=== PATIENT | male | born 1970 | race Caucasian/White ===

== ENCOUNTER → 2018-10-06 09:35 | Outpatient (CLI) | payer OTHER, SELFPAY ==
--- NOTE | 2018-10-06 09:42 | RAD_ITS ---
STUDY: X-RAY CHEST REASON FOR EXAM: Male, 48 years old. Chest pain TECHNIQUE: Frontal and lateral views of the chest COMPARISON: None. FINDINGS: The lungs are clear. There are no pleural effusions. There is no pneumothorax. The heart is normal in size. The visualized osseous structures are within normal limits. RAD/Chest PA and Lateral IMPRESSION: No acute thoracic pathology. Electronically Signed: Rui Brunson, at 19:40 EST Tel , Service support ,
== END ==
PROVIDERS: Family Provider Internal Medicine; PCP Internal Medicine; Referring Provider Nurse Practitioner Gerontology; Visit Provider Nurse Practitioner Gerontology
DX: R05 Cough (principal)
CPT/HCPCS: 71046

== ENCOUNTER 2019-03-09 20:17 | Emergency (ER) | payer OTHER, SELFPAY ==
[2019-03-09 20:18] VITALS: BP 134/82; PULSE 85; RESP 16; TEMP 36.6; O2SAT 96; BMI 27.0
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
--- NOTE | 2019-03-09 20:35 | RAD_ITS ---
STUDY: X-RAY - BILATERAL RIBS WITH CHEST REASON FOR EXAM: Male, 48 years old. Fall TECHNIQUE - RIBS: 6 view(s) of the ribs. TECHNIQUE - CHEST: Frontal view of the chest COMPARISON: None. FINDINGS - RIBS : There are no displaced rib fractures identified. FINDINGS - CHEST: The lungs are clear. There are no pleural effusions. There is no pneumothorax. The heart is normal in size. RAD/Ribs Silver Min 4V w/PA Chest IMPRESSION: RIBS: No displaced rib fracture identified. CHEST: Clear lungs. Electronically Signed: Kale Dupree, at 21:21 EDT Tel , Service support ,
[2019-03-09] MEDS: HYDROcodone Bitartrate/Apap 5/325 Tablet PO (21:16)
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
--- NOTE | 2019-03-09 21:43 | ED.DEP ---
ED Disposition - Plan for ED Patient: Disposition: Home or Assisted Living Instructions: ED Mechanical Fall Referrals: Anastasiia Velasco DO [Primary Care Provider] -
[2019-03-09 22:13] VITALS: BP 128/60; PULSE 78; RESP 18; O2SAT 96
== END 2019-03-09 22:15 | disposition home or self-care (01) ==
LOC: ED 21:56
PROVIDERS: Emergency Provider Emergency Medicine; Family Provider Nurse Practitioner; PCP Nurse Practitioner
DX: S20.212A Contusion of left front wall of thorax, initial encounter (principal); S90.32XA Contusion of left foot, initial encounter; W11.XXXA Fall on and from ladder, initial encounter; Y93.9 Activity, unspecified; Y92.9 Unspecified place or not applicable; Y99.9 Unspecified external cause status; E11.9 Type 2 diabetes mellitus without complications; Z72.0 Tobacco use; Z79.84 Long term (current) use of oral hypoglycemic drugs
CPT/HCPCS: 71111; 73630; 99283

== ENCOUNTER → 2019-05-05 07:04 | Outpatient (CLI) | payer OTHER, SELFPAY ==
--- NOTE | 2019-05-05 07:07 | CT_ITS ---
STUDY: LOW DOSE CT LUNG CANCER SCREENING REASON FOR EXAM: Male, 48 years old. The patient has a 50 pack-year history of smoking. RADIATION DOSAGE (If Supplied By Facility): CTDIvol = ( 3.02 ) mGy, DLP = ( 99.68 ) mGycm TECHNIQUE: No contrast was administered. Low dose technique was utilized (average mAS-38 and kVp 120). 1.25 mm axial source images with a slice interval of 1.25-mm were reconstructed in lung windows. 2.5 mm axial source images with a slice interval of 2.5-mm were reconstructed in lung windows. 5.0 mm axial source images with a slice interval of 5.0-mm were reconstructed in soft tissue windows. Nodule measured using lung windows on PACS and/or independent workstation with automated measurement of minimum and maximum diameter. Nodule measurement reported as average diameter rounded to the nearest whole number. Growth is defined as an increase ins size of greater than 1.5 mm. COMPARISON: None. NODULES: No suspicious nodules are seen. Mild increased markings in the posterior aspect of the lingular segment of the left upper lobe abutting the left major fissure suggestive of scarring. Endobronchial lesion: None. Aorta: Unremarkable. Coronary arteries: Coronary artery calcification. Pulmonary artery: Not enlarged. Mediastinal nodes: Multiple small benign-appearing mediastinal lymph nodes. Other chest and abdominal findings: CT/Low Dose CT Lung Screening IMPRESSION: Lung-RADS category 2 - Continue annual screening with LDCT in 12 months. IMPORTANT NOTES FOR USE: ACR Lung-RADS Version 1.0 Assessment Categories Release Date: January 18, 2014 Category: Coded 0-4 bases on nodule(s) with highest degree of suspicion. Negative screen is defined as categories 1 and 2; a positive screen is defined as categories 3 and 4. Category 3 and 4A nodules that are unchanged on interval CT should be coded as category 2, and individuals returned to screening in 12 months. Category 4X: Category 3 or 4 nodules with additional imaging findings that increase the suspicion of lung cancer, such as spiculation, GGN that doubles in size in 1 year, enlarged lymph notes, etc. Category Modifiers: S (significant finding unrelated to lung cancer) and C (prior history of treated lung cancer) may be added to the 0-4 Lung-RADS Electronically Signed: Mor Morales, at 9:42 EDT , Service support ,
== END ==
PROVIDERS: Family Provider Nurse Practitioner; PCP Nurse Practitioner; Referring Provider Nurse Practitioner; Visit Provider Nurse Practitioner
DX: F17.200 Nicotine dependence, unspecified, uncomplicated (principal)
CPT/HCPCS: G0297

== ENCOUNTER 2019-08-11 17:10 | Emergency (ER) | payer OTHER, SELFPAY ==
[2019-08-11 17:11] VITALS: BP 129/83; PULSE 79; RESP 14; TEMP 36.7; O2SAT 98; BMI 28.8
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
[2019-08-11] MEDS: 0.9% Normal Saline 1,000 ML 1000 ML IV (17:48)
[2019-08-11] MEDS: Morphine 4 MG/ML Syringe IV (17:48)
[2019-08-11] MEDS: BACITRACIN 15 GM Tube 1 APPLIC TOPICAL (17:49)
[2019-08-11 17:56] LABS: Absolute Lymphocyte Count 2.82 X10^3/uL (0.83-4.51); Absolute Neutrophil Count 3.8 X10^3/uL (2.0-7.7); Basophil# 0.04 X10^3/uL; Basophil% 0.5 % (0-1); Eosinophil# 0.42 X10^3/uL; Eosinophils% 5.5 % (0-5); Hematocrit 46.6 % (40-54); Hemoglobin 15.3 g/dL (13.0-16.5); Lymphocyte # 2.82 X10^3/ul (4.0); Lymphocyte % 36.7 % (19-41); Mean Corp Hgb Conc 32.8 g/dL (32-36); Mean Corpuscular Hgb 30.7 pg (27.0-32.0); Mean Corpuscular Volume 93.6 fL (80-94); Mean Platelet Vol. 9.6 fl (6.2-12.0); Monocyte# 0.58 X10^3/uL; Monocyte% 7.6 % (0-10); NRBC Flagged by Analyzer 0 % (0-5); Neutrophil # 3.81 X10^3/uL (2.7-7.7); Neutrophil % 49.6 % (47-70); Platelet Count 237 K/mm3 (150-450); RBC Distribution Width CV 13.1 % (11.6-14.6); RBC Distribution Width SD 44.5 fl (35.1-43.9); Red Blood Count 4.98 M/mm3 (4.6-6.2); White Blood Count 7.7 K/mm3 (4.4-11.0)
[2019-08-11 18:11] LABS: Anion Gap 6 (5-15); BUN 12 mg/dL (7-18); BUN/Creat Ratio 9.7 RATIO (10-20); Calcium,Total 9.1 mg/dL (8.5-10.1); Chloride 106 mmol/L (98-107); Creatinine, Serum 1.24 mg/dL (0.70-1.30); EST Glomerular Filtration Rate 65 mL/min (>60); Est Glom Filt Rate - Afr Amer 79 mL/min (>60); Estimated Creatinine Clearance 77.36 ml/min; Glucose 114 mg/dL (74-106); Potassium 3.9 mmol/L (3.5-5.1); Sodium Level 142 mmol/L (136-145)
--- NOTE | 2019-08-11 18:12 | ED.RN ---
declined chest xray
[2019-08-11] MEDS: Lidocaine 2% Jelly 1 APPLIC Tube TOPICAL (18:46)
[2019-08-11 19:11] VITALS: RESP 16
[2019-08-11] MEDS: Tetracaine 0.5% Ophthalmic Bottle OPHTHALMIC (19:25)
[2019-08-11] MEDS: Fluorescein 1 MG STRIP 1 STRIP OPHTHALMIC (19:25)
[2019-08-11 19:52] VITALS: BP 136/87; PULSE 63; RESP 16; O2SAT 96
--- NOTE | 2019-08-11 19:56 | ED.RN ---
REVIEWED D/C INSTRUCTIONS, FOLLOW UP CARE, PRESCRIPTIONS, AND S/S THAT WOULD WARRANT A RETURN TO THE ED WITH PT. PT VERBALIZED AN UNDERSTANDING AND DENIES FURTHER QUESTIONS FOR THIS RN. PT SKIN P/W/D, RESP EVEN AND UNLABORED, PT A&O X 3, NO DISTRESS NOTED. PT AMBULATED OUT OF ED, GAIT STEADY.
== END 2019-08-11 19:57 | disposition home or self-care (01) ==
PROVIDERS: Emergency Provider Emergency Medicine; Family Provider Nurse Practitioner; PCP Nurse Practitioner
DX: T20.14XA Burn of first degree of nose (septum), initial encounter (principal); T28.0XXA Burn of mouth and pharynx, initial encounter; S05.02XA Injury of conjunctiva and corneal abrasion without foreign body, left eye, initial encounter; X12.XXXA Contact with other hot fluids, initial encounter; Y93.89 Activity, other specified; Y92.9 Unspecified place or not applicable; Y99.9 Unspecified external cause status; Z23 Encounter for immunization; E11.9 Type 2 diabetes mellitus without complications; R05 Cough; Z72.0 Tobacco use; Z79.84 Long term (current) use of oral hypoglycemic drugs; Z79.899 Other long term (current) drug therapy
CPT/HCPCS: 80048; 85025; 90715; 99284; A4216

== ENCOUNTER → 2019-11-11 11:20 | Outpatient (CLI) | payer SELFPAY ==
--- NOTE | 2019-11-11 11:27 | CT_ITS ---
HISTORY: CALCIUM SCORING EXAMINATION: CT Heart Quantitative Coronary Calcium Scoring W/O Contrast Injection TECHNIQUE: Noncontrast CT images of the heart were obtained with calculation of coronary calcium score. A radiation dose optimization technique was utilized for this scan. CTDIvol 12.19 DLP 219.42 COMPARISON: None FINDINGS: LM 79.8 LAD 145 LCX 0 RCA 8.21 Total 233 Minimal atelectasis is noted. Heart size appears normal. There is less portions of the upper abdomen are unremarkable. Thoracic osteophytes. CT/Limited Chest CT w/CCTA IMPRESSION: Moderate calcified plaque burden. Cardiovascular disease risk is high. Between 75 and 90% of people with same gender and similar age have a lower calcium score. NOTE: The predictive value of CT coronary calcium scoring has been studied in populations of ASYMPTOMATIC individuals only. Any patient who is experiencing symptoms which could be attributable to coronary artery disease should be promptly evaluated regardless of their calcium score. Individualized dose optimization techniques were used for this CT. at 2335 Reported and signed by: Priscilla Funk MD Electronically Signed: Priscilla Funk MD at 23:35 EST Tel , Service support ,
[2019-11-11 12:06] VITALS: BP 134/67; PULSE 59; RESP 16; O2SAT 96; BMI 29.1
--- NOTE | 2019-11-11 18:00 | CA.SCORE ---
Calcium Scoring Date of Study:: 11/11/19 Coronary Calcium Scoring: High-resolution Computed Tomographic imaging of the chest was performed on 11/11/2019 with particular attention paid to the coronary arteries. Images from the examination were analyzed for the presence and extent of coronary artery calcification , using coronary calcium quantification software. The patient tolerated the procedure well and there were no complications. The results of the coronary calcification analysis are provided below. - Findings Left Main (LM): 79.8 Left Anterior Descending (LAD): 145 Left Circumflex (LCX): 0 Right Coronary Artery (RCA): 8.21 Total Agatston Score: 233.01 Percentile Ranking: According to pre-published reference tables between 75% and 90% of patients of the same gender/similar age had the same/lower scores. Calcium Scoring Interpretation: 0 No identifiable atherosclerotic plaque. Very low cardiovascular disease risk. <5% chance of presence coronary artery disease A Negative Examination 1-10 Minimal Plaque burden. Significant coronary artery disease very unlikely. 11-100 Mild plaque burden. Likely mild or minimal coronary atherosclerosis. 101-400 Moderate plaque burden Moderate non-obstructive coronary artery disease highly likely. Over 400 Extensive plaque burden. High likelihood of at least one significant coronary stenosis (>50% diameter) Calcium Score: 101 - 400 Moderate non-obstructive coronary artery disease highly like - Continue cardiovascular risk factor evaluation and care as deemed appropriate.
== END ==
PROVIDERS: PCP Nurse Practitioner; Referring Provider Nurse Practitioner; Visit Provider Nurse Practitioner
DX: I25.10 Atherosclerotic heart disease of native coronary artery without angina pectoris (principal)
CPT/HCPCS: 75571; 76380

== ENCOUNTER 2020-03-08 19:41 | Emergency (ER) | payer OTHER, SELFPAY ==
[2019-11-11 12:06] VITALS: BMI 29.1
[2020-03-08 19:42] VITALS: BP 150/80; PULSE 74; RESP 16; TEMP 36.6; O2SAT 97; BMI 30.5
--- NOTE | 2020-03-08 20:06 | RAD_ITS ---
STUDY: X-RAY - LEFT KNEE REASON FOR EXAM: Male, 49 years old. Fall today. Generalized left knee pain. Pain with flexion. TECHNIQUE: 4 view(s) of the knee. COMPARISON: None. FINDINGS: Normal visualized distal femur. Normal visualized proximal tibia and fibula. Normal proximal tibiofibular articulation. Mildly narrowed medial femorotibial compartment. Normal lateral femorotibial compartment. Normal patellofemoral articulation. Small patella spur. The soft tissue structures are unremarkable. RAD/Knee 4 or More Views IMPRESSION: Mild degenerative changes. Electronically Signed: Kale Hood MD at 20:24 EDT , Service support ,
[2020-03-08] MEDS: Acetaminophen 500 MG Tablet 1000 MG PO (20:23)
--- NOTE | 2020-03-08 20:42 | ED.DCSUM_ITS ---
- ER Visit Summary Date of Service: 03/08/20 Chief Complaint: Left knee pain History of Present Illness: The patient is a 49 M who sees Bela addison. He reports that approximately 2 hours ago he stepped down a stair and had the abrupt onset of severe left knee pain. He describes a sharp, aching pain that is 10 of 10 at worst and a 10 currently. Is worsened by bearing weight and relieved by rest. He reports the pain is so severe that he did fall to the ground. He denies any other injuries or complaints. No blow to the head or loss of consciousness. He is not on anticoagulants. Physical Examination: Vitals: Stable. Afebrile. Neck: No vertebral tenderness. Full ROM without difficulty. Cleared by NEXUS criteria. Back: No vertebral tenderness. General: A&O x 3. NAD. Cardiovascular exam: Regular rate and rhythm, no murmur, rub or gallop. Respiratory exam: Chest nontender. No crepitus. Clear to auscultation bilaterally. No wheezes or stridor. Abdominal exam: Soft, nontender, nondistended, normal bowel sounds. No pain in RUQ or LUQ specifically. No peritoneal signs. Extremity: Left knee: Moderate joint effusion. No overlying erythema or warmth to suggest a septic joint. He has no pain or ligamentous instability with anterior/posterior drawer or medial/lateral stress. He does have a positive Esteban with his foot deviated medially. He is neurovascular intact distal to this. Test Results: Clinical Impression(s) from Imaging Studies Knee X-Ray 03/08/20 20:06 IMPRESSION: Mild degenerative changes. Electronically Signed: Kale Hood MD at 20:24 EDT , Service support , Emergency Department Course and Treatment: Patient was treated with Tylenol. I had a prolonged discussion with him that I suspect that he may have damaged his meniscus. Treatment Plan: Patient will be discharged with crutches. Is given a prescription for [place]. Instructed to follow-up with Dr. Rangel in 1 week if not improving. Return to the emergency department for any worsening symptoms. Disposition: To home in improved and stable condition. Impression: 1. Left knee pain, acute. This note was generated with [employer] software. It may contain incorrect words, spelling, and punctuation that were not noted in review of the chart prior to signing ED Disposition - Plan for ED Patient: Disposition: Home or Assisted Living Instructions: ED Meniscal Injury Knee Poss Prescriptions: Hydrocodone Bitart/Apap 5-325 [[place] 5MG-325MG] 1 tab PO Q6H PRN PRN 3 Days #14 tab PRN Reason: Pain Prescription Printed Referrals: Doc Marley DO [STAFF PHYSICIAN] - 1 Week if not improving
[2020-03-08 20:52] VITALS: RESP 16
--- NOTE | 2020-03-08 20:53 | ED.RN ---
REVIEWED D/C INSTRUCTIONS, FOLLOW UP CARE, PRESCRIPTION, AND S/S THAT WOULD WARRANT A RETURN TO THE ED WITH PT. PT VERBALIZED AN UNDERSTANDING AND DENIES FURTHER QUESTIONS FOR THIS RN. PT SKIN P/W/D, RESP EVEN AND UNLABORED, NO DISTRESS NOTED. PT ASSISTED OUT OF ED IN WHEELCHAIR.
== END 2020-03-08 20:56 | disposition home or self-care (01) ==
LOC: ED 20:38
PROVIDERS: Emergency Provider Emergency Medicine; PCP Nurse Practitioner
DX: M25.562 Pain in left knee (principal); M25.462 Effusion, left knee; E11.9 Type 2 diabetes mellitus without complications; Z72.0 Tobacco use; Z79.84 Long term (current) use of oral hypoglycemic drugs
CPT/HCPCS: 73564; 99283

== ENCOUNTER → 2020-12-02 13:01 | Outpatient (CLI) | payer OTHER, SELFPAY ==
--- NOTE | 2020-12-02 13:06 | CT_ITS ---
STUDY: LOW DOSE CT LUNG CANCER SCREENING REASON FOR EXAM: Male, 50 years old. Current smoker RADIATION DOSAGE (If Supplied By Facility): CTDIvol = ( 4.02 ) mGy, DLP = ( 155.02 ) mGycm TECHNIQUE: No contrast was administered. Low dose technique was utilized (average mAS-38 and kVp 120). 1.25 mm axial source images with a slice interval of 1.25-mm were reconstructed in lung windows. 2.5 mm axial source images with a slice interval of 2.5-mm were reconstructed in lung windows. 5.0 mm axial source images with a slice interval of 5.0-mm were reconstructed in soft tissue windows. Nodule measured using lung windows on PACS and/or independent workstation with automated measurement of minimum and maximum diameter. Nodule measurement reported as average diameter rounded to the nearest whole number. Growth is defined as an increase ins size of greater than 1.5 mm. COMPARISON: CT chest 11/11/2019 and 05/05/2019. FINDINGS: Lung nodules None. Lungs COPD: None. Fibrosis: None. Lymph nodes: None. Other findings: None. Pleural space Effusion: None. Calcification: None. Thickening: None. Heart Heart size: Normal. Coronary calcification: Moderate. Pericardial effusion: None. Other findings: None. Upper abdomen: None. Thorax: There is mild right shoulder arthrosis. There are mild degenerative changes of the spine. Base of neck: None. CT/Low Dose CT Lung Screening IMPRESSION: Lung-RADS category 1 - Continue annual screening with LDCT in 12 months. IMPORTANT NOTES FOR USE: ACR Lung-RADS Version 1.0 Assessment Categories Release Date: January 18, 2014 Category: Coded 0-4 bases on nodule(s) with highest degree of suspicion. Negative screen is defined as categories 1 and 2; a positive screen is defined as categories 3 and 4. Category 3 and 4A nodules that are unchanged on interval CT should be coded as category 2, and individuals returned to screening in 12 months. Category 4X: Category 3 or 4 nodules with additional imaging findings that increase the suspicion of lung cancer, such as spiculation, GGN that doubles in size in 1 year, enlarged lymph notes, etc. Category Modifiers: S (significant finding unrelated to lung cancer) and C (prior history of treated lung cancer) may be added to the 0-4 Lung-RADS Electronically Signed: Swati Jones MD at 15:14 EST Tel , Service support ,
== END ==
PROVIDERS: PCP Nurse Practitioner; Referring Provider Nurse Practitioner; Visit Provider Nurse Practitioner
DX: F17.200 Nicotine dependence, unspecified, uncomplicated (principal)
CPT/HCPCS: 71271

== ENCOUNTER 2023-04-12 18:18 | Emergency (ER) | payer SELFPAY ==
[2023-04-12 18:18] VITALS: BP 132/73; PULSE 79; RESP 14; TEMP 27.2; O2SAT 95; BMI 28.1
[2023-04-12 20:04] VITALS: BP 124/80; PULSE 72; RESP 14; TEMP 36.9; O2SAT 96
--- NOTE | 2023-04-12 20:16 | EX.ED.DYSGE1 ---
HPI <IDRIS Bowling - Last Filed: 04/12/23 21:20> History of Present Illness Chief Complaint: Shortness of Breath Narrative Narrative: Patient is a 52-year-old male with history of prediabetes presents the emergency department for shortness of breath after a coughing/vomiting attack which occurred yesterday. Patient states that last evening, he was eating potato chips and was drinking water when he felt like the food went down the wrong tube. The patient had a significant coughing fit, and per the was violently vomiting for 2 hours. Patient today has more shortness of breath, he is feeling chest pressure, he is concerned he might have aspiration pneumonia. He also states he feels generally fatigued. PFSH <IDRIS Bowling - Last Filed: 04/12/23 21:20> [facility] Home Medications metformin 500 mg tablet 500 mg PO BIDCM #60 tabs 12/04/14 [Rx Last Taken Unknown] dulaglutide 1.5 mg/0.5 mL subcutaneous pen injector (Trulicity) 1.5 mg SQ QWEEK 03/09/19 [History Last Taken Unknown] rosuvastatin 10 mg tablet 10 mg PO DAILY 03/08/20 [History Last Taken Unknown] azithromycin 250 mg tablet (Zithromax) 250 mg PO DAILY 4 days #4 tabs 04/12/23 [Rx Last Taken Unknown] Allergy/AdvReac Type Severity Reaction Status Date / Time amoxicillin Allergy Swelling Verified 04/12/23 18:18 Social History Smoking Status: Current every day smoker tobacco type: cigarettes ROS <IDRIS Bowling - Last Filed: 04/12/23 21:20> ROS ED ROS Narrative Constitutional: Negative for fever, chills, weight loss, weakness Eyes: Negative for vision loss, vision change, double vision ENT: Negative for any sore throat, ear pain, congestion Cardiovascular: Negative for any tightness, palpitations. Positive for chest pain Respiratory: Negative for any sputum production, hemoptysis, dyspnea on exertion, orthopnea. Positive for cough, dyspnea Gastrointestinal: Negative for any abdominal pain, nausea, vomiting, diarrhea, constipation, blood in stool, blood in vomit : Negative for any urinary frequency, dysuria, retention, blood in urine Muscle skeletal: Negative for any muscle joint pain, stiffness, myalgias, arthralgias, neck pain, back pain Neurological: Negative for any headache, syncope, numbness or tingling, dizziness Skin: Negative for any rashes, lumps, itching, abrasions, lacerations Psychiatric: Negative for any depression, anxiety, stress, suicidal ideation, homicidal ideation Hematologic: Negative for any easy bruising, excessive bruising, easy bleeding Allergies: Negative for any eczema, hives, rash EXAM <IDRIS Bowling - Last Filed: 04/12/23 21:20> Physical Exam Narrative Exam Narrative: Vital signs reviewed. HEET: Head normocephalic atraumatic, TMs clear bilaterally. Posterior pharynx is clear, moist mucous membranes. Nares clear bilaterally. Neck: Supple with no lymphadenopathy or tenderness. No signs of meningismus, negative jolt sign. Cardiac: Regular rate and rhythm no murmurs gallops or rubs, equal peripheral pulses bilaterally. Respiratory: Patient does have rales throughout pulmonary exam. No chest tenderness. Negative for any crepitus. Abdomen: Soft, nontender, nondistended. No abdominal bruit or pulsatile masses. No hepatosplenomegaly Extremities: No peripheral edema, no signs of gross trauma or deformity. Active full range of motion of all extremities. Neuro: Cranial nerves II through XII intact, no focal neurological deficits. Skin: Clean dry and intact with no rash, purpura, petechiae, vesicles or pustules. Backs/flank: No CVA tenderness, no midline spinal tenderness, no deformity. Psych: Normal mood and affect. No SI, HI or acute psychosis. Const Vital Signs: 04/12/23 18:18 04/12/23 20:04 04/12/23 20:05 Temperature 81 F L 98.5 F Temperature Source Temporal Oral Pulse Rate 79 72 Respiratory Rate 14 14 Respiratory Effort Short of Breath Respiratory Depth Normal Respiratory Pattern Normal Blood Pressure 132/73 H 124/80 H Blood Pressure Mean 92 94 Pulse Ox 95 96 Oxygen Delivery Method Room Air Room Air Room Air <Dr. Aditya Sams MD - Last Filed: 04/12/23 21:20> Physical Exam Const Vital Signs: 04/12/23 18:18 04/12/23 20:04 04/12/23 20:05 Temperature 81 F L 98.5 F Temperature Source Temporal Oral Pulse Rate 79 72 Respiratory Rate 14 14 Respiratory Effort Short of Breath Respiratory Depth Normal Respiratory Pattern Normal Blood Pressure 132/73 H 124/80 H Blood Pressure Mean 92 94 Pulse Ox 95 96 Oxygen Delivery Method Room Air Room Air Room Air [facility] <Stew LernerIDRIS resendiz - Last Filed: 04/12/23 21:20> [facility] Lab Data Labs: Laboratory Results - last 24 hr 04/12/23 20:20 WBC 11.8 H RBC 4.91 Hgb 15.1 Hct 45.6 MCV 92.9 MCH 30.8 MCHC 33.1 RDW Std Deviation 45.3 H RDW Coeff of Yvonne 13.2 Plt Count 216 MPV 9.7 Immature Gran % (Auto) 0.300 Neut % (Auto) 71.6 H Lymph % (Auto) 17.4 L [place] % (Auto) 8.7 Eos % (Auto) 1.6 Baso % (Auto) 0.4 Absolute Neuts (auto) 8.5 H Absolute Lymphs (auto) 2.06 Nucleated RBC % 0 Sodium 137 Potassium 4.3 Chloride 102 Carbon Dioxide 28.0 Anion Gap 7 BUN 13 Creatinine 1.37 H Estim Creat Clear Calc 69.66 Est GFR (MDRD) Af Amer 70 Est GFR (MDRD) Non-Af 57 L BUN/Creatinine Ratio 9.5 L Glucose 169 H Calcium 9.0 Treatment and Re-Evaluation :: Patient appears to be in no respiratory distress, patient's vital signs are stable. All radiologic examinations were read, reviewed by the emergency department attending. From these reads, a plan of care will be put in place. Patient presents to the emergency department after a significant aspiration event coughing. Patient is here for evaluation. Patient will have a two-view chest x-ray, basic laboratory values. There is no crepitus palpated on examination however patient will receive chest x-ray concerning for any pneumomediastinum, aspiration pneumonia. Patient's laboratory values are slight leukocytosis with a white blood count 11.8, patient's creatinine was slightly elevated 1.37 however this is improvement from 1.4 multiple years ago. Patient's blood glucose is 169, patient does have diabetes. The patient's chest x-ray was concerning for aspiration pneumonia. Patient is not hypoxic. There is no crepitus. Patient was placed on Zithromax, given 500 mg here, 250 mg for 4 days. He instructed return here for any worsening chest pain, shortness of breath fever chills nausea or vomiting. All questions answered, patient stable for discharge <Dr. Aditya Sams MD - Last Filed: 04/12/23 21:20> [facility] Narrative Medical decision making narrative: I have personally performed a face to face assessment of the patient and have reviewed the STARR Note. I performed a substantive portion of the visit including all aspects of the following. My das findings include: History is 52-year-old male was eating last night get some caught in his throat start coughing and thinks he may have aspirated. Exam is [1-year-old male vital signs stable afebrile. Pulse ox 96% room air no hypoxia. No distress. H EENT exam unremarkable. Neck nontender. Lungs few scattered wheezes. He is a smoker. No rales or rhonchi. Equal symmetrical. Heart regular rhythm rate about 70 no murmur. Chest wall nontender. Abdomen soft nontender. Moving all 4 extremities. Calves are nontender without edema or cords. He is awake and alert.] Medical Decision Making [chest x-ray is either chronic changes from smoking or early aspiration pneumonia in the right lower lobe. He will be treated as such with Zithromax. First dose given in the ER.] Other additions or changes: [None] Lab Data Attestation: I reviewed the patient's lab results. Lab results narrative: CBC shows white count 9.8. H&H 15 and 45. Platelets 216. Electrolytes unremarkable gap of 7. BUN of 13 creatinine 1.37. Glucose 169. Labs: Laboratory Results - last 24 hr 04/12/23 20:20 WBC 11.8 H RBC 4.91 Hgb 15.1 Hct 45.6 MCV 92.9 MCH 30.8 MCHC 33.1 RDW Std Deviation 45.3 H RDW Coeff of Yvonne 13.2 Plt Count 216 MPV 9.7 Immature Gran % (Auto) 0.300 Neut % (Auto) 71.6 H Lymph % (Auto) 17.4 L [place] % (Auto) 8.7 Eos % (Auto) 1.6 Baso % (Auto) 0.4 Absolute Neuts (auto) 8.5 H Absolute Lymphs (auto) 2.06 Nucleated RBC % 0 Sodium 137 Potassium 4.3 Chloride 102 Carbon Dioxide 28.0 Anion Gap 7 BUN 13 Creatinine 1.37 H Estim Creat Clear Calc 69.66 Est GFR (MDRD) Af Amer 70 Est GFR (MDRD) Non-Af 57 L BUN/Creatinine Ratio 9.5 L Glucose 169 H Calcium 9.0 Radiography Chest X-Ray - ED: 2 View, Read by ED Physician, Bony Structures and Right Infiltrate Diagnostic Testing: Chest x-ray, 2 views, AP and lateral, interpreted by myself shows an infiltrate in the right lower lobe consistent with aspiration pneumonia. There is also be chronic scarring from his smoking. Normal cardiac silhouette. Discharge Plan Triage Chief Complaint: Shortness of Breath ED Midlevel Provider: Stew Sosa ED Provider: Aditya Sams Dx/Rx/DC Orders Clinical Impression: Aspiration pneumonia Instructions: ED Pneumonia (Adult) Prescriptions: No Action metformin 500 MG tablet 500 mg PO BIDCM Qty: 60 0RF dulaglutide [Trulicity] 1.5 MG/0.5 ML pen injector 1.5 mg SQ QWEEK rosuvastatin 10 MG tablet 10 mg PO DAILY Primary Care Provider: Care Physician,No Primary Referrals: Bela Bee RADIAL DRILL PRESS SET UP OPERATOR, RADIAL DRILL PRESS SET UP OPERATOR-C [Non-Staff] -
[2023-04-12] MEDS: Ketorolac 15 MG/ML Vial IV (20:22)
[2023-04-12 20:29] LABS: Absolute Lymphocyte Count 2.06 X10^3/uL (0.83-4.51); Absolute Neutrophil Count 8.5 X10^3/uL (2.0-7.7); Basophil# 0.05 X10^3/uL; Basophil% 0.4 % (0-1); Eosinophil# 0.19 X10^3/uL; Eosinophils% 1.6 % (0-5); Hematocrit 45.6 % (40-54); Hemoglobin 15.1 g/dL (13.0-16.5); Lymphocyte # 2.06 X10^3/ul (0.83-4.51); Lymphocyte % 17.4 % (19-41); Mean Corp Hgb Conc 33.1 g/dL (32-36); Mean Corpuscular Hgb 30.8 pg (27.0-32.0); Mean Corpuscular Volume 92.9 fL (80-94); Mean Platelet Vol. 9.7 fl (6.2-12.0); Monocyte# 1.03 X10^3/uL; Monocyte% 8.7 % (0-10); NRBC Flagged by Analyzer 0 % (0-5); Neutrophil # 8.46 X10^3/uL (2.7-7.7); Neutrophil % 71.6 % (47-70); Platelet Count 216 K/mm3 (150-450); RBC Distribution Width CV 13.2 % (11.6-14.6); RBC Distribution Width SD 45.3 fl (35.1-43.9); Red Blood Count 4.91 M/mm3 (4.6-6.2); White Blood Count 11.8 K/mm3 (4.4-11.0)
--- NOTE | 2023-04-12 20:30 | RAD_ITS ---
INDICATION: cough EXAMINATION/TECHNIQUE: X-RAY - XR Chest 2 Views COMPARISON: Prior comparison exam dated March 09, 2018. FINDINGS: LINES/DEVICES: None. LUNGS: Right lower lobe opacity concerning for pneumonia. No associated pleural effusion. Bilateral, mid lung and reticular opacities may represent atelectasis. Atypical appearance for interstitial lung disease. No nodule. Central airways are within normal limits. No pneumothorax. MEDIASTINUM AND CARDIOVASCULAR STRUCTURES: Normal size and contour of the cardiomediastinal silhouette. No evidence of pulmonary vascular congestion. BONES AND SOFT TISSUES: No fracture or focal osseous lesion. RAD/Chest PA and Lateral IMPRESSION: 1. Right lower lobe pneumonia. Follow-up chest x-ray 6 weeks following completion of treatment to ensure resolution is recommended. Electronically Signed: Celestino Nobles DO at 21:23 EDT ,
[2023-04-12 20:44] LABS: Anion Gap 7 (5-15); BUN 13 mg/dL (7-18); BUN/Creat Ratio 9.5 RATIO (10-20); Chloride 102 mmol/L (98-107); Creatinine, Serum 1.37 mg/dL (0.70-1.30); EST Glomerular Filtration Rate 57 mL/min (>60); Est Glom Filt Rate - Afr Amer 70 mL/min (>60); Estimated Creatinine Clearance 69.66 ml/min; Glucose 169 mg/dL (74-106); Potassium 4.3 mmol/L (3.5-5.1); Sodium Level 137 mmol/L (136-145)
[2023-04-12] MEDS: Azithromycin 250 MG Tablet 500 MG PO (21:25)
== END 2023-04-12 21:31 | disposition home or self-care (01) ==
PROVIDERS: Nurse Practitioner; Emergency Provider Emergency Medicine; Visit Provider Emergency Medicine
DX: J69.0 Pneumonitis due to inhalation of food and vomit (principal); E11.9 Type 2 diabetes mellitus without complications; F17.210 Nicotine dependence, cigarettes, uncomplicated; Z79.84 Long term (current) use of oral hypoglycemic drugs; Z79.899 Other long term (current) drug therapy
CPT/HCPCS: 71046; 80048; 85025; 96374; 99284

== ENCOUNTER 2023-06-09 11:33 | Emergency (ER) | payer SELFPAY ==
[2023-06-09 11:34] VITALS: BP 124/83; PULSE 74; RESP 14; TEMP 36.6; O2SAT 98; BMI 29.4
[2023-06-09 11:42] VITALS: BP 124/73; PULSE 74; RESP 14; TEMP 36.6; O2SAT 98
--- NOTE | 2023-06-09 12:12 | ED.VIS.LOWEX ---
HPI History of Present Illness Chief Complaint: Wound Narrative Narrative: 52-year-old male past medical history of diabetes presents with wound on his right lower extremity that seems to be worsening. He complains of ankle swelling now. States 4 days ago he thought he had a mosquito bite on the area. He had an online evaluation and received doxycycline and Bactroban to apply to the area. States yesterday had a fever and perhaps the day before, but none today. He is not taking Tylenol or ibuprofen. He is states that he is unsure if he had scratched the area, but the reddened area has been stable, but he was concerned because his ankle started swelling, and he has a burning sensation in his right posterior calf. He denies any chest pain or shortness of breath or other symptoms. PFSH PFSH Medical History no medical history Home Medications metformin 500 mg tablet 500 mg PO BIDCM #60 tabs 12/04/14 [Rx Last Taken Unknown] dulaglutide 1.5 mg/0.5 mL subcutaneous pen injector (Trulicity) 1.5 mg SQ QWEEK 03/09/19 [History Last Taken Unknown] rosuvastatin 10 mg tablet 10 mg PO DAILY 03/08/20 [History Last Taken Unknown] azithromycin 250 mg tablet (Zithromax) 250 mg PO DAILY 4 days #4 tabs 04/12/23 [Rx Last Taken Unknown] sulfamethoxazole 800 mg-trimethoprim 160 mg tablet (Bactrim DS) 1 tab PO BID #20 tabs 06/09/23 [Rx Last Taken Unknown] Allergy/AdvReac Type Severity Reaction Status Date / Time amoxicillin Allergy Swelling Verified 06/09/23 11:34 Family History no significant family his Surgical History no surgical history Social History Smoking Status: Current every day smoker tobacco type: cigarettes ROS ROS ED ROS Narrative Constitutional: Ported fever, no chills. HEENT: No sore throat. No neck pain. No loss of vision. No rhinorrhea. Cardiovascular: No chest pain. No palpitations. No pedal edema. Respiratory: No cough, no shortness of breath. Abdominal: No abdominal pain. No nausea. No vomiting. Genitourinary: No dysuria. No hematuria. Musculoskeletal: No myalgias. No arthralgias. Neurologic: No headaches. No dizziness. No lightheadedness. Skin: No rash. There is redness and duration to his right posterior calf, no fluctuance. Full range of motion of ankle and knee. Psychiatric: No depression. No anxiety. EXAM Physical Exam Const Vital Signs: 06/09/23 11:34 06/09/23 11:42 Temperature 98 F 98 F Temperature Source Temporal Temporal Pulse Rate 74 74 Respiratory Rate 14 14 Blood Pressure 124/83 H 124/73 H Blood Pressure Mean 96 90 Pulse Ox 98 98 Oxygen Delivery Method Room Air Room Air MDM MDM MDM Narrative Medical decision making narrative: Concern would be for cellulitis versus cellulitis and abscess of right lower extremity. I have low concern for DVT based on the patient's clinical examination and history and physical is not suggestive of that. I discussed with him needle aspiration and stab wound incision, but he declined. I do not feel it is amenable to full incision and drainage. I do not feel he needs laboratory work or imaging as well. Based on insurance reasons, patient states that he does not have a primary care physician with whom he can follow-up. Shared decision making, as he is already on doxycycline and is using Bactroban topically, I do feel that the addition of Bactrim would be beneficial to the patient as double coverage for methicillin-resistant Staphylococcus aureus. He will continue elevation of his right lower extremity and take [id number] analgesics as needed. I have low concern for sepsis as well as he is currently not meeting any sirs criteria. I feel he can continue his outpatient treatment of his cellulitis. Do not feel that he requires observation or admission at this time. Return instructions to the emergency department were reviewed. Disposition is discharged home in stable condition. Patient is agreeable to the plan. History & Record Review Discussion w/independent historian: Patient Additional record(s) reviewed:: Prior ED visit Discharge Plan Triage Chief Complaint: Wound ED Provider: Gary Butcher Dx/Rx/DC Orders Clinical Impression: Cellulitis of right lower extremity, Cellulitis of right lower leg, Leg pain Instructions: ED Cellulitis Prescriptions: New sulfamethoxazole-trimethoprim [Bactrim DS] 800-160 mg tablet 1 tab PO BID Qty: 20 0RF No Action metformin 500 MG tablet 500 mg PO BIDCM Qty: 60 0RF dulaglutide [Trulicity] 1.5 MG/0.5 ML pen injector 1.5 mg SQ QWEEK rosuvastatin 10 MG tablet 10 mg PO DAILY azithromycin [Zithromax] 250 mg tablet 250 mg PO DAILY 4 Days Qty: 4 0RF Primary Care Provider: Care Physician,No Primary Referrals: Miracle Pandey [Non-Staff] - 3-5 Days if not improving Care Physician,No Primary [Primary Care Provider] - Activity Restrictions/Additional Instructions: Take both doxycycline and Bactrim as directed. Follow-up with primary care physician in 3 to 5 days for wound check. Return with sustained high fever, increased redness, new or worsening symptoms. Disposition Disposition: Home, Self Care
== END 2023-06-09 12:31 | disposition home or self-care (01) ==
LOC: ED 12:13
PROVIDERS: Emergency Provider Emergency Medicine; Visit Provider Emergency Medicine
DX: L03.115 Cellulitis of right lower limb (principal); E11.9 Type 2 diabetes mellitus without complications; M79.604 Pain in right leg; F17.210 Nicotine dependence, cigarettes, uncomplicated; Z79.84 Long term (current) use of oral hypoglycemic drugs; Z79.899 Other long term (current) drug therapy
CPT/HCPCS: 99282

== ENCOUNTER 2025-06-24 16:35 | Inpatient (IN) | payer OTHER, SELFPAY ==
[2025-06-24] VITALS (9 sets, daily range): BP systolic 116–137; BP diastolic 10–90; PULSE 66–75; RESP 12–18; TEMP 36.1–37.1; O2SAT 97–100; BMI 25.9; BMI 26.2; BMI 25.2
--- NOTE | 2025-06-24 09:15 | MRI_ITS ---
PROCEDURE: BRAIN WITHOUT CONTRAST 06/25/2025 REASON FOR EXAM: CVA TECHNIQUE: Procedure Code: MRIBR Modality: MR Procedure: BRAIN WITHOUT CONTRAST Multiplanar and multisequence images were obtained. COMPARISON: CT head June 24, 2025. FINDINGS: Brain: Multiple watershed infarctions in the right cerebral hemisphere involving the frontal and parietal lobes. No hemorrhage. No mass-effect. No midline shift. The orbits are unremarkable. The craniocervical junction and midline structures are within normal limits. Ventricles: No ventriculomegaly. Major Intracranial Vessels: Patent. Sinuses: Clear. Mastoids: Clear. 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 No hemorrh age. Reading Location: [id number]
--- NOTE | 2025-06-24 16:59 | CT_ITS ---
PROCEDURE: STROKE BRAIN/HEAD WITHOUT CONT 06/24/2025 REASON FOR EXAM: NEURO DEFICIT, ACUTE, STROKE SUSPECTED TECHNIQUE: Procedure Code: CTBR.ST Modality: CT Procedure: STROKE BRAIN/HEAD WITHOUT CONT Coronal and Sagittal reconstruction series were provided. One or more dose reduction techniques were used (e.g., Automated exposure control, adjustment of the mA and/or kV according to patient size, use of iterative reconstruction technique. FINDINGS: Ventricles are normal in size and midline in position. No evidence of acute hemorrhage or infarction. No extra-axial blood or fluid collections. The paranasal sinuses and mastoid air cells are clear. The calvarial vault and skull base are intact. CT/STROKE Brain/Head without Cont IMPRESSION: No acute intracranial abnormality. Critical results were communicated to Altagracia Mayer at 6:28 p.m.. Reading Location: [id number]
--- NOTE | 2025-06-24 16:59 | EKG12_ITS ---
Test Reason : NEURO S/SX Blood Pressure : */* mmHG Vent. Rate : 70 BPM Atrial Rate : 70 BPM P-R Int : 178 ms QRS Dur : 90 ms QT Int : 392 ms P-R-T Axes : -29 17 28 degrees QTcB Int : 423 ms Normal sinus rhythm Nonspecific T wave abnormality Abnormal ECG Confirmed by CHAR UMANZOR, DAVID ([id number]), news assignment editor XAVIER NAVA ([id number]) on 06/28/2025 6:17:47 AM Referred By: Confirmed By: DAVID PARDO MD
--- NOTE | 2025-06-24 17:05 | ED.VIS.STROK ---
HPI History of Present Illness Chief Complaint: Neuro S/Sx Detail of Chief Complaint: Problems with balance and running into things on his left side Informant: patient and spouse/S.O. Onset/Context/Timing Onset: Days (2 to 3 days ago) Context: Sudden Onset Timing: Continuous Quality and Location: Negative for Right Facial Droop, Left Facial Droop, Right Face Paresthesia, Left Face Parasthesia or Right Arm Parasthesia Onset: 2 to 3 days ago. Current Severity: Moderate Worsened by: Presumed stroke posterior circulation Relieved by: Nothing Associated Symptoms Associated Symptoms: Positive for - (Problems with coordination left side); Negative for Headache, Nausea, Vomiting or Chest Pain Narrative Narrative: Patient is a 54-year-old type II diabetic, hypercholesterolemia and 2 pack/day smoker who presents with problems with coordination left side and running into things. This started approximately 2 to 3 days ago. He denies headache. He denies double vision, blurred vision loss of vision. Patient states he has problems with coordination of the right arm and he demonstrated what he meant. He denied trouble with speech or swallowing. He denied cardiac or respiratory symptoms. He denied GI symptoms and specifically no nausea or vomiting. He denies paresthesia, anesthesia or motor weakness upper or lower extremity. Patient was concerned this may have to do with his diabetes because he had significant retinal swelling when he was first diagnosed. Prior similar symptoms: No Recent Illness/Hospitalization: No [facility] Medical History (Updated 06/24/25 @ 20:[address] Ingrid Wu MD) HLD (hyperlipidemia) CKD (chronic kidney disease), stage II Tobacco use History of renal hypertension Type 2 diabetes mellitus Home Medications ?Medication ?Instructions ?Recorded ?Last Taken ?Type metformin 500 mg tablet 500 mg PO BIDCM #60 tabs 12/04/14 Unknown Rx dulaglutide 1.5 mg/0.5 mL 1.5 mg SQ QWEEK 03/09/19 Unknown History subcutaneous pen injector (Trulicity) rosuvastatin 10 mg tablet 10 mg PO DAILY 03/08/20 Unknown History azithromycin 250 mg tablet 250 mg PO DAILY 4 days #4 tabs 04/12/23 Unknown Rx (Zithromax) sulfamethoxazole 800 1 tab PO BID #20 tabs 06/09/23 Unknown Rx mg-trimethoprim 160 mg tablet (Bactrim DS) Allergy/AdvReac Type Severity Reaction Status Date / Time amoxicillin Allergy Swelling Verified 06/24/25 16:36 Social History (Updated 06/24/25 @ 17:[address] Fahad Mtz MD) household members: spouse Smoking Status: Current every day smoker tobacco type: cigarettes ROS ROS ED Constitutional Constitutional ED: Denies chills, fever(s) or subjective Eyes Eyes: Denies blurry vision, change in vision or diplopia ENT ENT ED: Denies ear pain, rhinorrhea or sore throat Cardiovascular Cardiovascular: Denies chest pain or palpitations Respiratory/Chest Respiratory/Chest: Denies cough, dyspnea or dyspnea on exertion Gastrointestinal Gastrointestinal: Denies abdominal pain, nausea or vomiting Genitourinary Genitourinary ED: Denies dysuria, hematuria or urinary frequency Musculoskeletal Musculoskeletal: Denies arthralgias, back pain, myalgias or neck pain Integumentary Reports rash and other Details: Patient states the rash on his arms due to his poorly controlled diabetes. Neurologic Neurologic: Denies headache(s) or paresthesias Psychiatric Psychiatric: Denies anxiety or depression Endocrine Endocrinology: Denies polydipsia, polyphagia or polyuria Hematologic/Lymphatic Hematologic/Lymphatic: Denies easy bleeding or easy bruising EXAM Physical Exam Const Vital Signs: 06/24/25 16:36 06/24/25 17:20 06/24/25 17:25 Temperature 97 F L Temperature Source Temporal Pulse Rate 75 73 Respiratory Rate 16 15 Blood Pressure 137/84 H 137/90 H Blood Pressure Mean 101 105 Pulse Ox 100 98 98 Oxygen Delivery Method Room Air Room Air Room Air 06/24/25 17:38 06/24/25 18:00 06/24/25 18:30 Temperature Temperature Source Pulse Rate 73 74 71 Respiratory Rate 12 18 18 Blood Pressure 127/10 H 129/80 H 131/88 H Blood Pressure Mean 49 96 102 Pulse Ox 98 97 98 Oxygen Delivery Method Room Air Room Air Room Air 06/24/25 19:58 Temperature Temperature Source Pulse Rate 69 Respiratory Rate 18 Blood Pressure 116/79 Blood Pressure Mean 91 Pulse Ox 99 Oxygen Delivery Method Room Air Positive well nourished and well developed General Appearance ED: well developed and NAD HEENT Reports moist mucous membranes atraumatic Eyes PERRL and EOMs intact bilaterally Eyes Narrative: Question of nystagmus with movement to the right and left. General Eye ED: Negative for pale conjunctiva or scleral icterus Neck no lymphadenopathy, supple and no JVD Chest Wall inspection of chest normal and palpation of chest normal Resp normal respiratory effort and clear to auscultation bilaterally Cardio no murmurs Rate: regular rate Rhythm: regular rhythm Heart Sounds: S1 normal and S2 normal GI normal to inspection, nondistended, normoactive bowel sounds, soft to palpation, non-tender and no masses Back/Spine no CVA tenderness Extremity Negative for normal to inspection General Extremety ED: Negative for deformity or edema General Extremity: Negative for deformity or edema Neuro No oriented x3, CN's II-XII intact bilaterally and no sensory deficits noted Neuro Narrative: Patient has dysmetria on the left. Patient also has a left homonymous hemianopsia. [place] Coma Scale: document GCS findings Spontaneous Obeys Commands Oriented 15 Sensorium / Orientation: alert Speech: speech normal Gait (Neuro): Negative for normal gait Motor Exam: strength 5/5 throughout Psych mental status grossly normal Skin no wounds MDM MDM MDM Narrative Medical decision making narrative: Patient presents with symptoms consistent with stroke involving the posterior circulation. Suspect lesion is involving the left vertebral artery distribution. Stroke order set was initiated. Patient and were informed that he would require admission to the hospital. Lab Data Labs: Laboratory Results - last 24 hr 06/24/25 06/24/25 06/24/25 17:36 17:46 19:05 WBC 9.3 RBC 5.02 Hgb 14.6 Hct 43.0 MCV 85.7 MCH 29.1 MCHC 34.0 RDW Std Deviation 37.7 RDW Coeff of Yvonne 12.1 Plt Count 396 MPV 9.4 Immature Gran % (Auto) 0.200 Neut % (Auto) 65.0 Lymph % (Auto) 26.7 [place] % (Auto) 5.3 Eos % (Auto) 2.4 Baso % (Auto) 0.4 Absolute Neuts (auto) 6.0 Absolute Lymphs (auto) 2.48 Nucleated RBC % 0 PT 13.1 INR 1.0 APTT 27.2 Sodium 134 Potassium 4.4 Chloride 98 Carbon Dioxide 22.9 Anion Gap 13 BUN 17 Creatinine 1.29 H Estim Creat Clear Calc 70.18 Est GFR (MDRD) Non-Af 65 BUN/Creatinine Ratio 12.8 Glucose 228 H Calcium 9.6 Troponin T High Sens 9 Troponin T Hi Sens 2 Hr 10 POC Glucose 245 H Radiography Diagnostic Testing: Clinical Impression(s) from Imaging Studies Brain CT 06/24/25 16:59 IMPRESSION: No acute intracranial abnormality. Critical results were communicated to Altagracia Mayer at 6:28 p.m.. Reading Location: [id number] Head/Neck CTA 06/24/25 19:20 IMPRESSION: No hemodynamically significant stenosis. No aneurysm. Reading Location: [facility] EKG Initial EKG: Attestation: I personally reviewed and interpreted this EKG as follows: Interpretation: Sinus Rhythm (Rate is 70. Parables under 78 ms. Cures duration 90 ms. QT duration 3 to 92 ms. Neon is normal. In my opinion this is a normal EKG. There is some mild artifact.) Management Discussion w/another healthcare provider: Hospitalist (Dr. Wu was paged at 1950 for admission for problems with balance.) Discharge Plan Dx/Rx/DC Orders Clinical Impression: Cerebellar dysmetria, Balance problem, Type 2 diabetes mellitus, Tobacco use, Hypercholesterolemia Disposition Disposition: Acute Care Hospital [facility] NIHSS NIHSS 1a. Level of Consciousness: 0 - Alert; keenly responsive 1b. LOC Questions: 0 - Answers BOTH questions correctly 1c. LOC Commands: 0 - Performs BOTH tasks correctly 2. Best Gaze: 0 - Normal 3. Visual: 1 - Partial hemianopia 4. Facial Palsy: 0 - Normal symmetrical movements 5a. Left Arm: 0 - No drift; arm holds 90 (or 45) degrees for full 10 seconds 5b. Right Arm: 0 - No drift; arm holds 90 (or 45) degrees for full 10 seconds 6a. Left Le - No drift; leg holds 30-degree position for full 5 seconds 6b. Right Le - No drift; leg holds 30-degree position for full 5 seconds 7. Limb Ataxia: 1 - Present in 1 limb 8. Sensory: 0 - Normal; no sensory loss 9. Best Language: 0 - No aphasia; normal (When patient was reading the words and looking at the picture he only saw words there were right of center. He did not see words left of center and he did not see the left part of the card that had activity where he was post to describe. He was unaware that there was a window or a spider or table ) 10. Dysarthria: 0 - Normal Total: 2 Stroke Questions Stroke Team Activated: No Reviewed Inclusion/Exclusion criteria: No IV Thrombolytic Administered: No (Patient outside of the window.)
[2025-06-24 18:03] LABS: Hematocrit 43.0 % (40-54); Hemoglobin 14.6 g/dL (13.0-16.5); Immature Granulocytes Count 0.020 X10^3/uL (0.0-0.0); Mean Corp Hgb Conc 34.0 g/dL (32-36); Mean Corpuscular Volume 85.7 fL (80-94); Mean Platelet Vol. 9.4 fl (6.2-12.0); NRBC Flagged by Analyzer 0 % (0-5); Platelet Count 396 K/mm3 (150-450); RBC Distribution Width CV 12.1 % (11.6-14.6); RBC Distribution Width SD 37.7 fl (35.1-43.9); Red Blood Count 5.02 M/mm3 (4.6-6.2); White Blood Count 9.3 K/mm3 (4.4-11.0)
[2025-06-24 18:07] LABS: Prothrombin Time (Protime)PT. 13.1 SECONDS (11.7-14.9)
[2025-06-24 18:08] LABS: Partial Thromboplast Time 27.2 Seconds (24.1-36.2)
[2025-06-24 19:11] LABS: Anion Gap 13 (5-15); BUN 17 mg/dL (4-19); BUN/Creat Ratio 12.8 RATIO (10-20); Calcium,Total 9.6 mg/dL (7.6-11.0); Carbon Dioxide 22.9 mmol/L (21.0-32.0); Chloride 98 mmol/L (98-108); Estimated Creatinine Clearance 70.18 ml/min (50-250); Glucose 228 mg/dL (70-99); Potassium 4.4 mmol/L (3.3-5.1); Troponin T High Sensitivity 9 ng/L (<=22)
--- NOTE | 2025-06-24 19:20 | CT_ITS ---
PROCEDURE: STROKE CTA HEAD AND NECK W/CON 06/24/2025 REASON FOR EXAM: NEURO DEFICIT, ACUTE, STROKE SUSPECTED TECHNIQUE: Procedure Code: CTCTA.ST.HN Modality: CT Procedure: STROKE CTA HEAD AND NECK W/CON Multiplanar Sagittal and Coronal images were obtained. CONTRAST: Isovue 370 VOLUME: 104 mL One or more dose reduction techniques were used (e.g., Automated exposure control, adjustment of the mA and/or kV according to patient size, use of iterative reconstruction technique). RADIATION DOSE SUMMARY: CTDlvol: 17.26 mGy DLP: 672.69 mGycm COMPARISON: None. FINDINGS: Aortic Arch: Normal size and branching pattern. No significant atherosclerotic plaque. Brachiocephalic and Subclavians: Unremarkable RIGHT Carotid: Right CCA: Unremarkable. Right ICA: Unremarkable. Right ECA: Unremarkable. LEFT Carotid: Left CCA: Unremarkable. Left ICA: Unremarkable. Left ECA: Unremarkable. Vertebrals: Codominant. Arise from the subclavians. Both vertebrals form the basilar. RIGHT Vertebral: Unremarkable. LEFT Vertebral: Unremarkable. Anatomy: [place] anatomy is normal. Aneurysm or avm: No intracranial aneurysms or large vascular malformations are identified. Anterior cerebral arteries: Unremarkable: Middle cerebral arteries: Unremarkable. Basilar artery: Unremarkable. Posterior cerebral arteries: Unremarkable. Other major branches of the posterior circulation: Unremarkable. Major venous structures: Unremarkable. Other findings: Neck: No lymphadenopathy. Lungs: Lung apices are clear. Bones: Bones are unremarkable. CT/STROKE CTA Head AND Neck W/Con IMPRESSION: No hemodynamically significant stenosis. No aneurysm. Reading Location: [facility]
[2025-06-24 19:43] LABS: Troponin T High Sens 2 HR 10 ng/L (<=22)
--- NOTE | 2025-06-24 19:54 | PCM.HP.STD ---
HPI - General General Date of Admission: 06/24/25 Date of Service: 06/24/25 Chief Complaint: Imbalance, running into items on his left side. HPI Narrative The patient is a 54 y/o M w/ PMHx: CKD stage II per prior GFR trending, Diabetes mellitus type II, Hx renal HTN, HLD, Tobacco use who presents to [facility] ED on 06/24/2025 with history of difficulty with balance noted to be running into things specifically on his left side per spouse report coming on suddenly approximately 2 to 3 days prior to presentation noted to be continuous with difficulty with coordination specifically on the left side unable to even dress himself also reporting he does have some difficulty with coordination of the right upper extremity as well with no paresthesias or other focal weakness prompting eventual ED evaluation be cautious. NIH stroke assessment per ED physician with 2 for visual 1 with partial hemianopia and limb ataxia 1 present in 1 limb workup in the ED included T97, heart 75, BP 137/84, respiratory rate 16, 100% room air with most recent repeat vitals heart rate 71, BP 131/88, respiratory routine, 98% room air, CBC with WC 9.3, Hgb 14.6, MCV 85.7, platelets 396 without marked shift, unremarkable coags, BMP with BUN/creatinine 17/1.29, GFR 65, glucose 228, troponin initial 9 with repeat delta 10, POC glucose 245, CT brain with no acute intracranial findings, CTA head and neck with no hemodynamically significant stenosis or aneurysm, EKG with sinus rhythm with no acute evidence of ischemia. In the ED upon evaluation by hospitalist service prior to admission patient fortunately had significant improvement of his vision but does still have some dysmetria on exam. He does report feeling as though his vision has returned to normal and he can see in all quadrants of each eye and does not have any nystagmus. 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 [facility] Medical History (Updated 06/24/25 @ 21:[address] Ingrid Wu MD) HLD (hyperlipidemia) CKD (chronic kidney disease), stage II Tobacco use History of renal hypertension Type 2 diabetes mellitus Home Medications ?Medication ?Instructions ?Recorded ?Last Taken ?Type insulin NPH-regular 70-30 U-100 10 unit subcut BID diabetes 06/24/25 Unknown History insulin 100 unit/mL subcutaneous pen (Humulin 70/30 U-100 KwikPen) Allergy/AdvReac Type Severity Reaction Status Date / Time amoxicillin Allergy Swelling Verified 06/24/25 16:36 Family History (Updated 06/24/25 @ 21:[address] Ingrid Wu MD) Mother Diabetes Father Alcohol abuse Surgical History (Updated 06/24/25 @ 21:[address] Ingrid Wu MD) S/P vasectomy Social History (Updated 06/24/25 @ 21:[address] Ingrid Wu MD) household members: spouse Smoking Status: Current every day smoker tobacco type: cigarettes Smoking packs per day: 2 Smoking cigarettes per day: 40.0 alcohol intake: never substance use type: does not use ROS ROS Narrative Admission Review of Systems: CONSTITUTIONAL: No weight loss, fever, chills, + weakness or fatigue. HEENT: Eyes: No visual loss, blurred vision, double vision or yellow sclerae. Ears, Nose, Throat: No hearing loss, sneezing, congestion, runny nose or sore throat. SKIN: No lesions, wounds, + bilateral extremity mild rash to the arms, occasional stage ecchymoses, abrasion. CARDIOVASCULAR: No chest pain, chest pressure or chest discomfort, palpitations, edema, orthopnea, syncopal events. RESPIRATORY: No shortness of breath, cough or sputum, wheezing, hemoptysis. GASTROINTESTINAL: No anorexia, nausea, vomiting or diarrhea, abdominal pain, melena, BRBPR. GENITOURINARY: No dysuria, frequency, urgency or retention. NEUROLOGICAL: + Issues with poor coordination, specifically left-sided with no specific other focal deficits. No headache, dizziness, syncope, paralysis, ataxia, numbness or tingling in the extremities, focal weakness, change in bowel or bladder control, seizure. MUSCULOSKELETAL: + muscle, back pain, joint pain or stiffness. HEMATOLOGIC: No anemia, bleeding or bruising. LYMPHATICS: No enlarged nodes. No history of splenectomy. PSYCHIATRIC: No history of depression or anxiety. ENDOCRINOLOGIC: No reports of sweating, cold or heat intolerance. No polyuria or polydipsia. ALLERGIES: + History of swelling reportedly with amoxicillin. Vital Signs Vital Signs Vital Signs: 06/24/25 16:36 06/24/25 17:20 06/24/25 17:25 Temperature 97 F L Temperature Source Temporal Pulse Rate 75 73 Respiratory Rate 16 15 Blood Pressure 137/84 H 137/90 H Blood Pressure Mean 101 105 Pulse Ox 100 98 98 Oxygen Delivery Method Room Air Room Air Room Air 06/24/25 17:38 06/24/25 18:00 06/24/25 18:30 Temperature Temperature Source Pulse Rate 73 74 71 Respiratory Rate 12 18 18 Blood Pressure 127/10 H 129/80 H 131/88 H Blood Pressure Mean 49 96 102 Pulse Ox 98 97 98 Oxygen Delivery Method Room Air Room Air Room Air Weight Weight: 193 lb 1.999 oz Body Mass Index (BMI) 26.2 Physical Exam Narrative Physical Examination: General: Awake, alert, oriented x 3 and cooperative, seated upright in the ED bed, fatigued but no acute distress, notes he is hungry. Skin: Normal color, normal turgor, no icterus, no cyanosis except occasional stage ecchymoses, abrasions, several scars to his upper extremities and nodules. HEENT: AT/NC, EOMI, PERRLA, mildly dry MM, no carotid bruits or JVD noted, all vazquez of vision appear intact with no nystagmus noted on evaluation. Lungs: CTA bilaterally, moderate effort, mild decrease BL bases, no rales, ronchi or wheezing. Heart: Regular rate and rhythm; no gallop, rub audible. Abdomen: Soft, NTTP, ND, normal BS, no appreciated HSM. Extremities: No cyanosis, clubbing, or edema, see skin. Neurological: Patient awake, alert, oriented as noted, cognitive function intact; pupils equally reactive to light and accommodation, cranial nerves grossly normal, moving all 4 extremities, no focal deficits, strength preserved, still residual [id number] difficulties with the left upper extremity, normal to the right upper extremity, [id number] bilaterally appropriate, equivocal Babinski , sensation intact. Psychiatric: Affect appears fatigued otherwise normal, no acute evidence of depressive or anxiety feelings. Results Lab / Micro Data 06/24/25 17:46 06/24/25 17:46 Labs: Laboratory Results - last 24 hr 06/24/25 17:36: POC Glucose 245 H 06/24/25 17:46: WBC 9.3, RBC 5.02, Hgb 14.6, Hct 43.0, MCV 85.7, MCH 29.1, MCHC 34.0, RDW Std Deviation 37.7, RDW Coeff of Yvonne 12.1, Plt Count 396, MPV 9.4, Immature Gran % (Auto) 0.200, Neut % (Auto) 65.0, Lymph % (Auto) 26.7, [place] % (Auto) 5.3, Eos % (Auto) 2.4, Baso % (Auto) 0.4, Absolute Neuts (auto) 6.0, Absolute Lymphs (auto) 2.48, Nucleated RBC % 0, PT 13.1, INR 1.0, APTT 27.2, Sodium 134, Potassium 4.4, Chloride 98, Carbon Dioxide 22.9, Anion Gap 13, BUN 17, Creatinine 1.29 H, Estim Creat Clear Calc 70.18, Est GFR (MDRD) Non-Af 65, BUN/Creatinine Ratio 12.8, Glucose 228 H, Calcium 9.6, Troponin T High Sens 9 06/24/25 19:05: Troponin T Hi Sens 2 Hr 10 Imaging Radiology Impression Brain CT 06/24/25 16:59 IMPRESSION: No acute intracranial abnormality. Critical results were communicated to Altagracia Mayer at 6:28 p.m.. Reading Location: [facility] Head/Neck CTA 06/24/25 19:20 IMPRESSION: No hemodynamically significant stenosis. No aneurysm. Reading Location: [facility] Assessment & Plan Assessment/Plan (1) CVA (cerebral vascular accident): PLAN: Plan The patient is a 54 y/o M w/ PMHx: CKD stage II per prior GFR trending, Diabetes mellitus type II, Hx renal HTN, HLD, Tobacco use who presents to [facility] ED on 06/24/2025 with history of difficulty with balance noted to be running into things specifically on his left side per spouse report coming on suddenly approximately 2 to 3 days prior to presentation noted to be continuous with difficulty with coordination specifically on the left side unable to even dress himself also reporting he does have some difficulty with coordination of the right upper extremity as well with no paresthesias or other focal weakness prompting eventual ED evaluation be cautious. #1. Acute Cerebellar dysmetria, imbalance, left homonymous hemianopsia (improved) secondary to Acute Suspected CVA: Will admit to PCU, given high suspicion and likely rehab needs will admit as full admission status with idea that patient will likely require 48 hours admission, will obtain MRI Brain, ECHO, PT/OT/Speech/Nutrition evaluation per protocol. Will allow permissive HTN, maintain on asa, continue home statin w/ AM FLP, fall precautions. Mag, TSH, FLP, HgbA1c requested. Maintain on fall and aspiration precautions. Neurology consultation requested. #2. Chart reported history of renal hypertension: Will maintain permissive hypertension, per current list on a regimen, clarifying to be certain as noted history of renal hypertension, as needed agents per stroke protocol. #3. Chronic Kidney Disease Stage II per GFR trending: Admission BUN/Cr 17/1.29, GFR 65, baseline renal function appears primarily 1.2-1.4, repeat BMP in AM. #4. Hyperlipidemia: Continue home statin regimen. AM FLP. #5. Tobacco Abuse: Significant heavy 2 pack/day cigarette tobacco usage, encouraged cessation, inpatient consultation per RT, NR if desired. #6. Diabetes mellitus type II: Hold oral home regimen, ADA diet, accu checks w/ ISS, nutrition consulted per protocol, hemoglobin A1c requested as noted. #7. DVT prophylaxis: Lovenox. #8. CODE status: Patient HCPOA and living will not in place however he notes his was present would be his medical decision-maker if needed. Discussed CODE status at length including difference between FULL code, DNR-CCA and DNR-CC status. Following discussions about the differences in these status, requested Full Code status. Charges/Coding Visit Charges Inpatient E&M: 56472 Init Hosp L3
--- NOTE | 2025-06-24 20:06 | ED.RN ---
when discussing NIH score with provider it came to this RNs attention that the patient has partial vision loss since , which is his baseline
[2025-06-24 20:57] LABS: Magnesium 2.2 mg/dL (1.5-2.2)
--- NOTE | 2025-06-24 21:03 | ECHOD_ITS ---
Reason For Study Reason For Study: TIA/CVA Procedure This was a 2D Doppler, Color Flow transthoracic echocardiogram. Exam performed portable in patient room. Left Ventricle Normal LV size. The estimated ejection fraction is 55 %. No evidence for diastolic dysfunction. No regional wall motion abnormalities noted. Right Ventricle Normal RV size. Normal systolic function. Atria The left and right atria are normal. No doppler evidence for ASD. Bubble contrast study negative for right to left interatrial shunt. Mitral Valve There is no mitral valve stenosis. No mitral valve insufficiency. Tricuspid Valve There is no tricuspid stenosis. Unable to estimate RV systolic pressure due to inadequate jet, pulmonary artery pressure probably normal. Aortic Valve Trisinus/trileaflet aortic valve. There is no aortic stenosis. No aortic valve insufficiency. Pulmonic Valve There is no pulmonic valvular stenosis. Trivial pulmonic valve insufficiency. Great Vessels Normal sized aortic root. Pericardium/Pleural No pericardial effusion. Medication Performed a rapid injection of agitated mix of 9 cc saline and 1cc air to assess for atrial septal defect. MMode/2D Measurements & Calculations LVIDd: 5.0 cm IVSd: 0.96 cm Ao root diam: 3.2 cm LVIDs: 3.5 cm LVPWd: 0.97 cm RVDd: 4.0 cm FS: 29.8 % LAV(MOD-bp): 56.3 ml LVAd ap4: 35.6 cm2 LVAd ap2: 29.5 cm2 LAV(MOD-bp) Indexed: 27.3 ml/m2 LVLd ap4: 8.6 cm LVLd ap2: 8.6 cm LAV(MOD-sp2): 54.5 ml EDV(MOD-sp4): 124.4 ml EDV(MOD-sp2): 88.1 ml LAV(MOD-sp4): 54.5 ml EDV(sp4-el): 124.7 ml EDV(sp2-el): 85.9 ml LVAs ap4: 23.0 cm2 LVAs ap2: 18.6 cm2 LVLs ap4: 7.7 cm LVLs ap2: 7.4 cm ESV(MOD-sp4): 57.9 ml ESV(MOD-sp2): 41.1 ml ESV(sp4-el): 58.2 ml ESV(sp2-el): 39.6 ml EF(MOD-sp4): 53.4 % EF(MOD-sp2): 53.3 % EF(sp4-el): 53.3 % SV(MOD-sp4): 66.5 ml SV(MOD-sp2): 47.0 ml SV(sp4-el): 66.5 ml SI(MOD-sp4): 32.2 ml/m2 SI(MOD-sp2): 22.8 ml/m2 LA A4 area: 18.7 cm2 LA dimension(2D): 3.6 cm RA A4 area: 20.2 cm2 TAPSE: 1.8 cm Time Measurements MV dec time: 0.25 sec Doppler Measurements & Calculations MV E max juan miguel: 55.5 cm/sec Lat Peak E' Juan Miguel: 11.6 cm/sec Med Peak E' Juan Miguel: 6.8 cm/sec MV A max juan miguel: 43.9 cm/sec E/E' lat: 4.8 E/E' med: 8.1 MV E/A: 1.3 MV V2 max: 57.6 cm/sec MV P1/2t max juan miguel: 58.6 cm/sec Ao V2 max: 124.2 cm/sec MV max P.3 mmHg MV P1/2t: 69.9 msec Ao max P.2 mmHg MV V2 mean: 36.5 cm/sec MV dec slope: 245.3 cm/sec2 Ao V2 mean: 85.9 cm/sec MV mean P.60 mmHg MVA(P1/2t): 3.1 cm2 Ao mean P.2 mmHg MV V2 VTI: 22.6 cm Ao V2 VTI: 24.1 cm AV (velocity ratio): 0.77 LV V1 max: 97.6 cm/sec PA V2 max: 77.7 cm/sec PI end-d juan miguel: 107.7 cm/sec LV V1 max P.8 mmHg LV V1 mean P.8 mmHg PI dec slope: 121.1 cm/sec2 LV V1 mean: 63.8 cm/sec LV V1 VTI: 18.5 cm ECHO/Echo Complete Interpretation Summary The estimated ejection fraction is 55 %. No evidence for diastolic dysfunction. Ordering Physician: Ingrid Wu Referring Physician: Harshil Giordano Performed By: Mary Jacobson, LACHO, RVT
[2025-06-24] MEDS: 0.9% Normal Saline (1000mL) 1,000 ML 100 ML IV (21:20)
[2025-06-24 23:07] LABS: Troponin T High Sens 4 HR 10 ng/L (<=22)
[2025-06-25] VITALS (9 sets, daily range): BP systolic 102–133; BP diastolic 58–80; PULSE 57–99; RESP 14–18; TEMP 36.2–36.7; O2SAT 94–99; BMI 25.6
--- OUTSIDE RECORDS SUMMARY | 2025-06-25 00:55 | XMS RPT_ITS | CCD ---
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 sources) Abnormal levels of other serum enzymes; Translations: [Elevated liver enzymes level] 08-19-2018 Episodic Comment on above: repeat good Other lower respiratory disease (20 sources) Dyspnea; Translations: [SOB (shortness of breath)] Resolved: 04-29-2019 10-06-2018 Episodic Other lower respiratory disease (20 sources) Cough; Translations: [Cough] 10-06-2018 Episodic Other male genital disorders (20 sources) Impotence; Translations: [Erectile dysfunction] 08-10-2020 Chronic Other male genital disorders (14 sources) Male erectile dysfunction, unspecified; Translations: [Erectile dysfunction] 08-17-2020 Chronic Other nutritional; endocrine; and metabolic disorders (20 sources) Body mass index 25-29 - overweight; Translations: [BMI 28.0-28.9,adult] Resolved: 04-29-2019 08-19-2018 Chronic Other nutritional; endocrine; and metabolic disorders (20 sources) Body mass index 30+ - obesity; Translations: [BMI 30.0-30.9,adult] 01-29-2020 Chronic Other nutritional; endocrine; and metabolic disorders (20 sources) Weight loss; Translations: [Weight loss] Resolved: 07-13-2015 07-13-2015 Episodic Other nutritional; endocrine; and metabolic disorders (20 sources) Polydipsia; Translations: [Excessive thirst] Resolved: 07-13-2015 07-13-2015 Episodic Other nutritional; endocrine; and metabolic disorders (20 sources) Body mass index 25-29 - overweight; Translations: [BMI 27.0-27.9,adult] Resolved: 04-29-2019 11-25-2020 Episodic Other screening for suspected conditions (not mental disorders or infectious disease) (20 sources) Serum creatinine raised; Translations: [Screening status] Resolved: 04-29-2019 08-19-2018 Episodic Comment on above: not elevated in past to drink more water, and repeat in Apr Other upper respiratory infections (20 sources) Upper respiratory infection; Translations: [Upper respiratory infection] 10-06-2018 Episodic Poisoning by nonmedicinal substances (20 sources) Tick bite; Translations: [Tick bite] 11-25-2020 Episodic Residual codes; unclassified (20 sources) Past history of procedure; Translations: [History of being tatooed] 01-29-2020 Episodic Comment on above: January 10, 2020 tatoo ed , infection January 12, 4 days later Residual codes; unclassified (20 sources) Reduced libido; Translations: [Low libido] 05-13-2020 Episodic Residual codes; unclassified (6 sources) Influenza vaccination declined; Translations: [Influenza vaccination declined (Renamed from Refused influenza vaccine)] 11-25-2020 Episodic Skin and subcutaneous tissue infections (20 sources) Cellulitis; Translations: [Cellulitis of finger] Resolved: 07-13-2015 07-13-2015 Episodic Comment on above: improving on cefidin ir Left ring finger Substance-related disorders (20 sources) Smoker; Translations: [Nicotine dependence] 08-19-2018 Chronic Comment on above: 35 years smoking his tory, 35 years smoking his tory,LCT repeat in 12 months 35 years smoking his tory,LCT repeat in 12 months May 05 2020 Superficial injury; contusion (1 source) Abrasion of left cornea; Translations: [Injury of conjunctiva and corneal abrasion without foreign body, left eye, initial encounter] 08-12-2019 Episodic Unclassified (20 sources) BMI 29.0-29.9,adult Unclassified (20 sources) Unclassified (20 sources) Screening status; Translations: [Encounter for screening for malignant neoplasm of colon (Renamed from Special screening for malignant neoplasms, colon)] 08-19-2018 Unclassified (20 sources) Stress reaction Unclassified (20 sources) Influenza vaccination declined; Translations: [Influenza vaccination declined (Renamed from Refused influenza vaccine)] 08-19-2018 Unclassified (20 sources) Dependence on nicotine from cigarettes Unclassified (20 sources) Impaired glucose metabolism Unclassified (20 sources) Screening for prostate cancer Unclassified (20 sources) HTN (hypertension), benign Unclassified (20 sources) Hemorrhoid Unclassified (20 sources) Current smoker Unclassified (20 sources) BMI 28.0-28.9,adult Unclassified (20 sources) Elevated liver enzymes Unclassified (20 sources) BMI 30.0-30.9,adult Unclassified (20 sources) History of being tatooed Unclassified (20 sources) Cellulitis, finger Unclassified (20 sources) Coronary artery calcification Unclassified (20 sources) BMI 27.0-27.9,adult Unclassified (20 sources) Diabetes mellitus type II, controlled, with no complications Unclassified (6 sources) Finger devascularization, subsequent encounter Past or Other Problems Problem Classification Problem Date Documented Da te Episodic/Chronic Anxiety disorders (20 sources) Acute stress disorder; Translations: [Stress reaction] Resolved: 04-29-2019 08-19-2018 Chronic Blindness and vision defects (20 sources) Blurring of visual image; Translations: [Blurred vision] Resolved: 07-13-2015 07-13-2015 Episodic Diseases of mouth; excluding dental (20 sources) Furred tongue; Translations: [Tongue coating] Resolved: 07-13-2015 07-13-2015 Episodic Comment on above: recommend probiotic for now Diseases of white blood cells (20 sources) Leukocytosis; Translations: [Elevated WBC count] Resolved: 04-29-2019 08-19-2018 Chronic Hemorrhoids (20 sources) Hemorrhoids; Translations: [Hemorrhoid] Resolved: 04-29-2019 08-19-2018 Episodic Other circulatory disease (20 sources) Other specified symptoms and signs involving the circulatory and respiratory systems; Translations: [Abnormal chest sounds] Resolved: 04-29-2019 10-06-2018 Episodic Other non-traumatic joint disorders (11 sources) Pain in left knee; Translations: [Pain in left knee] Resolved: 07-13-2015 07-13-2015 Episodic Comment on above: improving to see ort ho and getting MRI Other non-traumatic joint disorders (20 sources) Pain in left knee; Translations: [Knee pain, left] Resolved: 07-13-2015 07-13-2015 Comment on above: improving to see ort ho and getting MRI Other skin disorders (20 sources) Eruption; Translations: [Rash] Resolved: 04-29-2019 09-29-2018 Episodic Residual codes; unclassified (20 sources) Needs influenza immunization; Translations: [Need for prophylactic vaccination and inoculation against influenza (Renamed from Need for immunization against influenza)] Resolved: 07-13-2015 07-13-2015 Episodic Residual codes; unclassified (20 sources) Increased body mass index; Translations: [BMI 29.0-29.9,adult] Resolved: 04-29-2019 04-18-2018 Episodic Residual codes; unclassified (20 sources) Influenza-like symptoms; Translations: [Flu-like symptoms] Resolved: 04-29-2019 10-06-2018 Episodic Unclassified (20 sources) SCREENING FOR CANCER OF THE PROSTATE (V76.44) Unclassified (20 sources) Blurred vision Unclassified (20 sources) Tongue coating Unclassified (20 sources) Knee pain, left Unclassified (20 sources) Elevated serum creatinine Unclassified (20 sources) Elevated WBC count Unclassified (20 sources) Rash Unclassified (20 sources) Dermatitis due to plants, including poison heather, sumac, and oak Unclassified (20 sources) Flu-like symptoms Unclassified (20 sources) Abnormal lung sounds Unclassified (20 sources) Unspecified Diagnosis 01-29-2020 Unclassified (20 sources) Poison heather Unclassified (20 sources) Low libido Unclassified (12 sources) Finger devascularization, initial encounter Results Test Name Value Interpretation Reference Range Facility Absolute lymphocyte countOrd ered By: Stew Sosa on 04-12-2023 Lymphocytes Auto (Unsp spec) [#/Vol] 2.06 10*3/uL 0.83-4.51 [facility] Basophil percentageOrdered B y: Stew Sosa on 04-12-2023 Basophils/100 WBC (Bld) 0.4 % 0-1 [facility] Chloride [Moles/Vol] 102 mmol/L 98-107 [facility] Eosinophils/100 WBC (Bld) 1.6 % 0-5 [facility] Glucose [Mass/Vol] 169 mg/dL 74-106 [facility] Comment on above: Fasting Glucose resu lt greater than or equal to 126 mg/dL suggests DIABETES MELLITUS per A.D.A. criteria. Neutrophils (Bld) [#/Vol] 8.5 10*3/uL 2.0-7.7 [facility] Neutrophils/100 WBC (Bld) 71.6 % 47-70 [facility] Potassium [Moles/Vol] 4.3 mmol/L 3.5-5.1 [facility] Sodium [Moles/Vol] 137 mmol/L 136-145 [facility] WBC (Bld) [#/Vol] 11.8 10*3/uL 4.4-11.0 [facility] Blood erythrocytes count (nu mber/volume)Ordered By: Stew Sosa on 04-12-2023 RBC (Bld) [#/Vol] 4.91 10*6/uL 4.6-6.2 [facility] Blood hemoglobin measurement (mass/volume)Ordered By: Stew Sosa on 04-12-2023 Hemoglobin (Bld) [Mass/Vol] 15.1 g/dL 13.0-16.5 [facility] Blood lymphocytes/100 leukoc ytesOrdered By: Stew Sosa on 04-12-2023 Lymphocytes/100 WBC (Bld) 17.4 % 19-41 [facility] Blood monocytes/100 leukocyt esOrdered By: Stew Sosa on 04-12-2023 Monocytes/100 WBC (Bld) 8.7 % 0-10 [facility] Blood platelet mean volumeOr dered By: Stew Sosa on 04-12-2023 Platelet mean volume (Bld) [Entitic vol] 9.7 fL 6.2-12.0 [facility] Determination of erythrocyte mean corpuscular volume (MCV)Ordered By: Stew Sosa on 04-12-2023 MCV (RBC) [Entitic vol] 92.9 fL 80-94 [facility] Hematocrit Auto (Bld) [Volum e fraction]Ordered By: Stew Sosa on 04-12-2023 Hematocrit (Bld) [Volume fraction] 45.6 % 40-54 [facility] Laboratory - Chemistry and C hemistry - challengeOrdered By: Stew Sosa on 04-12-2023 CO2 [Moles/Vol] 28.0 mmol/L 21.0-32.0 [facility] Urea nitrogen/Creatinine [Mass ratio] 9.5 mg/mg 10-20 [facility] Laboratory - Hematology and Cell countsOrdered By: Stew Sosa on 04-12-2023 Erythrocyte distribution width (RBC) [Entitic vol] 45.3 fL 35.1-43.9 [facility] Erythrocyte distribution width (RBC) [Ratio] 13.2 % 11.6-14.6 [facility] Immature granulocytes/100 WBC (Bld) 0.300 % 0.0-0.9 [facility] Comment on above: IG% - Immature Granu locytes (promyelocytes, myelocytes and metamyelocytes) > 1% indicates that a LEFT SHIFT is Present. MCH (RBC) [Entitic mass] 30.8 pg 27.0-32.0 [facility] Nucleated RBC/100 WBC (Bld) [Ratio] 0 % 0-5 [facility] MCHC Auto (RBC) [Mass/Vol]Or dered By: Stew Sosa on 04-12-2023 MCHC (RBC) [Mass/Vol] 33.1 g/dL 32-36 [facility] No Panel InformationOrdered By: Stew Sosa on 04-12-2023 Estimated Creatinine Clearance Calc 69.66 ml/min [facility] Estimated GFR (MDRD) Amer 70 mL/min >60 [facility] Comment on above: GFR Calc Estimated GFR (MDRD) Non-Af Amer 57 mL/min >60 [facility] Comment on above: Non- GFR Calc Platelets bldOrdered By: Amparo Sosa on 04-12-2023 Platelets (Bld) [#/Vol] 216 10*3/uL 150-450 [facility] Serum or plasma calcium juani urement (mass/volume)Ordered By: Stew Sosa on 04-12-2023 Calcium [Mass/Vol] 9.0 mg/dL 8.5-10.1 [facility] Serum or plasma creatinine m easurement (mass/volume)Ordered By: Stew Sosa on 04-12-2023 Creatinine [Mass/Vol] 1.37 mg/dL 0.70-1.30 [facility] Comment on above: The validity of the calculated GFR & GFRAA in patients over 70 years has not been determined. Clinical correlation is essential. Serum or plasma urea nitroge n measurement (mass/volume)Ordered By: Stew Sosa on 04-12-2023 Urea nitrogen [Mass/Vol] 13 mg/dL 04-09 [facility] Thin prep Papanicolaou smear with manual screeningOrdered By: Stew Sosa on 04-12-2023 Thin prep Papanicolaou smear with manual screening 7 02-04 [facility] CBC, Platelets & Auto Diff ( [id number])Ordered By: Boatswains Mate on 03-03-2021 Basophils (Bld) [#/Vol] 0.1 10*3/uL Normal 0.0-0.2 [facility]; [facility] Work Phone: Comment on above: PATIENT NOT FASTINGP ERFORMED BY: CB [facility] [id number] [facility].comHay[facility] [id number] Basophils/100 WBC (Bld) 1 % Normal [facility]; [facility] Work Phone: Comment on above: PATIENT NOT FASTINGP ERFORMED BY: CB [facility] Qhnwez3342 [address] Haozu.comHay[facility] [id number] Eosinophils (Bld) [#/Vol] 0.4 10*3/uL Normal 0.0-0.4 [facility]; [facility] Work Phone: Comment on above: PATIENT NOT FASTINGP ERFORMED BY: Therma-Wave [facility] [id number] [address] Ha[facility]u.comHay[facility] [id number] Eosinophils/100 WBC (Bld) 4 % Normal [facility]; [facility] Work Phone: Comment on above: PATIENT NOT FASTINGP ERFORMED BY: CB [facility] Pyvfoo0580 [address] Ha[facility].comHay[facility] [id number] Erythrocyte distribution width (RBC) [Ratio] 12.7 % Normal 11.6-15.4 [facility]; [facility] Work Phone: Comment on above: PATIENT NOT FASTINGP ERFORMED BY: CB [facility] [id number] [address] Ha[facility].comHay[facility] [id number] Hematocrit (Bld) [Volume fraction] 46.4 % Normal 37.5-51.0 [facility]; [facility] Work Phone: Comment on above: PATIENT NOT FASTINGP ERFORMED BY: BARBER [facility] Mylycr2439 [address] RoadDublin [place] [id number] Hemoglobin (Bld) [Mass/Vol] 16.0 g/dL Normal 13.0-17.7 [facility]; [facility] Work Phone: Comment on above: PATIENT NOT FASTINGP ERFORMED BY: CB [facility] [id number] [address] RoadDublin [place] [id number] Immature granulocytes (Bld) [#/Vol] 0.0 10*3/uL Normal 0.0-0.1 [facility]; [facility] Work Phone: Comment on above: PATIENT NOT FASTINGP ERFORMED BY: BARBER [facility] [id number] [address] RoadDublin [place] [id number] Immature granulocytes/100 WBC (Bld) 0 % Normal [facility]; [facility] Work Phone: Comment on above: PATIENT NOT FASTINGP ERFORMED BY: CB [facility] Qumils2941 [address] RoadDublin [place] [id number] Lymphocytes (Bld) [#/Vol] 2.5 10*3/uL Normal 0.7-3.1 [facility]; [facility] Work Phone: Comment on above: PATIENT NOT FASTINGP ERFORMED BY: CB [facility] Cyydue7064 [address] RoadDublin [place] [id number] Lymphocytes/100 WBC (Bld) 28 % Normal [facility]; [facility] Work Phone: Comment on above: PATIENT NOT FASTINGP ERFORMED BY: CB [facility] [id number] [address] RoadDublin [place] [id number] MCH (RBC) [Entitic mass] 31.7 pg Normal 26.6-33.0 [facility]; [facility] Work Phone: Comment on above: PATIENT NOT FASTINGP ERFORMED BY: CB [facility] [id number] [address] RoadDublin [place] [id number] MCHC (RBC) [Mass/Vol] 34.5 g/dL Normal 31.5-35.7 [facility] prehensive Internal [facility]; [facility] Work Phone: Comment on above: PATIENT NOT FASTINGP ERFORMED BY: CB [facility] [id number] [address] RoadDublin [place] [id number] MCV (RBC) [Entitic vol] 92 fL Normal 79-97 [facility]; [facility] Work Phone: Comment on above: PATIENT NOT FASTINGP ERFORMED BY: CB [facility] [id number] [address] RoadDublin [place] [id number] Monocytes (Bld) [#/Vol] 0.7 10*3/uL Normal 0.1-0.9 [facility]; [facility] Work Phone: Comment on above: PATIENT NOT FASTINGP ERFORMED BY: CB [facility] Zvepwp1961 [address] RoadDublin [place] [id number] Monocytes/100 WBC (Bld) 8 % Normal [facility]; [facility] Work Phone: Comment on above: PATIENT NOT FASTINGP ERFORMED BY: CB [facility] [id number] [address] RoadDublin [place] [id number] Neutrophils (Bld) [#/Vol] 5.2 10*3/uL Normal 1.4-7.0 [facility]; [facility] Work Phone: Comment on above: PATIENT NOT FASTINGP ERFORMED BY: CB [facility] Yttmst6104 [address] RoadDublin [place] [id number] Neutrophils/100 WBC (Bld) 59 % Normal [facility]; [facility] Work Phone: Comment on above: PATIENT NOT FASTINGP ERFORMED BY: CB [facility] [id number] [address] RoadDublin [place] [id number] Platelets (Bld) [#/Vol] 211 10*3/uL Normal 150-450 [facility]; [facility] Work Phone: Comment on above: PATIENT NOT FASTINGP ERFORMED BY: CB [facility] Qgzdbs3948 [address] RoadDublin [place] [id number] RBC (Bld) [#/Vol] 5.05 10*6/uL Normal 4.14-5.80 [facility] [[email or web address] Internal [facility]; [facility] Work Phone: Comment on above: PATIENT NOT FASTINGP ERFORMED BY: BARBER [facility] [id number] [address] [facility]in [place] [id number] WBC (Bld) [#/Vol] 8.9 10*3/uL Normal 3.4-10.8 [facility]; [facility] Work Phone: Comment on above: PATIENT NOT FASTINGP ERFORMED BY: BARBER [facility] Dtbwey8963 [facility] [id number] HGB A1C ([id number])Ordered By: S ystem Acoustical Logging Engineer on 03-03-2021 HbA1c (Bld) [Mass fraction] 6.2 % Abnormal 4.8-5.6 [facility]; [facility] Work Phone: Comment on above: . Prediabetes: 5.7 - 6.4 Diabetes: >6.4 Glycemic control for adults with diabetes: <7.0 PATIENT NOT FASTINGP ERFORMED BY: BARBER [facility] Ipitzp2539 [facility] [id number] Metabolic Panel, Comprehensi ve ([id number])Ordered By: Boatswains Mate on 03-03-2021 Albumin [Mass/Vol] 4.5 g/dL Normal 3.8-4.9 [facility]; [facility] Work Phone: Comment on above: PATIENT NOT FASTINGP ERFORMED BY: BARBER [facility] Fcncig9628 [facility] [id number] Albumin/Globulin [Mass ratio] 1.8 {ratio} Normal 1.2-2.2 [facility]; [facility] Work Phone: Comment on above: PATIENT NOT FASTINGP ERFORMED BY: BARBER [facility] Aalaxl2624 [facility] [id number] ALP [Catalytic activity/Vol] 35 U/L Abnormal 48-121 [facility]; [facility] Work Phone: Comment on above: PATIENT NOT FASTINGP ERFORMED BY: [facility] Wcdofl1779 [address] RoadDublin [place] [id number] ALT [Catalytic activity/Vol] 23 U/L Normal 0-44 [facility]; [facility] Work Phone: Comment on above: PATIENT NOT FASTINGP ERFORMED BY: BARBER Malhotra Fygvfo0584 [address] RoadDublin [place] [id number] AST [Catalytic activity/Vol] 19 U/L Normal 0-40 [facility]; [facility] Work Phone: Comment on above: PATIENT NOT FASTINGP ERFORMED BY: BARBER [facility] Keiojd2989 [address] RoadDublin [place] [id number] Bilirubin [Mass/Vol] 0.4 mg/dL Normal 0.0-1.2 Comp rehensive [facility]; [facility] Work Phone: Comment on above: PATIENT NOT FASTINGP ERFORMED BY: Marya Dfqyvx4431 [address] RoadDublin [place] [id number] Calcium [Mass/Vol] 10.1 mg/dL Normal 8.7-10.2 [facility]; [facility] Work Phone: Comment on above: PATIENT NOT FASTINGP ERFORMED BY: Marya Vyyyoy7741 [address] RoadDublin [place] [id number] Chloride [Moles/Vol] 102 mmol/L Normal 96-106 Comp rehensive [facility]; [facility] Work Phone: Comment on above: PATIENT NOT FASTINGP ERFORMED BY: LabShannan Bfrjod2436 [address] RoadDublin [place] [id number] CO2 [Moles/Vol] 26 mmol/L Normal 20-29 Com[facility]hen [facility]; [facility] Work Phone: Comment on above: PATIENT NOT FASTINGP ERFORMED BY: Marya Ftnnpw8628 [address] RoadDublin [place] [id number] Creatinine [Mass/Vol] 1.21 mg/dL Normal 0.76-1.27 [facility] prehensive Internal Medicine; [facility] Work Phone: Comment on above: PATIENT NOT FASTINGP ERFORMED BY: [facility]6370 [facility] [id number] GFR/1.73 sq M.predicted among blacks CKD-EPI (S/P/Bld) [Vol rate/Area] 79 mL/min/1.73 Normal [facility]; [facility] Work Phone: Comment on above: [facility] currently reports eGFR in compliance with the current recommendations of the [employer] Kid[employer]. [facility] will update reporting as new guidelines are published from the NKF-ASN Task force. PATIENT NOT FASTINGP ERFORMED BY: [facility]6370 [facility] [id number] GFR/1.73 sq M.predicted among non-blacks CKD-EPI (S/P/Bld) [Vol rate/Area] 68 mL/min/1.73 Normal [facility]; [facility] Work Phone: Comment on above: PATIENT NOT FASTINGP ERFORMED BY: [facility]6370 [facility] [id number] Globulin (S) [Mass/Vol] 2.5 g/dL Normal 1.5-4.5 [facility]; [facility] Work Phone: Comment on above: PATIENT NOT FASTINGP ERFORMED BY: [facility]6370 [facility] [id number] Glucose [Mass/Vol] 108 mg/dL Abnormal 65-99 [facility]; [facility] Work Phone: Comment on above: PATIENT NOT FASTINGP ERFORMED BY: [facility]6370 [facility]in [place] [id number] Potassium [Moles/Vol] 5.4 mmol/L Abnormal 3.5-5.2 [facility] prehensive Internal [facility]; [facility] Work Phone: Comment on above: PATIENT NOT FASTINGP ERFORMED BY: [facility]6370 [facility] [id number] Protein [Mass/Vol] 7.0 g/dL Normal 6.0-8.5 [facility]; [facility] Work Phone: Comment on above: PATIENT NOT FASTINGP ERFORMED BY: BARBER [facility] Yngpfz0079 [address] [facility]in [place] [id number] Sodium [Moles/Vol] 143 mmol/L Normal 134-144 Compre [facility]; [facility] Work Phone: Comment on above: PATIENT NOT FASTINGP ERFORMED BY: CB [facility] Efurve9542 [address] [facility] [id number] Urea nitrogen [Mass/Vol] 11 mg/dL Normal 6-24 [facility]; [facility] Work Phone: Comment on above: PATIENT NOT FASTINGP ERFORMED BY: BARBER [facility] Wbzgxq0234 [address] [facility] [id number] Urea nitrogen/Creatinine [Mass ratio] 9 mg/mg Normal 9-20 [facility]; [facility] Work Phone: Comment on above: PATIENT NOT FASTINGP ERFORMED BY: [facility] Aqxjus5452 [facility] [id number] PSA (PROSTATE SPECIFIC ANTIG EN) (V76.44)Ordered By: Boatswains Mate on 03-03-2021 Prostate specific Ag [Mass/Vol] 1.2 ng/mL Normal 0.0-4.0 [facility]; [facility] Work Phone: Comment on above: Trip ECLIA methodol ogy. .According to the [place] [employer], Serum PSA shoulddecrease and remain at undetectable levels after radicalprostatectomy. The AUA defines biochemical recurrence as an initialPSA value 0.2 ng/mL or greater followed by a subsequent confirmatoryPSA value 0.2 ng/mL or greater.Values obtained with different assay methods or kits cannot be usedinterchangeably. Results cannot be interpreted as absolute evidenceof the presence or absence of malignant disease. PATIENT NOT FASTINGP ERFORMED BY: BARBER [facility] Yelazz[address] [facility] [id number] TSH (THYROID STIMULATING HOR J CARLOS) ([id number])Ordered By: Boatswains Mate on 03-03-2021 TSH Qn 1.020 {uIU/mL} Normal 0.450-4.500 Comprehen [facility]; [facility] Work Phone: Comment on above: PATIENT NOT FASTINGP ERFORMED BY: Zipments70 [facility] [id number] VITAMIN B12 AND FOLATES ([id number])Ordered By: Boatswains Mate on 03-03-2021 Cobalamin (Vitamin B12) [Mass/Vol] 610 pg/mL Normal 232-1245 [facility]; [facility] Work Phone: Comment on above: PATIENT NOT FASTINGP ERFORMED BY: [email or web address] [facility] [id number] Folate [Mass/Vol] 18.9 ng/mL Normal Compreh [facility] Internal [facility]; [facility] Work Phone: Comment on above: A serum folate mayra ntration of less than 3.1 ng/mL isconsidered to represent clinical deficiency. PATIENT NOT FASTINGP ERFORMED BY: Kiind.[email or web address] [facility] [id number] Lyme Disease Antibody W/ Ref yary ([id number])Ordered By: Boatswains Mate on 02-28-2021 B. burgdorferi IgG+IgM Qn (S) {index_val} Normal 0.00-0.90 [facility]; [facility] Work Phone: Comment on above: Negative <0.91 Equiv ocal 0.91 - 1.09 Positive >1.09 PATIENT NOT FASTINGP ERFORMED BY: [email or web address].[email or web address] [facility] [id number] Progress Noteon 12-16-2020 Manager Generation Authentication Interface Message Text Severo is a 50 y.o. male who presents to our office today for evaluation secondary to a history of reported food allergy to poultry/chicken/turkey , shellfish and finned fish. He has not previously seen an foot piece assembler. According to him, with ingestion of chicken or turkey or poultry or their products such as in a hot dog, he experiences lip swelling and he has the sensation of throat pain and the sensation of throat swelling and his throat feels full and then when it starts, I stick my finger down my throat and I make myself throw up and then I go take a nap and wake up and I'm fine. He cannot recall the last time he had poultry and says the last time he tried this has been years ago and he denies the sensation of food getting stuck with any type foods or ingestions and again, according to him I make myself throw up. He also reports similar type symptoms with finned fish and shellfish and he also says with these type foods, he has not eaten any of these for years. Regarding these symptoms, he also thinks he can get it from the air when he has airborne exposures. He recently is and may possibly be interested in re-attempting shellfish at some point and this is why he presents. Then with steak, he tolerates well done steak but may have similar symptoms with rare hamburger but with further explanation regarding beef, he may experience more in the way of indigestion. He says he needs everything/beef/pork well done to better tolerate these foods. -He says he is very careful about what he eats and has not had any sort of similar symptoms with ingestions for several years (he has not had symptoms for several years) He added that his parents and previous wives thought it was all in my head regarding his perceived symptoms with ingestions. -He eats a lot of beef and pork at baseline without issues (when well done). 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 An EpiPen has not been prescribed and he has not previously sought further evaluation for this and presents at this visit. -His history is unremarkable for any recurrent upper or lower respiratory type symptoms or for asthma or taking inhalers or allergy medications and his history is negative for eczema. Environmental Survey/Social History: Lives with girlfriend and he has been previously 3 times. Special Needs: None Preferred Language: Luxembourger Pets: Yes: cat and a dog. 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 Smoking/Alcohol/Drug Use or Exposure: Yes: he smokes and girlfriend smokes. Recreational Activities/Sports: Yes: he is outside a lot. Review of Systems/Past Medical History: Constitutional: denies fever, chills, weight loss. Eyes: denies vision changes, color blindness. Ears, nose throat and mouth: see narrative above. No recurrent nasal or sinus type symptoms. Respiratory: denies wheezing, cough or chest tightness/ see above narrative. Gastrointestinal: denies diarrhea, constipation, emesis. Genitourinary: denies dysuria or urine odor. Skin/integumentary: denies nail changes or other rash. Neurologic: denies seizures, weakness or speech problems. Hematologic/lymphatic: denies pallor. Allergic/Immunologic: see narrative above. No history of eczema. *Regarding bee stings, no issues, local reaction to bee stings. History reviewed. No pertinent past medical history. History of Type II diabetes and high cholesterol. History reviewed. No pertinent surgical history. Vasectomy Current Outpatient Medications Medication Sig Dispense Refill TRULICITY 1.5 MG/0.5ML SOPN METFORMIN & DIET MANAGE PROD PO metFORMIN (GLUCOPHAGE) 500 MG tablet rosuvastatin (CRESTOR) 20 MG tablet Tadalafil 5 MG TABS Take by mouth daily No current facility-administered medications for this visit. History reviewed. No pertinent family history. Allergies: Amoxicillin (tongue itches, hives). PE: Nursing note and Vital signs reviewed. BP 136/81 Pulse 77 Ht (!) 183.6 cm Wt 91.9 kg BMI 27.26 kg/m Constitutional: He was awake, alert and in no apparent distress. Conjunctivae: clear. Nasal mucosa: normal Nasal turbinates: normal. No polyps visualized. Tympanic membranes: clear. Throat: clear. He did not have cervical adenopathy. Lungs: clear to auscultation bilaterally. Cardio: regular rate and rhythm. Musculoskeletal: good upper extremity strength bilaterally. Neuro: oriented to time and place, good interaction. Skin: upper extremities clear at this visit. *After discussion with him, epicutaneous testing to several/select food allergens of shrimp, crab, lobster, oyster, scallop and clam, catfish, codfish, perch, salmon, tuna and chicken revealed good controls and Severo was completely negative (histamine control 8mm/25mm). 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 He tolerates beef and hamburger when well done but has indigestion with beef that is not well done and he denies food impaction/getting stuck in his esophagus so his history does not seem remarkable of Eosinophilic Esophagitis and he has not experienced his specific ingestion symptoms for many years. Food testing at this visit was negative with an adequate histamine control. 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 The benefits, side effects of the treatment and treatment alternatives were discussed. Plan 1. You were tested to shrimp, crab, lobster, oyster, scallop and clam, catfish, codfish, perch, salmon, tuna and chicken and you were negative to all foods with an adequate histamine control (8mm/25mm). -Your chance of tolerating these foods appears to be the same as that of the general population. 2. You have a few options: A You may continue with avoidance of the foods. B. You could possibly attempt to re-introduce one food at a time at home. I would most likely leave at least 2 weeks before attempts at food introduction. . C. Could possibly consider an in-office food challenge in [place] to Shrimp or Crab and see information on food challenges. If interested in this option, call #[phone] and leave a message with our allergy nurses to schedule this. 3. As a precaution, I could prescribe an AUVI-Q 0.3mg to be used for any sort of anaphylaxis after an ingestion. If experiencing symptoms, could do Benadryl 25mg at 2 tablets (50mg) but if having a reaction that is progressing/not improving, do not delay with AUVI-Q administration and if used, call 911/EMS or to the nearest ED REGIS (see anaphylaxis plan). -I will send a RX for AUVI-Q to [facility] pharmacy in [place] and see information on this. 4. I could have you return as needed or for a food challenge in [place] or in 1 year depending on what you decide. Normal [facility] Low Dose CT Lung Screeningon 12-02-[address] Lung Screening [facility] Imaging Services [address] [place] [address] Lung Screening MR#: [id number] Acct: [id number] Name: SEVERO IBRAHIM Rep #: [id number] : 1970 M 50 From: Swati Jones MD PCP: IDRIS Gant Status: REG CLI Study: Low Dose CT Lung Screening Date of Exam: 12/02 Exam# [id number] Ordering Dr: Bela Bee NP DOCUMENTATION DESIGNER-C STUDY: LOW DOSE CT LUNG CANCER SCREENING REASON FOR EXAM: Male, 50 years old. Current smoker RADIATION DOSAGE (If Supplied By Facility): CTDIvol = ( 4.02 ) mGy, DLP = ( 155.02 ) mGycm TECHNIQUE: No contrast was administered. Low dose technique was utilized (average mAS-38 and kVp 120). 1.25 mm axial source images with a slice interval of 1.25-mm were reconstructed in lung windows. 2.5 mm axial source images with a slice interval of 2.5-mm were reconstructed in lung windows. 5.0 mm axial source images with a slice interval of 5.0-mm were reconstructed in soft tissue windows. Nodule measured using lung windows on PACS and/or independent workstation with automated measurement of minimum and maximum diameter. Nodule measurement reported as average diameter rounded to the nearest whole number. Growth is defined as an increase ins size of greater than 1.5 mm. COMPARISON: CT chest 11/11/2019 and 05/05/2019. FINDINGS: Lung nodules None. Lungs COPD: None. Fibrosis: None. Lymph nodes: None. Other findings: None. Pleural space Effusion: None. Calcification: None. Thickening: None. Heart Heart size: Normal. Coronary calcification: Moderate. Pericardial effusion: None. Other findings: None. Upper abdomen: None. Thorax: There is mild right shoulder arthrosis. There are mild degenerative changes of the spine. Base of neck: None. CT/Low Dose CT Lung Screening IMPRESSION: Lung-RADS category 1 - Continue annual screening with LDCT in 12 months. IMPORTANT NOTES FOR USE: ACR Lung-RADS Version 1.0 Assessment Categories Release Date: January 18, 2014 Category: Coded 0-4 bases on nodule(s) with highest degree of suspicion. Negative screen is defined as categories 1 and 2; a positive screen is defined as categories 3 and 4. Category 3 and 4A nodules that are unchanged on interval CT should be coded as category 2, and individuals returned to screening in 12 months. Category 4X: Category 3 or 4 nodules with additional imaging findings that increase the suspicion of lung cancer, such as spiculation, GGN that doubles in size in 1 year, enlarged lymph notes, etc. Category Modifiers: S (significant finding unrelated to lung cancer) and C (prior history of treated lung cancer) may be added to the 0-4 Lung-RADS Electronically Signed: Swati Jones MD at 15:14 EST Tel , Service support , CC: IDRIS Bee Vice Admiral: Signed Normal [facility] HGB A1C ([id number])Ordered By: S ystem Acoustical Logging Engineer on 11-25-2020 HbA1c (Bld) [Mass fraction] 6.4 % Abnormal 4.8-5.6 [facility]; [facility] Work Phone: Comment on above: . Prediabetes: 5.7 - 6.4 Diabetes: >6.4 Glycemic control for adults with diabetes: <7.0 PATIENT NOT FASTINGP ERFORMED BY: [facility]6370 [facility] [id number] CALCIFEDIOL (78372)Ordered B y: Boatswains Mate on 11-18-2020 25-Hydroxyvitamin D2+25-Hydroxyvitamin D3 [Mass/Vol] 56.0 ng/mL Normal 30.0-100.0 [facility]; [facility] Work Phone: Comment on above: Vitamin D deficiency has been defined by the [place] ofMedicine and an Endocrine Society practice guideline as alevel of serum 25-OH vitamin D less than 20 ng/mL (1,2).The Endocrine Society went on to further define vitamin Dinsufficiency as a level between 21 and 29 ng/mL (2).1. IOM ([place] of Medicine). 2010. Dietary reference intakes for calcium and D. [place]: The National Academies Press.2. Raman MF, Suman MILLIGAN, Thi WHITE, et al. Evaluation, treatment, and prevention of vitamin D deficiency: an Endocrine Society clinical practice guideline. JCEM. 2010; 96(7):1911-30. Nov 16 2020; PATIENT WAS FASTINGPERFORMED BY: CB LabCoContentRealtime Kvyyek8968 Hernandez RoadDublin [place] [id number] LIPID PANEL ([id number])Ordered B y: Boatswains Mate on 11-18-2020 Cholesterol [Mass/Vol] 168 mg/dL Normal 100-199 [facility] Internal Medicine; [facility] Work Phone: Comment on above: Nov 16 2020; PATIENT WAS FASTINGPERFORMED BY: CB LabYouxigu Nyurui9017 Hernandez RoadDublin [place] [id number] Cholesterol in HDL [Mass/Vol] 48 mg/dL Normal [facility]; [facility] Work Phone: Comment on above: Nov 16 2020; PATIENT WAS FASTINGPERFORMED BY: CB [facility] Xvpuer18[address] Haozu.comDublin [place] [id number] Cholesterol in LDL/Cholesterol in HDL [Mass ratio] 2.2 {ratio} Normal 0.0-3.6 [facility]; [facility] Work Phone: Comment on above: LDL/HDL Ratio Men Wo men 1/2 Avg.Risk 1.0 1.5 Avg.Risk 3.6 3.2 2X Avg.Risk 6.2 5.0 3X Avg.Risk 8.0 6.1 Nov 16 2020; PATIENT WAS FASTINGPERFORMED BY: CB [facility] Decgpu7189 Hernandez RoadDublin [place] [id number] Triglyceride [Mass/Vol] 73 mg/dL Normal 0-149 [facility]; [facility] Work Phone: Comment on above: Nov 16 2020; PATIENT WAS FASTINGPERFORMED BY: CB [facility] Ismcxf7750 Hernandez RoadDublin [place] [id number] LIPID PANEL (18014) 14 mg/dL Normal 5-40 [facility]; [facility] Work Phone: Comment on above: Nov 16 2020; PATIENT WAS FASTINGPERFORMED BY: BARBER [facility] Yiqbje1133 Hernandez Roadblin [place] [id number] LIPID PANEL (07818) 106 mg/dL Abnormal 0-99 [facility]; [facility] Work Phone: Comment on above: Nov 16 2020; PATIENT WAS FASTINGPERFORMED BY: [facility] Nconfm5176 Hernandez RoadDublin [place] [id number] LIPID PANEL (36514) 2.2 {ratio} Normal 0.0-3.6 [facility]; [facility] Work Phone: Comment on above: LDL/HDL Ratio Men Wo men 1/2 Avg.Risk 1.0 1.5 Avg.Risk 3.6 3.2 2X Avg.Risk 6.2 5.0 3X Avg.Risk 8.0 6.1 Nov 16 2020; PATIENT WAS FASTINGPERFORMED BY: [facility] Xnjlad3141 [facility]in [place] [id number] CALCIFEDIOL ([id number])Ordered B y: Boatswains Mate on 08-11-2020 25-Hydroxyvitamin D2+25-Hydroxyvitamin D3 [Mass/Vol] 41.4 ng/mL Normal 30.0-100.0 [facility] Work Phone: Comment on above: Vitamin D deficiency has been defined by the [place] ofMedicine and an Endocrine Society practice guideline as alevel of serum 25-OH vitamin D less than 20 ng/mL (1,2).The Endocrine Society went on to further define vitamin Dinsufficiency as a level between 21 and 29 ng/mL (2).1. IOM ([place] of Medicine). 2010. Dietary reference intakes for calcium and D. [place]: The National Academies Press.2. Raman TRACEY, Suman MILLIGAN, Thi WHITE, et al. Evaluation, treatment, and prevention of vitamin D deficiency: an Endocrine Society clinical practice guideline. JCEM. 2010; 96(7):1911-30. PATIENT WAS FASTINGP ERFORMED BY: [facility]6370 [facility] [id number] BY: [address] [id number] CBC, Platelets & Auto Diff ( 97280)Ordered By: Boatswains Mate on 08-11-2020 Basophils (Bld) [#/Vol] 0.1 {x10E3/uL} Normal 0.0-0.2 [facility] Work Phone: Comment on above: PATIENT WAS FASTINGP ERFORMED BY: [address] [id number] BY: [address] [id number] Basophils (Bld) [#/Vol] 0.1 10*3/uL Normal 0.0-0.2 [facility]; [facility] Work Phone: Comment on above: PATIENT WAS FASTINGP ERFORMED BY: [place] 1713470 [facility] [id number] BY: [address] [id number] Basophils/100 WBC (Bld) 1 % Normal [facility] Work Phone: Comment on above: PATIENT WAS FASTINGP ERFORMED BY: [address] [id number] BY: [address] [id number] Eosinophils (Bld) [#/Vol] 0.7 {x10E3/uL} Abnormal 0.0-0.4 [facility] Work Phone: Comment on above: PATIENT WAS FASTINGP ERFORMED BY: Lab[address] [id number] BY: [address] [id number] Eosinophils (Bld) [#/Vol] 0.7 10*3/uL Abnormal 0.0-0.4 [facility]; [facility] Work Phone: Comment on above: PATIENT WAS FASTINGP ERFORMED BY: [facility] Zcjddh7700 [facility] [id number] BY: [address] [id number] Eosinophils/100 WBC (Bld) 8 % Normal [facility] Work Phone: Comment on above: PATIENT WAS FASTINGP ERFORMED BY: [facility] Hgdtvf2695 [facility] [id number] BY: [address] [id number] Erythrocyte distribution width (RBC) [Ratio] 12.8 % Normal 11.6-15.4 [facility] Work Phone: Comment on above: PATIENT WAS FASTINGP ERFORMED BY: [facility] Xyqvyd6165 [facility] [id number] BY: [address] [id number] Hematocrit (Bld) [Volume fraction] 49.3 % Normal 37.5-51.0 [facility] Work Phone: Comment on above: PATIENT WAS FASTINGP ERFORMED BY: [facility] Firyzz7360 [facility] [id number] BY: [address] [id number] Hemoglobin (Bld) [Mass/Vol] 16.3 g/dL Normal 13.0-17.7 [facility] Work Phone: Comment on above: PATIENT WAS FASTINGP ERFORMED BY: [facility] Liqvby3708 [facility] [id number] BY: [address] [id number] Immature granulocytes (Bld) [#/Vol] 0.0 {x10E3/uL} Normal 0.0-0.1 [facility] Work Phone: Comment on above: PATIENT WAS FASTINGP ERFORMED BY: BARBER [facility] Zsheec086[address] [facility] [id number] BY: [address] [id number] Immature granulocytes (Bld) [#/Vol] 0.0 10*3/uL Normal 0.0-0.1 [facility]; [facility] Work Phone: Comment on above: PATIENT WAS FASTINGP ERFORMED BY: BARBER [facility] Oxzrlh2[address] [facility] [id number] BY: Lab[address] [id number] Immature granulocytes/100 WBC (Bld) 0 % Normal [facility] Work Phone: Comment on above: PATIENT WAS FASTINGP ERFORMED BY: BARBER [facility] Naqrew2877 [facility] [id number] BY: Lab[address] [id number] Lymphocytes (Bld) [#/Vol] 2.2 {x10E3/uL} Normal 0.7-3.1 [facility] Work Phone: Comment on above: PATIENT WAS FASTINGP ERFORMED BY: BARBER [facility] Dqwcen6852 [facility] [id number] BY: [address] [id number] Lymphocytes (Bld) [#/Vol] 2.2 10*3/uL Normal 0.7-3.1 [facility]; [facility] Work Phone: Comment on above: PATIENT WAS FASTINGP ERFORMED BY: [facility] Motcjr44[address] [facility] [id number] BY: [address] [id number] Lymphocytes/100 WBC (Bld) 24 % Normal [facility] Work Phone: Comment on above: PATIENT WAS FASTINGP ERFORMED BY: BARBER [facility] Dmjbdw3807 [facility] [id number] BY: [address] [id number] MCH (RBC) [Entitic mass] 30.9 pg Normal 26.6-33.0 [facility] Work Phone: Comment on above: PATIENT WAS FASTINGP ERFORMED BY: BARBER [facility] Gbpuqm3138 [facility] [id number] BY: LabCo[address] [id number] MCHC (RBC) [Mass/Vol] 33.1 g/dL Normal 31.5-35.7 [facility] Internal Medicine Work Phone: Comment on above: PATIENT WAS FASTINGP ERFORMED BY: BARBER [facility] Wmnyxl9495 [facility] [id number] BY: [address] [id number] MCV (RBC) [Entitic vol] 94 fL Normal 79-97 [facility] Work Phone: Comment on above: PATIENT WAS FASTINGP ERFORMED BY: BARBER LabYojana TreviñoZjnmeq1729 [facility] [id number] BY: [address] [id number] Monocytes (Bld) [#/Vol] 0.8 {x10E3/uL} Normal 0.1-0.9 [facility] Internal Medicine Work Phone: Comment on above: PATIENT WAS FASTINGP ERFORMED BY: BARBER [facility] Psqzbf8789 [facility] [id number] BY: [address] [id number] Monocytes (Bld) [#/Vol] 0.8 10*3/uL Normal 0.1-0.9 [facility]; [facility] Work Phone: Comment on above: PATIENT WAS FASTINGP ERFORMED BY: BARBER [facility] Hmiitf2794 Hernandez RoadDublin [place] [id number] BY: [address] [id number] Monocytes/100 WBC (Bld) 9 % Normal [facility] Work Phone: Comment on above: PATIENT WAS FASTINGP ERFORMED BY: BARBER [facility] Ipwezl0623 Hernandez RoadDublin [place] [id number] BY: Lab[address] [id number] Neutrophils (Bld) [#/Vol] 5.2 {x10E3/uL} Normal 1.4-7.0 [facility] Work Phone: Comment on above: PATIENT WAS FASTINGP ERFORMED BY: BARBER [facility] Kogipc4923 Hernandez RoadDuin [place] [id number] BY: [address] [id number] Neutrophils (Bld) [#/Vol] 5.2 10*3/uL Normal 1.4-7.0 [facility]; [facility] Work Phone: Comment on above: PATIENT WAS FASTINGP ERFORMED BY: BARBER LabCosusanna TreviñoYfhywa6150 Hernandez RoadDuin [place] [id number] BY: [address] [id number] Neutrophils/100 WBC (Bld) 58 % Normal [facility] Work Phone: Comment on above: PATIENT WAS FASTINGP ERFORMED BY: BARBER [facility] Cxbdoh5846 Hernandez RoadDublin [place] [id number] BY: [address] [id number] Platelets (Bld) [#/Vol] 217 {x10E3/uL} Normal 150-450 [facility] Work Phone: Comment on above: PATIENT WAS FASTINGP ERFORMED BY: BARBER [facility] Dqgskj4034 [address] [facility] [id number] BY: BN [facility] [id number] Platelets (Bld) [#/Vol] 217 10*3/uL Normal 150-450 [facility]; [facility] Work Phone: Comment on above: PATIENT WAS FASTINGP ERFORMED BY: BARBER LabCosusanna BrowneApqoqo8648 [facility] [id number] BY: [facility] [address] [id number] RBC (Bld) [#/Vol] 5.27 {x10E6/uL} Normal 4.14-5.80 [facility] Internal Medicine Work Phone: Comment on above: PATIENT WAS FASTINGP ERFORMED BY: BARBER [facility] Djdysa1131 [facility] [id number] BY: [facility] [id number] RBC (Bld) [#/Vol] 5.27 10*6/uL Normal 4.14-5.80 [facility] [[email or web address]] Internal Medicine; [facility] Work Phone: Comment on above: PATIENT WAS FASTINGP ERFORMED BY: BARBER [facility] Iszbbm2511 [facility] [id number] BY: [facility] [id number] WBC (Bld) [#/Vol] 8.9 {x10E3/uL} Normal 3.4-10.8 [facility] Internal Medicine Work Phone: Comment on above: PATIENT WAS FASTINGP ERFORMED BY: BARBER [facility] Fpnjhm6596 [facility] [id number] BY: [facility] [id number] WBC (Bld) [#/Vol] 8.9 10*3/uL Normal 3.4-10.8 [facility] Internal Medicine; [facility] Work Phone: Comment on above: PATIENT WAS FASTINGP ERFORMED BY: BARBER [facility] Snlyzo3445 [facility] [id number] BY: EQ works[address] [id number] HGB A1C (81807)Ordered By: S ystem Acoustical Logging Engineer on 08-11-2020 HbA1c (Bld) [Mass fraction] 6.1 % Abnormal 4.8-5.6 [facility] Work Phone: Comment on above: . Prediabetes: 5.7 - 6.4 Diabetes: >6.4 Glycemic control for adults with diabetes: <7.0 PATIENT WAS FASTINGP ERFORMED BY: BARBER [facility] Aqazui1418 [facility] [id number] BY: EQ works[address] [id number] LIPID PANEL (89998)Ordered B y: Boatswains Mate on 08-11-2020 Cholesterol [Mass/Vol] 135 mg/dL Normal 100-199 [facility] Internal Medicine Work Phone: Comment on above: PATIENT WAS FASTINGP ERFORMED BY: BARBER [facility] Hhdtos2202 [facility] [id number] BY: EQ worksMichael Ville 206057 [facility] [id number] Cholesterol in HDL [Mass/Vol] 39 mg/dL Abnormal [facility] Work Phone: Comment on above: PATIENT WAS FASTINGP ERFORMED BY: BARBER [facility] Ijhneh7607 [facility] [id number] BY: [facility] [id number] Cholesterol in LDL/Cholesterol in HDL [Mass ratio] 1.6 {ratio} Normal 0.0-3.6 [facility] Work Phone: Comment on above: LDL/HDL Ratio Men Wo men 1/2 Avg.Risk 1.0 1.5 Avg.Risk 3.6 3.2 2X Avg.Risk 6.2 5.0 3X Avg.Risk 8.0 6.1 PATIENT WAS FASTINGP ERFORMED BY: CB [facility] Zhfopz6157 [facility] [id number] BY: [address] [id number] Triglyceride [Mass/Vol] 206 mg/dL Abnormal 0-149 [facility] Work Phone: Comment on above: PATIENT WAS FASTINGP ERFORMED BY: [facility] Nplkbp1016 [facility] [id number] BY: [facility] [id number] LIPID PANEL (65135) 62 mg/dL Normal 0-99 [facility] Work Phone: Comment on above: PATIENT WAS FASTINGP ERFORMED BY: [facility] Qmrybr2827 [facility] [id number] BY: [address] [id number] LIPID PANEL (30295) 34 mg/dL Normal 5-40 [facility] [[email or web address]] Internal Medicine Work Phone: Comment on above: PATIENT WAS FASTINGP ERFORMED BY: [facility] Srdwfn2044 [facility] [id number] BY: Lab[address] [id number] LIPID PANEL (23094) 1.6 {ratio} Normal 0.0-3.6 [facility]; [facility] Work Phone: Comment on above: LDL/HDL Ratio Men Wo men 1/2 Avg.Risk 1.0 1.5 Avg.Risk 3.6 3.2 2X Avg.Risk 6.2 5.0 3X Avg.Risk 8.0 6.1 PATIENT WAS FASTINGP ERFORMED BY: [facility] Idyefl6080 [facility] [id number] BY: Lab[address] [id number] Metabolic Panel, Comprehensi ve (78010)Ordered By: Boatswains Mate on 08-11-2020 Albumin [Mass/Vol] 4.3 g/dL Normal 3.8-4.9 [facility] Internal Medicine Work Phone: Comment on above: PATIENT WAS FASTINGP ERFORMED BY: CB [facility] Dytnta2487 [address] [facility] [place] [id number] BY: [facility] [id number] Albumin/Globulin [Mass ratio] 1.9 {ratio} Normal 1.2-2.2 [facility] Work Phone: Comment on above: PATIENT WAS FASTINGP ERFORMED BY: CB [facility] Acqyjp2604 [address] [facility] [id number] BY: [facility] [address] [id number] ALP [Catalytic activity/Vol] 41 [iU]/L Normal 39-117 [facility] Work Phone: Comment on above: PATIENT WAS FASTINGP ERFORMED BY: CB [facility] Okutmo1351 [address] [facility] [id number] BY: [facility] [address] [id number] ALP [Catalytic activity/Vol] 41 U/L Normal 39-117 [facility]; [facility] Work Phone: Comment on above: PATIENT WAS FASTINGP ERFORMED BY: CB [facility] Hksajj0243 [address] [facility] [id number] BY: [facility] [id number] ALT [Catalytic activity/Vol] 24 [iU]/L Normal 0-44 [facility] Work Phone: Comment on above: PATIENT WAS FASTINGP ERFORMED BY: CB [facility] Fjqepm5875 [address] [facility] [id number] BY: [facility] [address] [id number] ALT [Catalytic activity/Vol] 24 U/L Normal 0-44 [facility]; [facility] Work Phone: Comment on above: PATIENT WAS FASTINGP ERFORMED BY: BARBER [facility] Sfpijf7777 Hernandez RoadDublin [place] [id number] BY: [address] [id number] AST [Catalytic activity/Vol] 18 [iU]/L Normal 0-40 [facility] Work Phone: Comment on above: PATIENT WAS FASTINGP ERFORMED BY: BARBER [facility] Fioyhu9959 Hernandez RoadDublin [place] [id number] BY: Lab[address] [id number] AST [Catalytic activity/Vol] 18 U/L Normal 0-40 [facility]; [facility] Work Phone: Comment on above: PATIENT WAS FASTINGP ERFORMED BY: BARBER [facility] Gvmswy3018 Hernandez RoadDublin [place] [id number] BY: [address] [id number] Bilirubin [Mass/Vol] 0.3 mg/dL Normal 0.0-1.2 Comp rehensive Internal Medicine Work Phone: Comment on above: PATIENT WAS FASTINGP ERFORMED BY: BARBER [facility] Izefwf3296 Hernandez RoadDublin [place] [id number] BY: [address] [id number] Calcium [Mass/Vol] 9.5 mg/dL Normal 8.7-10.2 [facility] Internal Medicine Work Phone: Comment on above: PATIENT WAS FASTINGP ERFORMED BY: BARBER [facility] Ebtrle5599 Hernandez RoadDublin [place] [id number] BY: [address] [id number] Chloride [Moles/Vol] 105 mmol/L Normal 96-106 [facility] Work Phone: Comment on above: PATIENT WAS FASTINGP ERFORMED BY: BARBER [facility] Bwhejw5037 Hernandez RoadDublin [place] [id number] BY: [employer] [address] [id number] CO2 [Moles/Vol] 26 mmol/L Normal 20-29 [facility] Internal Medicine Work Phone: Comment on above: PATIENT WAS FASTINGP ERFORMED BY: CB [facility] Gelngd0348 [address] [facility] [id number] BY: [employer] Softwarerp [address] [id number] Creatinine [Mass/Vol] 1.16 mg/dL Normal 0.76-1.27 [facility] Internal Medicine Work Phone: Comment on above: PATIENT WAS FASTINGP ERFORMED BY: CB [facility] Tpzpco3228 [address] [facility] [id number] BY: [employer] [address] [id number] GFR/1.73 sq M predicted among blacks CKD-EPI (S/P/Bld) [Vol rate/Area] 83 mL/min/1.73 Normal [facility] Work Phone: Comment on above: PATIENT WAS FASTINGP ERFORMED BY: CB [facility] Lyyypz7702 [address] [facility] [id number] BY: [employer] [id number] GFR/1.73 sq M predicted among non-blacks CKD-EPI (S/P/Bld) [Vol rate/Area] 72 mL/min/1.73 Normal [facility] Work Phone: Comment on above: PATIENT WAS FASTINGP ERFORMED BY: CB [facility] Biityr9113 [address] [facility] [id number] BY: EQ works[address] [id number] Globulin (S) [Mass/Vol] 2.3 g/dL Normal 1.5-4.5 [facility] Work Phone: Comment on above: PATIENT WAS FASTINGP ERFORMED BY: CB [facility] Qkwthw4511 [address] [facility]in [place] [id number] BY: [facility] [id number] Glucose [Mass/Vol] 141 mg/dL Abnormal 65-99 [facility] Internal Medicine Work Phone: Comment on above: PATIENT WAS FASTINGP ERFORMED BY: BARBER [facility] Dhfxdw6162 [address] [facility] HospitalDublin [place] [id number] BY: [facility] [address] [id number] Potassium [Moles/Vol] 5.1 mmol/L Normal 3.5-5.2 [facility] Internal Medicine Work Phone: Comment on above: PATIENT WAS FASTINGP ERFORMED BY: BARBER [facility] Ozqzse3232 [address] [facility] [id number] BY: [facility] [id number] Protein [Mass/Vol] 6.6 g/dL Normal 6.0-8.5 [facility] Internal Medicine Work Phone: Comment on above: PATIENT WAS FASTINGP ERFORMED BY: BARBER [facility] Nfcsrx1732 [address] [facility] [id number] BY: [facility] [id number] Sodium [Moles/Vol] 143 mmol/L Normal 134-144 [facility] Internal Medicine Work Phone: Comment on above: PATIENT WAS FASTINGP ERFORMED BY: CB [facility] Zitqyy6719 [address] [facility]in [place] [id number] BY: [facility] [id number] Urea nitrogen [Mass/Vol] 12 mg/dL Normal 6-24 [facility] Internal Medicine Work Phone: Comment on above: PATIENT WAS FASTINGP ERFORMED BY: CB [facility] Vpbyve4966 [address] [facility] Centerin [place] [id number] BY: [facility] [address] [id number] Urea nitrogen/Creatinine [Mass ratio] 10 mg/mg Normal 9-20 [facility] Work Phone: Comment on above: PATIENT WAS FASTINGP ERFORMED BY: BARBER Treviñolin6370 [facility] [id number] BY: [address] [id number] TESTOSTERONE FREE ([id number])Ord ered By: Boatswains Mate on 08-11-2020 Testosterone Free [Mass/Vol] 10.2 pg/mL Normal 7.2-24.0 [facility] Work Phone: Comment on above: PATIENT WAS FASTINGP ERFORMED BY: BARBER Malhotra Jjptfb[address] [id number] BY: [address] [id number] TESTOSTERONE FREE (39907)Ord ered By: Boatswains Mate on 05-19-2020 Testosterone Free [Mass/Vol] 13.6 pg/mL Normal 7.2-24.0 [facility] Work Phone: Comment on above: Apr 2020; PATIENT NO T FASTINGPERFORMED BY: [employer] [id number] HGB A1C (75907)Ordered By: Sally ystem Acoustical Logging Engineer on 05-10-2020 HbA1c (Bld) [Mass fraction] 6.3 % Abnormal 4.8-5.6 [facility] Work Phone: Comment on above: . Prediabetes: 5.7 - 6.4 Diabetes: >6.4 Glycemic control for adults with diabetes: <7.0 PATIENT NOT FASTINGP ERFORMED BY: BARBER [address] [id number] BY: [address] [id number] TESTOSTERONE FREE (58871)Ord ered By: Boatswains Mate on 05-10-2020 Testosterone Free [Mass/Vol] 10.0 pg/mL Normal 7.2-24.0 [facility] Work Phone: Comment on above: PATIENT NOT FASTINGP ERFORMED BY: BARBER EVault6370 [address] [facility] [id number] BY: CESAR [employer] CorporationCenterpoint Medical Center1447 [facility] [id number] CALCIFEDIOL (20116)Ordered B y: Boatswains Mate on 11-04-2019 25-Hydroxyvitamin D2+25-Hydroxyvitamin D3 [Mass/Vol] 66.4 ng/mL Normal 30.0-100.0 [facility] Work Phone: Comment on above: Vitamin D deficiency has been defined by the [place] ofMedicine and an Endocrine Society practice guideline as alevel of serum 25-OH vitamin D less than 20 ng/mL (1,2).The Endocrine Society went on to further define vitamin Dinsufficiency as a level between 21 and 29 ng/mL (2).1. IOM ([place] of Medicine). 2010. Dietary reference intakes for calcium and D. [place]: The National Academies Press.2. Raman MF, Suman MILLIGAN, Thi WHITE, et al. Evaluation, treatment, and prevention of vitamin D deficiency: an Endocrine Society clinical practice guideline. JCEM. 2010; 96(7):1911-30. PATIENT WAS FASTINGP ERFORMED BY: BARBER EVault6370 [address] [facility] [id number] HGB A1C (99065)Ordered By: Sally ystem Acoustical Logging Engineer on 11-04-2019 HbA1c (Bld) [Mass fraction] 6.1 % Abnormal 4.8-5.6 [facility] Work Phone: Comment on above: . Prediabetes: 5.7 - 6.4 Diabetes: >6.4 Glycemic control for adults with diabetes: <7.0 PATIENT WAS FASTINGP ERFORMED BY: BARBER EVault6370 [facility] [id number] LIPID PANEL (87985)Ordered B y: Boatswains Mate on 11-04-2019 Cholesterol [Mass/Vol] 148 mg/dL Normal 100-199 [facility] Internal Medicine Work Phone: Comment on above: PATIENT WAS FASTINGP ERFORMED BY: BARBER [facility] Hdydnv9713 Hernandez RoadDublin [place] [id number] Cholesterol in HDL [Mass/Vol] 45 mg/dL Normal [facility] Work Phone: Comment on above: PATIENT WAS FASTINGP ERFORMED BY: [facility] Cpeznr5343 [address] RoadDublin [place] [id number] Cholesterol in LDL [Mass/Vol] 78 mg/dL Normal 0-99 [facility] Work Phone: Comment on above: PATIENT WAS FASTINGP ERFORMED BY: [facility] Usmdiy6819 [address] RoadDublin [place] [id number] Cholesterol in LDL/Cholesterol in HDL [Mass ratio] 1.7 {ratio} Normal 0.0-3.6 [facility] Work Phone: Comment on above: LDL/HDL Ratio Men Wo men 1/2 Avg.Risk 1.0 1.5 Avg.Risk 3.6 3.2 2X Avg.Risk 6.2 5.0 3X Avg.Risk 8.0 6.1 PATIENT WAS FASTINGP ERFORMED BY: [facility] Vwfxwu6466 Hernandez RoadDublin [place] [id number] Cholesterol in VLDL [Mass/Vol] 25 mg/dL Normal 5-40 [facility] Work Phone: Comment on above: PATIENT WAS FASTINGP ERFORMED BY: [facility] Ztfvaf7892 [address] RoadDublin [place] [id number] Triglyceride [Mass/Vol] 124 mg/dL Normal 0-149 [facility] Work Phone: Comment on above: PATIENT WAS FASTINGP ERFORMED BY: [facility] Uackrj6505 [address] RoadDublin [place] [id number] CALCIFEDIOL (58882)Ordered B y: Boatswains Mate on 07-31-2019 25-Hydroxyvitamin D2+25-Hydroxyvitamin D3 [Mass/Vol] 49.3 ng/mL Normal 30.0-100.0 [facility] Work Phone: Comment on above: Vitamin D deficiency has been defined by the [place] ofMedicine and an Endocrine Society practice guideline as alevel of serum 25-OH vitamin D less than 20 ng/mL (1,2).The Endocrine Society went on to further define vitamin Dinsufficiency as a level between 21 and 29 ng/mL (2).1. IOM ([place] of Medicine). 2010. Dietary reference intakes for calcium and D. [place]: The National Academies Press.2. Raman MF, Suman [place], Thi WHITE, et al. Evaluation, treatment, and prevention of vitamin D deficiency: an Endocrine Society clinical practice guideline. JCEM. 2010; 96(7):1911-30. PATIENT WAS FASTINGP ERFORMED BY: CB [facility] Vpolnl8617 [address] Haozu.comDublin [place] [id number] HGB A1C (75111)Ordered By: S ystem Acoustical Logging Engineer on 07-31-2019 HbA1c (Bld) [Mass fraction] 5.9 % Abnormal 4.8-5.6 [facility] Work Phone: Comment on above: . Prediabetes: 5.7 - 6.4 Diabetes: >6.4 Glycemic control for adults with diabetes: <7.0 PATIENT WAS FASTINGP ERFORMED BY: CB [facility] Vvxzro6007 [address] Haozu.comDublin [place] [id number] LIPID PANEL (05774)Ordered B y: Boatswains Mate on 07-31-2019 Cholesterol [Mass/Vol] 191 mg/dL Normal 100-199 [facility] Internal Medicine Work Phone: Comment on above: PATIENT WAS FASTINGP ERFORMED BY: CB [facility] Hodosf2732 Hernandez RoadDublin [place] [id number] Cholesterol in HDL [Mass/Vol] 44 mg/dL Normal [facility] Work Phone: Comment on above: PATIENT WAS FASTINGP ERFORMED BY: CB [facility] Riobfo1287 [address] RoadDublin [place] [id number] Cholesterol in LDL [Mass/Vol] 132 mg/dL Abnormal 0-99 [facility] Work Phone: Comment on above: PATIENT WAS FASTINGP ERFORMED BY: CB [facility] Rgxgur2992 [address] RoadDublin [place] [id number] Cholesterol in LDL/Cholesterol in HDL [Mass ratio] 3.0 {ratio} Normal 0.0-3.6 [facility] Work Phone: Comment on above: LDL/HDL Ratio Men Wo men 1/2 Avg.Risk 1.0 1.5 Avg.Risk 3.6 3.2 2X Avg.Risk 6.2 5.0 3X Avg.Risk 8.0 6.1 PATIENT WAS FASTINGP ERFORMED BY: BARBER LabCosusanna Rykkea4589 Hernandez RoadDublin [place] [id number] Cholesterol in VLDL [Mass/Vol] 15 mg/dL Normal 5-40 [facility] Work Phone: Comment on above: PATIENT WAS FASTINGP ERFORMED BY: BARBER LabCosusanna Aajplr4855 [address] RoadDublin [place] [id number] Triglyceride [Mass/Vol] 77 mg/dL Normal 0-149 [facility] Work Phone: Comment on above: PATIENT WAS FASTINGP ERFORMED BY: BARBER LabCosusanna TreviñoEucwbs9130 [address] RoadDublin [place] [id number] Lipid Panel (94004)Ordered B y: Boatswains Mate on 07-24-2019 Cholesterol [Mass/Vol] 218 mg/dL Abnormal 100-199 [facility] Internal Medicine Work Phone: Comment on above: PATIENT WAS FASTINGP ERFORMED BY: BARBER LabCosusanna Ccrlis0598 [address] RoadDublin [place] [id number] Cholesterol in HDL [Mass/Vol] 40 mg/dL Normal [facility] Work Phone: Comment on above: PATIENT WAS FASTINGP ERFORMED BY: BARBER [facility] Fqbqip6966 [address] RoadDublin [place] [id number] Cholesterol in LDL [Mass/Vol] 159 mg/dL Abnormal 0-99 [facility] Work Phone: Comment on above: PATIENT WAS FASTINGP ERFORMED BY: BARBER LabCosusanna Wswznz6367 [address] RoadDublin [place] [id number] Cholesterol in LDL/Cholesterol in HDL [Mass ratio] 4.0 {ratio} Abnormal 0.0-3.6 [facility] Work Phone: Comment on above: LDL/HDL Ratio Men Wo men 1/2 Avg.Risk 1.0 1.5 Avg.Risk 3.6 3.2 2X Avg.Risk 6.2 5.0 3X Avg.Risk 8.0 6.1 PATIENT WAS FASTINGP ERFORMED BY: BARBER LabYojana Dptfsh8165 [address] [facility]bl[facility] [place] [id number] Cholesterol in VLDL [Mass/Vol] 19 mg/dL Normal 5-40 [facility] Work Phone: Comment on above: PATIENT WAS FASTINGP ERFORMED BY: BARBER [facility] Dyygqv0854 [address] [facility] [place] [id number] Triglyceride [Mass/Vol] 93 mg/dL Normal 0-149 [facility] Work Phone: Comment on above: PATIENT WAS FASTINGP ERFORMED BY: BARBER LabYojana TreviñoLhuvfq1256 [facility] [id number] Metabolic Panel, Comprehensi ve (35174)Ordered By: Boatswains Mate on 07-24-2019 Albumin [Mass/Vol] 4.3 g/dL Normal 3.5-5.5 [facility] Internal Medicine Work Phone: Comment on above: PATIENT WAS FASTINGP ERFORMED BY: BARBER LabScsusanna TreviñoGnbnce6451 [facility]in [place] [id number] Albumin/Globulin [Mass ratio] 1.9 {ratio} Normal 1.2-2.2 [facility] Work Phone: Comment on above: PATIENT WAS FASTINGP ERFORMED BY: BARBER [facility] Wztsyv5504 [address] [facility]in [place] [id number] ALP [Catalytic activity/Vol] 38 [iU]/L Abnormal 39-117 [facility] Work Phone: Comment on above: PATIENT WAS FASTINGP ERFORMED BY: BARBER LabCosusanna Iixwlq9789 [address] [facility] Hospitalblin [place] [id number] ALP [Catalytic activity/Vol] 38 U/L Abnormal 39-117 [facility]; [facility] Work Phone: Comment on above: PATIENT WAS FASTINGP ERFORMED BY: BARBER [facility] Ijmdls2903 [address] [facility] Hospitalblin [place] [id number] ALT [Catalytic activity/Vol] 14 [iU]/L Normal 0-44 [facility] Work Phone: Comment on above: PATIENT WAS FASTINGP ERFORMED BY: [facility] Otnnzg1304 [address] RoadDublin [place] [id number] ALT [Catalytic activity/Vol] 14 U/L Normal 0-44 [facility]; [facility] Work Phone: Comment on above: PATIENT WAS FASTINGP ERFORMED BY: CB [facility] Erniju8783 [address] RoadDublin [place] [id number] AST [Catalytic activity/Vol] 14 [iU]/L Normal 0-40 [facility] Internal Medicine Work Phone: Comment on above: PATIENT WAS FASTINGP ERFORMED BY: [facility] Wjexsl3398 [address] RoadDublin [place] [id number] AST [Catalytic activity/Vol] 14 U/L Normal 0-40 [facility]; [facility] Internal Medicine Work Phone: Comment on above: PATIENT WAS FASTINGP ERFORMED BY: [facility] Ppkwsq9819 [address] RoadDublin [place] [id number] Bilirubin [Mass/Vol] 0.5 mg/dL Normal 0.0-1.2 [facility] Internal Medicine Work Phone: Comment on above: PATIENT WAS FASTINGP ERFORMED BY: [facility] Pztfdu0990 [address] RoadDublin [place] [id number] Calcium [Mass/Vol] 9.6 mg/dL Normal 8.7-10.2 [facility] Internal Medicine Work Phone: Comment on above: PATIENT WAS FASTINGP ERFORMED BY: [facility] Bbrfdn5100 [address] RoadDublin [place] [id number] Chloride [Moles/Vol] 103 mmol/L Normal 96-106 [facility] Internal Medicine Work Phone: Comment on above: PATIENT WAS FASTINGP ERFORMED BY: CB [facility] Rmoyki4456 [address] RoadDublin [place] [id number] CO2 [Moles/Vol] 22 mmol/L Normal 20-29 [facility]do[facility] Internal [facility] Work Phone: Comment on above: PATIENT WAS FASTINGP ERFORMED BY: CB [facility] Btmqbn6375 [address] RoadDublin [place] [id number] Creatinine [Mass/Vol] 1.26 mg/dL Normal 0.76-1.27 [facility] Internal Medicine Work Phone: Comment on above: PATIENT WAS FASTINGP ERFORMED BY: CB [facility] Wsbqjb2243 [address] RoadDublin [place] [id number] GFR/1.73 sq M predicted among blacks CKD-EPI (S/P/Bld) [Vol rate/Area] 76 mL/min/1.73 Normal [facility] Internal Medicine Work Phone: Comment on above: PATIENT WAS FASTINGP ERFORMED BY: CB [facility] Dazxjj9284 [address] RoadDublin [place] [id number] GFR/1.73 sq M predicted among non-blacks CKD-EPI (S/P/Bld) [Vol rate/Area] 66 mL/min/1.73 Normal [facility] Internal Medicine Work Phone: Comment on above: PATIENT WAS FASTINGP ERFORMED BY: BARBER [facility] Qtenvh8204 [address] RoadDublin [place] [id number] Globulin (S) [Mass/Vol] 2.3 g/dL Normal 1.5-4.5 [facility] Internal Medicine Work Phone: Comment on above: PATIENT WAS FASTINGP ERFORMED BY: CB [facility] Hzudwz0112 [address] RoadDublin [place] [id number] Glucose [Mass/Vol] 125 mg/dL Abnormal 65-99 [facility] Internal Medicine Work Phone: Comment on above: PATIENT WAS FASTINGP ERFORMED BY: CB [facility] Pzfxnf2342 [address] RoadDublin [place] [id number] Potassium [Moles/Vol] 4.8 mmol/L Normal 3.5-5.2 [facility] Internal Medicine Work Phone: Comment on above: PATIENT WAS FASTINGP ERFORMED BY: CB [facility] Obfdoi3416 [address] RoadDublin [place] [id number] Protein [Mass/Vol] 6.6 g/dL Normal 6.0-8.5 [facility] Internal Medicine Work Phone: Comment on above: PATIENT WAS FASTINGP ERFORMED BY: BARBER [facility] Frfwvq3129 [address] RoadDublin [place] [id number] Sodium [Moles/Vol] 142 mmol/L Normal 134-144 [facility] Internal Medicine Work Phone: Comment on above: PATIENT WAS FASTINGP ERFORMED BY: CB [facility] Ccibmv1544 [address] RoadDublin [place] [id number] Urea nitrogen [Mass/Vol] 13 mg/dL Normal 6-24 [facility] Work Phone: Comment on above: PATIENT WAS FASTINGP ERFORMED BY: BARBER [facility] Kcvbwv4095 [address] RoadDublin [place] [id number] Urea nitrogen/Creatinine [Mass ratio] 10 mg/mg Normal 9-20 [facility] Work Phone: Comment on above: PATIENT WAS FASTINGP ERFORMED BY: [facility] Oqszyf1046 [address] RoadDublin [place] [id number] CALCIFEDIOL (88640)Ordered B y: Boatswains Mate on 04-29-2019 25-Hydroxyvitamin D2+25-Hydroxyvitamin D3 [Mass/Vol] 49.7 ng/mL Normal 30.0-100.0 [facility] Work Phone: Comment on above: Vitamin D deficiency has been defined by the [place]man ofAv[facility] Health Systemcine and an Endocrine Society practice guideline as alevel of serum 25-OH vitamin D less than 20 ng/mL (1,2).The Endocrine Society went on to further define vitamin Dinsufficiency as a level between 21 and 29 ng/mL (2).1. IOM ([place] of Medicine). 2010. Dietary reference intakes for calcium and D. [place]: The National Academies Press.2. Raman MF, Suman MILLIGAN, Thi WHITE, et al. Evaluation, treatment, and prevention of vitamin D deficiency: an Endocrine Society clinical practice guideline. JCEM. 2010; 96(7):1911-30. PATIENT WAS FASTINGP ERFORMED BY: [facility]6370 [facility] [id number] CBC, Platelets & Auto Diff ( 37179)Ordered By: Boatswains Mate on 04-29-2019 Basophils (Bld) [#/Vol] 0.1 {x10E3/uL} Normal 0.0-0.2 [facility] Work Phone: Comment on above: PATIENT WAS FASTINGP ERFORMED BY: [facility] [id number] Basophils (Bld) [#/Vol] 0.1 10*3/uL Normal 0.0-0.2 [facility]; [facility] Work Phone: Comment on above: PATIENT WAS FASTINGP ERFORMED BY: [facility]6370 [facility] [id number] Basophils/100 WBC (Bld) 1 % Normal [facility] Work Phone: Comment on above: PATIENT WAS FASTINGP ERFORMED BY: [facility]6370 [facility] [id number] Eosinophils (Bld) [#/Vol] 0.5 {x10E3/uL} Abnormal 0.0-0.4 [facility] Work Phone: Comment on above: PATIENT WAS FASTINGP ERFORMED BY: [facility]6[address] [facility] [id number] Eosinophils (Bld) [#/Vol] 0.5 10*3/uL Abnormal 0.0-0.4 [facility]; [facility] Work Phone: Comment on above: PATIENT WAS FASTINGP ERFORMED BY: [facility]6[address] [facility] [id number] Eosinophils/100 WBC (Bld) 6 % Normal [facility] Work Phone: Comment on above: PATIENT WAS FASTINGP ERFORMED BY: [facility]6370 [facility] [id number] Erythrocyte distribution width (RBC) [Ratio] 14.0 % Normal 12.3-15.4 [facility] Work Phone: Comment on above: PATIENT WAS FASTINGP ERFORMED BY: [facility] Qblxkh9678 [address] Roadblin [place] [id number] Hematocrit (Bld) [Volume fraction] 48.4 % Normal 37.5-51.0 [facility] Work Phone: Comment on above: PATIENT WAS FASTINGP ERFORMED BY: LabBothwell Regional Health CenterLwpovz0522 Hernandez Roadblin [place] [id number] Hemoglobin (Bld) [Mass/Vol] 16.2 g/dL Normal 13.0-17.7 [facility] Work Phone: Comment on above: PATIENT WAS FASTINGP ERFORMED BY: [facility]6370 [address] RoadWatauga Medical Centerin [place] [id number] Immature granulocytes (Bld) [#/Vol] 0.0 {x10E3/uL} Normal 0.0-0.1 [facility] Work Phone: Comment on above: PATIENT WAS FASTINGP ERFORMED BY: [facility]6370 [address] RoadWatauga Medical Centerin [place] [id number] Immature granulocytes (Bld) [#/Vol] 0.0 10*3/uL Normal 0.0-0.1 [facility]; [facility] Work Phone: Comment on above: PATIENT WAS FASTINGP ERFORMED BY: [facility]6[address] [facility] Hospitalblin [place] [id number] Immature granulocytes/100 WBC (Bld) 0 % Normal [facility] Work Phone: Comment on above: PATIENT WAS FASTINGP ERFORMED BY: [facility] Opyzfk9009 [address]Dublin [place] [id number] Lymphocytes (Bld) [#/Vol] 2.3 {x10E3/uL} Normal 0.7-3.1 [facility] Work Phone: Comment on above: PATIENT WAS FASTINGP ERFORMED BY: [facility] Llgvov8990 [address] RoadDublin [place] [id number] Lymphocytes (Bld) [#/Vol] 2.3 10*3/uL Normal 0.7-3.1 [facility]; [facility] Work Phone: Comment on above: PATIENT WAS FASTINGP ERFORMED BY: BARBER [facility] Unvnty9359 [address] RoadDublin [place] [id number] Lymphocytes/100 WBC (Bld) 28 % Normal [facility] Work Phone: Comment on above: PATIENT WAS FASTINGP ERFORMED BY: [facility] Rrrcul1570 [address] Roadblin [place] [id number] MCH (RBC) [Entitic mass] 30.6 pg Normal 26.6-33.0 [facility] Work Phone: Comment on above: PATIENT WAS FASTINGP ERFORMED BY: BARBER [facility] Rmqzfo5898 [address] Roadblin [place] [id number] MCHC (RBC) [Mass/Vol] 33.5 g/dL Normal 31.5-35.7 [facility] prehensive Internal Medicine Work Phone: Comment on above: PATIENT WAS FASTINGP ERFORMED BY: [facility]6[address] RoadDublin [place] [id number] MCV (RBC) [Entitic vol] 92 fL Normal 79-97 [facility] Work Phone: Comment on above: PATIENT WAS FASTINGP ERFORMED BY: [facility] Tlaxjd7732 [address] RoadDublin [place] [id number] Monocytes (Bld) [#/Vol] 0.4 {x10E3/uL} Normal 0.1-0.9 [facility] Work Phone: Comment on above: PATIENT WAS FASTINGP ERFORMED BY: [facility] Iffkpy2147 [address] RoadDublin [place] [id number] Monocytes (Bld) [#/Vol] 0.4 10*3/uL Normal 0.1-0.9 [facility]; [facility] Work Phone: Comment on above: PATIENT WAS FASTINGP ERFORMED BY: [facility] Kinedb7652 [address] RoadDublin [place] [id number] Monocytes/100 WBC (Bld) 5 % Normal [facility] Work Phone: Comment on above: PATIENT WAS FASTINGP ERFORMED BY: CB [facility] Jiprtp6354 [address] RoadDublin [place] [id number] Neutrophils (Bld) [#/Vol] 5.0 {x10E3/uL} Normal 1.4-7.0 [facility] Work Phone: Comment on above: PATIENT WAS FASTINGP ERFORMED BY: CB [facility] Bklfrz0714 [address] RoadDublin [place] [id number] Neutrophils (Bld) [#/Vol] 5.0 10*3/uL Normal 1.4-7.0 [facility]; [facility] Work Phone: Comment on above: PATIENT WAS FASTINGP ERFORMED BY: [facility] Mbretp4216 [address] RoadDublin [place] [id number] Neutrophils/100 WBC (Bld) 60 % Normal [facility] Work Phone: Comment on above: PATIENT WAS FASTINGP ERFORMED BY: [facility] Kjaomo7183 [address] RoadDublin [place] [id number] Platelets (Bld) [#/Vol] 237 {x10E3/uL} Normal 150-450 [facility] Work Phone: Comment on above: PATIENT WAS FASTINGP ERFORMED BY: [facility] Ytmfet9445 [address] RoadDublin [place] [id number] Platelets (Bld) [#/Vol] 237 10*3/uL Normal 150-450 [facility]; [facility] Work Phone: Comment on above: PATIENT WAS FASTINGP ERFORMED BY: CB [facility] Xuumcd4114 [address] RoadDublin [place] [id number] RBC (Bld) [#/Vol] 5.29 {x10E6/uL} Normal 4.14-5.80 [facility] Internal Medicine Work Phone: Comment on above: PATIENT WAS FASTINGP ERFORMED BY: CB [facility] Utcfwk0885 [address] RoadDublin [place] [id number] RBC (Bld) [#/Vol] 5.29 10*6/uL Normal 4.14-5.80 [facility]ensive [facility]; [facility] Work Phone: Comment on above: PATIENT WAS FASTINGP ERFORMED BY: BARBER LabYojana Browne[address] [facility] Park Hospitalblin [place] [id number] WBC (Bld) [#/Vol] 8.4 {x10E3/uL} Normal 3.4-10.8 [facility] Internal Medicine Work Phone: Comment on above: PATIENT WAS FASTINGP ERFORMED BY: CB [facility] Vaurxx9829 Hern[address] Roadblin [place] [id number] WBC (Bld) [#/Vol] 8.4 10*3/uL Normal 3.4-10.8 [facility]; [facility] Work Phone: Comment on above: PATIENT WAS FASTINGP ERFORMED BY: BARBER [facility] Psktln0[address] [facility] [id number] HGB A1C (11281)Ordered By: S ystem Acoustical Logging Engineer on 04-29-2019 HbA1c (Bld) [Mass fraction] 6.0 % Abnormal 4.8-5.6 [facility] Work Phone: Comment on above: . Prediabetes: 5.7 - 6.4 Diabetes: >6.4 Glycemic control for adults with diabetes: <7.0 PATIENT WAS FASTINGP ERFORMED BY: BARBER [facility] Tmhvzd7541 [facility] [id number] Lipid Panel (11202)Ordered B y: Boatswains Mate on 04-29-2019 Cholesterol [Mass/Vol] 235 mg/dL Abnormal 100-199 [facility] Internal Medicine Work Phone: Comment on above: PATIENT WAS FASTINGP ERFORMED BY: BARBER [facility] Astzcw7[address] [facility] Hospitalblin [place] [id number] Cholesterol in HDL [Mass/Vol] 42 mg/dL Normal [facility] Work Phone: Comment on above: PATIENT WAS FASTINGP ERFORMED BY: BARBER [facility] Vwhcpv5038 [address] [facility]in [place] [id number] Cholesterol in LDL [Mass/Vol] 163 mg/dL Abnormal 0-99 [facility] Work Phone: Comment on above: PATIENT WAS FASTINGP ERFORMED BY: BARBER Treviñolin6370 [address] Haozu.comHaywood Regional Medical Center [id number] Cholesterol in LDL/Cholesterol in HDL [Mass ratio] 3.9 {ratio} Abnormal 0.0-3.6 [facility] Work Phone: Comment on above: LDL/HDL Ratio Men Wo men 1/2 Avg.Risk 1.0 1.5 Avg.Risk 3.6 3.2 2X Avg.Risk 6.2 5.0 3X Avg.Risk 8.0 6.1 PATIENT WAS FASTINGP ERFORMED BY: BARBER Treviñolin6370 [address] Haozu.comHaywood Regional Medical Center [id number] Cholesterol in VLDL [Mass/Vol] 30 mg/dL Normal 5-40 [facility] Work Phone: Comment on above: PATIENT WAS FASTINGP ERFORMED BY: BARBER Treviñolin6370 [address] Haozu.comHaywood Regional Medical Center [id number] Triglyceride [Mass/Vol] 152 mg/dL Abnormal 0-149 [facility] Work Phone: Comment on above: PATIENT WAS FASTINGP ERFORMED BY: BARBER Treviñolin6370 [facility] [id number] MICROALBUMINOrdered By: Syst em Acoustical Logging Engineer on 04-29-2019 Albumin DL <= 20 mg/L (U) [Mass/Vol] mg/dL Normal [facility] Work Phone: Comment on above: PATIENT WAS FASTINGP ERFORMED BY: BARBER LabYojana TreviñoQdzecs5304 [facility]in [place] [id number] Albumin DL <= 20 mg/L (U) [Mass/Vol] mg/dL Normal [facility]; [facility] Work Phone: Comment on above: PATIENT WAS FASTINGP ERFORMED BY: BARBER LabYojana TreviñoMjrfir1785 [facility] [id number] Albumin/Creatinine (U) [Mass ratio] <9.3 Normal 0.0-30.0 [facility] Work Phone: Comment on above: Normal: 0.0 - 30.0 A lbuminuria: 31.0 - 300.0 Clinical albuminuria: >300.0 PATIENT WAS FASTINGP ERFORMED BY: BARBER LabYojana Bwvvlp0070 [address] RoadDublin [place] [id number] Creatinine (U) [Mass/Vol] 32.1 mg/dL Normal [facility] Work Phone: Comment on above: PATIENT WAS FASTINGP ERFORMED BY: BARBER LabCosusanna TreviñoJlixlm6789 [address] RoadDublin [place] [id number] Metabolic Panel, Comprehensi ve (12719)Ordered By: Boatswains Mate on 04-29-2019 Albumin [Mass/Vol] 4.6 g/dL Normal 3.5-5.5 [facility] Internal Medicine Work Phone: Comment on above: PATIENT WAS FASTINGP ERFORMED BY: BARBER Treviñolin6370 [address] RoadDublin [place] [id number] Albumin/Globulin [Mass ratio] 1.7 {ratio} Normal 1.2-2.2 [facility] Work Phone: Comment on above: PATIENT WAS FASTINGP ERFORMED BY: BARBER LabYojana TreviñoFrnswo0579 [address] RoadDublin [place] [id number] ALP [Catalytic activity/Vol] 43 [iU]/L Normal 39-117 [facility] Work Phone: Comment on above: PATIENT WAS FASTINGP ERFORMED BY: BARBER LabCosusanna Aaelpf4352 [address] RoadDublin [place] [id number] ALP [Catalytic activity/Vol] 43 U/L Normal 39-117 [facility]; [facility] Work Phone: Comment on above: PATIENT WAS FASTINGP ERFORMED BY: BARBER LabCosusanna Flojnr3598 [address] RoadDublin [place] [id number] ALT [Catalytic activity/Vol] 18 [iU]/L Normal 0-44 [facility] Work Phone: Comment on above: PATIENT WAS FASTINGP ERFORMED BY: BARBER LabCosusanna Didasv4702 [address] RoadDublin [place] [id number] ALT [Catalytic activity/Vol] 18 U/L Normal 0-44 [facility]; [facility] Work Phone: Comment on above: PATIENT WAS FASTINGP ERFORMED BY: CB [facility] Ngkbiy5908 [address] RoadDublin [place] [id number] AST [Catalytic activity/Vol] 14 [iU]/L Normal 0-40 [facility] Internal Medicine Work Phone: Comment on above: PATIENT WAS FASTINGP ERFORMED BY: CB [facility] Mtgvvd5380 [address] RoadDublin [place] [id number] AST [Catalytic activity/Vol] 14 U/L Normal 0-40 [facility]; [facility] Internal Medicine Work Phone: Comment on above: PATIENT WAS FASTINGP ERFORMED BY: [facility] Jsdmxi9078 [address] RoadDublin [place] [id number] Bilirubin [Mass/Vol] 0.3 mg/dL Normal 0.0-1.2 [facility]erensive Internal Medicine Work Phone: Comment on above: PATIENT WAS FASTINGP ERFORMED BY: [facility] Gyfojb9223 [address] RoadDublin [place] [id number] Calcium [Mass/Vol] 10.1 mg/dL Normal 8.7-10.2 [facility] Internal Medicine Work Phone: Comment on above: PATIENT WAS FASTINGP ERFORMED BY: [facility] Lcwffv2797 [address] RoadDublin [place] [id number] Chloride [Moles/Vol] 105 mmol/L Normal 96-106 [facility] Centerensive Internal [facility] Work Phone: Comment on above: PATIENT WAS FASTINGP ERFORMED BY: CB [facility] Divljr3998 [address] RoadDublin [place] [id number] CO2 [Moles/Vol] 25 mmol/L Normal 20-29 [facility] Internal Medicine Work Phone: Comment on above: PATIENT WAS FASTINGP ERFORMED BY: CB [facility] Ezadao1780 [address] RoadDublin [place] [id number] Creatinine [Mass/Vol] 1.24 mg/dL Normal 0.76-1.27 Com prehensive Internal Medicine Work Phone: Comment on above: PATIENT WAS FASTINGP ERFORMED BY: BARBER [facility] Gqpzkz7074 [address] RoadDublin [place] [id number] GFR/1.73 sq M predicted among blacks CKD-EPI (S/P/Bld) [Vol rate/Area] 78 mL/min/1.73 Normal [facility] Work Phone: Comment on above: PATIENT WAS FASTINGP ERFORMED BY: BARBER [facility] Nqjvtv6140 [address] RoadDublin [place] [id number] GFR/1.73 sq M predicted among non-blacks CKD-EPI (S/P/Bld) [Vol rate/Area] 67 mL/min/1.73 Normal [facility] Work Phone: Comment on above: PATIENT WAS FASTINGP ERFORMED BY: BARBER [facility] Tcvkpf0300 Hernandez RoadWatauga Medical Centerin [place] [id number] Globulin (S) [Mass/Vol] 2.7 g/dL Normal 1.5-4.5 [facility] Internal Medicine Work Phone: Comment on above: PATIENT WAS FASTINGP ERFORMED BY: BARBER [facility] Refzcb7590 [address] RoadDublin [place] [id number] Glucose [Mass/Vol] 105 mg/dL Abnormal 65-99 [facility] Internal Medicine Work Phone: Comment on above: PATIENT WAS FASTINGP ERFORMED BY: BARBER [facility] Nvqmqh1068 [address] [facility] Centerin [place] [id number] Potassium [Moles/Vol] 5.2 mmol/L Normal 3.5-5.2 [facility] Internal Medicine Work Phone: Comment on above: PATIENT WAS FASTINGP ERFORMED BY: BARBER [facility] Thuqms1443 [address] RoadDublin [place] [id number] Protein [Mass/Vol] 7.3 g/dL Normal 6.0-8.5 [facility] Internal Medicine Work Phone: Comment on above: PATIENT WAS FASTINGP ERFORMED BY: BARBER [facility] Hmhcje2827 [address] [facility] Hospitalblin [place] [id number] Sodium [Moles/Vol] 146 mmol/L Abnormal 134-144 [facility] Internal Medicine Work Phone: Comment on above: PATIENT WAS FASTINGP ERFORMED BY: [facility] Rrnfqw5072 [address] [facility] Hospitalblin [place] [id number] Urea nitrogen [Mass/Vol] 9 mg/dL Normal 6-24 [facility] Work Phone: Comment on above: PATIENT WAS FASTINGP ERFORMED BY: [facility] Axhflt9780 [address] [facility] HospitalblLake [facility] [id number] Urea nitrogen/Creatinine [Mass ratio] 7 mg/mg Abnormal 9-20 [facility] Internal Medicine Work Phone: Comment on above: PATIENT WAS FASTINGP ERFORMED BY: [facility] Srfjwk6080 [address] [facility] [id number] PSA (PROSTATE SPECIFIC ANTIG EN) (V76.44)Ordered By: Boatswains Mate on 04-29-2019 Prostate specific Ag [Mass/Vol] 0.9 ng/mL Normal 0.0-4.0 [facility] Internal Medicine Work Phone: Comment on above: Trip ECLIA methodol ogy. .According to the [place] [employer], Serum PSA shoulddecrease and remain at undetectable levels after radicalprostatectomy. The AUA defines biochemical recurrence as an initialPSA value 0.2 ng/mL or greater followed by a subsequent confirmatoryPSA value 0.2 ng/mL or greater.Values obtained with different assay methods or kits cannot be usedinterchangeably. Results cannot be interpreted as absolute evidenceof the presence or absence of malignant disease. PATIENT WAS FASTINGP ERFORMED BY: LabANTs Softwarerp Uquwji8125 [address] [facility]in [place] [id number] TSH ([id number])Ordered By: River brown Acoustical Logging Engineer on 04-29-2019 TSH Qn 2.250 {uIU/mL} Normal 0.450-4.500 [facility] Internal Medicine Work Phone: Comment on above: PATIENT WAS FASTINGP ERFORMED BY: [facility] Wrbbxo1919 [address] [facility] [id number] VITAMIN B12 AND FOLATES (826 07)Ordered By: Boatswains Mate on 04-29-2019 Cobalamin (Vitamin B12) [Mass/Vol] 503 pg/mL Normal 232-1245 [facility] Work Phone: Comment on above: PATIENT WAS FASTINGP ERFORMED BY: BARBER Treviñolin6370 ONE ChangeHaywood Regional Medical Center [id number] Folate [Mass/Vol] 4.7 ng/mL Normal Compreh ensive Internal Medicine Work Phone: Comment on above: A serum folate mayra ntration of less than 3.1 ng/mL isconsidered to represent clinical deficiency. PATIENT WAS FASTINGP ERFORMED BY: BARBER EQ works [facility]First[facility] [id number] Rapid Flu (78890 x 2)Ordered By: Eve Spaulding on 10-06-2018 FLUAV Ag IA Ql (Throat) Negative Normal [facility] Work Phone: Comment on above: Negative FLUAV Ag IA Ql (Throat) Negative Normal [facility]; [facility] Work Phone: Comment on above: Negative HGB A1C (81270)Ordered By: S ystem Acoustical Logging Engineer on 08-19-2018 Hemoglobin A1c/Hemoglobin.total mass fraction (Bld) 6.1 % Abnormal 4.8-5.6 Comprehensiv e Internal Medicine Work Phone: Comment on above: . Prediabetes: 5.7 - 6.4 Diabetes: >6.4 Glycemic control for adults with diabetes: <7.0 PATIENT NOT FASTINGP ERFORMED BY: BARBER EQ works Fxwuyb9201 [facility] [id number] CBC & PLATELETS (AUTO) (8502 7)Ordered By: Boatswains Mate on 07-23-2018 Erythrocyte distribution width Auto Ratio (RBC) 13.6 % Normal 12.3-15.4 [facility] Work Phone: Erythrocyte distribution width Ratio (RBC) 13.6 % Normal 12.3-15.4 [facility] Work Phone: Comment on above: Jun 2018; PATIENT WA S FASTINGPERFORMED BY: BARBER EQ works Isuglk1412 [address] Haozu.comHaywood Regional Medical Center [id number] Hematocrit Auto Volume Fraction (Bld) 44.5 % Normal 37.5-51.0 [facility] Work Phone: Hematocrit Volume Fraction (Bld) 44.5 % Normal 37.5-51.0 [facility] Internal Medicine Work Phone: Comment on above: Jun 2018; PATIENT RENEE S FASTINGPERFORMED BY: [employer] LabANTs Softwarerp Avfbtj9556 Hernandez RoadWatauga Medical Centerin [place] [id number] Hemoglobin mass conc (Bld) 15.7 g/dL Normal 13.0-17.7 [facility] Work Phone: Comment on above: Jun 2018; PATIENT RENEE S FASTINGPERFORMED BY: [employer] LabHoneyComb Corporation70 [address] [facility] [id number] MCH Auto Entitic mass (RBC) 31.7 pg Normal 26.6-33.0 [facility] Internal Medicine Work Phone: MCH Entitic mass (RBC) 31.7 pg Normal 26.6-33.0 [facility] Internal Medicine Work Phone: Comment on above: Jun 2018; PATIENT WA S FASTINGPERFORMED BY: Zip[employer]70 [address] Haozu.comHaywood Regional Medical Center [id number] MCHC Auto mass conc (RBC) 35.3 g/dL Normal 31.5-35.7 [facility] Internal Medicine Work Phone: MCHC mass conc (RBC) 35.3 g/dL Normal 31.5-35.7 [facility] Internal Medicine Work Phone: Comment on above: Jun 2018; PATIENT WA S FASTINGPERFORMED BY: [employer] LabANTs Softwarerp Grbxbh4370 [address] Haozu.comHaywood Regional Medical Center [id number] MCV Auto Entitic volume (RBC) 90 fL Normal 79-97 [facility] Work Phone: MCV Entitic volume (RBC) 90 fL Normal 79-97 [facility] Internal Medicine Work Phone: Comment on above: Jun 2018; PATIENT RENEE S FASTINGPERFORMED BY: [employer] LabANTs Softwarerp Avexdy5191 [address] [facility] [id number] Platelets #/vol (Bld) 223 {x10E3/uL} Normal 150-379 [facility] Work Phone: Comment on above: Jun 2018; PATIENT RENEE S FASTINGPERFORMED BY: BARBER LabCosusanna TreviñoHymkbj4461 [facility] [id number] Platelets (Bld) [#/Vol] 223 10*3/uL Normal 150-379 [facility]; [facility] Work Phone: Comment on above: Jun 2018; PATIENT RENEE S FASTINGPERFORMED BY: CB [facility] Qhbqil2479 [facility] [id number] Platelets Auto #/vol (Bld) 223 {x10E3/uL} Normal 150-379 [facility] Work Phone: RBC #/vol (Bld) 4.95 {x10E6/uL} Normal 4.14-5.80 [facility] Internal Medicine Work Phone: Comment on above: Jun 2018; PATIENT RENEE S FASTINGPERFORMED BY: LabMunson [facility] Hospital6370 [facility] [id number] RBC (Bld) [#/Vol] 4.95 10*6/uL Normal 4.14-5.80 Three [facility] [[email or web address]] Internal Medicine; [facility] Work Phone: Comment on above: Jun 2018; PATIENT RENEE S FASTINGPERFORMED BY: LabCoSaint Barnabas Behavioral Health CenterUbpqmr1625 [facility] [id number] RBC Auto #/vol (Bld) 4.95 {x10E6/uL} Normal 4.14-5.80 [facility] Medicine Work Phone: WBC #/vol (Bld) 7.8 {x10E3/uL} Normal 3.4-10.8 [facility] [[email or web address]] Internal Medicine Work Phone: Comment on above: Jun 2018; PATIENT RENEE S FASTINGPERFORMED BY: BARBER LabCoSaint Barnabas Behavioral Health CenterNrsfnc8687 [facility] [id number] WBC (Bld) [#/Vol] 7.8 10*3/uL Normal 3.4-10.8 [facility] Internal Medicine; [facility] Work Phone: Comment on above: Jun 2018; PATIENT RENEE S FASTINGPERFORMED BY: CB [facility] Ficwar1837 [address] RoadDublin [place] [id number] WBC Auto #/vol (Bld) 7.8 {x10E3/uL} Normal 3.4-10.8 [facility] Work Phone: Metabolic Panel, Comprehensi ve ([id number])Ordered By: Boatswains Mate on 07-23-2018 Albumin mass conc 4.7 g/dL Normal 3.5-5.5 Compreh ensive Internal Medicine Work Phone: Comment on above: Jun 2018; PATIENT RENEE S FASTINGPERFORMED BY: CB [facility] Ppddhl4887 Hernandez RoadDublin [place] [id number] Albumin/Globulin mass ratio 2.1 {ratio} Normal 1.2-2.2 [facility] Work Phone: Comment on above: Jun 2018; PATIENT RENEE S FASTINGPERFORMED BY: CB [facility] Ccqhxg7204 [address] RoadDublin [place] [id number] ALP [Catalytic activity/Vol] 35 U/L Abnormal 39-117 [facility]; [facility] Work Phone: Comment on above: Jun 2018; PATIENT RENEE S FASTINGPERFORMED BY: CB [facility] Ohsmqe4664 Hernandez RoadDublin [place] [id number] ALP enzyme act/vol 35 [iU]/L Abnormal 39-117 Compre [facility] Internal Medicine Work Phone: Comment on above: Jun 2018; PATIENT WA S FASTINGPERFORMED BY: CB [facility] Rymgzt0782 [address] RoadDublin [place] [id number] ALT [Catalytic activity/Vol] 40 U/L Normal 0-44 [facility]; [facility] Work Phone: Comment on above: Jun 2018; PATIENT RENEE S FASTINGPERFORMED BY: CB [facility] Hnrbtd8131 [address] RoadDublin [place] [id number] ALT enzyme act/vol 40 [iU]/L Normal 0-44 [facility] Internal Medicine Work Phone: Comment on above: Jun 2018; PATIENT WA S FASTINGPERFORMED BY: CB [facility] Zwuqhh0532 [address] RoadDublin [place] [id number] AST [Catalytic activity/Vol] 23 U/L Normal 0-40 [facility]; [facility] Work Phone: Comment on above: Jun 2018; PATIENT WA S FASTINGPERFORMED BY: CB [facility] Fznsbd5888 [address] RoadDublin [place] [id number] AST enzyme act/vol 23 [iU]/L Normal 0-40 Compre [facility] Internal Medicine Work Phone: Comment on above: Jun 2018; PATIENT WA S FASTINGPERFORMED BY: CB [facility] Snaotk3781 [address] RoadDublin [place] [id number] Bilirubin mass conc 0.5 mg/dL Normal 0.0-1.2 Compr ensive Internal Medicine Work Phone: Comment on above: Jun 2018; PATIENT WA S FASTINGPERFORMED BY: CB [facility] Qbeelx6909 [address] RoadDublin [place] [id number] Calcium mass conc 9.7 mg/dL Normal 8.7-10.2 Compreh [facility] hospitalive Internal Medicine Work Phone: Comment on above: Jun 2018; PATIENT WA S FASTINGPERFORMED BY: CB [facility] Rccwka3882 [address] RoadDublin [place] [id number] Chloride molar conc 104 mmol/L Normal 96-106 Compr ensive Internal Medicine Work Phone: Comment on above: Jun 2018; PATIENT WA S FASTINGPERFORMED BY: CB [facility] Ycvmky6036 [address] RoadDuin [place] [id number] CO2 molar conc 23 mmol/L Normal 20-29 Comprehens thea Internal Medicine Work Phone: Comment on above: Jun 2018; PATIENT WA S FASTINGPERFORMED BY: CB [facility] Qwcipi0077 [address] RoadDublin [place] [id number] Creatinine mass conc 1.18 mg/dL Normal 0.76-1.27 Comp [facility] Internal [facility] Work Phone: Comment on above: Jun 2018; PATIENT WA S FASTINGPERFORMED BY: CB [facility] Maixaw4397 [address] RoadDublin [place] [id number] GFR/1.73 sq M predicted among blacks CKD-EPI vol rate/area (S/P/Bld) 83 mL/min/1.73 Normal [facility] Internal Medicine Work Phone: Comment on above: Jun 2018; PATIENT RENEE S FASTINGPERFORMED BY: CB [facility] Vfvzfh4506 [address] RoadDublin [place] [id number] GFR/1.73 sq M predicted among non-blacks CKD-EPI vol rate/area (S/P/Bld) 72 mL/min/1.73 Normal Comprehensiv e Internal Medicine Work Phone: Comment on above: Jun 2018; PATIENT RENEE S FASTINGPERFORMED BY: CB [facility] Kfhhmo7448 Hernandez RoadDuin [place] [id number] Globulin Calculated mass conc (S) 2.2 g/dL Normal 1.5-4.5 [facility] Internal Medicine Work Phone: Globulin mass conc (S) 2.2 g/dL Normal 1.5-4.5 Co mprehensive Internal Medicine Work Phone: Comment on above: Jun 2018; PATIENT RENEE S FASTINGPERFORMED BY: CB [facility] Gybopn6962 [address] RoadDuin [place] [id number] Glucose mass conc 135 mg/dL Abnormal 65-99 Compreh ensive Internal Medicine Work Phone: Comment on above: Jun 2018; PATIENT RENEE S FASTINGPERFORMED BY: CB [facility] Ruvwgv3962 [address] [facility]in [place] [id number] Potassium molar conc 5.1 mmol/L Normal 3.5-5.2 Comp rehensive Internal Medicine Work Phone: Comment on above: Jun 2018; PATIENT WA S FASTINGPERFORMED BY: CB [facility] Qpsvca7231 [address] RoadDuin [place] [id number] Protein mass conc 6.9 g/dL Normal 6.0-8.5 Compreh ensive Internal Medicine Work Phone: Comment on above: Jun 2018; PATIENT WA S FASTINGPERFORMED BY: CB [facility] Kpdepw6424 [address] RoadDublin [place] [id number] Sodium molar conc 144 mmol/L Normal 134-144 Compreh ensive Internal Medicine Work Phone: Comment on above: Jun 2018; PATIENT WA S FASTINGPERFORMED BY: [facility] Ctemlr2422 [facility] [id number] Urea nitrogen mass conc 11 mg/dL Normal 6-24 [facility] Internal Medicine Work Phone: Comment on above: Jun 2018; PATIENT WA S FASTINGPERFORMED BY: [facility] Aymded8999 [address] [facility] [id number] Urea nitrogen/Creatinine mass ratio 9 mg/mg Normal 9-20 [facility] Internal Medicine Work Phone: Comment on above: Jun 2018; PATIENT WA S FASTINGPERFORMED BY: LabSaint [facility] Ojlxay6815 [facility] [id number] RENAL FUNCTION PANEL ([id number]) Ordered By: Boatswains Mate on 07-23-2018 Phosphate mass conc 2.9 mg/dL Normal 2.5-4.5 Compr [facility] Internal Medicine Work Phone: Comment on above: Week of May 05; ELKIN PINEDA WAS FASTINGPERFORMED BY: [facility]6370 [facility] [id number] CBC, Platelets & Auto Diff ( [id number])Ordered By: Boatswains Mate on 04-08-2018 Basophils #/vol (Bld) 0.0 {x10E3/uL} Normal 0.0-0.2 [facility] Medicine Work Phone: Comment on above: PATIENT WAS FASTINGP ERFORMED BY: LabCo Fsjrdj2891 [facility] [id number] Information: [id number] Basophils (Bld) [#/Vol] 0.0 10*3/uL Normal 0.0-0.2 [facility]; [facility] Work Phone: Comment on above: PATIENT WAS FASTINGP ERFORMED BY: LabSaint [facility] Expspe2722 [facility] [id number] Information: [id number] Basophils Auto #/vol (Bld) 0.0 {x10E3/uL} Normal 0.0-0.2 [facility] Work Phone: Basophils/100 WBC (Bld) 0 % Normal [facility] Internal Medicine Work Phone: Comment on above: PATIENT WAS FASTINGP ERFORMED BY: [place] 1713470 [facility] [id number] Information: [id number] Basophils/100 WBC Auto (Bld) 0 % Normal [facility] Internal Medicine Work Phone: Eosinophils #/vol (Bld) 0.5 {x10E3/uL} Abnormal 0.0-0.4 [facility] Medicine Work Phone: Comment on above: PATIENT WAS FASTINGP ERFORMED BY: [address] [id number] Information: [id number] Eosinophils (Bld) [#/Vol] 0.5 10*3/uL Abnormal 0.0-0.4 [facility]; [facility] Work Phone: Comment on above: PATIENT WAS FASTINGP ERFORMED BY: [address] [id number] Information: [id number] Eosinophils Auto #/vol (Bld) 0.5 {x10E3/uL} Abnormal 0.0-0.4 [facility] Work Phone: Eosinophils/100 WBC (Bld) 4 % Normal [facility] Work Phone: Comment on above: PATIENT WAS FASTINGP ERFORMED BY: [place] 1713470 [facility] [id number] Information: [id number] Eosinophils/100 WBC Auto (Bld) 4 % Normal [facility] Work Phone: Erythrocyte distribution width Auto Ratio (RBC) 13.8 % Normal 12.3-15.4 [facility] Work Phone: Erythrocyte distribution width Ratio (RBC) 13.8 % Normal 12.3-15.4 [facility] Work Phone: Comment on above: PATIENT WAS FASTINGP ERFORMED BY: BARBER Marya Vtpuja5470 [facility] [id number] Information: [id number] Hematocrit Auto Volume Fraction (Bld) 49.2 % Normal 37.5-51.0 [facility] Work Phone: Hematocrit Volume Fraction (Bld) 49.2 % Normal 37.5-51.0 [facility] Work Phone: Comment on above: PATIENT WAS FASTINGP ERFORMED BY: BARBER [address] [id number] Information: [id number] Hemoglobin mass conc (Bld) 16.8 g/dL Normal 13.0-17.7 [facility] Medicine Work Phone: Comment on above: PATIENT WAS FASTINGP ERFORMED BY: BARBER Alexey[address] [id number] Information: [id number] Immature granulocytes #/vol (Bld) 0.0 {x10E3/uL} Normal 0.0-0.1 [facility] Work Phone: Comment on above: PATIENT WAS FASTINGP ERFORMED BY: BARBER [address] [id number] Information: [id number] Immature granulocytes (Bld) [#/Vol] 0.0 10*3/uL Normal 0.0-0.1 [facility]; [facility] Work Phone: Comment on above: PATIENT WAS FASTINGP ERFORMED BY: BARBER [place] 0150670 [facility] [id number] Information: [id number] Immature granulocytes/100 WBC (Bld) 0 % Normal [facility] Internal Medicine Work Phone: Comment on above: PATIENT WAS FASTINGP ERFORMED BY: [address] [id number] Information: [id number] Lymphocytes #/vol (Bld) 2.8 {x10E3/uL} Normal 0.7-3.1 [facility] Medicine Work Phone: Comment on above: PATIENT WAS FASTINGP ERFORMED BY: BARBER [facility] HospitalYojana Xkfjej3947 [facility] [id number] Information: [id number] Lymphocytes (Bld) [#/Vol] 2.8 10*3/uL Normal 0.7-3.1 [facility]; [facility] Work Phone: Comment on above: PATIENT WAS FASTINGP ERFORMED BY: BARBER [facility] HospitalYojana [address] [id number] Information: [id number] Lymphocytes Auto #/vol (Bld) 2.8 {x10E3/uL} Normal 0.7-3.1 [facility] Work Phone: Lymphocytes/100 WBC (Bld) 24 % Normal [facility] Medicine Work Phone: Comment on above: PATIENT WAS FASTINGP ERFORMED BY: BARBER Treviñolin6370 [facility] [id number] Information: [id number] Lymphocytes/100 WBC Auto (Bld) 24 % Normal [facility] Internal Medicine Work Phone: MCH Auto Entitic mass (RBC) 31.8 pg Normal 26.6-33.0 [facility] Internal Medicine Work Phone: MCH Entitic mass (RBC) 31.8 pg Normal 26.6-33.0 [facility] Internal Medicine Work Phone: Comment on above: PATIENT WAS FASTINGP ERFORMED BY: BARBER [address] [id number] Information: [id number] MCHC Auto mass conc (RBC) 34.1 g/dL Normal 31.5-35.7 [facility] Internal Medicine Work Phone: MCHC mass conc (RBC) 34.1 g/dL Normal 31.5-35.7 [facility] Internal Medicine Work Phone: Comment on above: PATIENT WAS FASTINGP ERFORMED BY: [address] [id number] Information: [id number] MCV Auto Entitic volume (RBC) 93 fL Normal 79-97 [facility] Internal Medicine Work Phone: MCV Entitic volume (RBC) 93 fL Normal 79-97 [facility] Medicine Work Phone: Comment on above: PATIENT WAS FASTINGP ERFORMED BY: [address] [id number] Information: [id number] Monocytes #/vol (Bld) 0.6 {x10E3/uL} Normal 0.1-0.9 [facility] Medicine Work Phone: Comment on above: PATIENT WAS FASTINGP ERFORMED BY: [address] [id number] Information: [id number] Monocytes (Bld) [#/Vol] 0.6 10*3/uL Normal 0.1-0.9 [facility]; [facility] Work Phone: Comment on above: PATIENT WAS FASTINGP ERFORMED BY: [address] [id number] Information: [id number] Monocytes Auto #/vol (Bld) 0.6 {x10E3/uL} Normal 0.1-0.9 [facility] Work Phone: Monocytes/100 WBC (Bld) 5 % Normal [facility] Internal Medicine Work Phone: Comment on above: PATIENT WAS FASTINGP ERFORMED BY: [place] 1713470 [facility] [id number] Information: [id number] Monocytes/100 WBC Auto (Bld) 5 % Normal [facility] Medicine Work Phone: Neutrophils #/vol (Bld) 7.9 {x10E3/uL} Abnormal 1.4-7.0 [facility] Work Phone: Comment on above: PATIENT WAS FASTINGP ERFORMED BY: BARBER Maryasusanna Svflxp3744 [facility] [id number] Information: [id number] Neutrophils (Bld) [#/Vol] 7.9 10*3/uL Abnormal 1.4-7.0 [facility]; [facility] Work Phone: Comment on above: PATIENT WAS FASTINGP ERFORMED BY: BARBER [place] 0150670 [facility] [id number] Information: [id number] Neutrophils Auto #/vol (Bld) 7.9 {x10E3/uL} Abnormal 1.4-7.0 [facility] Work Phone: Neutrophils/100 WBC (Bld) 67 % Normal [facility] Work Phone: Comment on above: PATIENT WAS FASTINGP ERFORMED BY: BARBER [place] 0150670 [facility] [id number] Information: [id number] Neutrophils/100 WBC Auto (Bld) 67 % Normal [facility] Work Phone: Platelets #/vol (Bld) 228 {x10E3/uL} Normal 150-379 [facility] Medicine Work Phone: Comment on above: PATIENT WAS FASTINGP ERFORMED BY: BARBER [place] 0150670 [facility] [id number] Information: [id number] Platelets (Bld) [#/Vol] 228 10*3/uL Normal 150-379 [facility]; [facility] Work Phone: Comment on above: PATIENT WAS FASTINGP ERFORMED BY: [place] 1713470 [facility] [id number] Information: [id number] Platelets Auto #/vol (Bld) 228 {x10E3/uL} Normal 150-379 [facility] Internal Medicine Work Phone: RBC #/vol (Bld) 5.29 {x10E6/uL} Normal 4.14-5.80 Comp [facility] Work Phone: Comment on above: PATIENT WAS FASTINGP ERFORMED BY: [place] 1713470 [facility] [id number] Information: [id number] RBC (Bld) [#/Vol] 5.29 10*6/uL Normal 4.14-5.80 [facility] [[email or web address]] Internal Medicine; [facility] Internal Medicine Work Phone: Comment on above: PATIENT WAS FASTINGP ERFORMED BY: [address] [id number] Information: [id number] RBC Auto #/vol (Bld) 5.29 {x10E6/uL} Normal 4.14-5.80 [facility] Work Phone: WBC #/vol (Bld) 11.9 {x10E3/uL} Abnormal 3.4-10.8 [facility] Internal Medicine Work Phone: Comment on above: PATIENT WAS FASTINGP ERFORMED BY: [place] 1713470 [facility] [id number] Information: [id number] WBC (Bld) [#/Vol] 11.9 10*3/uL Abnormal 3.4-10.8 [facility] [[email or web address]] Internal Medicine; [facility] Internal Medicine Work Phone: Comment on above: PATIENT WAS FASTINGP ERFORMED BY: [facility]6370 [facility] [id number] Information: [id number] WBC Auto #/vol (Bld) 11.9 {x10E3/uL} Abnormal 3.4-10.8 [facility] Internal Medicine Work Phone: HGB A1C ([id number])Ordered By: S te Acoustical Logging Engineer on 04-08-2018 Hemoglobin A1c/Hemoglobin.total mass fraction (Bld) 6.0 % Abnormal 4.8-5.6 Comprehensiv e Internal Medicine Work Phone: Comment on above: . Pre-diabetes: 5.7 - 6.4 Diabetes: >6.4 Glycemic control for adults with diabetes: <7.0 PATIENT WAS FASTINGP ERFORMED BY: BARBER [facility] Aahgdv8698 [address] RoadDublin [place] [id number] Lipid Panel ([id number])Ordered B y: Boatswains Mate on 04-08-2018 Cholesterol in HDL mass conc 47 mg/dL Normal [facility] Work Phone: Comment on above: PATIENT WAS FASTINGP ERFORMED BY: BARBER LabCosusanna Elsara0164 Hernandez RoadDublin [place] [id number] Cholesterol in LDL mass conc 159 mg/dL Abnormal 0-99 [facility] Medicine Work Phone: Comment on above: PATIENT WAS FASTINGP ERFORMED BY: BARBER LabCosusanna TreviñoSmkwsh7734 Hernandez RoadDuin [place] [id number] Cholesterol in LDL/Cholesterol in HDL mass ratio 3.4 {ratio} Normal 0.0-3.6 [facility] Work Phone: Comment on above: LDL/HDL Ratio Men Wo men 1/2 Avg.Risk 1.0 1.5 Avg.Risk 3.6 3.2 2X Avg.Risk 6.2 5.0 3X Avg.Risk 8.0 6.1 PATIENT WAS FASTINGP ERFORMED BY: BARBER LabCosusanna Efxroc9153 [address] [facility] [place] [id number] Cholesterol in VLDL mass conc 41 mg/dL Abnormal 5-40 [facility] Medicine Work Phone: Comment on above: PATIENT WAS FASTINGP ERFORMED BY: BARBER [facility] Oynpam4809 Hernandez RoadDublin [place] [id number] Cholesterol mass conc 247 mg/dL Abnormal 100-199 Com prehensive Internal Medicine Work Phone: Comment on above: PATIENT WAS FASTINGP ERFORMED BY: BARBER [facility] Osnpbw9681 [address] RoadDublin [place] [id number] Triglyceride mass conc 203 mg/dL Abnormal 0-149 Co mprehensive Internal Medicine Work Phone: Comment on above: PATIENT WAS FASTINGP ERFORMED BY: Lab[facility] Sucytz7937 [address] RoadDublin [place] [id number] MICROALBUMINOrdered By: Syst em Acoustical Logging Engineer on 04-08-2018 Albumin DL <= 20 mg/L mass conc (U) 8.2 ug/mL Normal [facility] Work Phone: Comment on above: PATIENT WAS FASTINGP ERFORMED BY: [facility] Ygeajl8357 [address] Roadblin [place] [id number] Albumin/Creatinine mass ratio (U) 9.3 {mg/g_creat} Normal 0.0-30.0 [facility] Work Phone: Comment on above: PATIENT WAS FASTINGP ERFORMED BY: BARBER [facility] Dauypg7144 [address] RoadDublin [place] [id number] Creatinine mass conc (U) 87.9 mg/dL Normal [facility] Work Phone: Comment on above: PATIENT WAS FASTINGP ERFORMED BY: [facility] Nqnoyh8498 [address] [facility] [id number] Metabolic Panel, Comprehensi ve ([id number])Ordered By: Boatswains Mate on 04-08-2018 Albumin mass conc 4.7 g/dL Normal 3.5-5.5 Compreh ensive Internal Medicine Work Phone: Comment on above: PATIENT WAS FASTINGP ERFORMED BY: [facility] Zmnpsl3021 [address] RoadDublin [place] [id number] Albumin/Globulin mass ratio 1.7 {ratio} Normal 1.2-2.2 [facility] Work Phone: Comment on above: PATIENT WAS FASTINGP ERFORMED BY: Lab[facility] Owcbuh8343 [address] [facility] HospitalDublin [place] [id number] ALP [Catalytic activity/Vol] 37 U/L Abnormal 39-117 [facility]; [facility] Work Phone: Comment on above: PATIENT WAS FASTINGP ERFORMED BY: [facility] Pkholu9431 [address] RoadDublin [place] [id number] ALP enzyme act/vol 37 [iU]/L Abnormal 39-117 Compre hensive Internal Medicine Work Phone: Comment on above: PATIENT WAS FASTINGP ERFORMED BY: BARBER LabYojana Spkpzx1792 [address] RoadDublin [place] [id number] ALT [Catalytic activity/Vol] 53 U/L Abnormal 0-44 [facility]; [facility] Internal Medicine Work Phone: Comment on above: PATIENT WAS FASTINGP ERFORMED BY: BARBER LabYojana Xuxckd4286 [address] Roadblin [place] [id number] ALT enzyme act/vol 53 [iU]/L Abnormal 0-44 [facility] Internal Medicine Work Phone: Comment on above: PATIENT WAS FASTINGP ERFORMED BY: BARBER Maryasusanna TreviñoKngvlu7709 [address] Roadblin [place] [id number] AST [Catalytic activity/Vol] 28 U/L Normal 0-40 [facility] Internal Medicine; [facility] Internal Medicine Work Phone: Comment on above: PATIENT WAS FASTINGP ERFORMED BY: BARBER Treviñolin6370 [address] [facility] [place] [id number] AST enzyme act/vol 28 [iU]/L Normal 0-40 [facility] Internal Medicine Work Phone: Comment on above: PATIENT WAS FASTINGP ERFORMED BY: BARBER BlackburnShannansusanna TreviñoBrwkpg8558 [address] [facility] [place] [id number] Bilirubin mass conc 0.5 mg/dL Normal 0.0-1.2 [facility] [[email or web address]] Internal Medicine Work Phone: Comment on above: PATIENT WAS FASTINGP ERFORMED BY: BARBER [facility]6370 [address] [facility]in [place] [id number] Calcium mass conc 10.1 mg/dL Normal 8.7-10.2 [facility] Internal Medicine Work Phone: Comment on above: PATIENT WAS FASTINGP ERFORMED BY: BARBER LabShannan Syiolm5098 [address] [facility]bl[facility] [place] [id number] Chloride molar conc 102 mmol/L Normal 96-106 Compr [facility] Internal Medicine Work Phone: Comment on above: PATIENT WAS FASTINGP ERFORMED BY: BARBER LabCo Xqrbnl8439 [address] [facility] [id number] CO2 molar conc 25 mmol/L Normal 20-29 Comprehens thea Internal Medicine Work Phone: Comment on above: PATIENT WAS FASTINGP ERFORMED BY: LabCo Hghqhm8589 [address] [facility] [id number] Creatinine mass conc 1.32 mg/dL Abnormal 0.76-1.27 Comp rehensive Internal Medicine Work Phone: Comment on above: PATIENT WAS FASTINGP ERFORMED BY: LabCo Oelohc5197 [address] [facility] [id number] GFR/1.73 sq M predicted among blacks CKD-EPI vol rate/area (S/P/Bld) 73 mL/min/1.73 Normal [facility] Work Phone: Comment on above: PATIENT WAS FASTINGP ERFORMED BY: LabM[facility]6370 [facility] [id number] GFR/1.73 sq M predicted among non-blacks CKD-EPI vol rate/area (S/P/Bld) 63 mL/min/1.73 Normal Comprehensiv e Internal Medicine Work Phone: Comment on above: PATIENT WAS FASTINGP ERFORMED BY: LabSaint [facility] Kouvna0779 [facility] [id number] Globulin Calculated mass conc (S) 2.8 g/dL Normal 1.5-4.5 [facility] Work Phone: Globulin mass conc (S) 2.8 g/dL Normal 1.5-4.5 Co [facility]ensive [facility] Work Phone: Comment on above: PATIENT WAS FASTINGP ERFORMED BY: LabCo Dnecks6753 [facility] formerly [facility] [id number] Glucose mass conc 93 mg/dL Normal 65-99 Compreh ensive Internal Medicine Work Phone: Comment on above: PATIENT WAS FASTINGP ERFORMED BY: [facility] Ikatzu8934 Hernandez [facility] [id number] Potassium molar conc 5.2 mmol/L Normal 3.5-5.2 Comp rehensive Internal Medicine Work Phone: Comment on above: PATIENT WAS FASTINGP ERFORMED BY: BARBER Browne6370 [facility] [id number] Protein mass conc 7.5 g/dL Normal 6.0-8.5 Compreh ensive Internal Medicine Work Phone: Comment on above: PATIENT WAS FASTINGP ERFORMED BY: BARBER Malhotra Wfdbto1989 [facility] [id number] Sodium molar conc 144 mmol/L Normal 134-144 Compreh ensive Internal Medicine Work Phone: Comment on above: PATIENT WAS FASTINGP ERFORMED BY: BARBER Malhotra Kgjzad0655 [facility] [id number] Urea nitrogen mass conc 10 mg/dL Normal 6-24 [facility] Work Phone: Comment on above: PATIENT WAS FASTINGP ERFORMED BY: Marya Tignwv3062 [facility] [id number] Urea nitrogen/Creatinine mass ratio 8 mg/mg Abnormal 9-20 [facility] Work Phone: Comment on above: PATIENT WAS FASTINGP ERFORMED BY: BARBER Malhotra Rysxoi2962 [facility] [id number] PSA (PROSTATE SPECIFIC ANTIG EN) (V76.44)Ordered By: Boatswains Mate on 04-08-2018 Prostate specific Ag mass conc 1.0 ng/mL Normal 0.0-4.0 [facility] Work Phone: Comment on above: F?rsat Bu F?rsat ECLIA methodol ogy. .According to the [place] [employer], Serum PSA shoulddecrease and remain at undetectable levels after radicalprostatectomy. The AUA defines biochemical recurrence as an initialPSA value 0.2 ng/mL or greater followed by a subsequent confirmatoryPSA value 0.2 ng/mL or greater.Values obtained with different assay methods or kits cannot be usedinterchangeably. Results cannot be interpreted as absolute evidenceof the presence or absence of malignant disease. PATIENT WAS FASTINGP ERFORMED BY: [employer] CorporationMunson Healthcare [facility]6370 [facility] [id number] TSH ([id number])Ordered By: River m Acoustical Logging Engineer on 04-08-2018 Thyrotropin Qn 2.800 {uIU/mL} Normal 0.450-4.500 Compr ehensive Internal Medicine Work Phone: Comment on above: PATIENT WAS FASTINGP ERFORMED BY: BARBER [facility] Fitrxt5060 [facility] [id number] Urinalysis, Office ([id number])Or dered By: Sfoía Wyatt on 04-08-2018 Bilirubin Ql (U) Negative Normal Comprehe nsive Internal Medicine Work Phone: Bilirubin Ql (U) Negative Normal Comprehe nsive Internal Medicine; [facility] Work Phone: Glucose Test strip (U) [Mass/Vol] Negative Normal [facility]; [facility] Work Phone: Glucose Test strip mass conc (U) Negative Normal [facility] Work Phone: Hemoglobin Ql (U) Negative Normal Compreh ensive Internal Medicine Work Phone: Hemoglobin Ql (U) Negative Normal Compreh ensive Internal Medicine; [facility] Work Phone: Hemoglobin Test strip Ql (U) Negative Normal [facility] Work Phone: Ketones Ql (U) Negative Normal Comprehens thea Internal Medicine Work Phone: Ketones Ql (U) Negative Normal Comprehens thea Internal Medicine; [facility] Work Phone: Leukocyte esterase Test strip Ql (U) Negative Normal [facility] Work Phone: Leukocyte esterase Test strip Ql (U) Negative Normal [facility]; [facility] Work Phone: Nitrite Ql (U) Negative Normal Comprehens thea Internal Medicine Work Phone: Nitrite Ql (U) Negative Normal Comprehens thea Internal Medicine; [facility] Work Phone: Nitrite Test strip Ql (U) Negative Normal [facility] Work Phone: pH (U) 6.5 [pH] Normal [facility] Work Phone: pH Test strip (U) 6.5 [pH] Normal Compreh ensive Internal Medicine Work Phone: Protein Ql (U) Negative Normal Comprehens thea Internal Medicine Work Phone: Protein Ql (U) Negative Normal Comprehens thea Internal Medicine; [facility] Work Phone: Protein Test strip Ql (U) Negative Normal [facility] Work Phone: Specific gravity Relative Density (U) 1.015 1 Normal Comprehensi ve Internal Medicine Work Phone: Urobilinogen mass/time (24H U) Normal Normal [facility] Work Phone: VITAMIN B12 AND FOLATES (826 07)Ordered By: Boatswains Mate on 04-08-2018 Cobalamin (Vitamin B12) mass conc 1109 pg/mL Normal 232-1245 [facility] Work Phone: Comment on above: PATIENT WAS FASTINGP ERFORMED BY: BARBER Huddle[address] [place] [id number] Folate mass conc 6.7 ng/mL Normal Comprehe nsive Internal Medicine Work Phone: Comment on above: A serum folate mayra ntration of less than 3.1 ng/mL isconsidered to represent clinical deficiency. PATIENT WAS FASTINGP ERFORMED BY: BARBER [address]uddle[address] [place] [id number] Metabolic Panel, Basic (8004 8)Ordered By: Boatswains Mate on 04-05-2017 Calcium mass conc 9.3 mg/dL Normal 8.7-10.2 Compreh ensive Internal Medicine Work Phone: Comment on above: PATIENT WAS FASTINGP ERFORMED BY: BARBER [address]uddle[address] [place] [id number] Chloride molar conc 101 mmol/L Normal 96-106 Compr ehensive Internal Medicine Work Phone: Comment on above: PATIENT WAS FASTINGP ERFORMED BY: BARBER Huddle70 [address] [place] [id number] CO2 molar conc 24 mmol/L Normal 18-29 Comprehens thea Internal Medicine Work Phone: Comment on above: PATIENT WAS FASTINGP ERFORMED BY: BARBER LabCosusanna Kahgbo5458 [facility] [place] [id number] Creatinine mass conc 1.14 mg/dL Normal 0.76-1.27 Comp rehensive Internal Medicine Work Phone: Comment on above: PATIENT WAS FASTINGP ERFORMED BY: BARBER [facility] Rwsurd5329 Hernandez [facility] [place] [id number] GFR/1.73 sq M predicted among blacks CKD-EPI vol rate/area (S/P/Bld) 87 mL/min/1.73 Normal [facility] Work Phone: Comment on above: PATIENT WAS FASTINGP ERFORMED BY: BARBER [facility] Osxwsn0204 [facility] [place] [id number] GFR/1.73 sq M predicted among non-blacks CKD-EPI vol rate/area (S/P/Bld) 76 mL/min/1.73 Normal Comprehensiv e Internal Medicine Work Phone: Comment on above: PATIENT WAS FASTINGP ERFORMED BY: BARBER LabCosusanna TreviñoLpdqqy3365 Hernandez [facility] [id number] Glucose mass conc 123 mg/dL Abnormal 65-99 Compreh ensive Internal Medicine Work Phone: Comment on above: PATIENT WAS FASTINGP ERFORMED BY: BARBER [facility] Twbsyx6020 Hernandez [facility] [id number] Potassium molar conc 4.7 mmol/L Normal 3.5-5.2 Comp rehensive Internal Medicine Work Phone: Comment on above: PATIENT WAS FASTINGP ERFORMED BY: BARBER [facility] Glacgf0121 [facility] [place] [id number] Sodium molar conc 144 mmol/L Normal 134-144 Compreh ensive Internal Medicine Work Phone: Comment on above: PATIENT WAS FASTINGP ERFORMED BY: BARBER [facility] Cegsdq7258 Hernandez [facility] [id number] Urea nitrogen mass conc 9 mg/dL Normal 6-24 [facility] Work Phone: Comment on above: PATIENT WAS FASTINGP ERFORMED BY: EQ works Rsesfb4679 [facility] [id number] Urea nitrogen/Creatinine mass ratio 8 mg/mg Abnormal 9-20 [facility] Work Phone: Comment on above: PATIENT WAS FASTINGP ERFORMED BY: EQ works Pdgvql6148 [facility] [id number] CALCIFIDIOL (57559) VIT D 25 Ordered By: Boatswains Mate on 03-25-2017 25-Hydroxyvitamin D2+25-Hydroxyvitamin D3 mass conc 50.1 ng/mL Normal 30.0-100.0 [facility] Work Phone: Comment on above: Vitamin D deficiency has been defined by the [place] ofMedicine and an Endocrine Society practice guideline as alevel of serum 25-OH vitamin D less than 20 ng/mL (1,2).The Endocrine Society went on to further define vitamin Dinsufficiency as a level between 21 and 29 ng/mL (2).1. IOM ([place] of Medicine). 2010. Dietary reference intakes for calcium and D. [place]: The National Academies Press.2. Raman MF, Suman NC, Thi WHITE, et al. Evaluation, treatment, and prevention of vitamin D deficiency: an Endocrine Society clinical practice guideline. JCEM. 2010; 96(7):1911-30. PATIENT WAS FASTINGP ERFORMED BY: EVault6370 [facility] [id number] CBC with auto diff (74563)Or dered By: Boatswains Mate on 03-25-2017 Basophils #/vol (Bld) 0.0 {x10E3/uL} Normal 0.0-0.2 [facility] Work Phone: Comment on above: PATIENT WAS FASTINGP ERFORMED BY: EQ works Osgcua9078 [facility] [id number] Basophils (Bld) [#/Vol] 0.0 10*3/uL Normal 0.0-0.2 [facility]; [facility] Work Phone: Comment on above: PATIENT WAS FASTINGP ERFORMED BY: [facility]6370 [facility] [id number] Basophils Auto #/vol (Bld) 0.0 {x10E3/uL} Normal 0.0-0.2 [facility] Work Phone: Basophils/100 WBC (Bld) 1 % Normal [facility] Work Phone: Comment on above: PATIENT WAS FASTINGP ERFORMED BY: [place] 1713470 [facility] [id number] Basophils/100 WBC Auto (Bld) 1 % Normal [facility] Work Phone: Eosinophils #/vol (Bld) 0.6 {x10E3/uL} Abnormal 0.0-0.4 [facility] Work Phone: Comment on above: PATIENT WAS FASTINGP ERFORMED BY: [place] 1713470 [facility] [id number] Eosinophils (Bld) [#/Vol] 0.6 10*3/uL Abnormal 0.0-0.4 [facility]; [facility] Work Phone: Comment on above: PATIENT WAS FASTINGP ERFORMED BY: [place] 1713470 [facility] [id number] Eosinophils Auto #/vol (Bld) 0.6 {x10E3/uL} Abnormal 0.0-0.4 [facility] Work Phone: Eosinophils/100 WBC (Bld) 8 % Normal [facility] Work Phone: Comment on above: PATIENT WAS FASTINGP ERFORMED BY: [place] 1713470 [facility] [id number] Eosinophils/100 WBC Auto (Bld) 8 % Normal [facility] Work Phone: Erythrocyte distribution width Auto Ratio (RBC) 13.5 % Normal 12.3-15.4 [facility] Work Phone: Erythrocyte distribution width Ratio (RBC) 13.5 % Normal 12.3-15.4 [facility] Work Phone: Comment on above: PATIENT WAS FASTINGP ERFORMED BY: BARBER LabCosusanna TreviñoOnawyl2890 Hernandez RoadDublin [place] [id number] Hematocrit Auto Volume Fraction (Bld) 45.2 % Normal 37.5-51.0 [facility] Work Phone: Hematocrit Volume Fraction (Bld) 45.2 % Normal 37.5-51.0 [facility] Work Phone: Comment on above: PATIENT WAS FASTINGP ERFORMED BY: BARBER [facility] Dmjpkl5234 [address] RoadDublin [place] [id number] Hemoglobin mass conc (Bld) 15.7 g/dL Normal 12.6-17.7 [facility] Work Phone: Comment on above: PATIENT WAS FASTINGP ERFORMED BY: BARBER LabYojana TreviñoPkefoi5550 Hernandez RoadDuin [place] [id number] Immature granulocytes #/vol (Bld) 0.0 {x10E3/uL} Normal 0.0-0.1 [facility] Work Phone: Comment on above: PATIENT WAS FASTINGP ERFORMED BY: BARBER [facility] Koacsq1024 [address] RoadDublin [place] [id number] Immature granulocytes (Bld) [#/Vol] 0.0 10*3/uL Normal 0.0-0.1 [facility]; [facility] Work Phone: Comment on above: PATIENT WAS FASTINGP ERFORMED BY: BARBER [facility] Omxfvs2282 [address] RoadDublin [place] [id number] Immature granulocytes/100 WBC (Bld) 0 % Normal [facility] Work Phone: Comment on above: PATIENT WAS FASTINGP ERFORMED BY: BARBER [facility] Gudgcf9811 [address] RoadDublin [place] [id number] Lymphocytes #/vol (Bld) 2.3 {x10E3/uL} Normal 0.7-3.1 [facility] Work Phone: Comment on above: PATIENT WAS FASTINGP ERFORMED BY: BARBER [facility] Pubsnu4909 [address] Roadblin [place] [id number] Lymphocytes (Bld) [#/Vol] 2.3 10*3/uL Normal 0.7-3.1 [facility]; [facility] Work Phone: Comment on above: PATIENT WAS FASTINGP ERFORMED BY: BARBER Browne6370 [facility] [id number] Lymphocytes Auto #/vol (Bld) 2.3 {x10E3/uL} Normal 0.7-3.1 [facility] Work Phone: Lymphocytes/100 WBC (Bld) 31 % Normal [facility] Work Phone: Comment on above: PATIENT WAS FASTINGP ERFORMED BY: BARBER Kumar70 [facility] [id number] Lymphocytes/100 WBC Auto (Bld) 31 % Normal [facility] Work Phone: MCH Auto Entitic mass (RBC) 31.2 pg Normal 26.6-33.0 [facility] Work Phone: MCH Entitic mass (RBC) 31.2 pg Normal 26.6-33.0 [facility] Internal Medicine Work Phone: Comment on above: PATIENT WAS FASTINGP ERFORMED BY: BARBER Browne6370 [facility] [id number] MCHC Auto mass conc (RBC) 34.7 g/dL Normal 31.5-35.7 [facility] Work Phone: MCHC mass conc (RBC) 34.7 g/dL Normal 31.5-35.7 [facility] Internal Medicine Work Phone: Comment on above: PATIENT WAS FASTINGP ERFORMED BY: BARBER Treviñolin6370 [facility] [id number] MCV Auto Entitic volume (RBC) 90 fL Normal 79-97 [facility] Work Phone: MCV Entitic volume (RBC) 90 fL Normal 79-97 [facility] Work Phone: Comment on above: PATIENT WAS FASTINGP ERFORMED BY: [facility]6370 [facility] [id number] Monocytes #/vol (Bld) 0.5 {x10E3/uL} Normal 0.1-0.9 [facility] Work Phone: Comment on above: PATIENT WAS FASTINGP ERFORMED BY: [place] 1713470 [facility] [id number] Monocytes (Bld) [#/Vol] 0.5 10*3/uL Normal 0.1-0.9 [facility]; [facility] Work Phone: Comment on above: PATIENT WAS FASTINGP ERFORMED BY: [place] 1713470 [facility] [id number] Monocytes Auto #/vol (Bld) 0.5 {x10E3/uL} Normal 0.1-0.9 [facility] Work Phone: Monocytes/100 WBC (Bld) 7 % Normal [facility] Work Phone: Comment on above: PATIENT WAS FASTINGP ERFORMED BY: [place] 1713470 [facility] [id number] Monocytes/100 WBC Auto (Bld) 7 % Normal [facility] Work Phone: Neutrophils #/vol (Bld) 4.0 {x10E3/uL} Normal 1.4-7.0 [facility] Work Phone: Comment on above: PATIENT WAS FASTINGP ERFORMED BY: [place] 1713470 [facility] [id number] Neutrophils (Bld) [#/Vol] 4.0 10*3/uL Normal 1.4-7.0 [facility]; [facility] Work Phone: Comment on above: PATIENT WAS FASTINGP ERFORMED BY: [place] 1713470 [facility] [id number] Neutrophils Auto #/vol (Bld) 4.0 {x10E3/uL} Normal 1.4-7.0 [facility] Work Phone: Neutrophils/100 WBC (Bld) 53 % Normal [facility] Work Phone: Comment on above: PATIENT WAS FASTINGP ERFORMED BY: [facility] Yggktj6957 [address] RoadDublin [place] [id number] Neutrophils/100 WBC Auto (Bld) 53 % Normal [facility] Work Phone: Platelets #/vol (Bld) 213 {x10E3/uL} Normal 150-379 [facility] Work Phone: Comment on above: PATIENT WAS FASTINGP ERFORMED BY: CB [facility] Eqzxfu1841 [address] RoadDublin [place] [id number] Platelets (Bld) [#/Vol] 213 10*3/uL Normal 150-379 [facility]; [facility] Work Phone: Comment on above: PATIENT WAS FASTINGP ERFORMED BY: [facility] Bfrgxp2557 [address] Roadblin [place] [id number] Platelets Auto #/vol (Bld) 213 {x10E3/uL} Normal 150-379 [facility] Work Phone: RBC #/vol (Bld) 5.04 {x10E6/uL} Normal 4.14-5.80 [facility] Work Phone: Comment on above: PATIENT WAS FASTINGP ERFORMED BY: [facility] Vhcdka1728 Hernandez RoadWatauga Medical Centerin [place] [id number] RBC (Bld) [#/Vol] 5.04 10*6/uL Normal 4.14-5.80 Compr ensive Internal Medicine; [facility] Work Phone: Comment on above: PATIENT WAS FASTINGP ERFORMED BY: [facility] Ysqbbd0631 [address] RoadDublin [place] [id number] RBC Auto #/vol (Bld) 5.04 {x10E6/uL} Normal 4.14-5.80 [facility] Work Phone: WBC #/vol (Bld) 7.5 {x10E3/uL} Normal 3.4-10.8 Compr ensive Internal Medicine Work Phone: Comment on above: PATIENT WAS FASTINGP ERFORMED BY: BARBER [facility] Kdswhm4657 [address] [facility] [place] [id number] WBC (Bld) [#/Vol] 7.5 10*3/uL Normal 3.4-10.8 [facility] Internal Medicine; [facility] Work Phone: Comment on above: PATIENT WAS FASTINGP ERFORMED BY: BARBER [facility] Vvjjcu1233 [facility] [id number] WBC Auto #/vol (Bld) 7.5 {x10E3/uL} Normal 3.4-10.8 [facility] Work Phone: HGB A1C ([id number])Ordered By: S ystem Acoustical Logging Engineer on 03-25-2017 Hemoglobin A1c/Hemoglobin.total mass fraction (Bld) 6.2 % Abnormal 4.8-5.6 Comprehensiv e Internal Medicine Work Phone: Comment on above: . Pre-diabetes: 5.7 - 6.4 Diabetes: >6.4 Glycemic control for adults with diabetes: <7.0 PATIENT WAS FASTINGP ERFORMED BY: BARBER [facility] Tiehtd0785 [facility] [id number] LIPID PANEL ([id number])Ordered B y: Boatswains Mate on 03-25-2017 Cholesterol in HDL mass conc 43 mg/dL Normal [facility] Work Phone: Comment on above: PATIENT WAS FASTINGP ERFORMED BY: BARBER [facility] Qxxcxp1290 [facility] [id number] Cholesterol in LDL mass conc 141 mg/dL Abnormal 0-99 [facility] Work Phone: Comment on above: PATIENT WAS FASTINGP ERFORMED BY: BARBER [facility] Bdtpbx1264 [facility] [id number] Cholesterol in LDL/Cholesterol in HDL mass ratio 3.3 {ratio_units} Normal 0.0-3.6 [facility] Work Phone: Comment on above: LDL/HDL Ratio Men Wo men 1/2 Avg.Risk 1.0 1.5 Avg.Risk 3.6 3.2 2X Avg.Risk 6.2 5.0 3X Avg.Risk 8.0 6.1 PATIENT WAS FASTINGP ERFORMED BY: BARBER LabCosusanna Qgcuge1849 [facility] [id number] Cholesterol in VLDL mass conc 24 mg/dL Normal 5-40 [facility] Work Phone: Comment on above: PATIENT WAS FASTINGP ERFORMED BY: BARBER LabCosusanna TreviñoIxbaim1372 Hernandez [facility] [id number] Cholesterol mass conc 208 mg/dL Abnormal 100-199 Com prehensive Internal Medicine Work Phone: Comment on above: PATIENT WAS FASTINGP ERFORMED BY: BARBER LabCosusanna Qgukrw7665 [facility] [id number] Triglyceride mass conc 119 mg/dL Normal 0-149 Co mprehensive Internal Medicine Work Phone: Comment on above: PATIENT WAS FASTINGP ERFORMED BY: BARBER LabYojana TreviñoRsfiky4999 [facility] [id number] METABOLIC PANEL, COMPREHENSI VE ([id number])Ordered By: Boatswains Mate on 03-25-2017 Albumin mass conc 4.1 g/dL Normal 3.5-5.5 Compreh ensive Internal Medicine Work Phone: Comment on above: PATIENT WAS FASTINGP ERFORMED BY: BARBER [facility] Pdgccp7337 [facility] [id number] Albumin/Globulin mass ratio 1.6 {ratio} Normal 1.2-2.2 [facility] Work Phone: Comment on above: PATIENT WAS FASTINGP ERFORMED BY: BARBER [facility] Fhxcne2966 [facility] [id number] ALP [Catalytic activity/Vol] 34 U/L Abnormal 39-117 [facility]; [facility] Work Phone: Comment on above: PATIENT WAS FASTINGP ERFORMED BY: BARBER [facility] Mpgyzv2951 [facility] [id number] ALP enzyme act/vol 34 [iU]/L Abnormal 39-117 Compre hensive Internal Medicine Work Phone: Comment on above: PATIENT WAS FASTINGP ERFORMED BY: BARBER [facility] Tjdqdf7246 [address] RoadDublin [place] [id number] ALT [Catalytic activity/Vol] 21 U/L Normal 0-44 [facility]; [facility] Internal Medicine Work Phone: Comment on above: PATIENT WAS FASTINGP ERFORMED BY: BARBER LabShannanrp Pfccfc3079 [address] RoadDublin [place] [id number] ALT enzyme act/vol 21 [iU]/L Normal 0-44 [facility] Internal Medicine Work Phone: Comment on above: PATIENT WAS FASTINGP ERFORMED BY: BARBER [facility] Aeljnh4956 [address] RoadDublin [place] [id number] AST [Catalytic activity/Vol] 13 U/L Normal 0-40 [facility] Internal Medicine; [facility] Internal Medicine Work Phone: Comment on above: PATIENT WAS FASTINGP ERFORMED BY: BARBER Treviñolin6370 [address] RoadD[address] [place] [id number] AST enzyme act/vol 13 [iU]/L Normal 0-40 [facility] Internal Medicine Work Phone: Comment on above: PATIENT WAS FASTINGP ERFORMED BY: BARBER LabYojana TreviñoZqljqu0315 [address] RoadDublin [place] [id number] Bilirubin mass conc 0.2 mg/dL Normal 0.0-1.2 [facility] [[email or web address] Internal Medicine Work Phone: Comment on above: PATIENT WAS FASTINGP ERFORMED BY: BARBER LabYojana TreviñoHwbybi4257 [address] RoadDublin [place] [id number] Calcium mass conc 9.3 mg/dL Normal 8.7-10.2 [facility] Internal Medicine Work Phone: Comment on above: PATIENT WAS FASTINGP ERFORMED BY: BARBER LabCosusanna TreviñoBvnzwg7797 [address] RoadDublin [place] [id number] Chloride molar conc 103 mmol/L Normal 96-106 Compr [facility] Internal Medicine Work Phone: Comment on above: PATIENT WAS FASTINGP ERFORMED BY: BARBER LabYojana TreviñoApbiyh4789 [address] RoadDublin [place] [id number] CO2 molar conc 25 mmol/L Normal 18-29 Comprehens thea Internal Medicine Work Phone: Comment on above: PATIENT WAS FASTINGP ERFORMED BY: BARBER [facility] Hqvxqj7203 Hernandez [facility] [place] [id number] Creatinine mass conc 1.15 mg/dL Normal 0.76-1.27 Comp rehensive Internal Medicine Work Phone: Comment on above: PATIENT WAS FASTINGP ERFORMED BY: CB [facility] Ayzrfo9381 [address] [facility] [id number] GFR/1.73 sq M predicted among blacks CKD-EPI vol rate/area (S/P/Bld) 87 mL/min/1.73 Normal [facility] Work Phone: Comment on above: PATIENT WAS FASTINGP ERFORMED BY: BARBER [facility] Bnycew9272 Hernandez [facility] [id number] GFR/1.73 sq M predicted among non-blacks CKD-EPI vol rate/area (S/P/Bld) 75 mL/min/1.73 Normal Comprehensiv e Internal Medicine Work Phone: Comment on above: PATIENT WAS FASTINGP ERFORMED BY: BARBER [facility] Kpbpon6222 [facility] [id number] Globulin Calculated mass conc (S) 2.6 g/dL Normal 1.5-4.5 [facility] Work Phone: Globulin mass conc (S) 2.6 g/dL Normal 1.5-4.5 [facility] Work Phone: Comment on above: PATIENT WAS FASTINGP ERFORMED BY: BARBER [facility] Usssjv9608 [facility] [id number] Glucose mass conc 96 mg/dL Normal 65-99 Compreh ensive Internal Medicine Work Phone: Comment on above: PATIENT WAS FASTINGP ERFORMED BY: BARBER [facility] Slsdxl9135 [address] [facility] [id number] Potassium molar conc 5.4 mmol/L Abnormal 3.5-5.2 Comp rehensive Internal Medicine Work Phone: Comment on above: PATIENT WAS FASTINGP ERFORMED BY: BARBER LabYojana Udivag9376 [address] [facility] [place] [id number] Protein mass conc 6.7 g/dL Normal 6.0-8.5 Compreh ensive Internal Medicine Work Phone: Comment on above: PATIENT WAS FASTINGP ERFORMED BY: BARBER LabYojana TreviñoQvofdr9303 [address] [facility] [place] [id number] Sodium molar conc 145 mmol/L Abnormal 134-144 Compreh ensive Internal Medicine Work Phone: Comment on above: PATIENT WAS FASTINGP ERFORMED BY: BARBER LabCosusanna TreviñoFsdxit1748 [address] [facility] [id number] Urea nitrogen mass conc 9 mg/dL Normal 6-24 [facility] Work Phone: Comment on above: PATIENT WAS FASTINGP ERFORMED BY: BARBER LabYojana TreviñoLtvcdb7064 [address] [facility] [id number] Urea nitrogen/Creatinine mass ratio 8 mg/mg Abnormal 9-20 [facility] Work Phone: Comment on above: PATIENT WAS FASTINGP ERFORMED BY: BARBER LabYojana TreviñoXyesja2722 [address] [facility] [id number] MICROALBUMINOrdered By: Syst em Acoustical Logging Engineer on 03-25-2017 Albumin DL <= 20 mg/L mass conc (U) 6.7 ug/mL Normal [facility] Work Phone: Comment on above: PATIENT WAS FASTINGP ERFORMED BY: BARBER LabYojana TreviñoXujkxv4388 [address] [facility] [id number] Albumin/Creatinine mass ratio (U) 7.4 {mg/g_creat} Normal 0.0-30.0 [facility] Work Phone: Comment on above: PATIENT WAS FASTINGP ERFORMED BY: BARBER LabYojana Kdvebp9713 [address] [facility] [id number] Creatinine mass conc (U) 90.5 mg/dL Normal [facility] Work Phone: Comment on above: PATIENT WAS FASTINGP ERFORMED BY: BARBER [facility] Csefjc8987 Hernandez RoadDublin [place] [id number] TSH (THYROID STIMULATING HOR J CARLOS) (61804)Ordered By: Boatswains Mate on 03-25-2017 Thyrotropin Qn 2.460 {uIU/mL} Normal 0.450-4.500 [facility] [[email or web address]] Internal Medicine Work Phone: Comment on above: PATIENT WAS FASTINGP ERFORMED BY: [facility] Ymrujg8864 Hernandez RoadDublin [place] [id number] VITAMIN B-12 (CYANOCOBALAMIN ) (32551)Ordered By: Boatswains Mate on 03-25-2017 Cobalamin (Vitamin B12) mass conc pg/mL Abnormal 211-946 [facility] Work Phone: Comment on above: PATIENT WAS FASTINGP ERFORMED BY: [facility] Uighsq0402 Hernandez RoadDublin [place] [id number] HEPATIC FUNCTION PANEL (2741 6)Ordered By: Boatswains Mate on 08-16-2015 Albumin mass conc 4.2 g/dL Normal 3.5-5.5 [facility] Internal Medicine Work Phone: Comment on above: PATIENT WAS FASTINGP ERFORMED BY: [facility] Llkwib2242 Hernandez RoadDublin [place] [id number] ALP [Catalytic activity/Vol] 30 U/L Abnormal 39-117 [facility]; [facility] Work Phone: Comment on above: PATIENT WAS FASTINGP ERFORMED BY: [facility] Ijeqcm1139 Hernandez RoadDublin [place] [id number] ALP enzyme act/vol 30 [iU]/L Abnormal 39-117 [facility] Internal Medicine Work Phone: Comment on above: PATIENT WAS FASTINGP ERFORMED BY: CB [facility] Rsdnlw2684 Hernandez RoadDublin [place] [id number] ALT [Catalytic activity/Vol] 40 U/L Normal 0-44 [facility]; [facility] Work Phone: Comment on above: PATIENT WAS FASTINGP ERFORMED BY: [facility] Uifgyp9784 Hernandez RoadDublin [place] [id number] ALT enzyme act/vol 40 [iU]/L Normal 0-44 [facility] Internal Medicine Work Phone: Comment on above: PATIENT WAS FASTINGP ERFORMED BY: BARBER [facility] Qjocco0697 Hernandez RoadDublin [place] [id number] AST [Catalytic activity/Vol] 19 U/L Normal 0-40 [facility]; [facility] Work Phone: Comment on above: PATIENT WAS FASTINGP ERFORMED BY: CB [facility] Skwcaj6571 [address] RoadDublin [place] [id number] AST enzyme act/vol 19 [iU]/L Normal 0-40 [facility] Internal Medicine Work Phone: Comment on above: PATIENT WAS FASTINGP ERFORMED BY: BARBER [facility] Hcenpq9058 Hernandez RoadDublin [place] [id number] Bilirubin mass conc 0.3 mg/dL Normal 0.0-1.2 Compr [facility] Internal Medicine Work Phone: Comment on above: PATIENT WAS FASTINGP ERFORMED BY: BARBER [facility] Azcolr3577 [address] RoadDublin [place] [id number] Bilirubin.direct mass conc 0.09 mg/dL Normal 0.00-0.40 [facility] Internal Medicine Work Phone: Comment on above: PATIENT WAS FASTINGP ERFORMED BY: BARBER Treviñolin6370 Hernandez RoadDublin [place] [id number] Protein mass conc 6.7 g/dL Normal 6.0-8.5 Compreh ensive Internal Medicine Work Phone: Comment on above: PATIENT WAS FASTINGP ERFORMED BY: BARBER [facility] Hzlgkj8407 Hernandez RoadDublin [place] [id number] Hemoglobin Glyclated (HGB A1 C) (35935)Ordered By: Boatswains Mate on 08-16-2015 Hemoglobin A1c/Hemoglobin.total mass fraction (Bld) 5.9 % Abnormal 4.8-5.6 Comprehensiv e Internal Medicine Work Phone: Comment on above: . Pre-diabetes: 5.7 - 6.4 Diabetes: >6.4 Glycemic control for adults with diabetes: <7.0 PATIENT WAS FASTINGP ERFORMED BY: BARBER [facility]6370 [facility] [id number] Information: [id number]; will [facility] LIPID PANEL (28430)Ordered B y: Boatswains Mate on 08-16-2015 Cholesterol in HDL mass conc 41 mg/dL Normal [facility] Work Phone: Comment on above: According to ATP-III Guidelines, HDL-C >59 mg/dL is considered anegative risk factor for CHD. PATIENT WAS FASTINGP ERFORMED BY: BARBER [place] 0150670 [facility] [id number] Information: [id number] Cholesterol in LDL mass conc 121 mg/dL Abnormal 0-99 [facility] Work Phone: Comment on above: PATIENT WAS FASTINGP ERFORMED BY: BARBER [place] 0150670 [facility] [id number] Information: [id number] Cholesterol in LDL/Cholesterol in HDL mass ratio 3.0 {ratio_units} Normal 0.0-3.6 [facility] Work Phone: Comment on above: LDL/HDL Ratio Men Wo men 1/2 Avg.Risk 1.0 1.5 Avg.Risk 3.6 3.2 2X Avg.Risk 6.2 5.0 3X Avg.Risk 8.0 6.1 PATIENT WAS FASTINGP ERFORMED BY: BARBER [place] 0150670 [facility] [id number] Information: [id number] Cholesterol in VLDL mass conc 29 mg/dL Normal 5-40 [facility] Work Phone: Comment on above: PATIENT WAS FASTINGP ERFORMED BY: BARBER [facility]6370 [facility] [id number] Information: [id number] Cholesterol mass conc 191 mg/dL Normal 100-199 [facility] prehensive Internal Medicine Work Phone: Comment on above: PATIENT WAS FASTINGP ERFORMED BY: [place] 1713470 [facility] [id number] Information: [id number] Triglyceride mass conc 145 mg/dL Normal 0-149 Co [facility] Internal Medicine Work Phone: Comment on above: PATIENT WAS FASTINGP ERFORMED BY: BARBER [facility] Gtkfoq9959 [facility] [id number] Information: [id number] VITAMIN B-12 (CYANOCOBALAMIN ) (60675)Ordered By: Boatswains Mate on 08-16-2015 Cobalamin (Vitamin B12) mass conc 603 pg/mL Normal 211-946 [facility] Work Phone: Comment on above: PATIENT WAS FASTINGP ERFORMED BY: BARBER [facility] Mllwwz3687 [facility] [id number] Blood Glucose , Office ([phone] 2)Ordered By: Ruth Potter on 06-15-2015 Glucose Glucometer molar conc (BldC) 110 1 Normal [facility] Work Phone: HgA1C , Office ([id number])Ordere d By: Ruth Potter on 06-15-2015 Hemoglobin A1c/Hemoglobin.total mass fraction (Bld) 6.0 % Normal 4.6 - 7.1 Comprehensiv e Internal Medicine Work Phone: LIPID PANEL (22620)Ordered B y: Boatswains Mate on 06-15-2015 Cholesterol in HDL mass conc 43 mg/dL Normal [facility] Work Phone: Comment on above: According to ATP-III Guidelines, HDL-C >59 mg/dL is considered anegative risk factor for CHD. PATIENT WAS FASTINGP ERFORMED BY: BARBER [facility] Voclbz0279 [facility] [id number] Information: [id number] Cholesterol in LDL mass conc 148 mg/dL Abnormal 0-99 [facility] Work Phone: Comment on above: PATIENT WAS FASTINGP ERFORMED BY: BARBER [facility] Pclkky0835 [facility] [id number] Information: [id number] Cholesterol in LDL/Cholesterol in HDL mass ratio 3.4 {ratio_units} Normal 0.0-3.6 [facility] Work Phone: Comment on above: LDL/HDL Ratio Men Wo men 1/2 Avg.Risk 1.0 1.5 Avg.Risk 3.6 3.2 2X Avg.Risk 6.2 5.0 3X Avg.Risk 8.0 6.1 PATIENT WAS FASTINGP ERFORMED BY: LabCoJose V[place] 8734370 [facility] [id number] Information: [id number] Cholesterol in VLDL mass conc 24 mg/dL Normal 5-40 [facility] Work Phone: Comment on above: PATIENT WAS FASTINGP ERFORMED BY: Lab[address] [id number] Information: [id number] Cholesterol mass conc 215 mg/dL Abnormal 100-199 [facility] Work Phone: Comment on above: PATIENT WAS FASTINGP ERFORMED BY: LabEric [place] 9099770 [facility] [id number] Information: [id number] Triglyceride mass conc 118 mg/dL Normal 0-149 Co [facility] Internal Medicine Work Phone: Comment on above: PATIENT WAS FASTINGP ERFORMED BY: LabEric [place] [id number] [facility] [id number] Information: [id number] POTASSIUM SERUM (11413)Order ed By: Boatswains Mate on 04-13-2015 Potassium molar conc 4.2 mmol/L Normal 3.5-5.2 Comp [facility] Work Phone: Comment on above: PATIENT NOT FASTINGP ERFORMED BY: LabCoJose [place] 8734370 [facility] [id number] Information: [id number] Potassium, SerumOrdered By: Boatswains Mate on 03-15-2015 Potassium molar conc 4.7 mmol/L Normal 3.5-5.2 Comp [facility] Work Phone: Comment on above: PATIENT NOT FASTINGP ERFORMED BY: [place] 1713470 [facility] [id number] Information: [id number] CBC With Differential/Platel etOrdered By: Boatswains Mate on 03-09-2015 Basophils #/vol (Bld) 0.0 {x10E3/uL} Normal 0.0-0.2 [facility] Work Phone: Comment on above: PATIENT WAS FASTINGP ERFORMED BY: [address] [id number] Information: [id number] Basophils Auto #/vol (Bld) 0.0 {x10E3/uL} Normal 0.0-0.2 [facility] Work Phone: Basophils/100 WBC (Bld) 0 % Normal [facility] Work Phone: Comment on above: PATIENT WAS FASTINGP ERFORMED BY: [address] [id number] Information: [id number] Basophils/100 WBC Auto (Bld) 0 % Normal [facility] Work Phone: Eosinophils #/vol (Bld) 0.4 {x10E3/uL} Normal 0.0-0.4 [facility] Work Phone: Comment on above: PATIENT WAS FASTINGP ERFORMED BY: [address] [id number] Information: [id number] Eosinophils Auto #/vol (Bld) 0.4 {x10E3/uL} Normal 0.0-0.4 [facility] Work Phone: Eosinophils/100 WBC (Bld) 5 % Normal [facility] Work Phone: Comment on above: PATIENT WAS FASTINGP ERFORMED BY: [place] 1713470 [facility] [id number] Information: [id number] Eosinophils/100 WBC Auto (Bld) 5 % Normal [facility] Work Phone: Erythrocyte distribution width Auto Ratio (RBC) 13.3 % Normal 12.3-15.4 [facility] Work Phone: Erythrocyte distribution width Ratio (RBC) 13.3 % Normal 12.3-15.4 [facility] Work Phone: Comment on above: PATIENT WAS FASTINGP ERFORMED BY: [address] [id number] Information: [id number] Hematocrit Auto Volume Fraction (Bld) 45.5 % Normal 37.5-51.0 [facility] Work Phone: Hematocrit Volume Fraction (Bld) 45.5 % Normal 37.5-51.0 [facility] Work Phone: Comment on above: PATIENT WAS FASTINGP ERFORMED BY: [address] [id number] Information: [id number] Hemoglobin mass conc (Bld) 15.2 g/dL Normal 12.6-17.7 [facility] Work Phone: Comment on above: PATIENT WAS FASTINGP ERFORMED BY: [address] [id number] Information: [id number] Immature granulocytes #/vol (Bld) 0.0 {x10E3/uL} Normal 0.0-0.1 [facility] Work Phone: Comment on above: PATIENT WAS FASTINGP ERFORMED BY: [place] 1713470 [facility] [id number] Information: [id number] Immature granulocytes/100 WBC (Bld) 0 % Normal [facility] Work Phone: Comment on above: PATIENT WAS FASTINGP ERFORMED BY: [place] 1713470 [facility] [id number] Information: [id number] Lymphocytes #/vol (Bld) 2.4 {x10E3/uL} Normal 0.7-3.1 [facility] Work Phone: Comment on above: PATIENT WAS FASTINGP ERFORMED BY: BARBER [place] 0150670 [facility] [id number] Information: [id number] Lymphocytes Auto #/vol (Bld) 2.4 {x10E3/uL} Normal 0.7-3.1 [facility] Work Phone: Lymphocytes/100 WBC (Bld) 34 % Normal [facility] Work Phone: Comment on above: PATIENT WAS FASTINGP ERFORMED BY: BARBER [address] [id number] Information: [id number] Lymphocytes/100 WBC Auto (Bld) 34 % Normal [facility] Work Phone: MCH Auto Entitic mass (RBC) 29.8 pg Normal 26.6-33.0 [facility] Work Phone: MCH Entitic mass (RBC) 29.8 pg Normal 26.6-33.0 Co [facility] Internal Medicine Work Phone: Comment on above: PATIENT WAS FASTINGP ERFORMED BY: BARBER [address] [id number] Information: [id number] MCHC Auto mass conc (RBC) 33.4 g/dL Normal 31.5-35.7 [facility] Work Phone: MCHC mass conc (RBC) 33.4 g/dL Normal 31.5-35.7 [facility] Internal Medicine Work Phone: Comment on above: PATIENT WAS FASTINGP ERFORMED BY: BARBER [place] 0150670 [facility] [id number] Information: [id number] MCV Auto Entitic volume (RBC) 89 fL Normal 79-97 [facility] Work Phone: MCV Entitic volume (RBC) 89 fL Normal 79-97 [facility] Work Phone: Comment on above: PATIENT WAS FASTINGP ERFORMED BY: [place] 1713470 [facility] [id number] Information: [id number] Monocytes #/vol (Bld) 0.5 {x10E3/uL} Normal 0.1-0.9 [facility] Work Phone: Comment on above: PATIENT WAS FASTINGP ERFORMED BY: [address] [id number] Information: [id number] Monocytes Auto #/vol (Bld) 0.5 {x10E3/uL} Normal 0.1-0.9 [facility] Work Phone: Monocytes/100 WBC (Bld) 7 % Normal [facility] Work Phone: Comment on above: PATIENT WAS FASTINGP ERFORMED BY: [address] [id number] Information: [id number] Monocytes/100 WBC Auto (Bld) 7 % Normal [facility] Work Phone: Neutrophils #/vol (Bld) 3.9 {x10E3/uL} Normal 1.4-7.0 [facility] Work Phone: Comment on above: PATIENT WAS FASTINGP ERFORMED BY: [address] [id number] Information: [id number],[id number] Neutrophils Auto #/vol (Bld) 3.9 {x10E3/uL} Normal 1.4-7.0 [facility] Work Phone: Neutrophils/100 WBC (Bld) 54 % Normal [facility] Work Phone: Comment on above: PATIENT WAS FASTINGP ERFORMED BY: [place] 1713470 [facility] [id number] Information: [id number] Neutrophils/100 WBC Auto (Bld) 54 % Normal [facility] Work Phone: Platelets #/vol (Bld) 262 {x10E3/uL} Normal 150-379 [facility] Work Phone: Comment on above: PATIENT WAS FASTINGP ERFORMED BY: BARBER [place]6370 [facility] [id number] Information: [id number] Platelets Auto #/vol (Bld) 262 {x10E3/uL} Normal 150-379 [facility] Work Phone: RBC #/vol (Bld) 5.10 {x10E6/uL} Normal 4.14-5.80 Comp [facility] Work Phone: Comment on above: PATIENT WAS FASTINGP ERFORMED BY: BARBER [employer] CorporationYojana TreviñoAhqcvx5495 [facility] [id number] Information: [id number] RBC Auto #/vol (Bld) 5.10 {x10E6/uL} Normal 4.14-5.80 [facility] Work Phone: WBC #/vol (Bld) 7.2 {x10E3/uL} Normal 3.4-10.8 Compr [facility] Internal Medicine Work Phone: Comment on above: PATIENT WAS FASTINGP ERFORMED BY: BARBER EQ worksJose [place] 8734370 [facility] [id number] Information: [id number] WBC Auto #/vol (Bld) 7.2 {x10E3/uL} Normal 3.4-10.8 [facility] Work Phone: Comp. Metabolic Panel (14)Or dered By: Boatswains Mate on 03-09-2015 Albumin mass conc 4.3 g/dL Normal 3.5-5.5 Compreh [facility] Internal Medicine Work Phone: Comment on above: PATIENT WAS FASTINGP ERFORMED BY: BARBER [employer] Power CorporationEric [place] [id number] [facility] [id number] Albumin/Globulin mass ratio 1.7 {ratio} Normal 1.1-2.5 [facility] Work Phone: Comment on above: PATIENT WAS FASTINGP ERFORMED BY: BARBER [facility] Dxgcwk3029 Hernandez RoadDublin [place] [id number] ALP enzyme act/vol 37 [iU]/L Abnormal 39-117 [facility] Internal [facility] Work Phone: Comment on above: PATIENT WAS FASTINGP ERFORMED BY: BARBER [facility] Bjthnh7429 Hernandez RoadDublin [place] [id number] ALT enzyme act/vol 13 [iU]/L Normal 0-44 [facility] Internal Medicine Work Phone: Comment on above: PATIENT WAS FASTINGP ERFORMED BY: CB [facility] Gfrnhg4021 [address] RoadDublin [place] [id number] AST enzyme act/vol 6 [iU]/L Normal 0-40 [facility] Internal Medicine Work Phone: Comment on above: PATIENT WAS FASTINGP ERFORMED BY: BARBER [facility] Vkgrjw6080 [address] RoadDublin [place] [id number] Bilirubin mass conc 0.2 mg/dL Normal 0.0-1.2 [facility] [[email or web address]] Internal Medicine Work Phone: Comment on above: PATIENT WAS FASTINGP ERFORMED BY: BARBER [facility] Lzmqoy7808 Hernandez RoadDublin [place] [id number] Calcium mass conc 9.6 mg/dL Normal 8.7-10.2 Compreh [facility] hospitalive Internal Medicine Work Phone: Comment on above: PATIENT WAS FASTINGP ERFORMED BY: BARBER [facility] Ddbyso5428 Hernandez RoadDublin [place] [id number] Chloride molar conc 102 mmol/L Normal 97-108 Compr ensive Internal Medicine Work Phone: Comment on above: PATIENT WAS FASTINGP ERFORMED BY: CB [facility] Bscqxt8183 [address] RoadDublin [place] [id number] CO2 molar conc 24 mmol/L Normal 18-29 Comprehens thea Internal Medicine Work Phone: Comment on above: PATIENT WAS FASTINGP ERFORMED BY: BARBER [facility] Kqmzra0632 [address] RoadDublin [place] [id number] Creatinine mass conc 1.17 mg/dL Normal 0.76-1.27 Comp rehensive Internal Medicine Work Phone: Comment on above: PATIENT WAS FASTINGP ERFORMED BY: [facility] Yjjfdc7454 Hernandez Roadblin [place] [id number] GFR/1.73 sq M predicted among blacks CKD-EPI vol rate/area (S/P/Bld) 86 mL/min/1.73 Normal [facility] Work Phone: Comment on above: PATIENT WAS FASTINGP ERFORMED BY: [facility] Ntyjrw5756 Hernandez RoadWatauga Medical Centerin [place] [id number] GFR/1.73 sq M predicted among non-blacks CKD-EPI vol rate/area (S/P/Bld) 74 mL/min/1.73 Normal Comprehensiv e Internal Medicine Work Phone: Comment on above: PATIENT WAS FASTINGP ERFORMED BY: [facility]Co Wuuipf7968 [facility] [id number] Globulin Calculated mass conc (S) 2.5 g/dL Normal 1.5-4.5 [facility] Work Phone: Globulin mass conc (S) 2.5 g/dL Normal 1.5-4.5 Co [facility] Work Phone: Comment on above: PATIENT WAS FASTINGP ERFORMED BY: [facility] Jktkxv9066 [facility] [id number] Glucose mass conc 156 mg/dL Abnormal 65-99 Compreh ensive Internal Medicine Work Phone: Comment on above: PATIENT WAS FASTINGP ERFORMED BY: [facility] Pjocii5534 [address] [facility]in [place] [id number] Potassium molar conc 5.3 mmol/L Abnormal 3.5-5.2 Comp rehensive Internal Medicine Work Phone: Comment on above: PATIENT WAS FASTINGP ERFORMED BY: [facility] Wfnxuh5359 [facility] [id number] Protein mass conc 6.8 g/dL Normal 6.0-8.5 Compreh ensive Internal Medicine Work Phone: Comment on above: PATIENT WAS FASTINGP ERFORMED BY: BARBER LabYojana TreviñoXvqpif7790 [address] [facility] [id number] Sodium molar conc 142 mmol/L Normal 134-144 Compreh ensive Internal Medicine Work Phone: Comment on above: PATIENT WAS FASTINGP ERFORMED BY: BARBER LabYojana TreviñoFixbyq0920 [address] Haozu.comHaywood Regional Medical Center [id number] Urea nitrogen mass conc 13 mg/dL Normal 6-24 [facility] Work Phone: Comment on above: PATIENT WAS FASTINGP ERFORMED BY: BARBER LabYojana TreviñoAhcneh1147 [address] [facility] [id number] Urea nitrogen/Creatinine mass ratio 11 mg/mg Normal 9-20 [facility] Work Phone: Comment on above: PATIENT WAS FASTINGP ERFORMED BY: BARBER LabYojana TreviñoSessiv4689 [address] [facility] [id number] Hemoglobin R9hLvflfni By: stem Acoustical Logging Engineer on 03-09-2015 Hemoglobin A1c/Hemoglobin.total mass fraction (Bld) 6.7 % Abnormal 4.8-5.6 Comprehensiv e Internal Medicine Work Phone: Comment on above: . Increased risk for diabetes: 5.7 - 6.4 Diabetes: >6.4 Glycemic control for adults with diabetes: <7.0 PATIENT WAS FASTINGP ERFORMED BY: BARBER LabYojana Aqxwde1181 [facility] [id number] Microalb/Creat Ratio, Randm UrOrdered By: Boatswains Mate on 03-09-2015 Albumin DL <= 20 mg/L mass conc (U) mg/dL Normal 0.0-17.0 [facility] Work Phone: Comment on above: PATIENT WAS FASTINGP ERFORMED BY: BARBER LabYojana TreviñoAtrbfl6390 [address] [facility] [id number] Albumin/Creatinine mass ratio (U) <4.6 Normal 0.0-30.0 [facility] Work Phone: Comment on above: PATIENT WAS FASTINGP ERFORMED BY: BARBER [facility]6370 [facility] [id number] Creatinine mass conc (U) 65.3 mg/dL Normal 22.0-328.0 [facility] Work Phone: Comment on above: PATIENT WAS FASTINGP ERFORMED BY: BARBER Treviñolin6370 [facility] [id number] Microscopic ExaminationOrder ed By: Boatswains Mate on 03-09-2015 Bacteria LM.HPF #/area (Urine sed) None seen Normal [facility] Work Phone: Comment on above: PATIENT WAS FASTINGP ERFORMED BY: BARBER LabCo Iptxgr6752 [facility] [id number] Epithelial cells LM.HPF #/area (Urine sed) None seen Normal 0 - 10 [facility] Work Phone: Comment on above: PATIENT WAS FASTINGP ERFORMED BY: BARBER Treviñolin6370 [facility] [id number] RBC LM.HPF #/area (Urine sed) 0-2 Normal 0 - 2 [facility] Work Phone: Comment on above: PATIENT WAS FASTINGP ERFORMED BY: BARBER LabCosusanna TreviñoIhtlmq1595 [facility] [id number] WBC LM.HPF #/area (Urine sed) 0-5 Normal 0 - 5 [facility] Work Phone: Comment on above: PATIENT WAS FASTINGP ERFORMED BY: BARBER Treviñolin6370 [facility] [id number] TSHOrdered By: System Manage r on 03-09-2015 Thyrotropin Qn 2.270 {uIU/mL} Normal 0.450-4.500 Compr ehensive Internal Medicine Work Phone: Comment on above: PATIENT WAS FASTINGP ERFORMED BY: BARBER [facility] Hqofit0480 [facility] [id number] Urinalysis, CompleteOrdered By: Boatswains Mate on 03-09-2015 Appearance Nom (U) Clear Normal Compre hensive Internal Medicine Work Phone: Comment on above: PATIENT WAS FASTINGP ERFORMED BY: BARBER Malhotra Qabmij9856 Hernandez RoadDublin [place] [id number] Bilirubin Ql (U) Negative Normal Comprehe nsive Internal Medicine Work Phone: Comment on above: PATIENT WAS FASTINGP ERFORMED BY: BARBER LabCo Qlracw1565 Hernandez RoadDublin [place] [id number] Color Nom (U) Yellow Normal Comprehensi ve Internal Medicine Work Phone: Comment on above: PATIENT WAS FASTINGP ERFORMED BY: [facility] Vllrux1577 Hernandez RoadDublin [place] [id number] Glucose Ql (U) Negative Normal Comprehens thea Internal Medicine Work Phone: Comment on above: PATIENT WAS FASTINGP ERFORMED BY: BARBER LabM[facility]6370 [address] RoadDublin [place] [id number] Hemoglobin Ql (U) Negative Normal Compreh ensive Internal Medicine Work Phone: Comment on above: PATIENT WAS FASTINGP ERFORMED BY: LabM[facility]6370 [address] RoadDublin [place] [id number] Hemoglobin Test strip Ql (U) Negative Normal [facility] Work Phone: Ketones Ql (U) Negative Normal Comprehens thea Internal Medicine Work Phone: Comment on above: PATIENT WAS FASTINGP ERFORMED BY: LabM[facility]6370 [address] RoadDublin [place] [id number] Leukocyte esterase Test strip Ql (U) Negative Normal [facility] Work Phone: Comment on above: PATIENT WAS FASTINGP ERFORMED BY: [facility] Baqgzv5220 [address] RoadDublin [place] [id number] Microscopic observation LM Nom (Urine sed) MICRON Normal [facility] Work Phone: Comment on above: Microscopic follows if indicated. PATIENT WAS FASTINGP ERFORMED BY: [facility] Hsrrfn1282 Hernandez RoadDublin [place] [id number] Microscopic observation LM Nom (Urine sed) See below: Normal [facility] Work Phone: Comment on above: Microscopic was chris cated and was performed. PATIENT WAS FASTINGP ERFORMED BY: BARBER LabCosusanna Idwfgj5461 [address] RoadDublin [place] [id number] Nitrite Ql (U) Negative Normal Comprehens thea Internal Medicine Work Phone: Comment on above: PATIENT WAS FASTINGP ERFORMED BY: BARBER [facility] Mwvytt0238 Hernandez RoadDublin [place] [id number] Nitrite Test strip Ql (U) Negative Normal [facility] Work Phone: pH (U) 6.0 [pH] Normal 5.0-7.5 [facility] Work Phone: Comment on above: PATIENT WAS FASTINGP ERFORMED BY: BARBER LabCosusanna TreviñoTwuwce7626 Hernandez RoadDublin [place] [id number] pH Test strip (U) 6.0 [pH] Normal 5.0-7.5 Compreh ensive Internal Medicine Work Phone: Protein Ql (U) Negative Normal Comprehens thea Internal Medicine Work Phone: Comment on above: PATIENT WAS FASTINGP ERFORMED BY: BARBER LabYojana TreviñoTpysni2098 [address] RoadDublin [place] [id number] Protein Test strip Ql (U) Negative Normal [facility] Work Phone: Specific gravity Relative Density (U) 1.013 1 Normal 1.005-1.030 Comprehensi ve Internal Medicine Work Phone: Comment on above: PATIENT WAS FASTINGP ERFORMED BY: BARBER [facility] Rkydze0075 Hernandez RoadDublin [place] [id number] Urobilinogen Test strip mass conc (U) 0.2 mg/dL Normal 0.0-1.9 Comprehensiv e Internal Medicine Work Phone: Comment on above: PATIENT WAS FASTINGP ERFORMED BY: BARBER [facility] Gwkqoy2314 Hernandez RoadDublin [place] [id number] Vitamin H46Bgfmrxw By: River Phillip on 03-09-2015 Cobalamin (Vitamin B12) mass conc 396 pg/mL Normal 211-946 [facility] Work Phone: Comment on above: PATIENT WAS FASTINGP ERFORMED BY: [facility] Dylerh1875 [address] [facility] [id number] Vitamin D, 25-HydroxyOrdered By: Boatswains Mate on 03-09-2015 25-Hydroxyvitamin D2+25-Hydroxyvitamin D3 mass conc 39.6 ng/mL Normal 30.0-100.0 [facility] Work Phone: Comment on above: Vitamin D deficiency has been defined by the [place] ofMedicine and an Endocrine Society practice guideline as alevel of serum 25-OH vitamin D less than 20 ng/mL (1,2).The Endocrine Society went on to further define vitamin Dinsufficiency as a level between 21 and 29 ng/mL (2).1. IOM ([place] of Medicine). 2010. Dietary reference intakes for calcium and D. [place]: The National Academies Press.2. Raman MF, Suman MILLIGAN, Thi WHITE, et al. Evaluation, treatment, and prevention of vitamin D deficiency: an Endocrine Society clinical practice guideline. JCEM. 2010; 96(7):1911-30. PATIENT WAS FASTINGP ERFORMED BY: [facility] Kltwdo9615 [facility] [id number] Basic Metabolic Profile (BMP )Ordered By: Boatswains Mate on 12-04-2014 Calcium mass conc 9.0 mg/dL Normal 8.5-10.1 Compreh ensive Internal Medicine Work Phone: Comment on above: Test performed at:[facility] [address]xxqkgrq[address] [address] Chloride molar conc 97 mmol/L Abnormal 98-107 Compr ehensive Internal Medicine Work Phone: Comment on above: Test performed at:[facility] Zwecagpekf[address] [address] CO2 molar conc 27.0 mmol/L Normal 21.0-32.0 Comprehen [facility] Work Phone: Comment on above: Test performed at:[facility] Akipmsesfz[address] [address] Creatinine mass conc 1.4 mg/dL Abnormal 0.8-1.3 Comp rehensive Internal Medicine Work Phone: Comment on above: Test performed at:[facility] [address]fr[address]cl[address]ay[address] [place] [address] GFR/1.73 sq M predicted among non-blacks MDRD vol rate/area (S/P/Bld) 58 mL/min/{1.73_m2} Abnormal Comprehe nsive Internal Medicine Work Phone: Comment on above: Test performed at:[facility] Jl[address]dburrm[address] [place] [address] Glucose mass conc 445 mg/dL Abnormal 70-110 Compreh ensive Internal Medicine Work Phone: Comment on above: Glucose result great er than or equal to 200 mg/dLsuggests DIABETES MELLITUS per A.D.A. criteria. Test performed at:[facility] J[address]qar[address] [place] [address] Potassium molar conc 3.9 mmol/L Normal 3.5-5.1 Comp rehensive Internal Medicine Work Phone: Comment on above: Test performed at:[facility] Oxd[address]bxvud[address] [place] [address] Sodium molar conc 132 mmol/L Abnormal 136-145 Compreh ensive Internal Medicine Work Phone: Comment on above: Test performed at:[facility] Ugfrrmvkqp[address] [place] [address] Urea nitrogen mass conc 19 mg/dL Abnormal 7-18 [facility] Work Phone: Comment on above: Test performed at:[facility] Togyaaicor[address] [address] Basic Metabolic Profile (BMP) 8 1 Normal 5-15 [facility] Work Phone: Comment on above: Test performed at:[facility] Xpyexsnkwq[address] [place] [address](773 Basic Metabolic Profile (BMP) 13.6 {RATIO} Normal 10-20 [facility] Work Phone: Comment on above: Test performed at:[facility] [address]qwi[address] [place] [address] Basic Metabolic Profile (BMP) 74.51 ml/min Normal [facility] Work Phone: Comment on above: Test performed at:[facility] Kacfoexdlr[address] [place] [address] Basic Metabolic Profile (BMP) 70 mL/min Normal [facility] Work Phone: Comment on above: Test performed at:[facility] Z[address]jwzmcsqz[address] [place] [address] CBC W/Diff, AutomatedOrdered By: Boatswains Mate on 12-04-2014 Absolute Neut 4.4 {X10_3/uL} Normal 2.0-7.7 Compreh ensive Internal Medicine Work Phone: Comment on above: Test performed at:[facility] [address]ufwi[address] [place] [address] Basophils/100 WBC (Bld) 0.5 % Normal 0-1 [facility] Work Phone: Comment on above: Test performed at:[facility] G[address] [place] [address] Basophils/100 WBC Auto (Bld) 0.5 % Normal 0-1 [facility] Work Phone: Eosinophils/100 WBC (Bld) 5.2 % Abnormal 0-5 [facility] Work Phone: Comment on above: Test performed at:[facility] [address]vogcxim[address] [place] [address] Eosinophils/100 WBC Auto (Bld) 5.2 % Abnormal 0-5 [facility] Work Phone: Erythrocyte distribution width Auto Ratio (RBC) 12.3 % Normal 11.6-14.6 [facility] Work Phone: Erythrocyte distribution width Ratio (RBC) 12.3 % Normal 11.6-14.6 [facility] Work Phone: Comment on above: Test performed at:[facility] A[address]ovchzwpv[address] [place] [address] Hematocrit Auto Volume Fraction (Bld) 46.3 % Normal 40-54 [facility] Work Phone: Hematocrit Volume Fraction (Bld) 46.3 % Normal 40-54 [facility] Work Phone: Comment on above: Test performed at:[facility] [address] [place] [address] Hemoglobin mass conc (Bld) 16.1 g/dL Normal 13.0-16.5 [facility] Work Phone: Comment on above: Test performed at:[facility] [address] [place] [address] IM GRAN % 0.100 % Normal 0.0-0.9 [facility] Work Phone: Comment on above: IG% - Immature Granu locytes (promyelocytes, myelocytes andmetamyelocytes) > 1% indicates that a LEFT SHIFT is Present. Test performed at:[facility] [address] [place] [address] Lymphocytes (Bld) [#/Vol] 2.94 {X10_3/ul} Normal 0.83-4.51 [facility] Work Phone: Comment on above: Test performed at:[facility] [address] [place] [address] Lymphocytes Auto #/vol (Bld) 2.94 {X10_3/ul} Normal 0.83-4.51 [facility] Work Phone: Lymphocytes/100 WBC (Bld) 35.6 % Normal 19-41 [facility] Work Phone: Comment on above: Test performed at:[facility] [address] [place] [address] Lymphocytes/100 WBC Auto (Bld) 35.6 % Normal 19-41 [facility] Work Phone: MCH Auto Entitic mass (RBC) 30.6 pg Normal 27.0-32.0 [facility] Work Phone: MCH Entitic mass (RBC) 30.6 pg Normal 27.0-32.0 Co mprehensive Internal Medicine Work Phone: Comment on above: Test performed at:[facility] [address] [place] [address] MCHC Auto mass conc (RBC) 34.8 {g/gl} Normal 32-36 [facility] Work Phone: MCHC mass conc (RBC) 34.8 {g/gl} Normal 32-36 [facility] prehensive Internal Medicine Work Phone: Comment on above: Test performed at:[facility] [address] [place] [address] MCV Auto Entitic volume (RBC) 87.9 fL Normal 80-94 [facility] Work Phone: MCV Entitic volume (RBC) 87.9 fL Normal 80-94 [facility] Work Phone: Comment on above: Test performed at:[facility] [address] [place] [address] Monocytes/100 WBC Auto (Bld) 4.8 % Normal 0-10 [facility] Work Phone: Comment on above: Test performed at:[facility] [address] [place] [address] Monocytes/100 WBC Auto (Bld) 4.8 % Normal 0-10 [facility] Work Phone: Neutrophils/100 WBC (Bld) 53.8 % Normal 47-70 [facility] Work Phone: Comment on above: Test performed at:[facility] [address] [place] [address] Neutrophils/100 WBC Auto (Bld) 53.8 % Normal 47-70 [facility] Work Phone: Platelet mean volume Auto Entitic volume (Bld) 10.2 fL Normal 6.2-12.0 [facility] Work Phone: Platelet mean volume Entitic volume (Bld) 10.2 fL Normal 6.2-12.0 Comprehensi ve Internal Medicine Work Phone: Comment on above: Test performed at:[facility] [address] [place] [address] Platelets #/vol (Bld) 188 10*3/uL Normal 150-450 [facility]ale[facility] Work Phone: Comment on above: Test performed at:[facility] [address] [place] [address] Platelets Auto #/vol (Bld) 188 10*3/uL Normal 150-450 [facility] Work Phone: RBC #/vol (Bld) 5.27 {M/mm3} Normal 4.6-6.2 Compreh ensive Internal Medicine Work Phone: Comment on above: Test performed at:[facility] [address] [place] [address] RBC Auto #/vol (Bld) 5.27 {M/mm3} Normal 4.6-6.2 Co [facility] Work Phone: RDW SD 39.4 fL Normal 35.1-43.9 [facility] Work Phone: Comment on above: Test performed at:[facility] [address] [place] [address] WBC #/vol (Bld) 8.3 10*3/uL Normal 4.4-11.0 Comprehe nsive Internal Medicine Work Phone: Comment on above: Test performed at:[facility] [address] [place] [address] WBC Auto #/vol (Bld) 8.3 10*3/uL Normal 4.4-11.0 [facility] prehensive Internal Medicine Work Phone: CBC W/Diff, Automated 0.100 % Normal 0.0-0.9 [facility] prehensive Internal Medicine Work Phone: Comment on above: IG% - Immature Granu locytes (promyelocytes, myelocytes andmetamyelocytes) > 1% indicates that a LEFT SHIFT is Present. Test performed at:[facility] [address] [place] [address] CBC W/Diff, Automated 2.94 {X10_3/ul} Normal 0.83-4.51 [facility] Work Phone: Comment on above: Test performed at:[facility] [address] [place] [address] CBC W/Diff, Automated 4.4 {X10_3/uL} Normal 2.0-7.7 [facility] Work Phone: Comment on above: Test performed at:[facility] [address] [place] [address] CBC W/Diff, Automated 39.4 fL Normal 35.1-43.9 [facility] prehensive Internal Medicine Work Phone: Comment on above: Test performed at:[facility] [address] [place] [address]( ADELSO (ANTINUCLEAR ANTIBODY) ( [id number])Ordered By: Boatswains Mate on 12-03-2014 Nuclear Ab Ql (S) Negative Normal Compreh ensive Internal Medicine Work Phone: Comment on above: Test(s) Glucose, Ser um called to DR MARTIN on 12/04/2014 at 09:03 ESTPATIENT NOT FASTINGPERFORMED BY: LabCoSaint Barnabas Behavioral Health CenterHoamwz8126 [facility] [id number] Nuclear Ab Ql (S) Negative Normal Compreh ensive Internal Medicine; [facility] Work Phone: Comment on above: Test(s) Glucose, Ser um called to FAST on 12/04/2014 at 09:03 ESTPATIENT NOT FASTINGPERFORMED BY: Kiind.me6370 [place] [id number] Blood Glucose , Office ([phone])Ordered By: Sofía Wyatt on 12-03-2014 Glucose Glucometer molar conc (BldC) 492 1 Normal [facility] Work Phone: C-REACTIVE PROTEIN ([id number])Or dered By: Boatswains Mate on 12-03-2014 CRP mass conc 2.5 mg/L Normal 0.0-4.9 Comprehensi ve Internal Medicine Work Phone: Comment on above: Test(s) Glucose, Ser um called to FAST on 12/04/2014 at 09:03 ESTPATIENT NOT FASTINGPERFORMED BY: Kiind.me6370 [place] [id number] CALCIFIDIOL (26969) VIT D 25 Ordered By: Boatswains Mate on 12-03-2014 25-Hydroxyvitamin D2+25-Hydroxyvitamin D3 mass conc 20.9 ng/mL Abnormal 30.0-100.0 [facility] Work Phone: Comment on above: Vitamin D deficiency has been defined by the [place] ofMedicine and an Endocrine Society practice guideline as alevel of serum 25-OH vitamin D less than 20 ng/mL (1,2).The Endocrine Society went on to further define vitamin Dinsufficiency as a level between 21 and 29 ng/mL (2).1. IOM ([place] of Medicine). 2010. Dietary reference intakes for calcium and D. [place]: The National Academies Press.2. Raman MF, Suman [place], Thi WHITE, et al. Evaluation, treatment, and prevention of vitamin D deficiency: an Endocrine Society clinical practice guideline. JCEM. 2010; 96(7):1911-30. Test(s) Glucose, Ser um called to FAST on 12/04/2014 at 09:03 ESTPATIENT NOT FASTINGPERFORMED BY: Kiind.me6370 [place] [id number] CBC with auto diff (07368)Or dered By: Boatswains Mate on 12-03-2014 Basophils #/vol (Bld) 0.0 {x10E3/uL} Normal 0.0-0.2 [facility] Work Phone: Comment on above: Test(s) Glucose, Ser um called to DR FAST on 12/04/2014 at 09:03 ESTPATIENT NOT FASTINGPERFORMED BY: [facility]6370 [facility] [id number] Information: [id number] Basophils (Bld) [#/Vol] 0.0 10*3/uL Normal 0.0-0.2 [facility]; [facility] Work Phone: Comment on above: Test(s) Glucose, Ser um called to DR FAST on 12/04/2014 at 09:03 ESTPATIENT NOT FASTINGPERFORMED BY: EQ works Uxcmaz8313 [facility] [id number] Information: [id number] Basophils Auto #/vol (Bld) 0.0 {x10E3/uL} Normal 0.0-0.2 [facility] Work Phone: Basophils/100 WBC (Bld) 1 % Normal [facility] Work Phone: Comment on above: Test(s) Glucose, Ser um called to DR FAST on 12/04/2014 at 09:03 ESTPATIENT NOT FASTINGPERFORMED BY: [place] 1713470 [facility] [id number] Information: [id number] Basophils/100 WBC Auto (Bld) 1 % Normal [facility] Work Phone: Eosinophils #/vol (Bld) 0.3 {x10E3/uL} Normal 0.0-0.4 [facility] Work Phone: Comment on above: Test(s) Glucose, Ser um called to DR FAST on 12/04/2014 at 09:03 ESTPATIENT NOT FASTINGPERFORMED BY: [place] 1713470 [facility] [id number] Information: [id number] Eosinophils (Bld) [#/Vol] 0.3 10*3/uL Normal 0.0-0.4 [facility]; [facility] Work Phone: Comment on above: Test(s) Glucose, Ser um called to DR FAST on 12/04/2014 at 09:03 ESTPATIENT NOT FASTINGPERFORMED BY: Zipments70 JFrogL[facility] [id number] Information: [id number] Eosinophils Auto #/vol (Bld) 0.3 {x10E3/uL} Normal 0.0-0.4 [facility] Work Phone: Eosinophils/100 WBC (Bld) 4 % Normal [facility] Work Phone: Comment on above: Test(s) Glucose, Ser um called to DR FAST on 12/04/2014 at 09:03 ESTPATIENT NOT FASTINGPERFORMED BY: [facility]First[facility] [id number] Information: [id number] Eosinophils/100 WBC Auto (Bld) 4 % Normal [facility] Work Phone: Erythrocyte distribution width Auto Ratio (RBC) 12.8 % Normal 12.3-15.4 [facility] Work Phone: Erythrocyte distribution width Ratio (RBC) 12.8 % Normal 12.3-15.4 [facility] Work Phone: Comment on above: Test(s) Glucose, Ser um called to DR FAST on 12/04/2014 at 09:03 ESTPATIENT NOT FASTINGPERFORMED BY: Zipments70 [facility]ixFirst[facility] [id number] Information: [id number] Hematocrit Auto Volume Fraction (Bld) 49.3 % Normal 37.5-51.0 [facility] Work Phone: Hematocrit Volume Fraction (Bld) 49.3 % Normal 37.5-51.0 [facility] Work Phone: Comment on above: Test(s) Glucose, Ser um called to DR FAST on 12/04/2014 at 09:03 ESTPATIENT NOT FASTINGPERFORMED BY: [facility]6370 [facility] [id number] Information: [id number] Hemoglobin mass conc (Bld) 16.4 g/dL Normal 12.6-17.7 [facility] Work Phone: Comment on above: Test(s) Glucose, Ser um called to DR FAST on 12/04/2014 at 09:03 ESTPATIENT NOT FASTINGPERFORMED BY: [place] 1713470 [facility] [id number] Information: [id number] Immature granulocytes #/vol (Bld) 0.0 {x10E3/uL} Normal 0.0-0.1 [facility] Work Phone: Comment on above: Test(s) Glucose, Ser um called to DR FAST on 12/04/2014 at 09:03 ESTPATIENT NOT FASTINGPERFORMED BY: [facility]6370 [facility] [id number] Information: [id number] Immature granulocytes (Bld) [#/Vol] 0.0 10*3/uL Normal 0.0-0.1 [facility]; [facility] Work Phone: Comment on above: Test(s) Glucose, Ser um called to DR FAST on 12/04/2014 at 09:03 ESTPATIENT NOT FASTINGPERFORMED BY: [facility]6370 [facility] [id number] Information: [id number] Immature granulocytes/100 WBC (Bld) 0 % Normal [facility] Work Phone: Comment on above: Test(s) Glucose, Ser um called to DR FAST on 12/04/2014 at 09:03 ESTPATIENT NOT FASTINGPERFORMED BY: [facility]6370 [facility] [id number] Information: [id number] Lymphocytes #/vol (Bld) 2.5 {x10E3/uL} Normal 0.7-3.1 [facility] Work Phone: Comment on above: Test(s) Glucose, Ser um called to DR FAST on 12/04/2014 at 09:03 ESTPATIENT NOT FASTINGPERFORMED BY: BARBER EQ works [id number] [facility] [id number] Information: [id number] Lymphocytes (Bld) [#/Vol] 2.5 10*3/uL Normal 0.7-3.1 [facility]; [facility] Work Phone: Comment on above: Test(s) Glucose, Ser um called to DR FAST on 12/04/2014 at 09:03 ESTPATIENT NOT FASTINGPERFORMED BY: BARBER EQ works [id number] [facility] [id number] Information: [id number] Lymphocytes Auto #/vol (Bld) 2.5 {x10E3/uL} Normal 0.7-3.1 [facility] Work Phone: Lymphocytes/100 WBC (Bld) 30 % Normal [facility] Work Phone: Comment on above: Test(s) Glucose, Ser um called to DR FAST on 12/04/2014 at 09:03 ESTPATIENT NOT FASTINGPERFORMED BY: BARBER EQ works [id number] [facility] [id number] Information: [id number] Lymphocytes/100 WBC Auto (Bld) 30 % Normal [facility] Work Phone: MCH Auto Entitic mass (RBC) 29.8 pg Normal 26.6-33.0 [facility] Work Phone: MCH Entitic mass (RBC) 29.8 pg Normal 26.6-33.0 [facility] Internal Medicine Work Phone: Comment on above: Test(s) Glucose, Ser um called to FAST on 12/04/2014 at 09:03 ESTPATIENT NOT FASTINGPERFORMED BY: BARBER EQ works [id number] [facility] [id number] Information: [id number] MCHC Auto mass conc (RBC) 33.3 g/dL Normal 31.5-35.7 [facility] Work Phone: MCHC mass conc (RBC) 33.3 g/dL Normal 31.5-35.7 [facility] Internal Medicine Work Phone: Comment on above: Test(s) Glucose, Ser um called to DR FAST on 12/04/2014 at 09:03 ESTPATIENT NOT FASTINGPERFORMED BY: [employer] [facility] [id number] Information: [id number] MCV Auto Entitic volume (RBC) 90 fL Normal 79-97 [facility] Work Phone: MCV Entitic volume (RBC) 90 fL Normal 79-97 [facility] Work Phone: Comment on above: Test(s) Glucose, Ser um called to DR FAST on 12/04/2014 at 09:03 ESTPATIENT NOT FASTINGPERFORMED BY: Afraxis [facility] [id number] Information: [id number] Monocytes #/vol (Bld) 0.4 {x10E3/uL} Normal 0.1-0.9 [facility] Work Phone: Comment on above: Test(s) Glucose, Ser um called to DR FAST on 12/04/2014 at 09:03 ESTPATIENT NOT FASTINGPERFORMED BY: Huddle70 [facility] [id number] Information: [id number] Monocytes (Bld) [#/Vol] 0.4 10*3/uL Normal 0.1-0.9 [facility]; [facility] Work Phone: Comment on above: Test(s) Glucose, Ser um called to DR FAST on 12/04/2014 at 09:03 ESTPATIENT NOT FASTINGPERFORMED BY: EQ works [id number] [facility] [id number] Information: [id number] Monocytes Auto #/vol (Bld) 0.4 {x10E3/uL} Normal 0.1-0.9 [facility] Work Phone: Monocytes/100 WBC (Bld) 5 % Normal [facility] Work Phone: Comment on above: Test(s) Glucose, Ser um called to DR FAST on 12/04/2014 at 09:03 ESTPATIENT NOT FASTINGPERFORMED BY: [id number] [facility] [id number] Information: [id number] Monocytes/100 WBC Auto (Bld) 5 % Normal [facility] Work Phone: Neutrophils #/vol (Bld) 5.0 {x10E3/uL} Normal 1.4-7.0 [facility] Work Phone: Comment on above: Test(s) Glucose, Ser um called to DR FAST on 12/04/2014 at 09:03 ESTPATIENT NOT FASTINGPERFORMED BY: Huddle70 [facility] [id number] Information: [id number] Neutrophils (Bld) [#/Vol] 5.0 10*3/uL Normal 1.4-7.0 [facility]; [facility] Work Phone: Comment on above: Test(s) Glucose, Ser um called to DR FAST on 12/04/2014 at 09:03 ESTPATIENT NOT FASTINGPERFORMED BY: [email or web address].[email or web address] [facility] [id number] Information: [id number] Neutrophils Auto #/vol (Bld) 5.0 {x10E3/uL} Normal 1.4-7.0 [facility] Work Phone: Neutrophils/100 WBC (Bld) 60 % Normal [facility] Work Phone: Comment on above: Test(s) Glucose, Ser um called to DR FAST on 12/04/2014 at 09:03 ESTPATIENT NOT FASTINGPERFORMED BY: [employer] [id number] Hernandez [facility]Hay[facility] [id number] Information: [id number] Neutrophils/100 WBC Auto (Bld) 60 % Normal [facility] Work Phone: Platelets #/vol (Bld) 238 {x10E3/uL} Normal 150-379 [facility] Work Phone: Comment on above: Test(s) Glucose, Ser um called to DR FAST on 12/04/2014 at 09:03 ESTPATIENT NOT FASTINGPERFORMED BY: EQ works Recondo [facility] [id number] Information: [id number] Platelets (Bld) [#/Vol] 238 10*3/uL Normal 150-379 [facility]; [facility] Work Phone: Comment on above: Test(s) Glucose, Ser um called to DR FAST on 12/04/2014 at 09:03 ESTPATIENT NOT FASTINGPERFORMED BY: EQ works [employer]o [facility] [id number] Information: [id number] Platelets Auto #/vol (Bld) 238 {x10E3/uL} Normal 150-379 [facility] Work Phone: RBC #/vol (Bld) 5.51 {x10E6/uL} Normal 4.14-5.80 [facility] Internal Medicine Work Phone: Comment on above: Test(s) Glucose, Ser um called to DR FAST on 12/04/2014 at 09:03 ESTPATIENT NOT FASTINGPERFORMED BY: EQ worksZia Health ClinicCbamhj9504 [facility] [id number] Information: [id number] RBC (Bld) [#/Vol] 5.51 10*6/uL Normal 4.14-5.80 [facility] [[email or web address]] Internal Medicine; [facility] Internal Medicine Work Phone: Comment on above: Test(s) Glucose, Ser um called to DR FAST on 12/04/2014 at 09:03 ESTPATIENT NOT FASTINGPERFORMED BY: EQ works [id number] [facility] [id number] Information: [id number] RBC Auto #/vol (Bld) 5.51 {x10E6/uL} Normal 4.14-5.80 [facility] Work Phone: WBC #/vol (Bld) 8.2 {x10E3/uL} Normal 3.4-10.8 Compr [facility] Internal Medicine Work Phone: Comment on above: Test(s) Glucose, Ser um called to DR FAST on 12/04/2014 at 09:03 ESTPATIENT NOT FASTINGPERFORMED BY: Zipments70 [facility] [id number] Information: [id number] WBC (Bld) [#/Vol] 8.2 10*3/uL Normal 3.4-10.8 Compre hensive Internal Medicine; [facility] Work Phone: Comment on above: Test(s) Glucose, Ser um called to DR FAST on 12/04/2014 at 09:03 ESTPATIENT NOT FASTINGPERFORMED BY: Zipments70 [facility] [id number] Information: [id number] WBC Auto #/vol (Bld) 8.2 {x10E3/uL} Normal 3.4-10.8 [facility] Work Phone: Folate ([id number])Ordered By: Oh My Green! stem Acoustical Logging Engineer on 12-03-2014 Folate mass conc 15.4 ng/mL Normal Comprehe nsive Internal Medicine Work Phone: Comment on above: A serum folate mayra ntration of less than 3.1 ng/mL isconsidered to represent clinical deficiency. Test(s) Glucose, Ser um called to FAST on 12/04/2014 at 09:03 ESTPATIENT NOT FASTINGPERFORMED BY: [email or web address] [facility] [id number] Hemoglobin Glyclated (HGB A1 C) ([id number])Ordered By: Boatswains Mate on 12-03-2014 Hemoglobin A1c/Hemoglobin.total mass fraction (Bld) 15.2 % Abnormal 4.8-5.6 Comprehensiv e Internal Medicine Work Phone: Comment on above: . Increased risk for diabetes: 5.7 - 6.4 Diabetes: >6.4 Glycemic control for adults with diabetes: <7.0 Test(s) Glucose, Ser um called to DR FAST on 12/04/2014 at 09:03 ESTPATIENT NOT FASTINGPERFORMED BY: BARBER EQ works [id number] [facility] [id number] METABOLIC PANEL, COMPREHENSI VE ([id number])Ordered By: Boatswains Mate on 12-03-2014 Albumin mass conc 4.5 g/dL Normal 3.5-5.5 [facility]pre[facility] Internal [facility] Work Phone: Comment on above: Test(s) Glucose, Ser um called to DR FAST on 12/04/2014 at 09:03 ESTPATIENT NOT FASTINGPERFORMED BY: [employer] Iiluft0952 [facility] [id number] Albumin/Globulin mass ratio 1.9 {ratio} Normal 1.1-2.5 [facility] Work Phone: Comment on above: Test(s) Glucose, Ser um called to DR FAST on 12/04/2014 at 09:03 ESTPATIENT NOT FASTINGPERFORMED BY: Zipments70 [facility] [id number] ALP [Catalytic activity/Vol] 51 U/L Normal 39-117 [facility]; [facility] Work Phone: Comment on above: Test(s) Glucose, Ser um called to DR FAST on 12/04/2014 at 09:03 ESTPATIENT NOT FASTINGPERFORMED BY: [employer] [id number] [facility] [id number] ALP enzyme act/vol 51 [iU]/L Normal 39-117 Compre [facility] Internal [facility] Work Phone: Comment on above: Test(s) Glucose, Ser um called to DR FAST on 12/04/2014 at 09:03 ESTPATIENT NOT FASTINGPERFORMED BY: [employer] [id number] [facility] [id number] ALT [Catalytic activity/Vol] 24 U/L Normal 0-44 [facility]; [facility] Work Phone: Comment on above: Test(s) Glucose, Ser um called to DR FAST on 12/04/2014 at 09:03 ESTPATIENT NOT FASTINGPERFORMED BY: [facility] [id number] [facility] [place] [id number] ALT enzyme act/vol 24 [iU]/L Normal 0-44 [facility] Internal Medicine Work Phone: Comment on above: Test(s) Glucose, Ser um called to DR FAST on 12/04/2014 at 09:03 ESTPATIENT NOT FASTINGPERFORMED BY: CB [facility] Tqhbjb4573 Hernandez [facility] [id number] AST [Catalytic activity/Vol] 12 U/L Normal 0-40 [facility]; [facility] Internal Medicine Work Phone: Comment on above: Test(s) Glucose, Ser um called to FAST on 12/04/2014 at 09:03 ESTPATIENT NOT FASTINGPERFORMED BY: [facility] [id number] Hernandez [facility] [id number] AST enzyme act/vol 12 [iU]/L Normal 0-40 [facility] Internal Medicine Work Phone: Comment on above: Test(s) Glucose, Ser um called to FAST on 12/04/2014 at 09:03 ESTPATIENT NOT FASTINGPERFORMED BY: [facility] Itqmga5059 [facility] [id number] Bilirubin mass conc 0.4 mg/dL Normal 0.0-1.2 [facility] [[email or web address]] Internal Medicine Work Phone: Comment on above: Test(s) Glucose, Ser um called to FAST on 12/04/2014 at 09:03 ESTPATIENT NOT FASTINGPERFORMED BY: [facility] Jzzhpc2669 [facility] [id number] Calcium mass conc 9.8 mg/dL Normal 8.7-10.2 [facility] Internal Medicine Work Phone: Comment on above: Test(s) Glucose, Ser um called to FAST on 12/04/2014 at 09:03 ESTPATIENT NOT FASTINGPERFORMED BY: [facility] [id number] Hernandez [facility] [id number] Chloride molar conc 94 mmol/L Abnormal 97-108 Compr ensive Internal Medicine Work Phone: Comment on above: Test(s) Glucose, Ser um called to DR FAST on 12/04/2014 at 09:03 ESTPATIENT NOT FASTINGPERFORMED BY: [employer] [id number] [facility] [id number] CO2 molar conc 24 mmol/L Normal 18-29 Comprehens thea Internal Medicine Work Phone: Comment on above: Test(s) Glucose, Ser um called to DR FAST on 12/04/2014 at 09:03 ESTPATIENT NOT FASTINGPERFORMED BY: [employer] LabHoneyComb Corporation70 [facility] [id number] Creatinine mass conc 1.10 mg/dL Normal 0.76-1.27 [facility] Internal Medicine Work Phone: Comment on above: Test(s) Glucose, Ser um called to DR FAST on 12/04/2014 at 09:03 ESTPATIENT NOT FASTINGPERFORMED BY: [email or web address] [facility] [id number] GFR/1.73 sq M predicted among blacks CKD-EPI vol rate/area (S/P/Bld) 93 mL/min/1.73 Normal [facility] Work Phone: Comment on above: Test(s) Glucose, Ser um called to DR FAST on 12/04/2014 at 09:03 ESTPATIENT NOT FASTINGPERFORMED BY: [employer] [id number] [facility] [id number] GFR/1.73 sq M predicted among non-blacks CKD-EPI vol rate/area (S/P/Bld) 80 mL/min/1.73 Normal Comprehensiv e Internal Medicine Work Phone: Comment on above: Test(s) Glucose, Ser um called to DR FAST on 12/04/2014 at 09:03 ESTPATIENT NOT FASTINGPERFORMED BY: [employer] [id number] [facility] [id number] Globulin Calculated mass conc (S) 2.4 g/dL Normal 1.5-4.5 [facility] Work Phone: Globulin mass conc (S) 2.4 g/dL Normal 1.5-4.5 [facility] Work Phone: Comment on above: Test(s) Glucose, Ser um called to FAST on 12/04/2014 at 09:03 ESTPATIENT NOT FASTINGPERFORMED BY: [email or web address] [facility] [id number] Glucose mass conc 516 mg/dL Abnormal 65-99 Compreh ensive Internal Medicine Work Phone: Comment on above: Verified by repeat analysis Test(s) Glucose, Ser um called to FAST on 12/04/2014 at 09:03 ESTPATIENT NOT FASTINGPERFORMED BY: [email or web address] [facility] [id number] Potassium molar conc 5.1 mmol/L Normal 3.5-5.2 Comp [facility] Internal Medicine Work Phone: Comment on above: Test(s) Glucose, Ser um called to FAST on 12/04/2014 at 09:03 ESTPATIENT NOT FASTINGPERFORMED BY: [email or web address] [facility] [id number] Protein mass conc 6.9 g/dL Normal 6.0-8.5 Compreh ensive Internal Medicine Work Phone: Comment on above: Test(s) Glucose, Ser um called to FAST on 12/04/2014 at 09:03 ESTPATIENT NOT FASTINGPERFORMED BY: [employer] LabHoneyComb Corporation70 [facility] [id number] Sodium molar conc 135 mmol/L Normal 134-144 Compreh ensive Internal Medicine Work Phone: Comment on above: Test(s) Glucose, Ser um called to FAST on 12/04/2014 at 09:03 ESTPATIENT NOT FASTINGPERFORMED BY: [email or web address] [facility] [id number] Urea nitrogen mass conc 11 mg/dL Normal 6-24 [facility] Work Phone: Comment on above: Test(s) Glucose, Ser um called to FAST on 12/04/2014 at 09:03 ESTPATIENT NOT FASTINGPERFORMED BY: Kiind.[email or web address] [facility] [id number] Urea nitrogen/Creatinine mass ratio 10 mg/mg Normal 9-20 [facility] Work Phone: Comment on above: Test(s) Glucose, Ser um called to FAST on 12/04/2014 at 09:03 ESTPATIENT NOT FASTINGPERFORMED BY: [email or web address] [facility] [id number] PSA (PROSTATE SPECIFIC ANTIG EN) (V76.44)Ordered By: Boatswains Mate on 12-03-2014 Prostate specific Ag mass conc 0.9 ng/mL Normal 0.0-4.0 [facility] Internal Medicine Work Phone: Comment on above: F?rsat Bu F?rsat ECLIA methodol ogy. .According to the [place] [employer], Serum PSA shoulddecrease and remain at undetectable levels after radicalprostatectomy. The AUA defines biochemical recurrence as an initialPSA value 0.2 ng/mL or greater followed by a subsequent confirmatoryPSA value 0.2 ng/mL or greater.Values obtained with different assay methods or kits cannot be usedinterchangeably. Results cannot be interpreted as absolute evidenceof the presence or absence of malignant disease. Test(s) Glucose, Ser um called to FAST on 12/04/2014 at 09:03 ESTPATIENT NOT FASTINGPERFORMED BY: [email or web address].[email or web address] [facility] [id number] SED RATE ERYTHROCYTE ([id number]) Ordered By: Boatswains Mate on 12-03-2014 ESR Velocity (Bld) 7 mm/h Normal 0-15 [facility] Internal Medicine Work Phone: Comment on above: Test(s) Glucose, Ser um called to FAST on 12/04/2014 at 09:03 ESTPATIENT NOT FASTINGPERFORMED BY: Kiind.[email or web address] [facility] [id number] TSH ([id number])Ordered By: Syste m Acoustical Logging Engineer on 12-03-2014 Thyrotropin Qn 1.860 {uIU/mL} Normal 0.450-4.500 [facility] [[email or web address]] Internal Medicine Work Phone: Comment on above: Test(s) Glucose, Ser um called to FAST on 12/04/2014 at 09:03 ESTPATIENT NOT FASTINGPERFORMED BY: BARBER EQ works [id number] [facility] [id number] VITAMIN B-12 (CYANOCOBALAMIN ) ([id number])Ordered By: Boatswains Mate on 12-03-2014 Cobalamin (Vitamin B12) mass conc 347 pg/mL Normal 211-946 [facility] Work Phone: Comment on above: Test(s) Glucose, Ser um called to FAST on 12/04/2014 at 09:03 ESTPATIENT NOT FASTINGPERFORMED BY: BARBER [employer] [id number] [facility] [id number] Vital Signs Date Time Vital Sign Value Performing Clinician Facility 06-09-2023 11:42-0400 Body temperature 98 [degF] [facility] 06-09-2023 11:42-0400 Diastolic blood pressure 73 mm[Hg] [facility] 06-09-2023 11:42-0400 Heart rate 74 /min [facility] 06-09-2023 11:42-0400 Respiratory rate 14 /min [facility] 06-09-2023 11:42-0400 SaO2% (BldA) [Mass fraction] 98 % [facility] 06-09-2023 11:42-0400 Systolic blood pressure 124 mm[Hg] [facility] 06-09-2023 11:34-0400 Body height 182.88 cm [facility] 06-09-2023 11:34-0400 Body mass index (BMI) [Ratio] 29.4 kg/m2 [facility] 06-09-2023 11:34-0400 Body weight 98.4 kg [facility] 04-12-2023 20:04-0400 Body temperature 98.5 [degF] [facility] 04-12-2023 20:04-0400 Diastolic blood pressure 80 mm[Hg] [facility] 04-12-2023 20:04-0400 Heart rate 72 /min [facility] 04-12-2023 20:04-0400 Respiratory rate 14 /min [facility] 04-12-2023 20:04-0400 SaO2% (BldA) [Mass fraction] 96 % [facility] 04-12-2023 20:04-0400 Systolic blood pressure 124 mm[Hg] [facility] 04-12-2023 18:18-0400 Body mass index (BMI) [Ratio] 28.1 kg/m2 [facility] 04-12-2023 18:18-0400 Body weight 96.7 kg [facility] 03-03-2021 13:22-0400 Body height 182.88 cm Khanh Lopez LPN [facility]; [facility] Work Phone: 03-03-2021 13:22-0400 Body mass index (BMI) [Ratio] 27.81 kg/m2 Khanh Lopez LPN [facility]; [facility] Work Phone: 03-03-2021 13:22-040 Body surface area Derived from formula 2.15 m2 Khanh Lopez LPN [facility]; [facility] Work Phone: 03-03-2021 13:22-0400 Body temperature 97.9 [degF] Khanh Lopez LPN [facility]; [facility] Work Phone: Comment on above: Method: Infrared 03-03-2021 13:22-0400 Body weight 93 kg Khanh Lopez LPN [facility]; [facility] Work Phone: 03-03-2021 13:22-0400 Diastolic blood pressure 62 mm[Hg] Khanh Lopez LPN [facility]; [facility] Work Phone: Comment on above: Patient Position: Sitting; Cuff Location : Left Arm; Cuff Size: Standard 03-03-2021 13:22-0400 Heart rate 80 /min Khanh Lopez LPN [facility]; [facility] Work Phone: Comment on above: Pattern: Regular 03-03-2021 13:22-0400 Respiratory rate 16 /min Khanh Lopez LPN [facility]; [facility] Work Phone: Comment on above: Pattern: Unlabored 03-03-2021 13:22-0400 SaO2% (BldA) [Mass fraction] 97 % Khanh Lopez LPN [facility]; [facility] Work Phone: Comment on above: Room air 03-03-2021 13:22-0400 Systolic blood pressure 116 mm[Hg] Khanh Lopez LPN [facility]; [facility] Work Phone: Comment on above: Patient Position: Sitting; Cuff Location : Left Arm; Cuff Size: Standard 11-25-2020 07:21-0500 BMI (Body Mass Index) 27.12 kg/m2 Bela Bee [facility] Internal Medicine; [facility] Work Phone: 11-25-2020 07:21-0500 BMI (Body Mass Index) 27.95 kg/m2 Khanh Lopez LPN [facility]; [facility] Work Phone: 11-25-2020 07:21-0500 Body Temperature 97.3 [degF] Khanh Lopez LPN [facility]; [facility] Work Phone: Comment on above: Method: Infrared 11-25-2020 07:21-0500 Body weight 90.72 kg Bela Bee [facility] Internal Medicine; [facility] Work Phone: 11-25-2020 07:21-0500 Body weight 93.46 kg Khanh Lopez LPN [facility]; [facility] Work Phone: 11-25-2020 07:21-0500 BP Diastolic 70 mm[Hg] Khanh Lopez LPN [facility]; [facility] Work Phone: Comment on above: Patient Position: Sitting; Cuff Location : Left Arm; Cuff Size: Standard 11-25-2020 07:21-0500 BP Systolic 124 mm[Hg] Khanh Lopez LPN [facility]; [facility] Work Phone: Comment on above: Patient Position: Sitting; Cuff Location : Left Arm; Cuff Size: Standard 11-25-2020 07:21-0500 BSA (Body Surface Area) 2.13 m2 Bela Bee [facility] Internal [facility]; [facility] Work Phone: 11-25-2020 07:21-0500 BSA (Body Surface Area) 2.16 m2 Khanh Lopez LPN [facility]; [facility] Work Phone: 11-25-2020 07:21-0500 Height 182.88 cm Khanh Lopez LPN [facility]; [facility] Work Phone: 11-25-2020 07:21-0500 Pulse (Heart Rate) 76 /min Khanh Lopez LPN Comprehensiv e Internal Medicine; [facility] Work Phone: Comment on above: Pattern: Regular 11-25-2020 07:21-0500 Pulse Oximetry 98 % Bela Bee [facility]; [facility] Work Phone: Comment on above: Room air 11-25-2020 07:21-0500 Respiratory Rate 16 /min Khanh Lopez LPN [facility]; [facility] Work Phone: Comment on above: Pattern: Unlabored 11-25-2020 07:21-0500 SaO2% (BldA) [Mass fraction] 98 % Khanh Lopez LPN [facility]; [facility] Work Phone: Comment on above: Room air 08-17-2020 12:11-0500 BMI (Body Mass Index) 27.12 kg/m2 Khanh Lopez LPN [facility] Work Phone: 08-17-2020 12:11-0500 Body weight 90.72 kg Khanh Lopez LPN [facility] Work Phone: 08-17-2020 12:11-0500 BSA (Body Surface Area) 2.13 m2 Khanh Lopez LPN [facility] Work Phone: 08-17-2020 12:11-0500 Height 182.88 cm Khanh Lopez LPN [facility] Work Phone: 08-10-2020 08:11-0500 BMI (Body Mass Index) 27.12 kg/m2 Sofíamariza Wyatt [facility] Work Phone: Comment on above: pt reported 08-10-2020 08:11-0500 Body weight 90.72 kg Sofía Slarb STEAM BRUSH OPERATOR [facility] Work Phone: Comment on above: pt reported 08-10-2020 08:11-0500 BSA (Body Surface Area) 2.13 m2 Sofía Jacksonkelby [facility] Internal Medicine Work Phone: Comment on above: pt reported 08-10-2020 08:11-0500 Height 182.88 cm Sofía Yoselin [facility] Internal Medicine Work Phone: Comment on above: pt reported 05-10-2020 07:35-0400 BMI (Body Mass Index) 30.25 kg/m2 Khanh Lopez [facility] Internal Medicine Work Phone: 05-10-2020 07:35-0400 Body Temperature 97.4 [degF] Khnah Lopez [facility] Internal Medicine Work Phone: Comment on above: Method: Infrared 05-10-2020 07:35-0400 Body weight 101.16 kg Khanh Lopez LPN [facility] Internal Medicine Work Phone: 05-10-2020 07:35-0400 BP Diastolic 76 mm[Hg] Khanh Lopez [facility] Internal Medicine Work Phone: Comment on above: Patient Position: Sitting; Cuff Location : Left Arm; Cuff Size: Standard 05-10-2020 07:35-0400 BP Systolic 126 mm[Hg] Khanh Lopez [facility] Internal Medicine Work Phone: Comment on above: Patient Position: Sitting; Cuff Location : Left Arm; Cuff Size: Standard 05-10-2020 07:35-0400 BSA (Body Surface Area) 2.23 m2 Khanh Lopez [facility] Internal Medicine Work Phone: 05-10-2020 07:35-0400 Height 182.88 cm Khanh Lopez [facility] Internal Medicine Work Phone: 05-10-2020 07:35-0400 Pulse (Heart Rate) 80 /min Khanh Lopez LPN [facility] Work Phone: Comment on above: Pattern: Regular 05-10-2020 07:35-0400 Pulse Oximetry 97 % Bela Bee [facility] Internal Medicine Work Phone: Comment on above: Room air 05-10-2020 07:35-0400 Respiratory Rate 16 /min Khanh Lopez LPN [facility] Work Phone: Comment on above: Pattern: Unlabored 05-10-2020 07:35-0400 SaO2% (BldA) [Mass fraction] 97 % Khanh Lopez LPN [facility]; [facility] Work Phone: Comment on above: Room air 01-29-2020 07:08-0400 BMI (Body Mass Index) 30.79 kg/m2 Khanh Lopez LPN [facility] Work Phone: 01-29-2020 07:08-0400 Body Temperature 98.2 [degF] Khanh Lopez LPN [facility] Internal Medicine Work Phone: Comment on above: Method: Temporal 01-29-2020 07:08-0400 Body weight 102.97 kg Khanh Lopez LPN [facility] Work Phone: 01-29-2020 07:08-0400 BP Diastolic 68 mm[Hg] Khanh Lopez LPN [facility] Work Phone: Comment on above: Patient Position: Sitting; Cuff Location : Left Arm; Cuff Size: Standard 01-29-2020 07:08-0400 BP Systolic 118 mm[Hg] Khanh Lopez LPN [facility] Internal Medicine Work Phone: Comment on above: Patient Position: Sitting; Cuff Location : Left Arm; Cuff Size: Standard 01-29-2020 07:08-0400 BSA (Body Surface Area) 2.25 m2 Khanh Lopez LPN [facility] Internal Medicine Work Phone: 01-29-2020 07:08-0400 Height 182.88 cm Khanh Lopez LPN [facility] Work Phone: 01-29-2020 07:08-0400 Pulse (Heart Rate) 67 /min Khanh Lopez LPN [facility] Work Phone: Comment on above: Pattern: Regular 01-29-2020 07:08-0400 Pulse Oximetry 98 % Bela Bee [facility] Internal Medicine Work Phone: Comment on above: Room air 01-29-2020 07:08-0400 Respiratory Rate 16 /min Khanh Lopez LPN [facility] Work Phone: Comment on above: Pattern: Unlabored 01-29-2020 07:08-0400 SaO2% (BldA) [Mass fraction] 98 % Khanh Lopez LPN [facility]; [facility] Work Phone: Comment on above: Room air 01-15-2020 07:50-0400 BMI (Body Mass Index) 30.11 kg/m2 Khanh Lopez LPN [facility] Work Phone: 01-15-2020 07:50-0400 Body Temperature 97.2 [degF] Khanh Lopez LPN [facility] Internal Medicine Work Phone: Comment on above: Method: Temporal 01-15-2020 07:50-0400 Body weight 100.72 kg Khanh Lopez LPN [facility] Internal Medicine Work Phone: 01-15-2020 07:50-0400 BP Diastolic 76 mm[Hg] Khanh Lopez LPN [facility] Internal Medicine Work Phone: Comment on above: Patient Position: Sitting; Cuff Location : Left Arm; Cuff Size: Standard 01-15-2020 07:50-0400 BP Systolic 118 mm[Hg] Khanh Lopez LPN [facility] Internal Medicine Work Phone: Comment on above: Patient Position: Sitting; Cuff Location : Left Arm; Cuff Size: Standard 01-15-2020 07:50-0400 BSA (Body Surface Area) 2.23 m2 Khanh Lopez LPN [facility] Work Phone: 01-15-2020 07:50-0400 Height 182.88 cm Khanh Lopez LPN [facility] Work Phone: 01-15-2020 07:50-0400 Pulse (Heart Rate) 68 /min Khanh Lopez LPN [facility] Work Phone: Comment on above: Pattern: Regular 01-15-2020 07:50-0400 Pulse Oximetry 96 % Bela Bee [facility] Internal Medicine Work Phone: Comment on above: Room air 01-15-2020 07:50-0400 Respiratory Rate 16 /min Khanh Lopez LPN [facility] Work Phone: Comment on above: Pattern: Unlabored 01-15-2020 07:50-0400 SaO2% (BldA) [Mass fraction] 96 % Khanh Lopez LPN [facility]; [facility] Work Phone: Comment on above: Room air 11-04-2019 07:48-0500 BMI (Body Mass Index) 29.43 kg/m2 Khanh Lopez LPN [facility] Internal Medicine Work Phone: 11-04-2019 07:48-0500 Body Temperature 97.4 [degF] Khanh Lopez LPN [facility] Internal Medicine Work Phone: Comment on above: Method: Temporal 11-04-2019 07:48-0500 Body weight 98.44 kg Khanh Lopez LPN [facility] Internal Medicine Work Phone: 11-04-2019 07:48-0500 BP Diastolic 68 mm[Hg] Khanh Lopez LPN [facility] Internal Medicine Work Phone: Comment on above: Patient Position: Sitting; Cuff Location : Left Arm; Cuff Size: Standard 11-04-2019 07:48-0500 BP Systolic 118 mm[Hg] Khanh Lopez LPN [facility] Internal Medicine Work Phone: Comment on above: Patient Position: Sitting; Cuff Location : Left Arm; Cuff Size: Standard 11-04-2019 07:48-0500 BSA (Body Surface Area) 2.21 m2 Khanh Lopez LPN [facility] Internal Medicine Work Phone: 11-04-2019 07:48-0500 Height 182.88 cm Khanh Lopez LPN [facility] Work Phone: 11-04-2019 07:48-0500 Pulse (Heart Rate) 89 /min Khanh Lopez LPN [facility] Work Phone: Comment on above: Pattern: Regular 11-04-2019 07:48-0500 Pulse Oximetry 94 % Bela Bee [facility] Internal Medicine Work Phone: Comment on above: Room air 11-04-2019 07:48-0500 Respiratory Rate 16 /min Khanh Lopez LPN [facility] Internal Medicine Work Phone: Comment on above: Pattern: Unlabored 11-04-2019 07:48-0500 SaO2% (BldA) [Mass fraction] 94 % Khanh Lopez LPN [facility]; [facility] Work Phone: Comment on above: Room air 07-31-2019 06:54-0500 BMI (Body Mass Index) 29.3 kg/m2 Bela Bee [facility] Internal Medicine Work Phone: 07-31-2019 06:54-0500 BMI (Body Mass Index) 28.35 kg/m2 Khanh Lopez LPN [facility] Work Phone: 07-31-2019 06:54-0500 Body Temperature 97.8 [degF] Khanh Lopez LPN [facility] Internal Medicine Work Phone: Comment on above: Method: Temporal 07-31-2019 06:54-0500 Body weight 98 kg Bela Bee [facility] Internal Medicine Work Phone: 07-31-2019 06:54-0500 Body weight 94.82 kg Khanh Lopez LPN [facility] Work Phone: 07-31-2019 06:54-0500 BP Diastolic 72 mm[Hg] Khanh Lopez LPN [facility] Work Phone: Comment on above: Patient Position: Sitting; Cuff Location : Left Arm; Cuff Size: Standard 07-31-2019 06:54-0500 BP Systolic 130 mm[Hg] Khanh Lopez LPN [facility] Work Phone: Comment on above: Patient Position: Sitting; Cuff Location : Left Arm; Cuff Size: Standard 07-31-2019 06:54-0500 BSA (Body Surface Area) 2.2 m2 Bela Bee [facility] Internal Medicine Work Phone: 07-31-2019 06:54-0500 BSA (Body Surface Area) 2.17 m2 Khanh Lopez LPN [facility] Internal Medicine Work Phone: 07-31-2019 06:54-0500 Height 182.88 cm Khanh Lopez LPN [facility] Work Phone: 07-31-2019 06:54-0500 Pulse (Heart Rate) 77 /min Khanh Lopez LPN [facility] Work Phone: Comment on above: Pattern: Regular 07-31-2019 06:54-0500 Pulse Oximetry 98 % Bela Bee [facility] Internal Medicine Work Phone: Comment on above: Room air 07-31-2019 06:54-0500 Respiratory Rate 16 /min Khanh Lopez LPN [facility] Internal Medicine Work Phone: Comment on above: Pattern: Unlabored 07-31-2019 06:54-0500 SaO2% (BldA) [Mass fraction] 98 % Khanh Lopez LPN [facility]; [facility] Work Phone: Comment on above: Room air 06-09-2019 15:56-0400 BMI (Body Mass Index) 29.3 kg/m2 Khanh Lopez LPN [facility] Work Phone: 06-09-2019 15:56-0400 Body Temperature 97.8 [degF] Khanh Lopez LPN [facility] Work Phone: Comment on above: Method: Temporal 06-09-2019 15:56-0400 Body weight 98 kg Khanh Lopez LPN [facility] Work Phone: 06-09-2019 15:56-0400 BP Diastolic 80 mm[Hg] Khanh Lopez LPN [facility] Work Phone: Comment on above: Patient Position: Sitting; Cuff Location : Left Arm; Cuff Size: Standard 06-09-2019 15:56-0400 BP Systolic 122 mm[Hg] Khanh Lopez LPN [facility] Internal Medicine Work Phone: Comment on above: Patient Position: Sitting; Cuff Location : Left Arm; Cuff Size: Standard 06-09-2019 15:56-0400 BSA (Body Surface Area) 2.2 m2 Khanh Lopez LPN [facility] Work Phone: 06-09-2019 15:56-0400 Height 182.88 cm Khanh Lopez LPN [facility] Internal Medicine Work Phone: 06-09-2019 15:56-0400 Pulse (Heart Rate) 71 /min Khanh Lopez LPN [facility] Work Phone: Comment on above: Pattern: Regular 06-09-2019 15:56-0400 Pulse Oximetry 97 % Bela Bee [facility] Work Phone: Comment on above: Room air 06-09-2019 15:56-0400 Respiratory Rate 16 /min Khanh Lopez LPN [facility] Work Phone: Comment on above: Pattern: Unlabored 06-09-2019 15:56-0400 SaO2% (BldA) [Mass fraction] 97 % Khanh Lopez LPN [facility]; [facility] Work Phone: Comment on above: Room air 04-29-2019 08:24-0400 BMI (Body Mass Index) 28.65 kg/m2 BeverleySkritter [facility] Work Phone: 04-29-2019 08:24-0400 Body Temperature 96.9 [degF] Beverley [employer] [facility] Work Phone: Comment on above: Method: Temporal 04-29-2019 08:24-0400 Body weight 95.82 kg Beverley [employer] [facility] Work Phone: 04-29-2019 08:24-0400 BP Diastolic 78 mm[Hg] BeverleySkritter [facility] Work Phone: Comment on above: Patient Position: Sitting; Cuff Location : Left Arm; Cuff Size: Standard 04-29-2019 08:24-0400 BP Systolic 128 mm[Hg] BeverleySkritter [facility] Work Phone: Comment on above: Patient Position: Sitting; Cuff Location : Left Arm; Cuff Size: Standard 04-29-2019 08:24-0400 BSA (Body Surface Area) 2.18 m2 BeverleySkritter [facility] Work Phone: 04-29-2019 08:24-0400 Height 182.88 cm [employer]leySkritter [facility] Work Phone: 04-29-2019 08:24-0400 Pulse (Heart Rate) 76 /min BeverleySkritter [facility] Work Phone: Comment on above: Pattern: Regular 04-29-2019 08:24-0400 Pulse Oximetry 98 % Bela Bee [facility] Work Phone: Comment on above: Room air 04-29-2019 08:24-0400 Respiratory Rate 18 /min Beverley Pabon [facility] Work Phone: Comment on above: Pattern: Unlabored 04-29-2019 08:24-0400 SaO2% (BldA) [Mass fraction] 98 % Beverley Pabon [facility]; [facility] Work Phone: Comment on above: Room air 10-06-2018 08:46-0500 BMI (Body Mass Index) 29.23 kg/m2 Eve Spaulding RN [facility] Work Phone: 10-06-2018 08:46-0500 Body Temperature 98.2 [degF] Eve Spaulding RN [facility] Work Phone: Comment on above: Method: Temporal 10-06-2018 08:46-0500 Body weight 97.75 kg Eve L Jasson RN [facility] Work Phone: 10-06-2018 08:46-0500 BP Diastolic 78 mm[Hg] Eve L Jasson RN [facility] Work Phone: Comment on above: Patient Position: Sitting; Cuff Location : Left Arm; Cuff Size: Standard 10-06-2018 08:46-0500 BP Systolic 142 mm[Hg] Eve L Long RN [facility] Work Phone: Comment on above: Patient Position: Sitting; Cuff Location : Left Arm; Cuff Size: Standard 10-06-2018 08:46-0500 BSA (Body Surface Area) 2.2 m2 Eve L Jasson RN [facility] Work Phone: 10-06-2018 08:46-0500 Height 182.88 cm Eve L Jasson RN [facility] Work Phone: 10-06-2018 08:46-0500 Pulse (Heart Rate) 72 /min Eve Spaulding RN [facility] Work Phone: Comment on above: Pattern: Regular 10-06-2018 08:46-0500 Pulse Oximetry 96 % Bela Reidannabelmariza [facility] Work Phone: Comment on above: Room air 10-06-2018 08:46-0500 Respiratory Rate 16 /min vEe Spaulding RN [facility] Work Phone: Comment on above: Pattern: Unlabored 10-06-2018 08:46-0500 SaO2% (BldA) [Mass fraction] 96 % Eve Spaulding RN [facility]; [facility] Work Phone: Comment on above: Room air 10-06-2018 08:46-0500 Weight 97.75 kg Bela Bee [facility] Work Phone: 09-29-2018 09:42-0500 BMI (Body Mass Index) 28.96 kg/m2 Khanh Lopez LPN [facility] Work Phone: 09-29-2018 09:42-0500 Body Temperature 97.9 [degF] Khanh Lopez LPN [facility] Work Phone: Comment on above: Method: Temporal 09-29-2018 09:42-0500 Body weight 96.84 kg Khanh Lopez LPN [facility] Work Phone: 09-29-2018 09:42-0500 BP Diastolic 82 mm[Hg] Khanh Lopez LPN [facility] Internal Medicine Work Phone: Comment on above: Patient Position: Sitting; Cuff Location : Left Arm; Cuff Size: Standard 09-29-2018 09:42-0500 BP Systolic 122 mm[Hg] Khanh Lopez LPN [facility] Internal Medicine Work Phone: Comment on above: Patient Position: Sitting; Cuff Location : Left Arm; Cuff Size: Standard 09-29-2018 09:42-0500 BSA (Body Surface Area) 2.19 m2 Khanh Lopez LPN [facility] Work Phone: 09-29-2018 09:42-0500 Height 182.88 cm Khanh Lopez LPN [facility] Internal Medicine Work Phone: 09-29-2018 09:42-0500 Pulse (Heart Rate) 75 /min Khanh Lopez LPN [facility] Work Phone: Comment on above: Pattern: Regular 09-29-2018 09:42-0500 Pulse Oximetry 98 % Bela Bee [facility] Internal Medicine Work Phone: Comment on above: Room air 09-29-2018 09:42-0500 Respiratory Rate 18 /min Khanh Lopez HIMANSHU [facility] Work Phone: Comment on above: Pattern: Unlabored 09-29-2018 09:42-0500 SaO2% (BldA) [Mass fraction] 98 % Khanh Lopez HIMANSHU [facility]; [facility] Work Phone: Comment on above: Room air 09-29-2018 09:42-0500 Weight 96.84 kg Bela Bee [facility] Internal Medicine Work Phone: 08-19-2018 08:22-0500 BMI (Body Mass Index) 28.96 kg/m2 Yoon Ruiz [facility] Internal Medicine Work Phone: 08-19-2018 08:22-0500 Body Temperature 97.1 [degF] Yoon Ruiz [facility] Internal Medicine Work Phone: Comment on above: Method: Temporal 08-19-2018 08:22-0500 Body weight 96.84 kg Yoon Ruiz [facility] Internal Medicine Work Phone: 08-19-2018 08:22-0500 BP Diastolic 90 mm[Hg] Yoon Ruiz [facility] Medicine Work Phone: Comment on above: Patient Position: Sitting; Cuff Location : Left Arm; Cuff Size: Standard 08-19-2018 08:22-0500 BP Systolic 142 mm[Hg] Yoon Ruiz [facility] Medicine Work Phone: Comment on above: Patient Position: Sitting; Cuff Location : Left Arm; Cuff Size: Standard 08-19-2018 08:22-0500 BSA (Body Surface Area) 2.19 m2 Yoon Ruiz [facility] Work Phone: 08-19-2018 08:22-0500 Height 182.88 cm Yoon Ruiz [facility] Work Phone: 08-19-2018 08:22-0500 Pulse (Heart Rate) 74 /min Yoon Ruiz [facility] Internal [facility] Work Phone: Comment on above: Pattern: Regular 08-19-2018 08:22-0500 Pulse Oximetry 98 % Bela Bee [facility] Work Phone: Comment on above: Room air 08-19-2018 08:22-0500 Respiratory Rate 17 /min Yoon Ruiz [facility] Work Phone: Comment on above: Pattern: Unlabored 08-19-2018 08:22-0500 SaO2% (BldA) [Mass fraction] 98 % Yoon Ruiz [facility]; [facility] Work Phone: Comment on above: Room air 08-19-2018 08:22-0500 Weight 96.84 kg Bela Bee [facility] Work Phone: 04-18-2018 09:32-0400 BMI (Body Mass Index) 28.24 kg/m2 Sofía Slarb [employer] [facility] Work Phone: 04-18-2018 09:32-0400 Body Temperature 97.7 [degF] Sofía Slarb [employer] [facility] Work Phone: 04-18-2018 09:32-0400 Body weight 94.46 kg Sofía Slarb [employer] [facility] Work Phone: 04-18-2018 09:32-0400 BP Diastolic 80 mm[Hg] Sofía Slarb [employer] [facility] Work Phone: Comment on above: Patient Position: Sitting; Cuff Location : Left Arm; Cuff Size: Standard 04-18-2018 09:32-0400 BP Systolic 116 mm[Hg] Sofía Slarb [employer] [facility] Work Phone: Comment on above: Patient Position: Sitting; Cuff Location : Left Arm; Cuff Size: Standard 04-18-2018 09:32-0400 BSA (Body Surface Area) 2.17 m2 Sofía Slarb [employer] [facility] Work Phone: 04-18-2018 09:32-0400 Height 182.88 cm Sofía Slarb [employer] [facility] Work Phone: 04-18-2018 09:32-0400 Pulse (Heart Rate) 74 /min Sofía Slarb [employer] [facility] Work Phone: Comment on above: Pattern: Regular 04-18-2018 09:32-0400 Pulse Oximetry 98 % Bela Bee [facility] Medicine Work Phone: Comment on above: Room air 04-18-2018 09:32-0400 Respiratory Rate 15 /min Sofía Jacksonkelby DOWNS [facility] Work Phone: Comment on above: Pattern: Unlabored 04-18-2018 09:32-0400 SaO2% (BldA) [Mass fraction] 98 % Sofía Wyatt HIMANSHU [facility]; [facility] Work Phone: Comment on above: Room air 04-18-2018 09:32-0400 Weight 94.46 kg Bela Bee [facility] Work Phone: 04-08-2018 10:09-0400 BMI (Body Mass Index) 28.24 kg/m2 Khanh Lopez LPN [facility] Internal Medicine Work Phone: 04-08-2018 10:09-0400 Body Temperature 97.7 [degF] Khanh Lopez [facility] Medicine Work Phone: 04-08-2018 10:09-0400 Body weight 94.46 kg Khanh Lopez LPN [facility] Internal Medicine Work Phone: 04-08-2018 10:09-0400 BP Diastolic 82 mm[Hg] [facility]: Comment on above: Patient Position: Sitting; Cuff Location : Left Arm; Cuff Size: Standard 04-08-2018 10:09-0400 BP Systolic 136 mm[Hg] Khanh Lopez LPN [facility] Medicine Work Phone: Comment on above: Patient Position: Sitting; Cuff Location : Left Arm; Cuff Size: Standard 04-08-2018 10:09-0400 BSA (Body Surface Area) 2.17 m2 Khanh Lopez LPN [facility] Work Phone: 04-08-2018 10:09-0400 Height 182.88 cm Khanh Lopez [facility] Work Phone: 04-08-2018 10:09-0400 Pulse (Heart Rate) 65 /min Khanh Lopez LPN [facility] Work Phone: Comment on above: Pattern: Regular 04-08-2018 10:09-0400 Pulse Oximetry 96 % Bela Bee [facility] Work Phone: Comment on above: Room air 04-08-2018 10:09-0400 Respiratory Rate 16 /min Khanh Lopez LPN [facility] Work Phone: Comment on above: Pattern: Unlabored 04-08-2018 10:09-0400 SaO2% (BldA) [Mass fraction] 96 % Khanh Lopez LPN [facility]; [facility] Work Phone: Comment on above: Room air 04-08-2018 10:09-0400 Weight 94.46 kg Bela Bee [facility] Work Phone: 03-25-2017 10:46-0400 BMI (Body Mass Index) 29.19 kg/m2 Evelyn Chavez RN [facility] Work Phone: 03-25-2017 10:46-0400 Body weight 97.64 kg Evelyn Chavez RN [facility] Work Phone: 03-25-2017 10:46-0400 BP Diastolic 90 mm[Hg] Evelyn Chavez RN [facility] Work Phone: Comment on above: Patient Position: Sitting; Cuff Location : Left Arm; Cuff Size: Large 03-25-2017 10:46-0400 BP Systolic 142 mm[Hg] Evelyn Chavez RN [facility] Work Phone: Comment on above: Patient Position: Sitting; Cuff Location : Left Arm; Cuff Size: Large 03-25-2017 10:46-0400 BSA (Body Surface Area) 2.2 m2 Evelyn Chavez RN [facility] Work Phone: 03-25-2017 10:46-0400 Height 182.88 cm Evelyn Chavez RN [facility] Work Phone: 03-25-2017 10:46-0400 Pulse (Heart Rate) 78 /min Evelyn Chavez RN [facility] Work Phone: Comment on above: Pattern: Regular 03-25-2017 10:46-0400 Pulse Oximetry 98 % Bela Bee [facility] Work Phone: Comment on above: Room air 03-25-2017 10:46-0400 Respiratory Rate 18 /min Evelyn Chavez RN [facility] Work Phone: Comment on above: Pattern: Unlabored 03-25-2017 10:46-0400 SaO2% (BldA) [Mass fraction] 98 % Evelyn Chavez RN [facility]; [facility] Work Phone: Comment on above: Room air 03-25-2017 10:46-0400 Weight 97.64 kg Bela Bee [facility] Work Phone: 09-14-2015 09:43-0500 BMI (Body Mass Index) 28 kg/m2 [facility]: 09-14-2015 09:43-0500 Body Temperature 97.5 [degF] [facility] Work [facility]: Comment on above: Method: Oral 09-14-2015 09:43-0500 Body weight 93.64 kg [facility] Work Phone: 09-14-2015 09:43-0500 BP Diastolic 80 mm[Hg] [facility] Work Phone: Comment on above: Patient Position: Sitting; Cuff Location : Left Arm; Cuff Size: Standard 09-14-2015 09:43-0500 BP Systolic 138 mm[Hg] [facility] Work Phone: Comment on above: Patient Position: Sitting; Cuff Location : Left Arm; Cuff Size: Standard 09-14-2015 09:43-0500 BSA (Body Surface Area) 2.16 m2 [facility] Work Phone: 09-14-2015 09:43-0500 Height 182.88 cm [facility] Work Phone: 09-14-2015 09:43-0500 Pulse (Heart Rate) 70 /min Ruth Mandelroy [facility] Work Phone: Comment on above: Pattern: Regular 09-14-2015 09:43-0500 Pulse Oximetry 98 % Bela Bee [facility] Work Phone: Comment on above: Room air 09-14-2015 09:43-0500 Respiratory Rate 16 /min Ruth Mandelroy [facility] Work Phone: Comment on above: Pattern: Unlabored 09-14-2015 09:43-0500 SaO2% (BldA) [Mass fraction] 98 % Ruth Sampsondelroy [facility]; [facility] Work Phone: Comment on above: Room air 09-14-2015 09:43-0500 Weight 93.64 kg Bela Bee [facility] Internal Medicine Work Phone: 07-13-2015 08:32-0400 BMI (Body Mass Index) 28 kg/m2 Evelyn Chavez RN [facility] Work Phone: 07-13-2015 08:32-0400 Body weight 93.64 kg Evelyn Chavez RN [facility] Work Phone: 07-13-2015 08:32-0400 BP Diastolic 78 mm[Hg] Evelyn Chavez RN [facility] Work Phone: Comment on above: Patient Position: Sitting; Cuff Location : Left Arm; Cuff Size: Large 07-13-2015 08:32-0400 BP Systolic 138 mm[Hg] Evelyn Chavez RN [facility] Work Phone: Comment on above: Patient Position: Sitting; Cuff Location : Left Arm; Cuff Size: Large 07-13-2015 08:32-0400 BSA (Body Surface Area) 2.16 m2 Evelyn Chavez RN [facility] Work Phone: 07-13-2015 08:32-0400 Height 182.88 cm Evelyn Chavez RN [facility] Work Phone: 07-13-2015 08:32-0400 Pulse (Heart Rate) 80 /min Evelyn Chavez RN [facility] Internal Medicine Work Phone: Comment on above: Pattern: Regular 07-13-2015 08:32-0400 Respiratory Rate 18 /min Evelyn Chavez RN [facility] Internal Medicine Work Phone: Comment on above: Pattern: Unlabored 07-13-2015 08:32-0400 Weight 93.64 kg Bela Bee [facility] Internal Medicine Work Phone: 06-15-2015 08:29-0400 BMI (Body Mass Index) 27.85 kg/m2 Ruth Potter [email or web address] Internal Medicine Work Phone: 06-15-2015 08:29-0400 Body Temperature 97.8 [degF] Ruth Potter [email or web address] Internal Medicine Work Phone: Comment on above: Method: Oral 06-15-2015 08:29-0400 Body weight 93.16 kg Ruth Potter [email or web address] Internal Medicine Work Phone: 06-15-2015 08:29-0400 BP Diastolic 68 mm[Hg] Ruth Potter [email or web address] Internal Medicine Work Phone: Comment on above: Patient Position: Sitting; Cuff Location : Left Arm; Cuff Size: Standard 06-15-2015 08:29-0400 BP Systolic 122 mm[Hg] Ruth Potter [facility] [[email or web address]] Internal Medicine Work Phone: Comment on above: Patient Position: Sitting; Cuff Location : Left Arm; Cuff Size: Standard 06-15-2015 08:29-0400 BSA (Body Surface Area) 2.15 m2 Ruth Potter [facility] [[email or web address]] Internal Medicine Work Phone: 06-15-2015 08:29-0400 Height 182.88 cm Ruth Potter [email or web address] Internal Medicine Work Phone: 06-15-2015 08:29-0400 Pulse (Heart Rate) 82 /min Ruth Potter [email or web address]] Internal Medicine Work Phone: Comment on above: Pattern: Regular 06-15-2015 08:29-0400 Pulse Oximetry 98 % Bela Bee [facility] Internal Medicine Work Phone: Comment on above: Room air 06-15-2015 08:29-0400 Respiratory Rate 16 /min Ruth Potter [facility] Work Phone: Comment on above: Pattern: Unlabored 06-15-2015 08:29-0400 SaO2% (BldA) [Mass fraction] 98 % Ruth Potter [facility]; [facility] Work Phone: Comment on above: Room air 06-15-2015 08:29-0400 Weight 93.16 kg Bela Bee [facility] Internal Medicine Work Phone: 03-09-2015 07:57-0400 BMI (Body Mass Index) 28.12 kg/m2 Evelyn Chavez RN [facility] Work Phone: 03-09-2015 07:57-0400 Body weight 94.07 kg Evelyn Chavez RN [facility] Work Phone: 03-09-2015 07:57-0400 BP Diastolic 80 mm[Hg] Evelyn Chavez RN [facility] Work Phone: Comment on above: Patient Position: Sitting; Cuff Location : Left Arm; Cuff Size: Standard 03-09-2015 07:57-0400 BP Systolic 142 mm[Hg] Evelyn Chavez RN [facility] Work Phone: Comment on above: Patient Position: Sitting; Cuff Location : Left Arm; Cuff Size: Standard 03-09-2015 07:57-0400 BSA (Body Surface Area) 2.16 m2 Evelyn Chavez RN [facility] Work Phone: 03-09-2015 07:57-0400 Height 182.88 cm Evelyn Chavez RN [facility] Work Phone: 03-09-2015 07:57-0400 Pulse (Heart Rate) 81 /min Evelyn Chavez RN [facility] Internal Medicine Work Phone: Comment on above: Pattern: Regular 03-09-2015 07:57-0400 Pulse Oximetry 98 % Bela Bee [facility] Internal Medicine Work Phone: Comment on above: Room air 03-09-2015 07:57-0400 Respiratory Rate 18 /min Evelyn Chavez RN [facility] Internal Medicine Work Phone: Comment on above: Pattern: Unlabored 03-09-2015 07:57-0400 SaO2% (BldA) [Mass fraction] 98 % Evelyn Chavez RN [facility]; [facility] Work Phone: Comment on above: Room air 03-09-2015 07:57-0400 Weight 94.07 kg Bela Bee [facility] Internal Medicine Work Phone: 01-03-2015 09:13-0400 BMI (Body Mass Index) 28.5 kg/m2 Evelyn Chavez RN [facility] Work Phone: 01-03-2015 09:13-0400 Body weight 95.31 kg Evelyn Chavez RN [facility] Work Phone: 01-03-2015 09:13-0400 BP Diastolic 70 mm[Hg] Evelyn Chavez RN [facility] Work Phone: Comment on above: Patient Position: Sitting; Cuff Location : Left Arm; Cuff Size: Standard 01-03-2015 09:13-0400 BP Systolic 110 mm[Hg] Evelyn Chavez RN [facility] Work Phone: Comment on above: Patient Position: Sitting; Cuff Location : Left Arm; Cuff Size: Standard 01-03-2015 09:13-0400 BSA (Body Surface Area) 2.18 m2 Evelyn Chavez RN [facility] Work Phone: 01-03-2015 09:13-0400 Height 182.88 cm Evelyn Chavez RN [facility] Work Phone: 01-03-2015 09:13-0400 Pulse (Heart Rate) 74 /min Evelyn Chavez RN [facility] Internal Medicine Work Phone: Comment on above: Pattern: Regular 01-03-2015 09:13-0400 Pulse Oximetry 99 % Bela Bee [facility] Internal Medicine Work Phone: Comment on above: Room air 01-03-2015 09:13-0400 Respiratory Rate 20 /min Evelyn Chavez RN [facility] Medicine Work Phone: Comment on above: Pattern: Unlabored 01-03-2015 09:13-0400 SaO2% (BldA) [Mass fraction] 99 % Evelyn Chavez RN [facility]; [facility] Work Phone: Comment on above: Room air 01-03-2015 09:13-0400 Weight 95.31 kg Bela Bee [facility] Internal Medicine Work Phone: 12-27-2014 08:38-0400 BMI (Body Mass Index) 28.8 kg/m2 Bela Bee [facility] Internal Medicine Work Phone: 12-27-2014 08:38-0400 Body Temperature 97.9 [degF] Bela Bee [facility] Internal Medicine Work Phone: Comment on above: Method: Oral 12-27-2014 08:38-0400 Body weight 96.33 kg Bela Bee [facility] Internal Medicine Work Phone: 12-27-2014 08:38-0400 BP Diastolic 70 mm[Hg] Bela Bee [facility] Internal Medicine Work Phone: Comment on above: Patient Position: Sitting; Cuff Location : Left Arm; Cuff Size: Standard 12-27-2014 08:38-0400 BP Systolic 118 mm[Hg] Bela Bee [facility] Internal Medicine Work Phone: Comment on above: Patient Position: Sitting; Cuff Location : Left Arm; Cuff Size: Standard 12-27-2014 08:38-0400 BSA (Body Surface Area) 2.19 m2 Bela Bee [facility] Internal Medicine Work Phone: 12-27-2014 08:38-0400 Height 182.88 cm Bela Bee [facility] Internal Medicine Work Phone: 12-27-2014 08:38-0400 Pulse (Heart Rate) 74 /min Bela Bee [facility] Internal Medicine Work Phone: Comment on above: Pattern: Regular 12-27-2014 08:38-0400 Pulse Oximetry 98 % Bela Bee [facility] Internal Medicine Work Phone: Comment on above: Room air 12-27-2014 08:38-0400 Respiratory Rate 16 /min Bela Bee [facility] Internal Medicine Work Phone: 12-27-2014 08:38-0400 SaO2% (BldA) [Mass fraction] 98 % Bela Bee [facility] Work Phone: [facility]; [facility] Work Phone: Comment on above: Room air 12-27-2014 08:38-0400 Weight 96.33 kg Bela Bee [facility] Internal Medicine Work Phone: 12-20-2014 08:01-0400 BMI (Body Mass Index) 28.8 kg/m2 [facility] Work Phone: 12-20-2014 08:01-0400 Body Temperature 98.8 [degF] Bela [facility] Internal Medicine Work Phone: Comment on above: Method: Oral 12-20-2014 08:01-0400 Body [facility] 96.33 [facility] Work Phone: 12-20-2014 08:01-0400 BP Diastolic 82 mm[Hg] Bela [facility] Internal Medicine Work Phone: Comment on above: Patient Position: Sitting; Cuff Location : Left Arm; Cuff Size: Standard 12-20-2014 08:01-0400 BP Systolic 120 mm[Hg] Bela [facility] Internal Medicine Work Phone: Comment on above: Patient Position: Sitting; Cuff Location : Left Arm; Cuff Size: Standard 12-20-2014 08:01-0400 BSA (Body Surface Area) 2.19 m2 [facility] Work Phone: 12-20-2014 08:01-0400 Height 182.88 cm Bela [facility] Internal Medicine Work Phone: 12-20-2014 08:01-0400 Pulse (Heart Rate) 90 /min [facility] Internal Medicine Work Phone: Comment on above: Pattern: Regular 12-20-2014 08:01-0400 Pulse Oximetry 99 % [facility] Internal Medicine Work Phone: Comment on above: Room air 12-20-2014 08:01-0400 Respiratory Rate 16 /min Bela Ciesa [facility] Work Phone: 12-20-2014 08:01-0400 SaO2% (BldA) [Mass fraction] 99 % Bela Bee [employer] Work Phone: [facility]; [facility] Work Phone: Comment on above: Room air 12-20-2014 08:01-0400 Weight 96.33 kg Bela Bee [facility] Internal Medicine Work Phone: 12-08-2014 09:39-0400 BMI (Body Mass Index) 28.8 kg/m2 Evelyn Chavez RN [facility] Work Phone: 12-08-2014 09:39-0400 Body weight 96.33 kg Evelyn Chavez RN [facility] Work Phone: 12-08-2014 09:39-0400 BP Diastolic 80 mm[Hg] Evelyn Chavez RN [facility] Work Phone: Comment on above: Patient Position: Sitting; Cuff Location : Left Arm; Cuff Size: Large 12-08-2014 09:39-0400 BP Systolic 128 mm[Hg] Evelyn Chavez RN [facility] Work Phone: Comment on above: Patient Position: Sitting; Cuff Location : Left Arm; Cuff Size: Large 12-08-2014 09:39-0400 BSA (Body Surface Area) 2.19 m2 Evelyn Chavez RN [facility] Work Phone: 12-08-2014 09:39-0400 Height 182.88 cm Evelyn Chavez RN [facility] Work Phone: 12-08-2014 09:39-0400 Pulse (Heart Rate) 80 /min Evelyn Chavez RN [facility] Work Phone: Comment on above: Pattern: Regular 12-08-2014 09:39-0400 Pulse Oximetry 98 % Bela Bee [facility] Internal Medicine Work Phone: Comment on above: Room air 12-08-2014 09:39-0400 Respiratory Rate 20 /min Evelyn Chavez RN [facility] Work Phone: Comment on above: Pattern: Unlabored 12-08-2014 09:39-0400 SaO2% (BldA) [Mass fraction] 98 % Evelyn Chavez RN [facility]; [facility] Work Phone: Comment on above: Room air 12-08-2014 09:39-0400 Weight 96.33 kg Bela Bee [facility] Internal Medicine Work Phone: 12-03-2014 14:11-0400 BMI (Body Mass Index) 28.8 kg/m2 Evelyn Chavez RN [facility] Work Phone: 12-03-2014 14:11-0400 Body weight 96.33 kg Evelyn Chavez RN [facility] Work Phone: 12-03-2014 14:11-0400 BP Diastolic 80 mm[Hg] Evelyn Chavez RN [facility] Work Phone: Comment on above: Patient Position: Sitting; Cuff Location : Left Arm; Cuff Size: Large 12-03-2014 14:11-0400 BP Systolic 120 mm[Hg] Evelyn Chavez RN [facility] Work Phone: Comment on above: Patient Position: Sitting; Cuff Location : Left Arm; Cuff Size: Large 12-03-2014 14:11-0400 BSA (Body Surface Area) 2.19 m2 Evelyn Chavez RN [facility] Work Phone: 12-03-2014 14:11-0400 Height 182.88 cm Evelyn Chavez RN [facility] Work Phone: 12-03-2014 14:11-0400 Pulse (Heart Rate) 70 /min Evelyn Chavez RN [facility] Work Phone: Comment on above: Pattern: Regular 12-03-2014 14:11-0400 Pulse Oximetry 97 % Bela Bee [facility] Internal Medicine Work Phone: Comment on above: Room air 12-03-2014 14:11-0400 Respiratory Rate 18 /min Evelyn Chavez RN [facility] Work Phone: Comment on above: Pattern: Unlabored 12-03-2014 14:11-0400 SaO2% (BldA) [Mass fraction] 97 % Evelyn Chavez RN [facility]; [facility] Work Phone: Comment on above: Room air 12-03-2014 14:0400 Weight 96.33 kg Bela Bee [facility] Work Phone: Encounters Encounter Date Encounter Type Care Provider Facility Start: 06-09-2023 End: 06-09-2023 [facility] Start: 04-12-2023 End: 04-12-2023 Emergency department patient visit [facility] Work Phone: Start: 05-08-2021 End: 05-08-2021 Annotation/Addendum Bela Bee [employer] Work Phone: [facility] Start: 03-05-2021 End: 03-05-2021 Patient encounter procedure Bela Bee [employer] Work Phone: [facility] Start: 03-03-2021 End: 03-03-2021 Office outpatient visit 15 minutes Bela Bee [employer] Work Phone: [facility] Start: 11-29-2020 End: 11-29-2020 Annotation/Addendum Bela Bee [facility] Start: 11-28-2020 End: 11-28-2020 Annotation/Addendum Bela Bee [facility] Start: 11-28-2020 End: 11-28-2020 Annotation/Addendum Bela Bee [facility] Start: 11-26-2020 End: 11-26-2020 Annotation/Addendum Bela Bee [facility] Start: 11-25-2020 End: 11-25-2020 Office outpatient visit 15 minutes Bela Bee [facility] Start: 11-25-2020 Review Bela Bee Victor [facility] Start: 08-17-2020 End: 08-17-2020 Office outpatient visit 15 minutes Bela Bee Steffanie [facility] Start: 08-10-2020 End: 08-10-2020 Annotation/Addendum Bela Bee [facility] Start: 08-10-2020 End: 08-10-2020 Office outpatient visit 25 minutes Bela Reidoswald [facility] Start: 08-10-2020 Review Bela Rush [facility] Start: 05-13-2020 End: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 - BILATERAL RIBS WITH CHEST REASON FOR EXAM: Male, 48 years old. Fall TECHNIQUE - RIBS: 6 view(s) of the ribs. TECHNIQUE - CHEST: Frontal view of the chest COMPARISON: None. FINDINGS - RIBS : There are no displaced rib fractures identified. FINDINGS - CHEST: The lungs are clear. There are no pleural effusions. There is no pneumothorax. The heart is normal in size. RAD/Ribs Silver Min 4V w/PA Chest IMPRESSION: RIBS: No displaced rib fracture identified. CHEST: Clear lungs. Electronically Signed: Kale Dupree, at 21:21 EDT Tel , Service support , CC: Gavin Shanks MD; Anastasiia Khoury DO Vice Admiral: Signed Bela Bee Start: 10-06-2018 End: 10-06-2018 Chest PA and Lateral Comments: See Note; NOTES: [facility] Imaging Services [address] [place] [address] Chest PA and Lateral MR#: [id number] Acct: [id number] Name: ANSONSEVERO Mariza Rep #: [id number] : 1970 M 48 From: Rui Brunson MD PCP: Anastasiia Khoury DO Status: REG CLI Study: Chest PA and Lateral Date of Exam: 10/06/18 Exam# [id number] Ordering Dr: Evelyn Gonzalez DOCUMENTATION DESIGNER-C STUDY: X-RAY CHEST REASON FOR EXAM: Male, 48 years old. Chest pain TECHNIQUE: Frontal and lateral views of the chest COMPARISON: None. FINDINGS: The lungs are clear. There are no pleural effusions. There is no pneumothorax. The heart is normal in size. The visualized osseous structures are within normal limits. RAD/Chest PA and Lateral IMPRESSION: No acute thoracic pathology. Electronically Signed: Rui Brunson, at 19:40 EST Tel , Service support , CC: IDRIS Gonzalez; Anastasiia Khoury DO Vice Admiral: Signed Evelyn Gonzalez Start: 09-14-2015 End: 09-14-2015 Ecg routine ecg w/least 12 lds w/i&r [MEASUREMENTS ANALYSIS] Date of Test: 09/14/2015 10:28:52; Heart Rate: 68; MA Interval: 130; QRS: 102; QT Interval: 386; Corrected QT Interval (QTc): 400; P [place]: -45; QRS [place]: 30; T [place]: 30; Blood Pressure: 138/80 [ECG DIAGNOSTIC STATEMENTS] Date of Test: 09/14/2015 10:28:52; Summary: Atrial Rhythm P:QRS - 1:1, Abnormal P axis, H Rate 68WITHIN NORMAL LIMITS Anastasiia Khoury Work Phone: Comment on above: nsr no acute chg Start: 07-27-2015 End: 07-27-2015 Vascular Test/LEAS/UEAS Comments: See Note; NOTES: [facility] Cardiovascular Services [address] [place] [address] Verdana 4d Upper Extremity Arterial Study MR#: [id number] Acct: [id number] Name: SEVERO IBRAHIM Rep #: [id number] : 1970 44 From: Quentin Balderas MD Primary Care: Anastasiia Khoury DO Status: REG CLI Ordering Dr: Anastasiia Khoury DO Sex: M C DATE OF SERVICE: 07/15/2015 ORDERING PHYSICIAN: Dr. Khoury. INTERPRETING PHYSICIAN: Dr. Balderas. DIAGNOSIS: The patient is complaining of numbness, left middle digit going white. SCAN: Bilateral upper extremity PVRs. INTERPRETATION: Right upper extremity PVRs, normal pulsatile flow down from the subclavian to the axillary, brachial, radial, ulnar arteries with triphasic flow noted throughout these entire segments. Segmental pressures are stable all the way out with a wrist brachial index of 1.06, digit brachial index 0.91. Left upper extremity PVRs, there is normal pulsatile flow from the upper arm down to the forearm, wrist, up to the digits. Segmental pressure shows triphasic flow throughout the entire left upper extremity with a wrist brachial index of 1.05 with triphasic flow noted and also a digit brachial index of 0.92. IMPRESSION: Bilateral upper extremities with normal PVRs and arterial studies with normal triphasic flow noted with a wrist brachial index of 1.06 on the right and 1.05 on the left. No evidence of significant small vessel disease with a digit brachial index of 0.91 on the right and 0.92 on the left. Quentin Balderas M.D. T: NTS JOB: [id number] 07/27/15 0755 <Electronically signed by Quentin Balderas MD> Date Quentin Balderas MD CC: Anastasiia Khoury DO Date Dictated: 07/20/151104 Date Transcribed: 07/20/151104 Vice Admiral: Signed Anastasiia Khoury Work Phone: Start: 12-24-2014 End: 12-24-2014 Emergency Department Summary Comments: See Note; NOTES: [facility] Medical Records Department [address] [place] [address] Emergency Department Summary MR#: [id number] Acct: [id number] Name: SEVERO IBRAHIM Rep #: [id number] : 1970 44 From: Radha Galicia MD PCP: Anastasiia Khoury DO Status: [facility] DATE OF SERVICE: 12/18/2014 CHIEF COMPLAINT: Left knee pain. FIGUEROA HISTORY: The patient is a 44-year-old male who states he twisted his left knee after stepping into a hole 2 or 3 weeks ago. He states he has been gimping around on it for the last couple of weeks. He has been wearing a brace. He said the swelling has been worse for the past 2 or 3 days and has increased pain. He denies any fever. No paresthesias, no weakness. He does not feel like it will give out on him. He thinks he might have bursitis because he had similar symptoms in his elbow previously. The patient was recently diagnosed with diabetes, otherwise denies any significant past medical history. PHYSICAL EXAMINATION: VITAL SIGNS: Blood pressure on arrival is 86/68, temperature 96.8, heart rate 86, respiratory rate is 18, pulse oximetry 98% on room air. GENERAL: The patient is sitting upright in bed, in no acute distress. HEART: Regular. LUNGS: Clear. ABDOMEN: Soft, nontender. EXTREMITIES: Lower extremity examination reveals no tenderness at the hip. He has tenderness over the anterior portion of the left knee with a mild amount of edema. He has full range of motion. Ligaments are tight on testing. He has strong distal pulses. HOSPITAL COURSE: Left knee x-ray shows a small effusion, no evidence of fracture. Repeat blood pressure is currently 134/72. The patient will be given a prescription for [place] at home. He was not given an initial dose here as he is driving himself. He already has a brace to wear. He does not feel that he needs crutches. He is referred to Dr. Davidson for followup if not improving. DISPOSITION: Discharge. IMPRESSION: Left knee strain. Radha Galicia MD T: NTS JOB: [id number] 12/24/14 0020 <Electronically signed by Radha Galicia MD> Date Radha Galicia MD CC: Anastasiia Khoury DO Date Dictated: 12/18/14728 Date Transcribed: 12/18/14728 Vice Admiral: Signed Bela Reidannabelmariza Start: 12-18-2014 End: 12-18-2014 Discharge Instruction Comments: See Note; NOTES: [facility] Medical Records Department [address] [place] [address] Discharge Instruction 12/18/14726 MR#: [id number] Acct: [id number] Name: SEVERO IBRAHIM Rep #: [id number] : 1970 44 From: Radha Galicia MD PCP: Anastasiia Khoury DO Status: [facility] ER ED Disposition - Plan for ED Patient: Disposition: Home Chief Complaint: Lower Extremity Injury Instructions: ED Knee Sprain Prescriptions: Hydrocodone Bitart/Apap 5-325 [[place] 5/325] 1 - 2 tablet PO Q4H PRN PRN #20 tablet PRN Reason: Pain Referrals: Celestino Davidson DO [STAFF PHYSICIAN] - 1 Week if not improving What to do if you have Problems For any increased pain, shortness of breath, bleeding, nausea or vomiting, chest pain, or any unexpected problems, contact your doctor. Call [facility] ) or report to the closest Emergency Room. Call 911 if necessary. 12/18/14 0729 <Electronically signed by Radha Galicia MD> Date Radha Galicia MD Cosigner Signature (If Indicated): Date CC: Anastasiia Khoury DO Bela Bee Start: 12-18-2014 End: 12-18-2014 Knee 4 or More Views Comments: See Note; NOTES: [facility] Imaging Services [address] [place] [address] Radiology Report MR#: [id number] Acct: [id number] Name: SEVERO IBRAHIM Rep #: [id number] : 1970 M 44 From: Bailey Lorenzana MD PCP: Anastasiia Khoury DO Status: [facility] ER Study: Knee 4 or More Views Date of Exam: 12/18/14 Exam# [id number] Ordering Dr: Radha Galicia MD STUDY: X-RAY - LEFT KNEE REASON FOR EXAM: Male, 44 years old. Pain injury 2 weeks ago swelling TECHNIQUE: 4 view(s) of the knee. COMPARISON: None. FINDINGS: Normal visualized distal femur. Normal visualized proximal tibia and fibula. Normal proximal tibiofibular articulation. Normal medial femorotibial compartment. Normal lateral femorotibial compartment. Normal patellofemoral articulation. There is soft tissue swelling about the patella and overlying the lateral patella retinaculum. IMPRESSION: Focal soft tissue swelling overlying the patella. Cannot exclude injury to the patellar retinaculum. Recommend consideration for followup MRI symptoms persist. No definitive evidence of an acute fracture. Electronically Signed: Bailey Lorenzana MD at 10:56 EDT Tel , Service support [phone], CC: Radha Galicia MD; Anastasiia Khoury DO Vice Admiral: Signed Bela Bee Start: 12-05-2014 End: 12-05-2014 Discharge Instruction Comments: See Note; NOTES: [facility] Medical Records Department [facility] [place] [address] Discharge Instruction 12/04/14 1548 MR#: [id number] Acct: [id number] Name: SEVERO IBRAHIM Rep #: [id number] : 1970 44 From: Kale Sams MD PCP: Aanstasiia Khoury DO Status: DEP ER ED Disposition - Plan for ED Patient: Disposition: Home Chief Complaint: Hyperglycemia Instructions: ED Hyperglycemia, New Onset (Possible Diabetes) Prescriptions: Metformin HCl [Glucophage] 500 mg PO BIDCM #60 tablet Referrals: Anastasiia Khoury DO [Primary Care Provider] - As soon as possible Additional Instructions: PLENTY OF FLUIDS. CHECK BLOOD SUGARS TWICE DAILY. FOLLOW DIABETIC DIET. HOLD THE MEDICATION DR. KHOURY STARTED YOU ON SATURDAY. What to do if you have Problems For any increased pain, shortness of breath, bleeding, nausea or vomiting, chest pain, or any unexpected problems, contact your doctor. Call [facility] ) or report to the closest Emergency Room. Call 911 if necessary. 12/05/14 0036 <Electronically signed by Kale Sams MD> Date Kale Sams MD Cosigner Signature (If Indicated): Date CC: Anastasiia Khoury DO Bela Bee Start: 12-05-2014 End: 12-05-2014 Emergency Department Summary Comments: See Note; NOTES: [facility] Medical Records Department [address] [place] [address] Emergency Department Summary MR#: [id number] Acct: [id number] Name: SEVERO IBRAHIM Rep #: [id number] : 1970 44 From: Kale Sams MD PCP: Anastasiia Khoury DO Status: [facility] ER DATE OF SERVICE: 12/04/2014 CHIEF COMPLAINT: Elevated blood sugar. HISTORY OF PRESENT ILLNESS: This is a 44-year-old gentleman. He himself has never been diagnosed as diabetic. His mom and multiple siblings of hers and grandparents of hers have had diabetes. Over the last 2 months, he has had a 24-pound weight loss. He has also had increasing thirst and increasing urination. He was seen in the primary care physician's office by Dr. Khoury yesterday, he is going to be a new PCP and had an elevated blood sugar there and elevated hemoglobin A1c of around 15. Today, he was sent to ER by Dr. Martin. He denies any nausea, vomiting, diarrhea, or fever. PHYSICAL EXAMINATION: GENERAL: A middle-aged white male, in no acute distress. VITAL SIGNS: Stable. Afebrile. HEENT: Unremarkable. NECK: Nontender. LUNGS: Clear to auscultation bilaterally. No rales, rhonchi, or wheezing. HEART: Regular rate and rhythm. No murmur. ABDOMEN: Soft, nontender, nondistended. No organomegaly or masses. EXTREMITIES: Moves all 4. NEUROLOGICAL: He is awake and alert without focal deficits. EMERGENCY DEPARTMENT COURSE: Middle-aged gentleman, suspect new onset diabetes with a significant family history. TEST RESULTS: White count 8, H and H of 16 and 46, no bands. Electrolytes: Sodium 132, chloride 97. His blood sugar is 445. Normal gap of 8, creatinine of 1.4. The patient will be given 2 liters of normal saline and started on metformin. On repeat exam, he is doing well at 1550. I did discuss with Dr. Martin via phone. We are going to start the patient on metformin 500 b.i.d. She requested him to receive Lantus shot 10 mg subq and follow up in our office on Saturday. He was also started on another diabetic medication by Dr. Khoury on Saturday, which we were going to halt. The patient was also written for a glucometer. IMPRESSION: Hyperglycemia secondary to new onset diabetes. MD Hany Rudolph C: Anastasiia Khoury DO T: NTS JOB: [id number] 12/05/14 0036 <Electronically signed by Kale Sams MD> Date Kale Sams MD CC: Anastasiia Khoury DO Date Dictated: 12/04/141551 Date Transcribed: 12/04/141551 Vice Admiral: Signed Bela Bee Start: 12-04-2014 End: 12-04-2014 Discharge Instruction Comments: See Note; NOTES: [facility] Medical Records Department [address] [place] [address] Discharge Instruction 12/04/14 1515 MR#: [id number] Acct: [id number] Name: SEVERO IBRAHIM Rep #: [id number] : 1970 44 From: Kale Sams MD PCP: Anastasiia Khoury DO Status: REG ER ED Disposition - Plan for ED Patient: Disposition: Home Chief Complaint: Hyperglycemia Instructions: ED Hyperglycemia, New Onset (Possible Diabetes) Prescriptions: Metformin HCl [Glucophage] 500 mg PO BIDCM #60 tablet Referrals: Anastasiia Khoury DO [Primary Care Provider] - As soon as possible Additional Instructions: PLENTY OF FLUIDS. CHECK BLOOD SUGARS TWICE DAILY. FOLLOW DIABETIC DIET. What to do if you have Problems For any increased pain, shortness of breath, bleeding, nausea or vomiting, chest pain, or any unexpected problems, contact your doctor. Call [facility] ) or report to the closest Emergency Room. Call 911 if necessary. 12/04/14 1523 <Electronically signed by Kale Sams MD> Date Kale Sams MD Cosigner Signature (If Indicated): Date CC: Anastasiia Khoury DO Bela Reidmariza Ophthalmic examination and evaluation Yoon Ruiz Comment on above: 06/06 Ophthalmic examination and evaluation Khanh Sarkar Comment on above: 06/06 Ophthalmic examination and evaluation Eve Spaulding Comment on above: 06/06 Ophthalmic examination and evaluation Beverley Pabon Comment on above: 06/06 Ophthalmic examination and evaluation Khanh Sarkar Comment on above: 06/06 Ophthalmic examination and evaluation Khanh Sarkar Comment on above: 06/06 Ophthalmic examination and evaluation Khanh Sarkar Comment on above: 06/06 Ophthalmic examination and evaluation Khanh Sarkar Comment on above: 06/06 Ophthalmic examination and evaluation Sofía Wyatt Comment on above: 06/06 Ophthalmic examination and evaluation Khanh Lopez Comment on above: 06/06 Ophthalmic examination and evaluation Khanh Lopez Comment on above: 06/06 Ophthalmic examination and evaluation Khanh Lopez LPN Comment on above: 06/06 Vasectomy Yoon Ruiz Comment on above: 1991 Vasectomy Khanh Sarkar Comment on above: 1991 Vasectomy Eve Spaulding Comment on above: 1991 Vasectomy Beverley Pabon Comment on above: 1991 Vasectomy Khanh Sarkar Comment on above: 1991 Vasectomy Khanh Sarkar Comment on above: 1991 Vasectomy Khanh Sarkar Comment on above: 1991 Vasectomy Khanh Sarkar Comment on above: 1991 Vasectomy Sofía Wyatt Comment on above: 1991 Vasectomy Khanh Lopez Comment on above: 1991 Vasectomy Khanh Lopez Comment on above: 1992 Vasectomy Khanh Schulte Comment on above: 1991 Plan of Treatment Date Care Activity Detail Author Start: 06-23-2021 Hemoglobin glycosyla jacinta a1c HGB A1C (64205) [facility]; [facility] Work Phone: Start: 06-23-2021 Lipid panel LIPID PANEL (66005) [facility]; [facility] Work Phone: Start: 03-03-2021 Cyanocobalamin vitam in b-12 VITAMIN B12 AND FOLATES (37001) [facility]; [facility] Work Phone: Start: 03-03-2021 Assay of prostate specific antigen total PSA (PROSTATE SPECIFIC ANTIGEN) (V76.44) [facility]; [facility] Work Phone: Start: 03-03-2021 Assay of thyroid stimulating hormone tsh TSH (THYROID STIMULATING HORMONE) (51914) [facility]; [facility] Work Phone: Start: 03-03-2021 Blood count complete auto&auto difrntl wbc CBC, Platelets & Auto Diff (37876) [facility]; [facility] Work Phone: Start: 03-03-2021 Comprehensive metabo lic panel Metabolic Panel, Comprehensive (27029) [facility]; [facility] Work Phone: Start: 03-03-2021 Hemoglobin glycosyla jacinta a1c HGB A1C (29946) [facility]; [facility] Work Phone: Start: 03-03-2021 Procedure Education Eprescribe d prescriptions (G8553) [facility]; [facility] Work Phone: Start: 03-03-2021 Provider Instruction s for Treatment Follow up in 4 months [facility]; [facility] Work Phone: Start: 11-25-2020 Procedure Education Eprescribe d prescriptions (G8553) [facility]; [facility] Work Phone: Start: 11-25-2020 Provider Instruction s for Treatment [facility]; [facility] Work Phone: Start: 11-25-2020 HbA1c (Bld) [Mass fraction] HGB A1C (79706) [facility]; [facility] Work Phone: Start: 11-25-2020 Antibody borrelia burgdorferi lyme disease Lyme Disease Antibody W/ Reflex (95277) [facility]; [facility] Work Phone: Start: 08-17-2020 Procedure Education Eprescribe d prescriptions (G8553) [facility] Work Phone: Start: 08-17-2020 Provider Instruction s for Treatment Follow up in 3 months order desk caller to make apt [facility] Work Phone: Start: 08-17-2020 25 hydroxy includes fractions if performed CALCIFEDIOL (39624) [facility] Work Phone: Comment on above: Nov 16 2020 Start: 08-17-2020 Lipid panel LIPID PANEL (36365) [facility] Work Phone: Comment on above: Nov 16 2020 Start: 08-10-2020 Procedure Education Eprescribe d prescriptions (G8553) [facility] Work Phone: Start: 08-10-2020 Provider Instruction s for Treatment Follow up in 1 week for virtual order desk caller to arrange [facility] Work Phone: Start: 08-10-2020 25 hydroxy includes fractions if performed CALCIFEDIOL (98840) [facility] Work Phone: Start: 08-10-2020 Comprehensive metabo lic panel Metabolic Panel, Comprehensive (62271) [facility] Work Phone: Start: 08-10-2020 Blood count complete auto&auto difrntl wbc CBC, Platelets & Auto Diff (01678) [facility] Work Phone: Start: 08-10-2020 HbA1c (Bld) [Mass fraction] HGB A1C (35261) [facility] Work Phone: Start: 08-10-2020 Lipid panel LIPID PANEL (74042) [facility] Work Phone: Start: 08-10-2020 Assay of testosteron e free TESTOSTERONE FREE (95484) [facility] Work Phone: Start: 05-13-2020 Assay of testosteron e free TESTOSTERONE FREE (28914) [facility] Work Phone: Comment on above: Apr 2020 Start: 05-10-2020 Procedure Education Eprescribe d prescriptions (G8553) [facility] Work Phone: Start: 05-10-2020 Provider Instruction s for Treatment Follow up in 3 months [facility] Work Phone: Start: 05-10-2020 Assay of testosteron e free TESTOSTERONE FREE (87783) [facility] Work Phone: Start: 05-10-2020 HbA1c (Bld) [Mass fraction] HGB A1C (77749) [facility] Work Phone: Start: 01-29-2020 Procedure Education Eprescribe d prescriptions (G8553) [facility] Work Phone: Start: 01-29-2020 Provider Instruction s for Treatment Follow up in 3 months [facility] Work Phone: Start: 01-15-2020 Procedure Education Eprescribe d prescriptions (G8553) [facility] Work Phone: Start: 01-15-2020 Provider Instruction s for Treatment [facility] Work Phone: Start: 11-04-2019 Procedure Education Eprescribe d prescriptions (G8553) [facility] Work Phone: Start: 11-04-2019 Provider Instruction s for Treatment Follow up in 3 months [facility] Work Phone: Start: 11-03-2019 HbA1c (Bld) [Mass fraction] HGB A1C (23071) [facility] Work Phone: Start: 11-03-2019 Hemoglobin glycosyla jacinta a1c HGB A1C (70278) [facility]; [facility] Work Phone: Start: 11-03-2019 Lipid panel LIPID PANEL (97363) [facility] Work Phone: Start: 07-31-2019 Procedure Education Eprescribe d prescriptions (G8553) [facility] Work Phone: Start: 07-31-2019 Provider Instruction s for Treatment [facility] Work Phone: Start: 07-31-2019 HbA1c (Bld) [Mass fraction] HGB A1C (17958) [facility] Work Phone: Start: 07-31-2019 Lipid panel LIPID PANEL (50092) [facility] Work Phone: Start: 07-31-2019 25 hydroxy includes fractions if performed CALCIFEDIOL (08613) [facility] Work Phone: Start: 07-24-2019 Comprehensive metabo lic panel Metabolic Panel, Comprehensive (62268) [facility] Work Phone: Start: 07-24-2019 Lipid panel Lipid Panel (14550) [facility] Work Phone: Start: 06-10-2019 Procedure Education Eprescribe d prescriptions (G8553) [facility] Work Phone: Start: 06-10-2019 Provider Instruction s for Treatment [facility] Work Phone: Start: 04-29-2019 Procedure Education Eprescribe d prescriptions (G8553) [facility] Work Phone: Start: 04-29-2019 Provider Instruction s for Treatment [facility] Work Phone: Start: 04-29-2019 Assay of prostate specific antigen total PSA (PROSTATE SPECIFIC ANTIGEN) (V76.44) [facility] Work Phone: Start: 04-29-2019 Cobalamin (Vitamin B 12) [Mass/Vol] VITAMIN B12 AND FOLATES (60989) [facility] Work Phone: Start: 04-29-2019 25 hydroxy includes fractions if performed CALCIFEDIOL (06054) [facility] Work Phone: Start: 04-29-2019 Urine albumin quantitative MICROALBUMIN: CREATININE RATIO (04800) AND (17112) [facility] Work Phone: Start: 04-29-2019 TSH Qn TSH (17497) [facility] Work Phone: Start: 04-29-2019 Blood count complete auto&auto difrntl wbc CBC, Platelets & Auto Diff (31246) [facility] Work Phone: Start: 04-29-2019 Lipid panel Lipid Panel (10895) [facility] Work Phone: Start: 04-29-2019 Comprehensive metabo lic panel Metabolic Panel, Comprehensive (77869) [facility] Work Phone: Start: 04-29-2019 HbA1c (Bld) [Mass fraction] HGB A1C (07555) [facility] Work Phone: Start: 11-24-2018 Lipid panel LIPID PANEL (92998) [facility] Work Phone: Start: 11-24-2018 Comprehensive metabo lic panel Metabolic Panel, Comprehensive (11718) [facility] Work Phone: Start: 10-06-2018 Patient Education [facility] Work Phone: Start: 10-06-2018 Procedure Education Eprescribe d prescriptions (G8553) [facility] Work Phone: Start: 10-06-2018 Provider Instruction s for Treatment [facility] Work Phone: Start: 10-06-2018 Virus centrifuge enh ncd id imfluor stain ea Influenza A&B Viral Culture (51983) [facility] Work Phone: Start: 09-29-2018 Patient Education Poison [place], [place], and [place]: poison oak [facility] Work Phone: Start: 09-29-2018 Procedure Education Eprescribe d prescriptions (G8553) [facility] Work Phone: Start: 09-29-2018 Provider Instruction s for Treatment Follow up if no improvement or if symptoms worsen [facility] Work Phone: Start: 08-19-2018 Procedure Education Eprescribe d prescriptions (G8553) [facility] Work Phone: Start: 08-19-2018 Provider Instruction s for Treatment [facility] Work Phone: Start: 04-18-2018 Procedure Education Eprescribe d prescriptions (G8553) [facility] Work Phone: Start: 04-08-2018 Procedure Education Eprescribe d prescriptions (G8553) [facility] Work Phone: Start: 04-08-2018 Provider Instruction s for Treatment Follow up in 1 week [facility] Work Phone: Start: 03-25-2017 Procedure Education Eprescribe d prescriptions (G8553) [facility] Work Phone: Start: 03-25-2017 Provider Instruction s for Treatment [facility] Work Phone: Start: 03-25-2017 Urine albumin quantitative MICROALBUMIN: CREATININE RATIO (78237) AND (75232) [facility] Work Phone: Start: 09-14-2015 Patient Education Blood Glucos e Test: blood [facility] Work Phone: Start: 09-14-2015 Procedure Education Eprescribe d prescriptions (G8553) [facility] Work Phone: Start: 09-14-2015 Provider Instruction s for Treatment [facility] Work Phone: Start: 09-14-2015 Assay of prostate specific antigen total PSA (PROSTATE SPECIFIC ANTIGEN) (V76.44) [facility] Work Phone: Start: 09-14-2015 Protein mass conc PSA (PROSTAT E SPECIFIC ANTIGEN) (V76.44) [facility] Work Phone: Start: 09-14-2015 25 hydroxy includes fractions if performed CALCIFIDIOL (68759) VIT D 25 [facility] Work Phone: Start: 09-14-2015 Assay of thyroid stimulating hormone tsh TSH (32160) [facility]; [facility] Work Phone: Start: 09-14-2015 Thyrotropin Qn TSH (04511) [facility] Work Phone: Start: 09-14-2015 Urnls dip stick/tabl et reagent auto microscopy URINALYSIS, W/ MICRO (91331) [facility] Work Phone: Start: 09-14-2015 Urine albumin quantitative MICROALBUMIN: CREATININE RATIO (33656) AND (40938) [facility] Work Phone: Start: 09-14-2015 Blood count complete auto&auto difrntl wbc CBC W/AUTO DIFF WBC (08197) [facility] Work Phone: Start: 09-14-2015 Comprehensive metabo lic panel METABOLIC PANEL, COMPREHENSIVE (48831) [facility] Work Phone: Start: 07-13-2015 Provider Instruction s for Treatment [facility] Work Phone: Start: 06-15-2015 Patient Education Hemoglobin A 1c Test *: blood glucose [facility] Work Phone: Start: 06-15-2015 Procedure Education Eprescribe d prescriptions (G8553) [facility] Work Phone: Start: 06-15-2015 Provider Instruction s for Treatment [facility] Work Phone: Start: 03-15-2015 Potassium molar conc POTASSIUM SERUM (10104) [facility] Work Phone: Start: 03-15-2015 Potassium serum plasma/whole blood POTASSIUM SERUM (40222) [facility]; [facility] Work Phone: Start: 03-09-2015 Patient Education Diabetes and Exercise: Preventing Low Blood Sugar: blood sugar [facility] Work Phone: Start: 03-09-2015 Provider Instruction s for Treatment [facility] Work Phone: Start: 03-09-2015 Cobalamin (Vitamin B 12) mass conc VITAMIN B-12 (CYANOCOBALAMIN) (71237) [facility] Work Phone: Start: 03-09-2015 Cyanocobalamin vitam in b-12 VITAMIN B-12 (CYANOCOBALAMIN) (05616) [facility]; [facility] Work Phone: Start: 03-09-2015 25 hydroxy includes fractions if performed CALCIFIDIOL (13677) VIT D 25 [facility] Work Phone: Start: 03-09-2015 Assay of thyroid stimulating hormone tsh TSH (14912) [facility]; [facility] Work Phone: Start: 03-09-2015 Thyrotropin Qn TSH (63638) [facility] Work Phone: Start: 03-09-2015 Urnls dip stick/tabl et reagent auto microscopy URINALYSIS, W/ MICRO (80540) [facility] Work Phone: Start: 03-09-2015 Urine albumin quantitative MICROALBUMIN: CREATININE RATIO (52335) AND (93982) [facility] Work Phone: Start: 03-09-2015 Comprehensive metabo lic panel METABOLIC PANEL, COMPREHENSIVE (29077) [facility] Work Phone: Start: 03-09-2015 Blood count complete auto&auto difrntl wbc CBC W/AUTO DIFF WBC (65777) [facility] Work Phone: Start: 03-09-2015 Hemoglobin A1c/Hemoglobin.total mass fraction (Bld) Hemoglobin Glyclated (HGB A1C) (58681) [facility] Work Phone: Start: 03-09-2015 Hemoglobin glycosyla jacinta a1c Hemoglobin Glyclated (HGB A1C) (73930) [facility]; [facility] Work Phone: Start: 01-03-2015 Provider Instruction s for Treatment [facility] Work Phone: Start: 01-03-2015 Hemoglobin A1c/Hemoglobin.total mass fraction (Bld) Hemoglobin Glyclated (HGB A1C) (81905) [facility] Work Phone: Start: 01-03-2015 Hemoglobin glycosyla jacinta a1c Hemoglobin Glyclated (HGB A1C) (66160) [facility]; [facility] Work Phone: Start: 12-27-2014 Provider Instruction s for Treatment Follow up if no improvement or if symptoms worsen [facility] Work Phone: Start: 12-20-2014 Procedure Education Eprescribe d prescriptions (G8553) [facility] Work Phone: Start: 12-20-2014 Provider Instruction s for Treatment [facility] Work Phone: Start: 12-08-2014 Procedure Education Eprescribe d prescriptions (G8553) [facility] Work Phone: Start: 12-08-2014 Provider Instruction s for Treatment [facility] Work Phone: Start: 12-03-2014 Provider Instruction s for Treatment *Diabetes Education [facility] Work Phone: Patient referral [facility] Work Phone: [facility] Work Phone: [facility] Work Phone: [facility] Work Phone: [facility] Work [facility] Work Phone[facility] Work Phone[facility] Work Phone: [facility] Work Phone: [facility] Work Phone: [facility] Work Phone: [facility] Work Phone: [facility] Work Phone: [facility] Work Phone: [facility] Work Phone: [facility] Work Phone: [facility] Work Phone: [facility] Work Phone: [facility] Work Phone[facility] Work Phone: [facility] Work Phone: [facility] Work Phone: [facility] Work Phone: [facility]; [facility] Work Phone: [facility]; [facility] Work Phone: Immunizations Immunization Date Immunization Notes Care Provider Lucretia patton 07-13-2013 tetanus and diphther ia toxoids, adsorbed, preservative free, for adult use (2 Lf of tetanus toxoid and 2 Lf of diphtheria toxoid) [facility] Payers Date Payer Category Payer Unknown [id number] 1970 Unknown [id number] Self-pay SELF PAY INSURANCE [id number] Unknown [facility] Unknown [facility] PACKAGE PLAN [id number] Social History Date Type Detail Facility Alcohol Use: Current every da y smoker [facility] Work Phone: Caffeine Use Caffeine Use [facility] Work Phone: Comment on above: qd Drug Use: Uses marijuana. [facility] Work Phone: Tobacco use: Current every da y smoker. [facility] Work Phone: Alcohol Use: Alcohol Use: [facility] Work Phone: Drug Use: Drug Use: [facility]; [facility] Work Phone: Tobacco use: Tobacco use: [facility]; [facility] Work Phone: Start: 06-09-2023 Tobacco smoking status NHIS Unknown if ever smoked [facility] Start: 1970 Sex Assigned At Male [facility] Medical Equipment Procedure Code Equipment Code Equipment Origin al Text Equipment Identifier Dates DIABETIC TESTING SUPPLIES ( Strip) (Free Text) 1 (one) Strip bid for 0 days Quantity: 100 {Strip} Refills: 4 Ordered: 19-Aug-2018 Bela Bee CNP, CNP, Bela Acosta Start : 19-Aug-2018 Active Comments: for one touch blue ultra Start: 08-19-2018 Comment on above: for one touch blue u ltra DIABETIC TESTING SUPPLIES ( Strip) (Free Text) 1 (one) Strip bid for 0 days Quantity: 100 {Strip} Refills: 4 Ordered: 19-Aug-2018 Bela Bee CNP, CNP, Bela Acosta Start : 19-Aug-2018 Active Comments: test strips for the one touch ultra 2 Start: 08-19-2018 Comment on above: test strips for the one touch ultra 2 LANCET DEVICE (Miscellaneous) 1 (one) Misc qod for 30 days Quantity: 100 {Each} Refills: 4 Ordered: 11-May-2015 Anastasiia Khoury DO Start : 11-May-2015 Active Start: 05-11-2015 LANCET DEVICE (Miscellaneous) 1 (one) Misc qod for 30 days Quantity: 100 {Each} Refills: 4 Ordered: 11-May-2015 Anastasiia Khoury DO Start : 11-May-2015 Active Start: 05-11-2015 DIABETIC TESTING SUPPLIES ( Strip) (Free Text) 1 (one) Strip bid for 0 days Quantity: 100 {Strip} Refills: 4 Ordered: 09-Sep-2018 Yoon Ruiz Start : 19-Aug-2018 End : 09-Sep-2018 Inactive Comments: for one touch blue ultra Start: 08-19-2018 End: 09-09-2018 Comment on above: for one touch blue u ltra DIABETIC TESTING SUPPLIES ( Strip) (Free Text) 1 (one) Strip bid for 0 days Quantity: 100 {Strip} Refills: 4 Ordered: 09-Sep-2018 Yoon Ruiz Start : 19-Aug-2018 End : 09-Sep-2018 Inactive Comments: test strips for the one touch ultra 2 Start: 08-19-2018 End: 09-09-2018 Comment on above: test strips for the one touch ultra 2 LANCET DEVICE (Miscellaneous) 1 (one) Misc qod for 30 days Quantity: 100 {Each} Refills: 4 Ordered: 11-May-2015 Anastasiia Khoury DO Start : 11-May-2015 Active Start: 05-11-2015 DIABETIC TESTING SUPPLIES ( Strip) (Free Text) 1 (one) Strip bid for 0 days Quantity: 100 {Strip} Refills: 4 Ordered: 09-Sep-2018 Yoon Ruiz Start : 19-Aug-2018 End : 09-Sep-2018 Inactive Comments: test strips for the one touch ultra 2 Start: 08-19-2018 End: 09-09-2018 Comment on above: test strips for the one touch ultra 2 DIABETIC TESTING SUPPLIES ( Strip) (Free Text) 1 (one) Strip bid for 0 days Quantity: 100 {Strip} Refills: 4 Ordered: 09-Sep-2018 Yoon Ruiz Start : 19-Aug-2018 End : 09-Sep-2018 Inactive Comments: for one touch blue ultra Start: 08-19-2018 End: 09-09-2018 Comment on above: for one touch blue u ltra LANCET DEVICE (Miscellaneous) 1 (one) Misc qod for 30 days Quantity: 100 {Each} Refills: 4 Ordered: 11-May-2015 Anastasiia Khoury DO Start : 11-May-2015 Active Start: 05-11-2015 DIABETIC TESTING SUPPLIES ( Strip) (Free Text) 1 (one) Strip bid for 0 days Quantity: 100 {Strip} Refills: 4 Ordered: 09-Sep-2018 Yoon Ruiz Start : 19-Aug-2018 End : 09-Sep-2018 Inactive Comments: test strips for the one touch ultra 2 Start: 08-19-2018 End: 09-09-2018 Comment on above: test strips for the one touch ultra 2 DIABETIC TESTING SUPPLIES ( Strip) (Free Text) 1 (one) Strip bid for 0 days Quantity: 100 {Strip} Refills: 4 Ordered: 09-Sep-2018 Yoon Ruiz Start : 19-Aug-2018 End : 09-Sep-2018 Inactive Comments: for one touch blue ultra Start: 08-19-2018 End: 09-09-2018 Comment on above: for one touch blue u ltra Accu-Chek FastCl ix Lancets Miscellaneous 1 (one) Misc daily for 90 days Quantity: 3 {Box} Refills: 3 Ordered: 23-Oct-2018 Yoon Ruiz Start : 23-Oct-2018 Active Start: 10-23-2018 LANCET DEVICE (Miscellaneous) 1 (one) Misc qod for 30 days Quantity: 100 {Each} Refills: 4 Ordered: 11-May-2015 Anastasiia Khoury DO Start : 11-May-2015 Active Start: 05-11-2015 Accu-Chek Guide In Vitro Strip 1 (one) Strip daily for 90 days Quantity: 90 {Strip} Refills: 0 Ordered: 23-Oct-2018 Yoon Ruiz Start : 23-Oct-2018 End : 21-Jan-2019 Inactive Start: 10-23-2018 End: 01-21-2019 DIABETIC TESTING SUPPLIES ( Strip) (Free Text) 1 (one) Strip bid for 0 days Quantity: 100 {Strip} Refills: 4 Ordered: 09-Sep-2018 Yoon Ruiz Start : 19-Aug-2018 End : 09-Sep-2018 Inactive Comments: Mail order. for one touch blue ultra Start: 08-19-2018 End: 09-09-2018 Comment on above: Mail order. for one touch blue ultra DIABETIC TESTING SUPPLIES ( Strip) (Free Text) 1 (one) Strip bid for 0 days Quantity: 100 {Strip} Refills: 4 Ordered: 09-Sep-2018 Yoon Ruiz Start : 19-Aug-2018 End : 09-Sep-2018 Inactive Comments: test strips for the one touch ultra 2 Start: 08-19-2018 End: 09-09-2018 Comment on above: test strips for the one touch ultra 2 Accu-Chek FastCl ix Lancets Miscellaneous 1 (one) Misc daily for 90 days Quantity: 3 {Box} Refills: 3 Ordered: 23-Oct-2018 Yoon Ruiz Start : 23-Oct-2018 Active Start: 10-23-2018 LANCET DEVICE (Miscellaneous) 1 (one) Misc qod for 30 days Quantity: 100 {Each} Refills: 4 Ordered: 11-May-2015 Anastasiia Khoury DO Start : 11-May-2015 Active Start: 05-11-2015 Accu-Chek Guide In Vitro Strip 1 (one) Strip daily for 90 days Quantity: 90 {Strip} Refills: 0 Ordered: 23-Oct-2018 Yoon Ruiz Start : 23-Oct-2018 End : 21-Jan-2019 Inactive Start: 10-23-2018 End: 01-21-2019 DIABETIC TESTING SUPPLIES ( Strip) (Free Text) 1 (one) Strip bid for 0 days Quantity: 100 {Strip} Refills: 4 Ordered: 09-Sep-2018 Yoon Ruiz Start : 19-Aug-2018 End : 09-Sep-2018 Inactive Comments: test strips for the one touch ultra 2 Start: 08-19-2018 End: 09-09-2018 Comment on above: test strips for the one touch ultra 2 DIABETIC TESTING SUPPLIES ( Strip) (Free Text) 1 (one) Strip bid for 0 days Quantity: 100 {Strip} Refills: 4 Ordered: 09-Sep-2018 Yoon Ruiz Start : 19-Aug-2018 End : 09-Sep-2018 Inactive Comments: Mail order. for one touch blue ultra Start: 08-19-2018 End: 09-09-2018 Comment on above: Mail order. for one touch blue ultra Accu-Chek FastCl ix Lancets Miscellaneous 1 (one) Misc daily for 90 days Quantity: 3 {Box} Refills: 3 Ordered: 23-Oct-2018 Beverley Pabon Start : 23-Oct-2018 Active Start: 10-23-2018 LANCET DEVICE (Miscellaneous) 1 (one) Misc qod for 30 days Quantity: 100 {Each} Refills: 4 Ordered: 11-May-2015 Anastasiia Khoury DO Start : 11-May-2015 Active Start: 05-11-2015 Accu-Chek Guide In Vitro Strip 1 (one) Strip daily for 90 days Quantity: 90 {Strip} Refills: 0 Ordered: 23-Oct-2018 Yoon Ruiz Start : 23-Oct-2018 End : 21-Jan-2019 Inactive Start: 10-23-2018 End: 01-21-2019 DIABETIC TESTING SUPPLIES ( Strip) (Free Text) 1 (one) Strip bid for 0 days Quantity: 100 {Strip} Refills: 4 Ordered: 09-Sep-2018 Yoon Ruiz Start : 19-Aug-2018 End : 09-Sep-2018 Inactive Comments: Mail order. for one touch blue ultra Start: 08-19-2018 End: 09-09-2018 Comment on above: Mail order. for one touch blue ultra DIABETIC TESTING SUPPLIES ( Strip) (Free Text) 1 (one) Strip bid for 0 days Quantity: 100 {Strip} Refills: 4 Ordered: 09-Sep-2018 Yoon Ruiz Start : 19-Aug-2018 End : 09-Sep-2018 Inactive Comments: test strips for the one touch ultra 2 Start: 08-19-2018 End: 09-09-2018 Comment on above: test strips for the one touch ultra 2 Accu-Chek FastCl ix Lancets Miscellaneous 1 (one) Misc daily for 90 days Quantity: 3 {Box} Refills: 3 Ordered: 23-Oct-2018 Beverley Pabon Start : 23-Oct-2018 Active Start: 10-23-2018 LANCET DEVICE (Miscellaneous) 1 (one) Misc qod for 30 days Quantity: 100 {Each} Refills: 4 Ordered: 11-May-2015 Anastasiia Khoury DO Start : 11-May-2015 Active Start: 05-11-2015 Accu-Chek Guide In Vitro Strip 1 (one) Strip daily for 90 days Quantity: 90 {Strip} Refills: 0 Ordered: 23-Oct-2018 Yoon Ruiz Start : 23-Oct-2018 End : 21-Jan-2019 Inactive Start: 10-23-2018 End: 01-21-2019 DIABETIC TESTING SUPPLIES ( Strip) (Free Text) 1 (one) Strip bid for 0 days Quantity: 100 {Strip} Refills: 4 Ordered: 09-Sep-2018 Yoon Ruiz Start : 19-Aug-2018 End : 09-Sep-2018 Inactive Comments: Mail order. for one touch blue ultra Start: 08-19-2018 End: 09-09-2018 Comment on above: Mail order. for one touch blue ultra DIABETIC TESTING SUPPLIES ( Strip) (Free Text) 1 (one) Strip bid for 0 days Quantity: 100 {Strip} Refills: 4 Ordered: 09-Sep-2018 Yoon Ruiz Start : 19-Aug-2018 End : 09-Sep-2018 Inactive Comments: test strips for the one touch ultra 2 Start: 08-19-2018 End: 09-09-2018 Comment on above: test strips for the one touch ultra 2 Accu-Chek FastCl ix Lancets Miscellaneous 1 (one) Misc daily for 90 days Quantity: 3 {Box} Refills: 3 Ordered: 23-Oct-2018 Beverley Pabon Start : 23-Oct-2018 Active Start: 10-23-2018 LANCET DEVICE (Miscellaneous) 1 (one) Misc qod for 30 days Quantity: 100 {Each} Refills: 4 Ordered: 11-May-2015 Anastasiia Khoury DO Start : 11-May-2015 Active Start: 05-11-2015 Accu-Chek Guide In Vitro Strip 1 (one) Strip daily for 90 days Quantity: 90 {Strip} Refills: 0 Ordered: 23-Oct-2018 Yoon Ruiz Start : 23-Oct-2018 End : 21-Jan-2019 Inactive Start: 10-23-2018 End: 01-21-2019 DIABETIC TESTING SUPPLIES ( Strip) (Free Text) 1 (one) Strip bid for 0 days Quantity: 100 {Strip} Refills: 4 Ordered: 09-Sep-2018 Yoon Ruiz Start : 19-Aug-2018 End : 09-Sep-2018 Inactive Comments: Mail order. for one touch blue ultra Start: 08-19-2018 End: 09-09-2018 Comment on above: Mail order. for one touch blue ultra DIABETIC TESTING SUPPLIES ( Strip) (Free Text) 1 (one) Strip bid for 0 days Quantity: 100 {Strip} Refills: 4 Ordered: 09-Sep-2018 Yoon Ruiz Start : 19-Aug-2018 End : 09-Sep-2018 Inactive Comments: test strips for the one touch ultra 2 Start: 08-19-2018 End: 09-09-2018 Comment on above: test strips for the one touch ultra 2 Accu-Chek FastCl ix Lancets Miscellaneous 1 (one) Misc daily for 90 days Quantity: 3 {Box} Refills: 3 Ordered: 23-Oct-2018 Beverley Pabon Start : 23-Oct-2018 Active Start: 10-23-[address] In Vitro Strip 1 (one) Each twice daily for 90 days Quantity: 180 {Each} Refills: 3 Ordered: 10-Jun-2019 Ciesa JIG BORE TOOL MAKER, Vidya Ciesa J[employer] TOOL MAKER, Vidya Start : 10-Jun-2019 Active Comments: Mail order. Send what Med mutual covers Start: 06-10-2019 Comment on above: Mail order. Send wha t Med mutual covers LANCET DEVICE (Miscellaneous) 1 (one) Misc qod for 30 days Quantity: 100 {Each} Refills: 4 Ordered: 11-May-2015 Anastasiia Khoury DO Start : 11-May-2015 Active Start: 05-11-2015 Accu-Chek Guide In Vitro Strip 1 (one) Strip daily for 90 days Quantity: 90 {Strip} Refills: 0 Ordered: 23-Oct-2018 Yoon Ruiz Start : 23-Oct-2018 End : 21-Jan-2019 Inactive Start: 10-23-2018 End: 01-21-2019 DIABETIC TESTING SUPPLIES ( Strip) (Free Text) 1 (one) Strip bid for 0 days Quantity: 100 {Strip} Refills: 4 Ordered: 09-Sep-2018 Yoon Ruiz Start : 19-Aug-2018 End : 09-Sep-2018 Inactive Comments: test strips for the one touch ultra 2 Start: 08-19-2018 End: 09-09-2018 Comment on above: test strips for the one touch ultra 2 DIABETIC TESTING SUPPLIES ( Strip) (Free Text) 1 (one) Strip bid for 0 days Quantity: 100 {Strip} Refills: 4 Ordered: 09-Sep-2018 Yoon Ruiz Start : 19-Aug-2018 End : 09-Sep-2018 Inactive Comments: Mail order. for one touch blue ultra Start: 08-19-2018 End: 09-09-2018 Comment on above: Mail order. for one touch blue ultra Accu-Chek FastCl ix Lancets Miscellaneous 1 (one) Misc daily for 90 days Quantity: 3 {Box} Refills: 3 Ordered: 23-Oct-2018 Beverley Pabon Start : 23-Oct-2018 Active Start: 10-23-[address] In Vitro Strip 1 (one) Each twice daily for 90 days Quantity: 180 {Each} Refills: 3 Ordered: 10-Jun-2019 Rohit MEAD, Vidya Rohit J[employer] TOOL MAKER, Vidya Start : 10-Jun-2019 Active Comments: Mail order. Send what Med mutual covers Start: 06-10-2019 Comment on above: Mail order. Send wha t Med mutual covers LANCET DEVICE (Miscellaneous) 1 (one) Misc qod for 30 days Quantity: 100 {Each} Refills: 4 Ordered: 11-May-2015 Anastasiia Khoury DO Start : 11-May-2015 Active Start: 05-11-2015 Accu-Chek Guide In Vitro Strip 1 (one) Strip daily for 90 days Quantity: 90 {Strip} Refills: 0 Ordered: 23-Oct-2018 Yoon Ruiz Start : 23-Oct-2018 End : 21-Jan-2019 Inactive Start: 10-23-2018 End: 01-21-2019 DIABETIC TESTING SUPPLIES ( Strip) (Free Text) 1 (one) Strip bid for 0 days Quantity: 100 {Strip} Refills: 4 Ordered: 09-Sep-2018 Yoon Ruiz Start : 19-Aug-2018 End : 09-Sep-2018 Inactive Comments: test strips for the one touch ultra 2 Start: 08-19-2018 End: 09-09-2018 Comment on above: test strips for the one touch ultra 2 DIABETIC TESTING SUPPLIES ( Strip) (Free Text) 1 (one) Strip bid for 0 days Quantity: 100 {Strip} Refills: 4 Ordered: 09-Sep-2018 Yoon Ruiz Start : 19-Aug-2018 End : 09-Sep-2018 Inactive Comments: Mail order. for one touch blue ultra Start: 08-19-2018 End: 09-09-2018 Comment on above: Mail order. for one touch blue ultra Accu-Chek FastCl ix Lancets Miscellaneous 1 (one) Misc daily for 90 days Quantity: 3 {Box} Refills: 3 Ordered: 23-Oct-2018 Beverley Pabon Start : 23-Oct-2018 Active Start: 10-23-[address] In Vitro Strip 1 (one) Each twice daily for 90 days Quantity: 180 {Each} Refills: 3 Ordered: 10-Jun-2019 Rohit MEAD, Bela Bee CNP, Vidya Start : 10-Jun-2019 Active Comments: Mail order. Send what Med mutual covers Start: 06-10-2019 Comment on above: Mail order. Send wha t Med mutual covers LANCET DEVICE (Miscellaneous) 1 (one) Misc qod for 30 days Quantity: 100 {Each} Refills: 4 Ordered: 11-May-2015 Anastasiia Khoury DO Start : 11-May-2015 Active Start: 05-11-2015 Accu-Chek Guide In Vitro Strip 1 (one) Strip daily for 90 days Quantity: 90 {Strip} Refills: 0 Ordered: 23-Oct-2018 Yoon Ruiz Start : 23-Oct-2018 End : 21-Jan-2019 Inactive Start: 10-23-2018 End: 01-21-2019 DIABETIC TESTING SUPPLIES ( Strip) (Free Text) 1 (one) Strip bid for 0 days Quantity: 100 {Strip} Refills: 4 Ordered: 09-Sep-2018 Yoon Ruiz Start : 19-Aug-2018 End : 09-Sep-2018 Inactive Comments: test strips for the one touch ultra 2 Start: 08-19-2018 End: 09-09-2018 Comment on above: test strips for the one touch ultra 2 DIABETIC TESTING SUPPLIES ( Strip) (Free Text) 1 (one) Strip bid for 0 days Quantity: 100 {Strip} Refills: 4 Ordered: 09-Sep-2018 Yoon Ruiz Start : 19-Aug-2018 End : 09-Sep-2018 Inactive Comments: Mail order. for one touch blue ultra Start: 08-19-2018 End: 09-09-2018 Comment on above: Mail order. for one touch blue ultra Accu-Chek FastCl ix Lancets Miscellaneous 1 (one) Misc daily for 90 days Quantity: 3 {Box} Refills: 3 Ordered: 23-Oct-2018 Beverley Pabon Start : 23-Oct-2018 Active Start: 10-23-[address] In Vitro Strip 1 (one) Each twice daily for 90 days Quantity: 180 {Each} Refills: 3 Ordered: 10-Jun-2019 Ciesa J[employer]OL MAKER, Vidya Ciesa J[employer] TOOL MAKER, Vidya Start : 10-Jun-2019 Active Comments: Mail order. Send what Med mutual covers Start: 06-10-2019 Comment on above: Mail order. Send wha t Med mutual covers LANCET DEVICE (Miscellaneous) 1 (one) Misc qod for 30 days Quantity: 100 {Each} Refills: 4 Ordered: 11-May-2015 Anastasiia Khoury DO Start : 11-May-2015 Active Start: 05-11-2015 Accu-Chek Guide In Vitro Strip 1 (one) Strip daily for 90 days Quantity: 90 {Strip} Refills: 0 Ordered: 23-Oct-2018 Yoon Ruiz Start : 23-Oct-2018 End : 21-Jan-2019 Inactive Start: 10-23-2018 End: 01-21-2019 DIABETIC TESTING SUPPLIES ( Strip) (Free Text) 1 (one) Strip bid for 0 days Quantity: 100 {Strip} Refills: 4 Ordered: 09-Sep-2018 Yoon Ruiz Start : 19-Aug-2018 End : 09-Sep-2018 Inactive Comments: Mail order. for one touch blue ultra Start: 08-19-2018 End: 09-09-2018 Comment on above: Mail order. for one touch blue ultra DIABETIC TESTING SUPPLIES ( Strip) (Free Text) 1 (one) Strip bid for 0 days Quantity: 100 {Strip} Refills: 4 Ordered: 09-Sep-2018 Yoon Ruiz Start : 19-Aug-2018 End : 09-Sep-2018 Inactive Comments: test strips for the one touch ultra 2 Start: 08-19-2018 End: 09-09-2018 Comment on above: test strips for the one touch ultra 2 Accu-Chek FastCl ix Lancets Miscellaneous 1 (one) Misc daily for 90 days Quantity: 3 {Box} Refills: 3 Ordered: 23-Oct-2018 Beverley Pabon Start : 23-Oct-2018 Active Start: 10-23-[address] In Vitro Strip 1 (one) Each twice daily for 90 days Quantity: 180 {Each} Refills: 3 Ordered: 10-Jun-2019 Ciesa J[employer] B[employer] TOOL MAKER, Vidya Ciesa J[employer] TOOL MAKER, Vidya Start : 10-Jun-2019 Active Comments: Mail order. Send what Med mutual covers Start: 06-10-2019 Comment on above: Mail order. Send wha t Med mutual covers LANCET DEVICE (Miscellaneous) 1 (one) Misc qod for 30 days Quantity: 100 {Each} Refills: 4 Ordered: 11-May-2015 Anastasiia Khoury DO Start : 11-May-2015 Active Start: 05-11-2015 Accu-Chek Guide In Vitro Strip 1 (one) Strip daily for 90 days Quantity: 90 {Strip} Refills: 0 Ordered: 23-Oct-2018 Yoon Ruiz Start : 23-Oct-2018 End : 21-Jan-2019 Inactive Start: 10-23-2018 End: 01-21-2019 DIABETIC TESTING SUPPLIES ( Strip) (Free Text) 1 (one) Strip bid for 0 days Quantity: 100 {Strip} Refills: 4 Ordered: 09-Sep-2018 Yoon Ruiz Start : 19-Aug-2018 End : 09-Sep-2018 Inactive Comments: Mail order. for one touch blue ultra Start: 08-19-2018 End: 09-09-2018 Comment on above: Mail order. for one touch blue ultra DIABETIC TESTING SUPPLIES ( Strip) (Free Text) 1 (one) Strip bid for 0 days Quantity: 100 {Strip} Refills: 4 Ordered: 09-Sep-2018 Yoon Ruiz Start : 19-Aug-2018 End : 09-Sep-2018 Inactive Comments: test strips for the one touch ultra 2 Start: 08-19-2018 End: 09-09-2018 Comment on above: test strips for the one touch ultra 2 Accu-Chek FastCl ix Lancets Miscellaneous 1 (one) Misc daily for 90 days Quantity: 3 {Box} Refills: 3 Ordered: 23-Oct-2018 Beverley Pabon Start : 23-Oct-2018 Active Start: 10-23-[address] In Vitro Strip 1 (one) Each twice daily for 90 days Quantity: 180 {Each} Refills: 3 Ordered: 10-Jun-2019 Khanh Sarkar LPN Start : 10-Jun-2019 Active Comments: Mail order. Send what Med mutual covers Start: 06-10-2019 Comment on above: Mail order. Send wha t Med mutual covers LANCET DEVICE (Miscellaneous) 1 (one) Misc qod for 30 days Quantity: 100 {Each} Refills: 4 Ordered: 11-May-2015 Anastasiia Khoury DO Start : 11-May-2015 Active Start: 05-11-2015 Accu-Chek Guide In Vitro Strip 1 (one) Strip daily for 90 days Quantity: 90 {Strip} Refills: 0 Ordered: 23-Oct-2018 Yoon Ruiz Start : 23-Oct-2018 End : 21-Jan-2019 Inactive Start: 10-23-2018 End: 01-21-2019 DIABETIC TESTING SUPPLIES ( Strip) (Free Text) 1 (one) Strip bid for 0 days Quantity: 100 {Strip} Refills: 4 Ordered: 09-Sep-2018 Yoon Ruiz Start : 19-Aug-2018 End : 09-Sep-2018 Inactive Comments: test strips for the one touch ultra 2 Start: 08-19-2018 End: 09-09-2018 Comment on above: test strips for the one touch ultra 2 DIABETIC TESTING SUPPLIES ( Strip) (Free Text) 1 (one) Strip bid for 0 days Quantity: 100 {Strip} Refills: 4 Ordered: 09-Sep-2018 Yoon Ruiz Start : 19-Aug-2018 End : 09-Sep-2018 Inactive Comments: Mail order. for one touch blue ultra Start: 08-19-2018 End: 09-09-2018 Comment on above: Mail order. for one touch blue ultra Accu-Chek FastCl ix Lancets Miscellaneous 1 (one) Misc daily for 90 days Quantity: 3 {Box} Refills: 3 Ordered: 23-Oct-2018 Beverley Pabon Start : 23-Oct-2018 Active Start: 10-23-[address] In Vitro Strip 1 (one) Each twice daily for 90 days Quantity: 180 {Each} Refills: 3 Ordered: 10-Jun-2019 Khanh Sarkar LPN Start : 10-Jun-2019 Active Comments: Mail order. Send what Med mutual covers Start: 06-10-2019 Comment on above: Mail order. Send wha t Med mutual covers LANCET DEVICE (Miscellaneous) 1 (one) Misc qod for 30 days Quantity: 100 {Each} Refills: 4 Ordered: 11-May-2015 Anastasiia Khoury DO Start : 11-May-2015 Active Start: 05-11-2015 Accu-Chek Guide In Vitro Strip 1 (one) Strip daily for 90 days Quantity: 90 {Strip} Refills: 0 Ordered: 23-Oct-2018 Yoon Ruiz Start : 23-Oct-2018 End : 21-Jan-2019 Inactive Start: 10-23-2018 End: 01-21-2019 DIABETIC TESTING SUPPLIES ( Strip) (Free Text) 1 (one) Strip bid for 0 days Quantity: 100 {Strip} Refills: 4 Ordered: 09-Sep-2018 Yoon Ruiz Start : 19-Aug-2018 End : 09-Sep-2018 Inactive Comments: test strips for the one touch ultra 2 Start: 08-19-2018 End: 09-09-2018 Comment on above: test strips for the one touch ultra 2 DIABETIC TESTING SUPPLIES ( Strip) (Free Text) 1 (one) Strip bid for 0 days Quantity: 100 {Strip} Refills: 4 Ordered: 09-Sep-2018 Yoon Ruiz Start : 19-Aug-2018 End : 09-Sep-2018 Inactive Comments: Mail order. for one touch blue ultra Start: 08-19-2018 End: 09-09-2018 Comment on above: Mail order. for one touch blue ultra Accu-Chek FastCl ix Lancets Miscellaneous 1 (one) Misc daily for 90 days Quantity: 3 {Box} Refills: 3 Ordered: 23-Oct-2018 Beverley Pabon Start : 23-Oct-2018 Active Start: 10-23-[address] In Vitro Strip 1 (one) Each twice daily for 90 days Quantity: 180 {Each} Refills: 3 Ordered: 10-Jun-2019 Khanh Sarkar LPN Start : 10-Jun-2019 Active Comments: Mail order. Send what Med mutual covers Start: 06-10-2019 Comment on above: Mail order. Send wha t Med mutual covers LANCET DEVICE (Miscellaneous) 1 (one) Misc qod for 30 days Quantity: 100 {Each} Refills: 4 Ordered: 11-May-2015 Rod HENAO Anastasiia Start : 11-May-2015 Active Start: 05-11-2015 Accu-Chek Guide In Vitro Strip 1 (one) Strip daily for 90 days Quantity: 90 {Strip} Refills: 0 Ordered: 23-Oct-2018 Yoon Ruiz Start : 23-Oct-2018 End : 21-Jan-2019 Inactive Start: 10-23-2018 End: 01-21-2019 DIABETIC TESTING SUPPLIES ( Strip) (Free Text) 1 (one) Strip bid for 0 days Quantity: 100 {Strip} Refills: 4 Ordered: 09-Sep-2018 Yoon Ruiz Start : 19-Aug-2018 End : 09-Sep-2018 Inactive Comments: test strips for the one touch ultra 2 Start: 08-19-2018 End: 09-09-2018 Comment on above: test strips for the one touch ultra 2 DIABETIC TESTING SUPPLIES ( Strip) (Free Text) 1 (one) Strip bid for 0 days Quantity: 100 {Strip} Refills: 4 Ordered: 09-Sep-2018 Yoon Ruiz Start : 19-Aug-2018 End : 09-Sep-2018 Inactive Comments: Mail order. for one touch blue ultra Start: 08-19-2018 End: 09-09-2018 Comment on above: Mail order. for one touch blue ultra Accu-Chek FastCl ix Lancets Miscellaneous 1 (one) Misc daily for 90 days Quantity: 3 {Box} Refills: 3 Ordered: 23-Oct-2018 Beverley Pabon Start : 23-Oct-2018 Active Start: 10-23-[address] In Vitro Strip 1 (one) Each twice daily for 90 days Quantity: 180 {Each} Refills: 3 Ordered: 10-Jun-2019 Khanh Lopez LPN Start : 10-Jun-2019 Active Comments: Mail order. Send what Med mutual covers Start: 06-10-2019 Comment on above: Mail order. Send wha t Med mutual covers LANCET DEVICE (Miscellaneous) 1 (one) Misc qod for 30 days Quantity: 100 {Each} Refills: 4 Ordered: 11-May-2015 Anastasiia Khoury DO Start : 11-May-2015 Active Start: 05-11-2015 Accu-Chek Guide In Vitro Strip 1 (one) Strip daily for 90 days Quantity: 90 {Strip} Refills: 0 Ordered: 23-Oct-2018 Yoon Ruiz Start : 23-Oct-2018 End : 21-Jan-2019 Inactive Start: 10-23-2018 End: 01-21-2019 DIABETIC TESTING SUPPLIES ( Strip) (Free Text) 1 (one) Strip bid for 0 days Quantity: 100 {Strip} Refills: 4 Ordered: 09-Sep-2018 Yoon Ruiz Start : 19-Aug-2018 End : 09-Sep-2018 Inactive Comments: test strips for the one touch ultra 2 Start: 08-19-2018 End: 09-09-2018 Comment on above: test strips for the one touch ultra 2 DIABETIC TESTING SUPPLIES ( Strip) (Free Text) 1 (one) Strip bid for 0 days Quantity: 100 {Strip} Refills: 4 Ordered: 09-Sep-2018 Yoon Ruiz Start : 19-Aug-2018 End : 09-Sep-2018 Inactive Comments: Mail order. for one touch blue ultra Start: 08-19-2018 End: 09-09-2018 Comment on above: Mail order. for one touch blue ultra Accu-Chek FastCl ix Lancets Miscellaneous 1 (one) Misc daily for 90 days Quantity: 3 {Box} Refills: 3 Ordered: 23-Oct-2018 Beverley Pabon Start : 23-Oct-2018 Active Start: 10-23-[address] In Vitro Strip 1 (one) Each twice daily for 90 days Quantity: 180 {Each} Refills: 3 Ordered: 10-Jun-2019 Khanh Lopez LPN Start : 10-Jun-2019 Active Comments: Mail order. Send what Med mutual covers Start: 06-10-2019 Comment on above: Mail order. Send wha t Med mutual covers LANCET DEVICE (Miscellaneous) 1 (one) Misc qod for 30 days Quantity: 100 {Each} Refills: 4 Ordered: 11-May-2015 Anastasiia Khoury DO Start : 11-May-2015 Active Start: 05-11-2015 Accu-Chek Guide In Vitro Strip 1 (one) Strip daily for 90 days Quantity: 90 {Strip} Refills: 0 Ordered: 23-Oct-2018 Yoon Ruiz Start : 23-Oct-2018 End : 21-Jan-2019 Inactive Start: 10-23-2018 End: 01-21-2019 DIABETIC TESTING SUPPLIES ( Strip) (Free Text) 1 (one) Strip bid for 0 days Quantity: 100 {Strip} Refills: 4 Ordered: 09-Sep-2018 Yoon Ruiz Start : 19-Aug-2018 End : 09-Sep-2018 Inactive Comments: test strips for the one touch ultra 2 Start: 08-19-2018 End: 09-09-2018 Comment on above: test strips for the one touch ultra 2 DIABETIC TESTING SUPPLIES ( Strip) (Free Text) 1 (one) Strip bid for 0 days Quantity: 100 {Strip} Refills: 4 Ordered: 09-Sep-2018 Yoon Ruiz Start : 19-Aug-2018 End : 09-Sep-2018 Inactive Comments: Mail order. for one touch blue ultra Start: 08-19-2018 End: 09-09-2018 Comment on above: Mail order. for one touch blue ultra Accu-Chek FastCl ix Lancets Miscellaneous 1 (one) Misc daily for 90 days Quantity: 3 {Box} Refills: 3 Ordered: 23-Oct-2018 Beverley Pabon Start : 23-Oct-2018 Active Start: 10-23-[address] In Vitro Strip 1 (one) Each twice daily for 90 days Quantity: 180 {Each} Refills: 3 Ordered: 10-Jun-2019 Khanh Lopez LPN Start : 10-Jun-2019 Active Comments: Mail order. Send what [facility] [employer] [facility] Start: 06-10-2019 Comment on above: Mail order. Send wha t Med [employer] [facility] LANCET DEVICE (Miscellaneous) 1 (one) Misc qod for 30 days Quantity: 100 {Each} Refills: 4 Ordered: 11-May-2015 Anastasiia Khoury DO Start : 11-May-2015 Active Start: 05-11-2015 Accu-Chek Guide In Vitro Strip 1 (one) Strip daily for 90 days Quantity: 90 {Strip} Refills: 0 Ordered: 23-Oct-2018 Yoon Ruiz Start : 23-Oct-2018 End : 21-Jan-2019 Inactive Start: 10-23-2018 End: 01-21-2019 DIABETIC TESTING SUPPLIES ( Strip) (Free Text) 1 (one) Strip bid for 0 days Quantity: 100 {Strip} Refills: 4 Ordered: 09-Sep-2018 Yoon Ruiz Start : 19-Aug-2018 End : 09-Sep-2018 Inactive Comments: Mail order. for one touch blue ultra Start: 08-19-2018 End: 09-09-2018 Comment on above: Mail order. for one touch blue ultra DIABETIC TESTING SUPPLIES ( Strip) (Free Text) 1 (one) Strip bid for 0 days Quantity: 100 {Strip} Refills: 4 Ordered: 09-Sep-2018 Yoon Ruiz Start : 19-Aug-2018 End : 09-Sep-2018 Inactive Comments: test strips for the one touch ultra 2 Start: 08-19-2018 End: 09-09-2018 Comment on above: test strips for the one touch ultra 2 Accu-Chek FastCl ix Lancets Miscellaneous 1 (one) Misc daily for 90 days Quantity: 3 {Box} Refills: 3 Ordered: 23-Oct-2018 Beverley Pabon Start : 23-Oct-2018 Active Start: 10-23-[address] In Vitro Strip 1 (one) Each twice daily for 90 days Quantity: 180 {Each} Refills: 3 Ordered: 10-Jun-2019 Khanh Lopez LPN Start : 10-Jun-2019 Active Comments: Mail order. Send what Med [employer] [facility] Start: 06-10-2019 Comment on above: Mail order. Send wha t Med [employer] [facility] LANCET DEVICE (Miscellaneous) 1 (one) Misc qod for 30 days Quantity: 100 {Each} Refills: 4 Ordered: 11-May-2015 Anastasiia Khoury DO Start : 11-May-2015 Active Start: 05-11-2015 Accu-Chek Guide In Vitro Strip 1 (one) Strip daily for 90 days Quantity: 90 {Strip} Refills: 0 Ordered: 23-Oct-2018 Yoon Ruiz Start : 23-Oct-2018 End : 21-Jan-2019 Inactive Start: 10-23-2018 End: 01-21-2019 DIABETIC TESTING SUPPLIES ( Strip) (Free Text) 1 (one) Strip bid for 0 days Quantity: 100 {Strip} Refills: 4 Ordered: 09-Sep-2018 Yoon Ruiz Start : 19-Aug-2018 End : 09-Sep-2018 Inactive Comments: test strips for the one touch ultra 2 Start: 08-19-2018 End: 09-09-2018 Comment on above: test strips for the one touch ultra 2 DIABETIC TESTING SUPPLIES ( Strip) (Free Text) 1 (one) Strip bid for 0 days Quantity: 100 {Strip} Refills: 4 Ordered: 09-Sep-2018 Yoon Ruiz Start : 19-Aug-2018 End : 09-Sep-2018 Inactive Comments: Mail order. for one touch blue ultra Start: 08-19-2018 End: 09-09-2018 Comment on above: Mail order. for one touch blue ultra Accu-Chek FastCl ix Lancets Miscellaneous 1 (one) Misc daily for 90 days Quantity: 3 {Box} Refills: 3 Ordered: 23-Oct-2018 Beverley Pabon Start : 23-Oct-2018 Active Start: 10-23-[address] In Vitro Strip 1 (one) Each twice daily for 90 days Quantity: 180 {Each} Refills: 3 Ordered: 10-Jun-2019 Khanh Lopez LPN Start : 10-Jun-2019 Active Comments: Mail order. Send what Med [employer] [facility] Start: 06-10-2019 Comment on above: Mail order. Send wha t Med [employer] [facility] LANCET DEVICE (Miscellaneous) 1 (one) Misc qod for 30 days Quantity: 100 {Each} Refills: 4 Ordered: 11-May-2015 Anastasiia Khoury DO Start : 11-May-2015 Active Start: 05-11-2015 Accu-Chek Guide In Vitro Strip 1 (one) Strip daily for 90 days Quantity: 90 {Strip} Refills: 0 Ordered: 23-Oct-2018 Yoon Ruiz Start : 23-Oct-2018 End : 21-Jan-2019 Inactive Start: 10-23-2018 End: 01-21-2019 DIABETIC TESTING SUPPLIES ( Strip) (Free Text) 1 (one) Strip bid for 0 days Quantity: 100 {Strip} Refills: 4 Ordered: 09-Sep-2018 Yoon Ruiz Start : 19-Aug-2018 End : 09-Sep-2018 Inactive Comments: test strips for the one touch ultra 2 Start: 08-19-2018 End: 09-09-2018 Comment on above: test strips for the one touch ultra 2 DIABETIC TESTING SUPPLIES ( Strip) (Free Text) 1 (one) Strip bid for 0 days Quantity: 100 {Strip} Refills: 4 Ordered: 09-Sep-2018 Yoon Ruiz Start : 19-Aug-2018 End : 09-Sep-2018 Inactive Comments: Mail order. for one touch blue ultra Start: 08-19-2018 End: 09-09-2018 Comment on above: Mail order. for one touch blue ultra Accu-Chek FastCl ix Lancets Miscellaneous 1 (one) Misc daily for 90 days Quantity: 3 {Box} Refills: 3 Ordered: 23-Oct-2018 Beverley Pabon Start : 23-Oct-2018 Active Start: 10-23-[address] In Vitro Strip 1 (one) Each twice daily for 90 days Quantity: 180 {Each} Refills: 3 Ordered: 10-Jun-2019 Khanh Lopez LPN Start : 10-Jun-2019 Active Comments: Mail order. Send what Med [employer] [facility] Start: 06-10-2019 Comment on above: Mail order. Send wha t Med [employer] [facility] LANCET DEVICE (Miscellaneous) 1 (one) Misc qod for 30 days Quantity: 100 {Each} Refills: 4 Ordered: 11-May-2015 Anastasiia Khoury DO Start : 11-May-2015 Active Start: 05-11-2015 Accu-Chek Guide In Vitro Strip 1 (one) Strip daily for 90 days Quantity: 90 {Strip} Refills: 0 Ordered: 23-Oct-2018 Yoon Ruiz Start : 23-Oct-2018 End : 21-Jan-2019 Inactive Start: 10-23-2018 End: 01-21-2019 DIABETIC TESTING SUPPLIES ( Strip) (Free Text) 1 (one) Strip bid for 0 days Quantity: 100 {Strip} Refills: 4 Ordered: 09-Sep-2018 Yoon Ruiz Start : 19-Aug-2018 End : 09-Sep-2018 Inactive Comments: test strips for the one touch ultra 2 Start: 08-19-2018 End: 09-09-2018 Comment on above: test strips for the one touch ultra 2 DIABETIC TESTING SUPPLIES ( Strip) (Free Text) 1 (one) Strip bid for 0 days Quantity: 100 {Strip} Refills: 4 Ordered: 09-Sep-2018 Yoon Ruiz Start : 19-Aug-2018 End : 09-Sep-2018 Inactive Comments: Mail order. for one touch blue ultra Start: 08-19-2018 End: 09-09-2018 Comment on above: Mail order. for one touch blue ultra Accu-Chek FastCl ix Lancets Miscellaneous 1 (one) Misc daily for 90 days Quantity: 3 {Box} Refills: 3 Ordered: 23-Oct-2018 Cm RoseliaBeverley Start : 23-Oct-2018 Active Start: 10-23-[address] In Vitro Strip 1 (one) Each twice daily for 90 days Quantity: 180 {Each} Refills: 3 Ordered: 10-Jun-2019 Khanh Lopez LPN Start : 10-Jun-2019 Active Comments: Mail order. Send what Med [employer] [facility] Start: 06-10-2019 Comment on above: Mail order. Send wha t Med mutual [facility] LANCET DEVICE (Miscellaneous) 1 (one) Misc qod for 30 days Quantity: 100 {Each} Refills: 4 Ordered: 11-May-2015 Anastasiia Khoury DO Start : 11-May-2015 Active Start: 05-11-2015 Accu-Chek Guide In Vitro Strip 1 (one) Strip daily for 90 days Quantity: 90 {Strip} Refills: 0 Ordered: 23-Oct-2018 Yoon Ruiz Start : 23-Oct-2018 End : 21-Jan-2019 Inactive Start: 10-23-2018 End: 01-21-2019 DIABETIC TESTING SUPPLIES ( Strip) (Free Text) 1 (one) Strip bid for 0 days Quantity: 100 {Strip} Refills: 4 Ordered: 09-Sep-2018 Yoon Ruiz Start : 19-Aug-2018 End : 09-Sep-2018 Inactive Comments: test strips for the one touch ultra 2 Start: 08-19-2018 End: 09-09-2018 Comment on above: test strips for the one touch ultra 2 DIABETIC TESTING SUPPLIES ( Strip) (Free Text) 1 (one) Strip bid for 0 days Quantity: 100 {Strip} Refills: 4 Ordered: 09-Sep-2018 Yoon Ruiz Start : 19-Aug-2018 End : 09-Sep-2018 Inactive Comments: Mail order. for one touch blue ultra Start: 08-19-2018 End: 09-09-2018 Comment on above: Mail order. for one touch blue ultra Accu-Chek FastCl ix Lancets Miscellaneous 1 (one) Misc daily for 90 days Quantity: 3 {Box} Refills: 3 Ordered: 23-Oct-2018 Beverley Pabon Start : 23-Oct-2018 Active Start: 10-23-[address] In Vitro Strip 1 (one) Each twice daily for 90 days Quantity: 180 {Each} Refills: 3 Ordered: 10-Jun-2019 Ciannabela JIG BORE TOOL MAKER, Vidya Ciannabela JIG BORE TOOL MAKER, Bela Acosta Start : 10-Jun-2019 Active Comments: Mail order. Send what Med [employer] [facility] Start: 06-10-2019 Comment on above: Mail order. Send wha t Med [employer] LANCET DEVICE (Miscellaneous) 1 (one) Misc qod for 30 days Quantity: 100 {Each} Refills: 4 Ordered: 11-May-2015 Rod Anastasiia Start : 11-May-2015 Active Start: 05-11-2015 Accu-Chek Guide In Vitro Strip 1 (one) Strip daily for 90 days Quantity: 90 {Strip} Refills: 0 Ordered: 23-Oct-2018 Yoon Ruiz Start : 23-Oct-2018 End : 21-Jan-2019 Inactive Start: 10-23-2018 End: 01-21-2019 DIABETIC TESTING SUPPLIES ( Strip) (Free Text) 1 (one) Strip bid for 0 days Quantity: 100 {Strip} Refills: 4 Ordered: 09-Sep-2018 Yoon Ruiz Start : 19-Aug-2018 End : 09-Sep-2018 Inactive Comments: test strips for the one touch ultra 2 Start: 08-19-2018 End: 09-09-2018 Comment on above: test strips for the one touch ultra 2 DIABETIC TESTING SUPPLIES ( Strip) (Free Text) 1 (one) Strip bid for 0 days Quantity: 100 {Strip} Refills: 4 Ordered: 09-Sep-2018 Yoon Ruiz Start : 19-Aug-2018 End : 09-Sep-2018 Inactive Comments: Mail order. for one touch blue ultra Start: 08-19-2018 End: 09-09-2018 Comment on above: Mail order. for one touch blue ultra Accu-Chek FastCl ix Lancets Miscellaneous 1 (one) Misc daily for 90 days Quantity: 3 {Box} Refills: 3 Ordered: 23-Oct-2018 Beverley Pabon Start : 23-Oct-2018 Active Start: 10-23-[address] In Vitro Strip 1 (one) Each twice daily for 90 days Quantity: 180 {Each} Refills: 3 Ordered: 10-Jun-2019 Ciannabela J[employer] TOOL MAKER, Vidya Ciannabela JIG BORE TOOL MAKER, Bela Acosta Start : 10-Jun-2019 Active Comments: Mail order. Send what Med [employer] covers Start: 06-10-2019 Comment on above: Mail order. Send wha t Med [employer] [facility] LANCET DEVICE (Miscellaneous) 1 (one) Misc qod for 30 days Quantity: 100 {Each} Refills: 4 Ordered: 11-May-2015 Anastasiia Khoury DO Start : 11-May-2015 Active Start: 05-11-2015 Accu-Chek Guide In Vitro Strip 1 (one) Strip daily for 90 days Quantity: 90 {Strip} Refills: 0 Ordered: 23-Oct-2018 Yoon Ruiz Start : 23-Oct-2018 End : 21-Jan-2019 Inactive Start: 10-23-2018 End: 01-21-2019 DIABETIC TESTING SUPPLIES ( Strip) (Free Text) 1 (one) Strip bid for 0 days Quantity: 100 {Strip} Refills: 4 Ordered: 09-Sep-2018 Yoon Ruiz Start : 19-Aug-2018 End : 09-Sep-2018 Inactive Comments: test strips for the one touch ultra 2 Start: 08-19-2018 End: 09-09-2018 Comment on above: test strips for the one touch ultra 2 DIABETIC TESTING SUPPLIES ( Strip) (Free Text) 1 (one) Strip bid for 0 days Quantity: 100 {Strip} Refills: 4 Ordered: 09-Sep-2018 Yoon Ruiz Start : 19-Aug-2018 End : 09-Sep-2018 Inactive Comments: Mail order. for one touch blue ultra Start: 08-19-2018 End: 09-09-2018 Comment on above: Mail order. for one touch blue ultra Accu-Chek FastCl ix Lancets Miscellaneous 1 (one) Misc daily for 90 days Quantity: 3 {Box} Refills: 3 Ordered: 23-Oct-2018 Beverley Pabon Start : 23-Oct-2018 Active Start: 10-23-[address] In Vitro Strip 1 (one) Each twice daily for 90 days Quantity: 180 {Each} Refills: 3 Ordered: 10-Jun-2019 Khanh Lopez LPN Start : 10-Jun-2019 Active Comments: Mail order. Send what Med mutual covers Start: 06-10-2019 Comment on above: Mail order. Send wha t Med [employer] [facility] LANCET DEVICE (Miscellaneous) 1 (one) Misc qod for 30 days Quantity: 100 {Each} Refills: 4 Ordered: 11-May-2015 Rod HENAO Anastasiia Start : 11-May-2015 Active Start: 05-11-2015 Accu-Chek Guide In Vitro Strip 1 (one) Strip daily for 90 days Quantity: 90 {Strip} Refills: 0 Ordered: 23-Oct-2018 Yoon Ruiz Start : 23-Oct-2018 End : 21-Jan-2019 Inactive Start: 10-23-2018 End: 01-21-2019 DIABETIC TESTING SUPPLIES ( Strip) (Free Text) 1 (one) Strip bid for 0 days Quantity: 100 {Strip} Refills: 4 Ordered: 09-Sep-2018 Yoon Ruiz Start : 19-Aug-2018 End : 09-Sep-2018 Inactive Comments: test strips for the one touch ultra 2 Start: 08-19-2018 End: 09-09-2018 Comment on above: test strips for the one touch ultra 2 DIABETIC TESTING SUPPLIES ( Strip) (Free Text) 1 (one) Strip bid for 0 days Quantity: 100 {Strip} Refills: 4 Ordered: 09-Sep-2018 Yoon Ruiz Start : 19-Aug-2018 End : 09-Sep-2018 Inactive Comments: Mail order. for one touch blue ultra Start: 08-19-2018 End: 09-09-2018 Comment on above: Mail order. for one touch blue ultra Accu-Chek FastCl ix Lancets Miscellaneous 1 (one) Misc daily for 90 days Quantity: 3 {Box} Refills: 3 Ordered: 23-Oct-2018 Beverley Pabon Start : 23-Oct-2018 Active Start: 10-23-[address] In Vitro Strip 1 (one) Each twice daily for 90 days Quantity: 180 {Each} Refills: 3 Ordered: 10-Jun-2019 Khanh Lopez LPN Start : 10-Jun-2019 Active Comments: Mail order. Send what Med [employer] covers Start: 06-10-2019 Comment on above: Mail order. Send wha t Med mutual covers LANCET DEVICE (Miscellaneous) 1 (one) Misc qod for 30 days Quantity: 100 {Each} Refills: 4 Ordered: 11-May-2015 Anastasiia Khoury DO Start : 11-May-2015 Active Start: 05-11-2015 Accu-Chek Guide In Vitro Strip 1 (one) Strip daily for 90 days Quantity: 90 {Strip} Refills: 0 Ordered: 23-Oct-2018 Yoon Ruiz Start : 23-Oct-2018 End : 21-Jan-2019 Inactive Start: 10-23-2018 End: 01-21-2019 DIABETIC TESTING SUPPLIES ( Strip) (Free Text) 1 (one) Strip bid for 0 days Quantity: 100 {Strip} Refills: 4 Ordered: 09-Sep-2018 Yoon Ruiz Start : 19-Aug-2018 End : 09-Sep-2018 Inactive Comments: test strips for the one touch ultra 2 Start: 08-19-2018 End: 09-09-2018 Comment on above: test strips for the one touch ultra 2 DIABETIC TESTING SUPPLIES ( Strip) (Free Text) 1 (one) Strip bid for 0 days Quantity: 100 {Strip} Refills: 4 Ordered: 09-Sep-2018 Yoon Ruiz Start : 19-Aug-2018 End : 09-Sep-2018 Inactive Comments: Mail order. for one touch blue ultra Start: 08-19-2018 End: 09-09-2018 Comment on above: Mail order. for one touch blue ultra Accu-Chek FastCl ix Lancets Miscellaneous 1 (one) Misc daily for 90 days Quantity: 3 {Box} Refills: 3 Ordered: 23-Oct-2018 Beverley Pabon Start : 23-Oct-2018 Active Start: 10-23-[address] In Vitro Strip 1 (one) Each twice daily for 90 days Quantity: 180 {Each} Refills: 3 Ordered: 10-Jun-2019 Khanh Lopez LPN Start : 10-Jun-2019 Active Comments: Mail order. Send what Med [employer] covers Start: 06-10-2019 Comment on above: Mail order. Send wha t Med mutual covers LANCET DEVICE (Miscellaneous) 1 (one) Misc qod for 30 days Quantity: 100 {Each} Refills: 4 Ordered: 11-May-2015 Anastasiia Khoury DO Start : 11-May-2015 Active Start: 05-11-2015 Accu-Chek Guide In Vitro Strip 1 (one) Strip daily for 90 days Quantity: 90 {Strip} Refills: 0 Ordered: 23-Oct-2018 Yoon Ruiz Start : 23-Oct-2018 End : 21-Jan-2019 Inactive Start: 10-23-2018 End: 01-21-2019 DIABETIC TESTING SUPPLIES ( Strip) (Free Text) 1 (one) Strip bid for 0 days Quantity: 100 {Strip} Refills: 4 Ordered: 09-Sep-2018 Yoon Ruiz Start : 19-Aug-2018 End : 09-Sep-2018 Inactive Comments: Mail order. for one touch blue ultra Start: 08-19-2018 End: 09-09-2018 Comment on above: Mail order. for one touch blue ultra DIABETIC TESTING SUPPLIES ( Strip) (Free Text) 1 (one) Strip bid for 0 days Quantity: 100 {Strip} Refills: 4 Ordered: 09-Sep-2018 Yoon Ruiz Start : 19-Aug-2018 End : 09-Sep-2018 Inactive Comments: test strips for the one touch ultra 2 Start: 08-19-2018 End: 09-09-2018 Comment on above: test strips for the one touch ultra 2 Accu-Chek FastCl ix Lancets Miscellaneous 1 (one) Misc daily for 90 days Quantity: 3 {Box} Refills: 3 Ordered: 23-Oct-2018 Beverley Pabon Start : 23-Oct-2018 Active Start: 10-23-[address] In Vitro Strip 1 (one) Each twice daily for 90 days Quantity: 180 {Each} Refills: 3 Ordered: 10-Jun-2019 Khanh Lopez LPN Start : 10-Jun-2019 Active Comments: Mail order. Send what Med mutual covers Start: 06-10-2019 Comment on above: Mail order. Send wha t Med mutual covers LANCET DEVICE (Miscellaneous) 1 (one) Misc qod for 30 days Quantity: 100 {Each} Refills: 4 Ordered: 11-May-2015 Anastasiia Khoury DO Start : 11-May-2015 Active Start: 05-11-2015 Accu-Chek Guide In Vitro Strip 1 (one) Strip daily for 90 days Quantity: 90 {Strip} Refills: 0 Ordered: 23-Oct-2018 Yoon Ruiz Start : 23-Oct-2018 End : 21-Jan-2019 Inactive Start: 10-23-2018 End: 01-21-2019 DIABETIC TESTING SUPPLIES ( Strip) (Free Text) 1 (one) Strip bid for 0 days Quantity: 100 {Strip} Refills: 4 Ordered: 09-Sep-2018 Yoon Ruiz Start : 19-Aug-2018 End : 09-Sep-2018 Inactive Comments: Mail order. for one touch blue ultra Start: 08-19-2018 End: 09-09-2018 Comment on above: Mail order. for one touch blue ultra DIABETIC TESTING SUPPLIES ( Strip) (Free Text) 1 (one) Strip bid for 0 days Quantity: 100 {Strip} Refills: 4 Ordered: 09-Sep-2018 Yoon Ruiz Start : 19-Aug-2018 End : 09-Sep-2018 Inactive Comments: test strips for the one touch ultra 2 Start: 08-19-2018 End: 09-09-2018 Comment on above: test strips for the one touch ultra 2 Accu-Chek FastCl ix Lancets Miscellaneous 1 (one) Misc daily for 90 days Quantity: 3 {Box} Refills: 3 Ordered: 23-Oct-2018 Beverley Pabon Start : 23-Oct-2018 Active Start: 10-23-[address] In Vitro Strip 1 (one) Each twice daily for 90 days Quantity: 180 {Each} Refills: 3 Ordered: 10-Jun-2019 Khanh Lopez LPN Start : 10-Jun-2019 Active Comments: Mail order. Send what Med mutual covers Start: 06-10-2019 Comment on above: Mail order. Send wha t Med mutual covers LANCET DEVICE (Miscellaneous) 1 (one) Misc qod for 30 days Quantity: 100 {Each} Refills: 4 Ordered: 11-May-2015 Anastasiia Khoury DO Start : 11-May-2015 Active Start: 05-11-2015 Accu-Chek Guide In Vitro Strip 1 (one) Strip daily for 90 days Quantity: 90 {Strip} Refills: 0 Ordered: 23-Oct-2018 Yoon Ruiz Start : 23-Oct-2018 End : 21-Jan-2019 Inactive Start: 10-23-2018 End: 01-21-2019 DIABETIC TESTING SUPPLIES ( Strip) (Free Text) 1 (one) Strip bid for 0 days Quantity: 100 {Strip} Refills: 4 Ordered: 09-Sep-2018 Yoon Ruiz Start : 19-Aug-2018 End : 09-Sep-2018 Inactive Comments: Mail order. for one touch blue ultra Start: 08-19-2018 End: 09-09-2018 Comment on above: Mail order. for one touch blue ultra DIABETIC TESTING SUPPLIES ( Strip) (Free Text) 1 (one) Strip bid for 0 days Quantity: 100 {Strip} Refills: 4 Ordered: 09-Sep-2018 Yoon Ruiz Start : 19-Aug-2018 End : 09-Sep-2018 Inactive Comments: test strips for the one touch ultra 2 Start: 08-19-2018 End: 09-09-2018 Comment on above: test strips for the one touch ultra 2 Accu-Chek FastCl ix Lancets Miscellaneous 1 (one) Misc daily for 90 days Quantity: 3 {Box} Refills: 3 Ordered: 23-Oct-2018 Cm Beverley Start : 23-Oct-2018 Active Start: 10-23-[address] In Vitro Strip 1 (one) Each twice daily for 90 days Quantity: 180 {Each} Refills: 3 Ordered: 10-Jun-2019 Khanh Lopez LPN Start : 10-Jun-2019 Active Comments: Mail order. Send what Med mutual covers Start: 06-10-2019 Comment on above: Mail order. Send wha t Med mutual covers LANCET DEVICE (Miscellaneous) 1 (one) Misc qod for 30 days Quantity: 100 {Each} Refills: 4 Ordered: 11-May-2015 Anastasiia Khoury DO Start : 11-May-2015 Active Start: 05-11-2015 Accu-Chek Guide In Vitro Strip 1 (one) Strip daily for 90 days Quantity: 90 {Strip} Refills: 0 Ordered: 23-Oct-2018 Yoon Ruiz Start : 23-Oct-2018 End : 21-Jan-2019 Inactive Start: 10-23-2018 End: 01-21-2019 DIABETIC TESTING SUPPLIES ( Strip) (Free Text) 1 (one) Strip bid for 0 days Quantity: 100 {Strip} Refills: 4 Ordered: 09-Sep-2018 Yoon Ruiz Start : 19-Aug-2018 End : 09-Sep-2018 Inactive Comments: Mail order. for one touch blue ultra Start: 08-19-2018 End: 09-09-2018 Comment on above: Mail order. for one touch blue ultra DIABETIC TESTING SUPPLIES ( Strip) (Free Text) 1 (one) Strip bid for 0 days Quantity: 100 {Strip} Refills: 4 Ordered: 09-Sep-2018 Yoon Ruiz Start : 19-Aug-2018 End : 09-Sep-2018 Inactive Comments: test strips for the one touch ultra 2 Start: 08-19-2018 End: 09-09-2018 Comment on above: test strips for the one touch ultra 2 Accu-Chek FastCl ix Lancets Miscellaneous 1 (one) Misc daily for 90 days Quantity: 3 {Box} Refills: 3 Ordered: 23-Oct-2018 Beverley Pabon Start : 23-Oct-2018 Active Start: 10-23-[address] In Vitro Strip 1 (one) Each twice daily for 90 days Quantity: 180 {Each} Refills: 3 Ordered: 10-Jun-2019 Khanh Lopez LPN Start : 10-Jun-2019 Active Comments: Mail order. Send what Med mutual covers Start: 06-10-2019 Comment on above: Mail order. Send wha t Med mutual covers LANCET DEVICE (Miscellaneous) 1 (one) Misc qod for 30 days Quantity: 100 {Each} Refills: 4 Ordered: 11-May-2015 Anastasiia Khoury DO Start : 11-May-2015 Active Start: 05-11-2015 Accu-Chek Guide In Vitro Strip 1 (one) Strip daily for 90 days Quantity: 90 {Strip} Refills: 0 Ordered: 23-Oct-2018 Yoon Ruiz Start : 23-Oct-2018 End : 21-Jan-2019 Inactive Start: 10-23-2018 End: 01-21-2019 DIABETIC TESTING SUPPLIES ( Strip) (Free Text) 1 (one) Strip bid for 0 days Quantity: 100 {Strip} Refills: 4 Ordered: 09-Sep-2018 Yoon Ruiz Start : 19-Aug-2018 End : 09-Sep-2018 Inactive Comments: Mail order. for one touch blue ultra Start: 08-19-2018 End: 09-09-2018 Comment on above: Mail order. for one touch blue ultra DIABETIC TESTING SUPPLIES ( Strip) (Free Text) 1 (one) Strip bid for 0 days Quantity: 100 {Strip} Refills: 4 Ordered: 09-Sep-2018 Yoon Ruiz Start : 19-Aug-2018 End : 09-Sep-2018 Inactive Comments: test strips for the one touch ultra 2 Start: 08-19-2018 End: 09-09-2018 Comment on above: test strips for the one touch ultra 2 Accu-Chek FastCl ix Lancets Miscellaneous 1 (one) Misc daily for 90 days Quantity: 3 {Box} Refills: 3 Ordered: 23-Oct-2018 Beverley Pabon Start : 23-Oct-2018 Active Start: 10-23-2018 LANCET DEVICE (Miscellaneous) 1 (one) Misc qod for 30 days Quantity: 100 {Each} Refills: 4 Ordered: 11-May-2015 Rod Anastasiia Start : 11-May-2015 Active Start: 05-11-2015 Accu-Chek Guide In Vitro Strip 1 (one) Strip daily for 90 days Quantity: 90 {Strip} Refills: 0 Ordered: 23-Oct-2018 Yoon Ruiz Start : 23-Oct-2018 End : 21-Jan-2019 Inactive Start: 10-23-2018 End: 01-21-2019 DIABETIC TESTING SUPPLIES ( Strip) (Free Text) 1 (one) Strip bid for 0 days Quantity: 100 {Strip} Refills: 4 Ordered: 09-Sep-2018 Yoon Ruiz Start : 19-Aug-2018 End : 09-Sep-2018 Inactive Comments: Mail order. for one touch blue ultra Start: 08-19-2018 End: 09-09-2018 Comment on above: Mail order. for one touch blue ultra DIABETIC TESTING SUPPLIES ( Strip) (Free Text) 1 (one) Strip bid for 0 days Quantity: 100 {Strip} Refills: 4 Ordered: 09-Sep-2018 Yoon Ruiz Start : 19-Aug-2018 End : 09-Sep-2018 Inactive Comments: test strips for the one touch ultra 2 Start: 08-19-2018 End: 09-09-2018 Comment on above: test strips for the one touch ultra 2 Accu-Chek FastCl ix Lancets Miscellaneous 1 (one) Misc daily for 90 days Quantity: 3 {Box} Refills: 3 Ordered: 23-Oct-2018 Beverley Pabon Start : 23-Oct-2018 Active Start: 10-23-[address] In Vitro Strip 1 (one) Each twice daily for 90 days Quantity: 180 {Each} Refills: 3 Ordered: 10-Jun-2019 Libbya JIG B[employer] TOOL MAKER, Vidya Ciannabela J[employer] BORE TOOL MAKER, Vidya Start : 10-Jun-2019 Active Comments: Mail order. Send what Med mutual covers Start: 06-10-2019 Comment on above: Mail order. Send wha t Med mutual covers LANCET DEVICE (Miscellaneous) 1 (one) Misc qod for 30 days Quantity: 100 {Each} Refills: 4 Ordered: 11-May-2015 Anastasiia Khoury DO Start : 11-May-2015 Active Start: 05-11-2015 Accu-Chek Guide In Vitro Strip 1 (one) Strip daily for 90 days Quantity: 90 {Strip} Refills: 0 Ordered: 23-Oct-2018 Yoon Ruiz Start : 23-Oct-2018 End : 21-Jan-2019 Inactive Start: 10-23-2018 End: 01-21-2019 DIABETIC TESTING SUPPLIES ( Strip) (Free Text) 1 (one) Strip bid for 0 days Quantity: 100 {Strip} Refills: 4 Ordered: 09-Sep-2018 Yoon Ruiz Start : 19-Aug-2018 End : 09-Sep-2018 Inactive Comments: test strips for the one touch ultra 2 Start: 08-19-2018 End: 09-09-2018 Comment on above: test strips for the one touch ultra 2 DIABETIC TESTING SUPPLIES ( Strip) (Free Text) 1 (one) Strip bid for 0 days Quantity: 100 {Strip} Refills: 4 Ordered: 09-Sep-2018 Yoon Ruiz Start : 19-Aug-2018 End : 09-Sep-2018 Inactive Comments: Mail order. for one touch blue ultra Start: 08-19-2018 End: 09-09-2018 Comment on above: Mail order. for one touch blue ultra Accu-Chek FastCl ix Lancets Miscellaneous 1 (one) Misc daily for 90 days Quantity: 3 {Box} Refills: 3 Ordered: 23-Oct-2018 Beverley Pabon Start : 23-Oct-2018 Active Start: 10-23-[address] In Vitro Strip 1 (one) Each twice daily for 90 days Quantity: 180 {Each} Refills: 3 Ordered: 10-Jun-2019 Khanh Sarkar LPN Start : 10-Jun-2019 Active Comments: Mail order. Send what Med [employer] covers Start: 06-10-2019 Comment on above: Mail order. Send wha t Med [employer] covers LANCET DEVICE (Miscellaneous) 1 (one) Misc qod for 30 days Quantity: 100 {Each} Refills: 4 Ordered: 11-May-2015 Anastasiia Khoury DO Start : 11-May-2015 Active Start: 05-11-2015 Accu-Chek Guide In Vitro Strip 1 (one) Strip daily for 90 days Quantity: 90 {Strip} Refills: 0 Ordered: 23-Oct-2018 Yoon Ruiz Start : 23-Oct-2018 End : 21-Jan-2019 Inactive Start: 10-23-2018 End: 01-21-2019 DIABETIC TESTING SUPPLIES ( Strip) (Free Text) 1 (one) Strip bid for 0 days Quantity: 100 {Strip} Refills: 4 Ordered: 09-Sep-2018 Yoon Ruiz Start : 19-Aug-2018 End : 09-Sep-2018 Inactive Comments: test strips for the one touch ultra 2 Start: 08-19-2018 End: 09-09-2018 Comment on above: test strips for the one touch ultra 2 DIABETIC TESTING SUPPLIES ( Strip) (Free Text) 1 (one) Strip bid for 0 days Quantity: 100 {Strip} Refills: 4 Ordered: 09-Sep-2018 Yoon Ruiz Start : 19-Aug-2018 End : 09-Sep-2018 Inactive Comments: Mail order. for one touch blue ultra Start: 08-19-2018 End: 09-09-2018 Comment on above: Mail order. for one touch blue ultra Accu-Chek FastCl ix Lancets Miscellaneous 1 (one) Misc daily for 90 days Quantity: 3 {Box} Refills: 3 Ordered: 23-Oct-2018 Yoon Ruiz Start : 23-Oct-2018 Active Start: 10-23-2018 Accu-Chek Guide In Vitro Strip 1 (one) Strip daily for 90 days Quantity: 90 {Strip} Refills: 0 Ordered: 23-Oct-2018 Yoon Ruiz Start : 23-Oct-2018 Active Start: 10-23-2018 LANCET DEVICE (Miscellaneous) 1 (one) Misc qod for 30 days Quantity: 100 {Each} Refills: 4 Ordered: 11-May-2015 Anastasiia Khoury DO Start : 11-May-2015 Active Start: 05-11-2015 DIABETIC TESTING SUPPLIES ( Strip) (Free Text) 1 (one) Strip bid for 0 days Quantity: 100 {Strip} Refills: 4 Ordered: 09-Sep-2018 Yoon Ruiz Start : 19-Aug-2018 End : 09-Sep-2018 Inactive Comments: test strips for the one touch ultra 2 Start: 08-19-2018 End: 09-09-2018 Comment on above: test strips for the one touch ultra 2 DIABETIC TESTING SUPPLIES ( Strip) (Free Text) 1 (one) Strip bid for 0 days Quantity: 100 {Strip} Refills: 4 Ordered: 09-Sep-2018 Yoon Ruiz Start : 19-Aug-2018 End : 09-Sep-2018 Inactive Comments: for one touch blue ultra Start: 08-19-2018 End: 09-09-2018 Comment on above: for one touch blue u ltra Accu-Chek FastCl ix Lancets Miscellaneous 1 (one) Misc daily for 90 days Quantity: 3 {Box} Refills: 3 Ordered: 23-Oct-2018 Beverley Pabon Start : 23-Oct-2018 Active Start: 10-23-[address] In Vitro Strip 1 (one) Each twice daily for 90 days Quantity: 180 {Each} Refills: 3 Ordered: 10-Jun-2019 Khanh Sarkar LPN Start : 10-Jun-2019 Active Comments: Mail order. Send what Med mutual covers Start: 06-10-2019 Comment on above: Mail order. Send wha t Med mutual covers LANCET DEVICE (Miscellaneous) 1 (one) Misc qod for 30 days Quantity: 100 {Each} Refills: 4 Ordered: 11-May-2015 Anastasiia Khoury DO Start : 11-May-2015 Active Start: 05-11-2015 Accu-Chek Guide In Vitro Strip 1 (one) Strip daily for 90 days Quantity: 90 {Strip} Refills: 0 Ordered: 23-Oct-2018 Yoon Ruiz Start : 23-Oct-2018 End : 21-Jan-2019 Inactive Start: 10-23-2018 End: 01-21-2019 DIABETIC TESTING SUPPLIES ( Strip) (Free Text) 1 (one) Strip bid for 0 days Quantity: 100 {Strip} Refills: 4 Ordered: 09-Sep-2018 Yoon Ruiz Start : 19-Aug-2018 End : 09-Sep-2018 Inactive Comments: test strips for the one touch ultra 2 Start: 08-19-2018 End: 09-09-2018 Comment on above: test strips for the one touch ultra 2 DIABETIC TESTING SUPPLIES ( Strip) (Free Text) 1 (one) Strip bid for 0 days Quantity: 100 {Strip} Refills: 4 Ordered: 09-Sep-2018 Yoon Ruiz Start : 19-Aug-2018 End : 09-Sep-2018 Inactive Comments: Mail order. for one touch blue ultra Start: 08-19-2018 End: 09-09-2018 Comment on above: Mail order. for one touch blue ultra Accu-Chek FastCl ix Lancets Miscellaneous 1 (one) Misc daily for 90 days Quantity: 3 {Box} Refills: 3 Ordered: 23-Oct-2018 Beverley Pabon Start : 23-Oct-2018 Active Start: 10-23-[address] In Vitro Strip 1 (one) Each twice daily for 90 days Quantity: 180 {Each} Refills: 3 Ordered: 10-Jun-2019 Kahnh Sarkar LPN Start : 10-Jun-2019 Active Comments: Mail order. Send what Med mutual covers Start: 06-10-2019 Comment on above: Mail order. Send wha t Med mutual covers LANCET DEVICE (Miscellaneous) 1 (one) Misc qod for 30 days Quantity: 100 {Each} Refills: 4 Ordered: 11-May-2015 Anastasiia Khoury DO Start : 11-May-2015 Active Start: 05-11-2015 Accu-Chek Guide In Vitro Strip 1 (one) Strip daily for 90 days Quantity: 90 {Strip} Refills: 0 Ordered: 23-Oct-2018 Yoon Ruiz Start : 23-Oct-2018 End : 21-Jan-2019 Inactive Start: 10-23-2018 End: 01-21-2019 DIABETIC TESTING SUPPLIES ( Strip) (Free Text) 1 (one) Strip bid for 0 days Quantity: 100 {Strip} Refills: 4 Ordered: 09-Sep-2018 Yoon Ruiz Start : 19-Aug-2018 End : 09-Sep-2018 Inactive Comments: test strips for the one touch ultra 2 Start: 08-19-2018 End: 09-09-2018 Comment on above: test strips for the one touch ultra 2 DIABETIC TESTING SUPPLIES ( Strip) (Free Text) 1 (one) Strip bid for 0 days Quantity: 100 {Strip} Refills: 4 Ordered: 09-Sep-2018 Yoon Ruiz Start : 19-Aug-2018 End : 09-Sep-2018 Inactive Comments: Mail order. for one touch blue ultra Start: 08-19-2018 End: 09-09-2018 Comment on above: Mail order. for one touch blue ultra Accu-Chek FastCl ix Lancets Miscellaneous 1 (one) Misc daily for 90 days Quantity: 3 {Box} Refills: 3 Ordered: 23-Oct-2018 Beverley Pabon Start : 23-Oct-2018 Active Start: 10-23-[address] In Vitro Strip 1 (one) Each twice daily for 90 days Quantity: 180 {Each} Refills: 3 Ordered: 10-Jun-2019 Libbya JIG BORE TOOL MAKER, Vidya Cioswald JIG BORE TOOL MAKER, Vidya Start : 10-Jun-2019 Active Comments: Mail order. Send what Med mutual covers Start: 06-10-2019 Comment on above: Mail order. Send wha t Med mutual covers LANCET DEVICE (Miscellaneous) 1 (one) Misc qod for 30 days Quantity: 100 {Each} Refills: 4 Ordered: 11-May-2015 Dillon Khoury DOeen Start : 11-May-2015 Active Start: 05-11-2015 Accu-Chek Guide In Vitro Strip 1 (one) Strip daily for 90 days Quantity: 90 {Strip} Refills: 0 Ordered: 23-Oct-2018 Yoon Ruiz Start : 23-Oct-2018 End : 21-Jan-2019 Inactive Start: 10-23-2018 End: 01-21-2019 DIABETIC TESTING SUPPLIES ( Strip) (Free Text) 1 (one) Strip bid for 0 days Quantity: 100 {Strip} Refills: 4 Ordered: 09-Sep-2018 Yoon Ruiz Start : 19-Aug-2018 End : 09-Sep-2018 Inactive Comments: test strips for the one touch ultra 2 Start: 08-19-2018 End: 09-09-2018 Comment on above: test strips for the one touch ultra 2 DIABETIC TESTING SUPPLIES ( Strip) (Free Text) 1 (one) Strip bid for 0 days Quantity: 100 {Strip} Refills: 4 Ordered: 09-Sep-2018 Yoon Ruiz Start : 19-Aug-2018 End : 09-Sep-2018 Inactive Comments: Mail order. for one touch blue ultra Start: 08-19-2018 End: 09-09-2018 Comment on above: Mail order. for one touch blue ultra Accu-Chek FastCl ix Lancets Miscellaneous 1 (one) Misc daily for 90 days Quantity: 3 {Box} Refills: 3 Ordered: 23-Oct-2018 Cm RoseliaBeverley Start : 23-Oct-2018 Active Start: 10-23-[address] In Vitro Strip 1 (one) Each twice daily for 90 days Quantity: 180 {Each} Refills: 3 Ordered: 10-Jun-2019 Khanh Sarkar LPN Start : 10-Jun-2019 Active Comments: Mail order. Send what Med mutual covers Start: 06-10-2019 Comment on above: Mail order. Send wha t Med mutual covers LANCET DEVICE (Miscellaneous) 1 (one) Misc qod for 30 days Quantity: 100 {Each} Refills: 4 Ordered: 11-May-2015 Anastasiia Khoury DO Start : 11-May-2015 Active Start: 05-11-2015 Accu-Chek Guide In Vitro Strip 1 (one) Strip daily for 90 days Quantity: 90 {Strip} Refills: 0 Ordered: 23-Oct-2018 Yoon Ruiz Start : 23-Oct-2018 End : 21-Jan-2019 Inactive Start: 10-23-2018 End: 01-21-2019 DIABETIC TESTING SUPPLIES ( Strip) (Free Text) 1 (one) Strip bid for 0 days Quantity: 100 {Strip} Refills: 4 Ordered: 09-Sep-2018 Yoon Ruiz Start : 19-Aug-2018 End : 09-Sep-2018 Inactive Comments: test strips for the one touch ultra 2 Start: 08-19-2018 End: 09-09-2018 Comment on above: test strips for the one touch ultra 2 DIABETIC TESTING SUPPLIES ( Strip) (Free Text) 1 (one) Strip bid for 0 days Quantity: 100 {Strip} Refills: 4 Ordered: 09-Sep-2018 Yoon Ruiz Start : 19-Aug-2018 End : 09-Sep-2018 Inactive Comments: Mail order. for one touch blue ultra Start: 08-19-2018 End: 09-09-2018 Comment on above: Mail order. for one touch blue ultra Accu-Chek FastCl ix Lancets Miscellaneous 1 (one) Misc daily for 90 days Quantity: 3 {Box} Refills: 3 Ordered: 23-Oct-2018 Roselia Pabonica Start : 23-Oct-2018 Active Start: 10-23-[address] In Vitro Strip 1 (one) Each twice daily for 90 days Quantity: 180 {Each} Refills: 3 Ordered: 10-Jun-2019 Rohit MEAD, Bela Bee JIG BORE TOOL MAKER, Bela Acosta Start : 10-Jun-2019 Active Comments: Mail order. Send what Med mutual covers Start: 06-10-2019 Comment on above: Mail order. Send wha t Med mutual covers LANCET DEVICE (Miscellaneous) 1 (one) Misc qod for 30 days Quantity: 100 {Each} Refills: 4 Ordered: 11-May-2015 Anastasiia Khoury DO Start : 11-May-2015 Active Start: 05-11-2015 Accu-Chek Guide In Vitro Strip 1 (one) Strip daily for 90 days Quantity: 90 {Strip} Refills: 0 Ordered: 23-Oct-2018 Yoon Ruiz Start : 23-Oct-2018 End : 21-Jan-2019 Inactive Start: 10-23-2018 End: 01-21-2019 DIABETIC TESTING SUPPLIES ( Strip) (Free Text) 1 (one) Strip bid for 0 days Quantity: 100 {Strip} Refills: 4 Ordered: 09-Sep-2018 Yoon Ruiz Start : 19-Aug-2018 End : 09-Sep-2018 Inactive Comments: test strips for the one touch ultra 2 Start: 08-19-2018 End: 09-09-2018 Comment on above: test strips for the one touch ultra 2 DIABETIC TESTING SUPPLIES ( Strip) (Free Text) 1 (one) Strip bid for 0 days Quantity: 100 {Strip} Refills: 4 Ordered: 09-Sep-2018 Yoon Ruiz Start : 19-Aug-2018 End : 09-Sep-2018 Inactive Comments: Mail order. for one touch blue ultra Start: 08-19-2018 End: 09-09-2018 Comment on above: Mail order. for one touch blue ultra Accu-Chek FastCl ix Lancets Miscellaneous 1 (one) Misc daily for 90 days Quantity: 3 {Box} Refills: 3 Ordered: 23-Oct-2018 Beverley Pabon Start : 23-Oct-2018 Active Start: 10-23-[address] In Vitro Strip 1 (one) Each twice daily for 90 days Quantity: 180 {Each} Refills: 3 Ordered: 10-Jun-2019 John DOWNSKhanh Start : 10-Jun-2019 Active Comments: Mail order. Send what Med mutual covers Start: 06-10-2019 Comment on above: Mail order. Send wha t Med mutual covers LANCET DEVICE (Miscellaneous) 1 (one) Misc qod for 30 days Quantity: 100 {Each} Refills: 4 Ordered: 11-May-2015 Anastasiia Khoury DO Start : 11-May-2015 Active Start: 05-11-2015 Accu-Chek Guide In Vitro Strip 1 (one) Strip daily for 90 days Quantity: 90 {Strip} Refills: 0 Ordered: 23-Oct-2018 Yoon Ruiz Start : 23-Oct-2018 End : 21-Jan-2019 Inactive Start: 10-23-2018 End: 01-21-2019 DIABETIC TESTING SUPPLIES ( Strip) (Free Text) 1 (one) Strip bid for 0 days Quantity: 100 {Strip} Refills: 4 Ordered: 09-Sep-2018 Yoon Ruiz Start : 19-Aug-2018 End : 09-Sep-2018 Inactive Comments: Mail order. for one touch blue ultra Start: 08-19-2018 End: 09-09-2018 Comment on above: Mail order. for one touch blue ultra DIABETIC TESTING SUPPLIES ( Strip) (Free Text) 1 (one) Strip bid for 0 days Quantity: 100 {Strip} Refills: 4 Ordered: 09-Sep-2018 Yoon Ruiz Start : 19-Aug-2018 End : 09-Sep-2018 Inactive Comments: test strips for the one touch ultra 2 Start: 08-19-2018 End: 09-09-2018 Comment on above: test strips for the one touch ultra 2 Accu-Chek FastCl ix Lancets Miscellaneous 1 (one) Misc daily for 90 days Quantity: 3 {Box} Refills: 3 Ordered: 23-Oct-2018 Yoon Ruiz Start : 23-Oct-2018 Active Start: 10-23-2018 LANCET DEVICE (Miscellaneous) 1 (one) Misc qod for 30 days Quantity: 100 {Each} Refills: 4 Ordered: 11-May-2015 Anastasiia Khoury DO Start : 11-May-2015 Active Start: 05-11-2015 Accu-Chek Guide In Vitro Strip 1 (one) Strip daily for 90 days Quantity: 90 {Strip} Refills: 0 Ordered: 23-Oct-2018 Yoon Ruiz Start : 23-Oct-2018 End : 21-Jan-2019 Inactive Start: 10-23-2018 End: 01-21-2019 DIABETIC TESTING SUPPLIES ( Strip) (Free Text) 1 (one) Strip bid for 0 days Quantity: 100 {Strip} Refills: 4 Ordered: 09-Sep-2018 Yoon Ruiz Start : 19-Aug-2018 End : 09-Sep-2018 Inactive Comments: Mail order. for one touch blue ultra Start: 08-19-2018 End: 09-09-2018 Comment on above: Mail order. for one touch blue ultra DIABETIC TESTING SUPPLIES ( Strip) (Free Text) 1 (one) Strip bid for 0 days Quantity: 100 {Strip} Refills: 4 Ordered: 09-Sep-2018 Yoon Ruiz Start : 19-Aug-2018 End : 09-Sep-2018 Inactive Comments: test strips for the one touch ultra 2 Start: 08-19-2018 End: 09-09-2018 Comment on above: test strips for the one touch ultra 2 Accu-Chek FastCl ix Lancets Miscellaneous 1 (one) Misc daily for 90 days Quantity: 3 {Box} Refills: 3 Ordered: 23-Oct-2018 Beverley Pabon Start : 23-Oct-2018 Active Start: 10-23-[address] In Vitro Strip 1 (one) Each twice daily for 90 days Quantity: 180 {Each} Refills: 3 Ordered: 10-Jun-2019 Khanh Lopez LPN Start : 10-Jun-2019 Active Comments: Mail order. Send what Med mutual covers Start: 06-10-2019 Comment on above: Mail order. Send wha t Med mutual covers LANCET DEVICE (Miscellaneous) 1 (one) Misc qod for 30 days Quantity: 100 {Each} Refills: 4 Ordered: 11-May-2015 Anastasiia Khoury DO Start : 11-May-2015 Active Start: 05-11-2015 Accu-Chek Guide In Vitro Strip 1 (one) Strip daily for 90 days Quantity: 90 {Strip} Refills: 0 Ordered: 23-Oct-2018 Yoon Ruiz Start : 23-Oct-2018 End : 21-Jan-2019 Inactive Start: 10-23-2018 End: 01-21-2019 DIABETIC TESTING SUPPLIES ( Strip) (Free Text) 1 (one) Strip bid for 0 days Quantity: 100 {Strip} Refills: 4 Ordered: 09-Sep-2018 Yoon Ruiz Start : 19-Aug-2018 End : 09-Sep-2018 Inactive Comments: Mail order. for one touch blue ultra Start: 08-19-2018 End: 09-09-2018 Comment on above: Mail order. for one touch blue ultra DIABETIC TESTING SUPPLIES ( Strip) (Free Text) 1 (one) Strip bid for 0 days Quantity: 100 {Strip} Refills: 4 Ordered: 09-Sep-2018 Yoon Ruiz Start : 19-Aug-2018 End : 09-Sep-2018 Inactive Comments: test strips for the one touch ultra 2 Start: 08-19-2018 End: 09-09-2018 Comment on above: test strips for the one touch ultra 2 Accu-Chek FastCl ix Lancets Miscellaneous 1 (one) Misc daily for 90 days Quantity: 3 {Box} Refills: 3 Ordered: 23-Oct-2018 Beverley Pabon Start : 23-Oct-2018 Active Start: 10-23-[address] In Vitro Strip 1 (one) Each twice daily for 90 days Quantity: 180 {Each} Refills: 3 Ordered: 10-Jun-2019 Khanh Lopez LPN Start : 10-Jun-2019 Active Comments: Mail order. Send what Med mutual covers Start: 06-10-2019 Comment on above: Mail order. Send wha t Med mutual covers LANCET DEVICE (Miscellaneous) 1 (one) Misc qod for 30 days Quantity: 100 {Each} Refills: 4 Ordered: 11-May-2015 Anastasiia Khoury DO Start : 11-May-2015 Active Start: 05-11-2015 Accu-Chek Guide In Vitro Strip 1 (one) Strip daily for 90 days Quantity: 90 {Strip} Refills: 0 Ordered: 23-Oct-2018 Yoon Ruiz Start : 23-Oct-2018 End : 21-Jan-2019 Inactive Start: 10-23-2018 End: 01-21-2019 DIABETIC TESTING SUPPLIES ( Strip) (Free Text) 1 (one) Strip bid for 0 days Quantity: 100 {Strip} Refills: 4 Ordered: 09-Sep-2018 Yoon Ruiz Start : 19-Aug-2018 End : 09-Sep-2018 Inactive Comments: Mail order. for one touch blue ultra Start: 08-19-2018 End: 09-09-2018 Comment on above: Mail order. for one touch blue ultra DIABETIC TESTING SUPPLIES ( Strip) (Free Text) 1 (one) Strip bid for 0 days Quantity: 100 {Strip} Refills: 4 Ordered: 09-Sep-2018 Yoon Ruiz Start : 19-Aug-2018 End : 09-Sep-2018 Inactive Comments: test strips for the one touch ultra 2 Start: 08-19-2018 End: 09-09-2018 Comment on above: test strips for the one touch ultra 2 Accu-Chek FastCl ix Lancets Miscellaneous 1 (one) Misc daily for 90 days Quantity: 3 {Box} Refills: 3 Ordered: 23-Oct-2018 Beverley Pabon Start : 23-Oct-2018 Active Start: 10-23-[address] In Vitro Strip 1 (one) Each twice daily for 90 days Quantity: 180 {Each} Refills: 3 Ordered: 10-Jun-2019 Khanh Lopez LPN Start : 10-Jun-2019 Active Comments: Mail order. Send what Med mutual covers Start: 06-10-2019 Comment on above: Mail order. Send wha t Med mutual covers LANCET DEVICE (Miscellaneous) 1 (one) Misc qod for 30 days Quantity: 100 {Each} Refills: 4 Ordered: 11-May-2015 Anastasiia Khoury DO Start : 11-May-2015 Active Start: 05-11-2015 Accu-Chek Guide In Vitro Strip 1 (one) Strip daily for 90 days Quantity: 90 {Strip} Refills: 0 Ordered: 23-Oct-2018 Yoon Ruiz Start : 23-Oct-2018 End : 21-Jan-2019 Inactive Start: 10-23-2018 End: 01-21-2019 DIABETIC TESTING SUPPLIES ( Strip) (Free Text) 1 (one) Strip bid for 0 days Quantity: 100 {Strip} Refills: 4 Ordered: 09-Sep-2018 Yoon Ruiz Start : 19-Aug-2018 End : 09-Sep-2018 Inactive Comments: Mail order. for one touch blue ultra Start: 08-19-2018 End: 09-09-2018 Comment on above: Mail order. for one touch blue ultra DIABETIC TESTING SUPPLIES ( Strip) (Free Text) 1 (one) Strip bid for 0 days Quantity: 100 {Strip} Refills: 4 Ordered: 09-Sep-2018 Yoon Ruiz Start : 19-Aug-2018 End : 09-Sep-2018 Inactive Comments: test strips for the one touch ultra 2 Start: 08-19-2018 End: 09-09-2018 Comment on above: test strips for the one touch ultra 2 Accu-Chek FastCl ix Lancets Miscellaneous 1 (one) Misc daily for 90 days Quantity: 3 {Box} Refills: 3 Ordered: 23-Oct-2018 Beverley Pabon Start : 23-Oct-2018 Active Start: 10-23-[address] In Vitro Strip 1 (one) Each twice daily for 90 days Quantity: 180 {Each} Refills: 3 Ordered: 10-Jun-2019 Khanh Lopez LPN Start : 10-Jun-2019 Active Comments: Mail order. Send what Med mutual covers Start: 06-10-2019 Comment on above: Mail order. Send wha t Med mutual covers LANCET DEVICE (Miscellaneous) 1 (one) Misc qod for 30 days Quantity: 100 {Each} Refills: 4 Ordered: 11-May-2015 Anastasiia Khoury DO Start : 11-May-2015 Active Start: 05-11-2015 Accu-Chek Guide In Vitro Strip 1 (one) Strip daily for 90 days Quantity: 90 {Strip} Refills: 0 Ordered: 23-Oct-2018 Yoon Ruiz Start : 23-Oct-2018 End : 21-Jan-2019 Inactive Start: 10-23-2018 End: 01-21-2019 DIABETIC TESTING SUPPLIES ( Strip) (Free Text) 1 (one) Strip bid for 0 days Quantity: 100 {Strip} Refills: 4 Ordered: 09-Sep-2018 Yoon Ruiz Start : 19-Aug-2018 End : 09-Sep-2018 Inactive Comments: Mail order. for one touch blue ultra Start: 08-19-2018 End: 09-09-2018 Comment on above: Mail order. for one touch blue ultra DIABETIC TESTING SUPPLIES ( Strip) (Free Text) 1 (one) Strip bid for 0 days Quantity: 100 {Strip} Refills: 4 Ordered: 09-Sep-2018 Yoon Ruiz Start : 19-Aug-2018 End : 09-Sep-2018 Inactive Comments: test strips for the one touch ultra 2 Start: 08-19-2018 End: 09-09-2018 Comment on above: test strips for the one touch ultra 2 Accu-Chek FastCl ix Lancets Miscellaneous 1 (one) Misc daily for 90 days Quantity: 3 {Box} Refills: 3 Ordered: 23-Oct-2018 Beverley Pabon Start : 23-Oct-2018 Active Start: 10-23-[address] In Vitro Strip 1 (one) Each twice daily for 90 days Quantity: 180 {Each} Refills: 3 Ordered: 10-Jun-2019 Khanh Lopez LPN Start : 10-Jun-2019 Active Comments: Mail order. Send what Med mutual covers Start: 06-10-2019 Comment on above: Mail order. Send wha t Med mutual covers LANCET DEVICE (Miscellaneous) 1 (one) Misc qod for 30 days Quantity: 100 {Each} Refills: 4 Ordered: 11-May-2015 Anastasiia Khoury DO Start : 11-May-2015 Active Start: 05-11-2015 Accu-Chek Guide In Vitro Strip 1 (one) Strip daily for 90 days Quantity: 90 {Strip} Refills: 0 Ordered: 23-Oct-2018 Yoon Ruiz Start : 23-Oct-2018 End : 21-Jan-2019 Inactive Start: 10-23-2018 End: 01-21-2019 DIABETIC TESTING SUPPLIES ( Strip) (Free Text) 1 (one) Strip bid for 0 days Quantity: 100 {Strip} Refills: 4 Ordered: 09-Sep-2018 Yoon Ruiz Start : 19-Aug-2018 End : 09-Sep-2018 Inactive Comments: Mail order. for one touch blue ultra Start: 08-19-2018 End: 09-09-2018 Comment on above: Mail order. for one touch blue ultra DIABETIC TESTING SUPPLIES ( Strip) (Free Text) 1 (one) Strip bid for 0 days Quantity: 100 {Strip} Refills: 4 Ordered: 09-Sep-2018 Yoon Ruiz Start : 19-Aug-2018 End : 09-Sep-2018 Inactive Comments: test strips for the one touch ultra 2 Start: 08-19-2018 End: 09-09-2018 Comment on above: test strips for the one touch ultra 2 Accu-Chek FastCl ix Lancets Miscellaneous 1 (one) Misc daily for 90 days Quantity: 3 {Box} Refills: 3 Ordered: 23-Oct-2018 Beverley Pabon Start : 23-Oct-2018 Active Start: 10-23-[address] In Vitro Strip 1 (one) Each twice daily for 90 days Quantity: 180 {Each} Refills: 3 Ordered: 10-Jun-2019 Khanh Lopez LPN Start : 10-Jun-2019 Active Comments: Mail order. Send what Med mutual covers Start: 06-10-2019 Comment on above: Mail order. Send wha t Med mutual covers LANCET DEVICE (Miscellaneous) 1 (one) Misc qod for 30 days Quantity: 100 {Each} Refills: 4 Ordered: 11-May-2015 Anastasiia Khoury DO Start : 11-May-2015 Active Start: 05-11-2015 Accu-Chek Guide In Vitro Strip 1 (one) Strip daily for 90 days Quantity: 90 {Strip} Refills: 0 Ordered: 23-Oct-2018 Yoon Ruiz Start : 23-Oct-2018 End : 21-Jan-2019 Inactive Start: 10-23-2018 End: 01-21-2019 DIABETIC TESTING SUPPLIES ( Strip) (Free Text) 1 (one) Strip bid for 0 days Quantity: 100 {Strip} Refills: 4 Ordered: 09-Sep-2018 Yoon Ruiz Start : 19-Aug-2018 End : 09-Sep-2018 Inactive Comments: test strips for the one touch ultra 2 Start: 08-19-2018 End: 09-09-2018 Comment on above: test strips for the one touch ultra 2 DIABETIC TESTING SUPPLIES ( Strip) (Free Text) 1 (one) Strip bid for 0 days Quantity: 100 {Strip} Refills: 4 Ordered: 09-Sep-2018 Yoon Ruiz Start : 19-Aug-2018 End : 09-Sep-2018 Inactive Comments: Mail order. for one touch blue ultra Start: 08-19-2018 End: 09-09-2018 Comment on above: Mail order. for one touch blue ultra Hospital Discharge instructions 06-09-2023 Note Date & Type Note Facility 06-09-2023 Hospital Discharg e instructions Additional Instructions Take both doxycycline and Bactrim as directed. Follow-up with primary care physician in 3 to 5 days for wound check. Return with sustained high fever, increased redness, new or worsening symptoms. [facility] Work Phone: Discharge summary Note Date & Type Note Facility Discharge summary Note Date/Time June 09, 2023 12:16pm [facility] Medical Records Department [address] [place] [address] Emergency Department Summary 06/09/23 MR#: [id number] Acct: [id number] Name: SEVERO IBRAHIM Rep #:[id number] : [id number] 52 From: Gary Butcher MD PCP: Care Physician,No Primary Status :REG ER Location: ED HPI History of Present Illness Chief Complaint: Wound Narrative Narrative: 52-year-old male past medical history of diabetes presents with wound on his right lower extremity that seems to be worsening. He complains of ankle swelling now. States 4 days ago he thought he had a mosquito bite on the area. He had an online evaluation and received doxycycline and Bactroban to apply to the area. States yesterday had a fever and perhaps the day before, but none today. He is not taking Tylenol or ibuprofen. He is states that he is unsure if he had scratched the area, but the reddened area has been stable, but he was concerned because his ankle started swelling, and he has a burning sensation in his right posterior calf. He denies any chest pain or shortness of breath or other symptoms. PFSH PFSH Medical History no medical history Home Medications metformin 500 mg tablet 500 mg PO BIDCM #60 tabs 12/04/14 [Rx Last Taken Unknown] dulaglutide 1.5 mg/0.5 mL subcutaneous pen injector (Trulicity) 1.5 mg SQ QWEEK 03/09/19 [History Last Taken Unknown] rosuvastatin 10 mg tablet 10 mg PO DAILY 03/08/20 [History Last Taken Unknown] azithromycin 250 mg tablet (Zithromax) 250 mg PO DAILY 4 days #4 tabs 04/12/23 [Rx Last Taken Unknown] sulfamethoxazole 800 mg-trimethoprim 160 mg tablet (Bactrim DS) 1 tab PO BID #20tabs 06/09/23 [Rx Last Taken Unknown] Allergy/AdvReac Type Severity Reaction Status Date / Time amoxicillin Allergy Swelling Verified 06/09/23 11:34 Family History no significant family his Surgical History no surgical history Social History Smoking Status: Current every day smoker tobacco type: cigarettes ROS ROS ED ROS Narrative Constitutional: Ported fever, no chills. HEENT: No sore throat. No neck pain. No loss of vision. No rhinorrhea. Cardiovascular: No chest pain. No palpitations. No pedal edema. Respiratory: No cough, no shortness of breath. Abdominal: No abdominal pain. No nausea. No vomiting. Genitourinary: No dysuria. No hematuria. Musculoskeletal: No myalgias. No arthralgias. Neurologic: No headaches. No dizziness. No lightheadedness. Skin: No rash. There is redness and duration to his right posterior calf, no fluctuance. Full range of motion of ankle and knee. Psychiatric: No depression. No anxiety. EXAM Physical Exam Const Vital Signs: 06/09/23 11:34 06/09/23 11:42 Temperature 98 F 98 F Temperature Source Temporal Temporal Pulse Rate 74 74 Respiratory Rate 14 14 Blood Pressure 124/83 H 124/73 H Blood Pressure Mean 96 90 Pulse Ox 98 98 Oxygen Delivery Method Room Air Room Air MDM MDM MDM Narrative Medical decision making narrative: Concern would be for cellulitis versus cellulitis and abscess of right lower extremity. I have low concern for DVT based on the patient's clinical examination and history and physical is not suggestive of that. I discussed with him needle aspiration and stab wound incision, but he declined. I do not feel it is amenable to full incision and drainage. I do not feel he needs laboratory work or imaging as well. Based on insurance reasons, patient states that he does not have a primary care physician with whom he can follow-up. Shared decision making, as he is already on doxycycline and is using Bactroban topically, I do feel that the addition of Bactrim would be beneficial to the patient as double coverage for methicillin-resistant Staphylococcus aureus. He will continue elevation of his right lower extremity and take [id number] analgesics as needed. I have low concern for sepsis as well as he is currently not meeting any sirs criteria. I feel he can continue his outpatient treatment of his cellulitis. Do not feel that he requires observation or admission at this time. Return instructions to the emergency department were reviewed. Disposition is discharged home in stable condition. Patient is agreeable to theplan. History & Record Review Discussion w/independent historian: Patient Additional record(s) reviewed:: Prior ED visit Discharge Plan Triage Chief Complaint: Wound ED Provider: Gary Butcher Dx/Rx/DC Orders Clinical Impression: Cellulitis of right lower extremity, Cellulitis of right lower leg, Leg pain Instructions: ED Cellulitis Prescriptions: New sulfamethoxazole-trimethoprim [Bactrim DS] 800-160 mg tablet 1 tab PO BID Qty: 20 0RF No Action metformin 500 MG tablet 500 mg PO BIDCM Qty: 60 0RF dulaglutide [Trulicity] 1.5 MG/0.5 ML pen injector 1.5 mg SQ QWEEK rosuvastatin 10 MG tablet 10 mg PO DAILY azithromycin [Zithromax] 250 mg tablet 250 mg PO DAILY 4 Days Qty: 4 0RF Primary Care Provider: Care Physician,No Primary Referrals: Miracle Pandey [Non-Staff] - 3-5 Days if not improving Care Physician,No Primary [Primary Care Provider] - Activity Restrictions/Additional Instructions: Take both doxycycline and Bactrim as directed. Follow-up with primary care physician in 3 to 5 days for wound check. Return with sustained high fever, increased redness, new or worsening symptoms. Disposition Disposition: Home, Self Care What to do if you have Problems For any increased pain, shortness of breath, bleeding, nausea or vomiting, chestpain, or any unexpected problems, contact your Primary Care Provider. Call [facility] ([phone]) or report to the closest Emergency Room. Call 911 if necessary. 06/09/23 1219 <Electronically signed by Gary Butcher MD> Cosigner Signature (if applicable): CC: No Primary Care Physician ~ Signed [facility] Work Phone: Evaluation note Note Date & Type Note Facility Evaluation note No assessment information availa [facility] [place] Work Phone: Instructions Note Date & Type Note Facility Instructions Name Patient Instructions Indication:Current smoker Start: Instruction Type:Provider Instructions for Treatment How to Access Health Information Online using Patient Portal and [employer]rd [employer] Apps Indication:Current smoker Start: Instruction Type:Patient Education How to access health information online Indication:BMI 27.0-27.9,adult Start:17-Aug-20 Instruction Type:Patient Education How to access health information online - Detail Indication:BMI 27.0-27.9,adult Start:17-Aug-20 Instruction Type:Patient Education Patient Instructions Indication:BMI 27.0-27.9,adult Start:17-Aug-20 Instruction Type:Provider Instructions for Treatment How to access health information online Indication:Current smoker Start:10-Aug-20 Instruction Type:Patient Education How to access health information online - Detail Indication:Current smoker Start:10-Aug-20 Instruction Type:Patient Education Patient Instructions Indication:Vitamin D deficiency Start:10-Aug-20 Instruction Type:Provider Instructions for Treatment How to access health information online Indication:Current smoker Start:10-May-20 Instruction Type:Patient Education How to access health information online - Detail Indication:Current smoker Start:10-May-20 Instruction Type:Patient Education Patient Instructions Indication:Current smoker Start:10-May-20 Instruction Type:Provider Instructions for Treatment How to access health information online Indication:Current smoker Start: Instruction Type:Patient Education How to access health information online - Detail Indication:Current smoker Start: Instruction Type:Patient Education Patient Instructions Indication:Current smoker Start: Instruction Type:Provider Instructions for Treatment How to access health information online Indication:Current smoker Start:15-Jan-20 Instruction Type:Patient Education How to access health information online - Detail Indication:Current smoker Start:15-Jan-20 Instruction Type:Patient Education Patient Instructions Indication:BMI 30.0-30.9,adult Start:15-Jan-20 Instruction Type:Provider Instructions for Treatment How to access health information online Indication:Current smoker Start:04-Nov-19 Instruction Type:Patient Education How to access health information online - Detail Indication:Current smoker Start:04-Nov-19 Instruction Type:Patient Education Patient Instructions Indication:Current smoker Start:04-Nov-19 Instruction Type:Provider Instructions for Treatment How to access health information online Indication:Current smoker Start: Instruction Type:Patient Education How to access health information online - Detail Indication:Current smoker Start: Instruction Type:Patient Education Patient Instructions Indication:BMI 28.0-28.9,adult Start: Instruction Type:Provider Instructions for Treatment DISCONTINUED - LIPID PANEL ([id number]) Indication:Hyperlipidemia Start:10-Jun-20 Instruction Type:Patient Education How to access health information online Indication:Current smoker Start:10-Jun-20 Instruction Type:Patient Education How to access health information online - Detail Indication:Current smoker Start:10-Jun-20 Instruction Type:Patient Education Patient Instructions Indication:BMI 29.0-29.9,adult Start:10-Jun-20 Instruction Type:Provider Instructions for Treatment How to access health information online Indication:Current smoker Start: Instruction Type:Patient Education How to access health information online - Detail Indication:Current smoker Start: Instruction Type:Patient Education Patient Instructions Indication:Hyperlipidemia Start: Instruction Type:Provider Instructions for Treatment How to access health information online Indication:Current smoker Start:06-Oct-19 Instruction Type:Patient Education How to access health information online - Detail Indication:Current smoker Start:06-Oct-19 Instruction Type:Patient Education Patient Instructions Indication:Dermatitis due to plants, including poison heather, sumac, and oak Start:06-Oct-19 Instruction Type:Provider Instructions for Treatment How to access health information online Indication:Current smoker Start: Instruction Type:Patient Education How to access health information online - Detail Indication:Current smoker Start: Instruction Type:Patient Education Patient Instructions Indication:Rash Start: Instruction Type:Provider Instructions for Treatment How to access health information online Indication:Current smoker Start:19-Aug-20 Instruction Type:Patient Education How to access health information online - Detail Indication:Current smoker Start:19-Aug-20 Instruction Type:Patient Education Patient Instructions Indication:Influenza vaccination declined (Renamed from Refused influenza vaccine) Start:19-Aug-20 Instruction Type:Provider Instructions for Treatment How to access health information online Indication:Diabetes mellitus type II, controlled, with no complications Start:18-Apr-20 Instruction Type:Patient Education How to access health information online - Detail Indication:Diabetes mellitus type II, controlled, with no complications Start:18-Apr-20 Instruction Type:Patient Education Patient Instructions Indication:Diabetes mellitus type II, controlled, with no complications Start:18-Apr-20 Instruction Type:Provider Instructions for Treatment How to access health information online Indication:Dependence on nicotine from cigarettes Start:08-Apr-20 Instruction Type:Patient Education How to access health information online - Detail Indication:Dependence on nicotine from cigarettes Start:08-Apr-20 Instruction Type:Patient Education Patient Instructions Indication:Dependence on nicotine from cigarettes Start:08-Apr-20 Instruction Type:Provider Instructions for Treatment How to access health information online Indication:Dependence on nicotine from cigarettes Start: Instruction Type:Patient Education How to access health information online - Detail Indication:Dependence on nicotine from cigarettes Start: Instruction Type:Patient Education Patient Instructions Indication:Dependence on nicotine from cigarettes Start: Instruction Type:Provider Instructions for Treatment How to access health information online Indication:Hyperlipidemia Start:14-Sep-20 Instruction Type:Patient Education How to access health information online - Detail Indication:Hyperlipidemia Start:14-Sep-20 Instruction Type:Patient Education Patient Instructions Indication:Hyperlipidemia Start:14-Sep-20 Instruction Type:Provider Instructions for Treatment Patient Instructions Indication:Hyperlipidemia Start:13-Jul-20 Instruction Type:Provider Instructions for Treatment How to access health information online Indication:Diabetes mellitus type II, controlled, with no complications Start:15-Jun-20 Instruction Type:Patient Education How to access health information online - Detail Indication:Diabetes mellitus type II, controlled, with no complications Start:15-Jun-20 Instruction Type:Patient Education Patient Instructions Indication:Diabetes mellitus type II, controlled, with no complications Start:15-Jun-20 Instruction Type:Provider Instructions for Treatment How to access health information online Indication:Diabetes mellitus out of control Start:09-Mar-20 Instruction Type:Patient Education How to access health information online - Detail Indication:Diabetes mellitus out of control Start:09-Mar-20 Instruction Type:Patient Education Patient Instructions Indication:Diabetes mellitus out of control Start:09-Mar-20 Instruction Type:Provider Instructions for Treatment Patient Instructions Indication:Diabetes mellitus out of control Start:04-Jan-20 Instruction Type:Provider Instructions for Treatment How to access health information online - Detail Indication:Bursitis Start:21-Dec-19 Instruction Type:Patient Education Patient Instructions Indication:Bursitis Start:21-Dec-19 Instruction Type:Provider Instructions for Treatment How to access health information online Indication:Diabetes mellitus out of control Start:09-Dec-19 Instruction Type:Patient Education How to access health information online - Detail Indication:Diabetes mellitus out of control Start:09-Dec-19 Instruction Type:Patient Education Patient Instructions Indication:Diabetes mellitus out of control Start:09-Dec-19 Instruction Type:Provider Instructions for Treatment [facility] Work Phone: Instructions Note Date & Type Note Facility Instructions Name Patient Instructions Indication:Current smoker Start:03-Mar-20 Instruction Type:Provider Instructions for Treatment How to Access Health Information Online using Patient Portal and [employer]rd [employer] Apps Indication:Current smoker Start:03-Mar-20 Instruction Type:Patient Education Patient Instructions Indication:Current smoker Start: Instruction Type:Provider Instructions for Treatment How to Access Health Information Online using Patient Portal and [employer]rd [employer] Apps Indication:Current smoker Start: Instruction Type:Patient Education How to access health information online Indication:BMI 27.0-27.9,adult Start:17-Aug-20 Instruction Type:Patient Education How to access health information online - Detail Indication:BMI 27.0-27.9,adult Start:17-Aug-20 Instruction Type:Patient Education Patient Instructions Indication:BMI 27.0-27.9,adult Start:17-Aug-20 Instruction Type:Provider Instructions for Treatment How to access health information online Indication:Current smoker Start:10-Aug-20 Instruction Type:Patient Education How to access health information online - Detail Indication:Current smoker Start:10-Aug-20 Instruction Type:Patient Education Patient Instructions Indication:Vitamin D deficiency Start:10-Aug-20 Instruction Type:Provider Instructions for Treatment How to access health information online Indication:Current smoker Start:10-May-20 Instruction Type:Patient Education How to access health information online - Detail Indication:Current smoker Start:10-May-20 Instruction Type:Patient Education Patient Instructions Indication:Current smoker Start:10-May-20 Instruction Type:Provider Instructions for Treatment How to access health information online Indication:Current smoker Start: Instruction Type:Patient Education How to access health information online - Detail Indication:Current smoker Start: Instruction Type:Patient Education Patient Instructions Indication:Current smoker Start: Instruction Type:Provider Instructions for Treatment How to access health information online Indication:Current smoker Start:15-Jan-20 Instruction Type:Patient Education How to access health information online - Detail Indication:Current smoker Start:15-Jan-20 Instruction Type:Patient Education Patient Instructions Indication:BMI 30.0-30.9,adult Start:15-Jan-20 Instruction Type:Provider Instructions for Treatment How to access health information online Indication:Current smoker Start:04-Nov-19 Instruction Type:Patient Education How to access health information online - Detail Indication:Current smoker Start:04-Nov-19 Instruction Type:Patient Education Patient Instructions Indication:Current smoker Start:04-Nov-19 Instruction Type:Provider Instructions for Treatment How to access health information online Indication:Current smoker Start: Instruction Type:Patient Education How to access health information online - Detail Indication:Current smoker Start: Instruction Type:Patient Education Patient Instructions Indication:BMI 28.0-28.9,adult Start: Instruction Type:Provider Instructions for Treatment DISCONTINUED - LIPID PANEL (98893) Indication:Hyperlipidemia Start:10-Jun-20 Instruction Type:Patient Education How to access health information online Indication:Current smoker Start:10-Jun-20 Instruction Type:Patient Education How to access health information online - Detail Indication:Current smoker Start:10-Jun-20 Instruction Type:Patient Education Patient Instructions Indication:BMI 29.0-29.9,adult Start:10-Jun-20 Instruction Type:Provider Instructions for Treatment How to access health information online Indication:Current smoker Start: Instruction Type:Patient Education How to access health information online - Detail Indication:Current smoker Start: Instruction Type:Patient Education Patient Instructions Indication:Hyperlipidemia Start: Instruction Type:Provider Instructions for Treatment How to access health information online Indication:Current smoker Start:06-Oct-19 Instruction Type:Patient Education How to access health information online - Detail Indication:Current smoker Start:06-Oct-19 Instruction Type:Patient Education Patient Instructions Indication:Dermatitis due to plants, including poison heather, sumac, and oak Start:06-Oct-19 Instruction Type:Provider Instructions for Treatment How to access health information online Indication:Current smoker Start: Instruction Type:Patient Education How to access health information online - Detail Indication:Current smoker Start: Instruction Type:Patient Education Patient Instructions Indication:Rash Start: Instruction Type:Provider Instructions for Treatment How to access health information online Indication:Current smoker Start:19-Aug-20 Instruction Type:Patient Education How to access health information online - Detail Indication:Current smoker Start:19-Aug-20 Instruction Type:Patient Education Patient Instructions Indication:Influenza vaccination declined (Renamed from Refused influenza vaccine) Start:19-Aug-20 Instruction Type:Provider Instructions for Treatment How to access health information online Indication:Diabetes mellitus type II, controlled, with no complications Start:18-Apr-20 Instruction Type:Patient Education How to access health information online - Detail Indication:Diabetes mellitus type II, controlled, with no complications Start:18-Apr-20 Instruction Type:Patient Education Patient Instructions Indication:Diabetes mellitus type II, controlled, with no complications Start:18-Apr-20 Instruction Type:Provider Instructions for Treatment How to access health information online Indication:Dependence on nicotine from cigarettes Start:08-Apr-20 Instruction Type:Patient Education How to access health information online - Detail Indication:Dependence on nicotine from cigarettes Start:08-Apr-20 Instruction Type:Patient Education Patient Instructions Indication:Dependence on nicotine from cigarettes Start:08-Apr-20 Instruction Type:Provider Instructions for Treatment How to access health information online Indication:Dependence on nicotine from cigarettes Start: Instruction Type:Patient Education How to access health information online - Detail Indication:Dependence on nicotine from cigarettes Start: Instruction Type:Patient Education Patient Instructions Indication:Dependence on nicotine from cigarettes Start: Instruction Type:Provider Instructions for Treatment How to access health information online Indication:Hyperlipidemia Start:14-Sep-20 Instruction Type:Patient Education How to access health information online - Detail Indication:Hyperlipidemia Start:14-Sep-20 Instruction Type:Patient Education Patient Instructions Indication:Hyperlipidemia Start:14-Sep-20 Instruction Type:Provider Instructions for Treatment Patient Instructions Indication:Hyperlipidemia Start:13-Jul-20 Instruction Type:Provider Instructions for Treatment How to access health information online Indication:Diabetes mellitus type II, controlled, with no complications Start:15-Jun-20 Instruction Type:Patient Education How to access health information online - Detail Indication:Diabetes mellitus type II, controlled, with no complications Start:15-Jun-20 Instruction Type:Patient Education Patient Instructions Indication:Diabetes mellitus type II, controlled, with no complications Start:15-Jun-20 Instruction Type:Provider Instructions for Treatment How to access health information online Indication:Diabetes mellitus out of control Start:09-Mar-20 Instruction Type:Patient Education How to access health information online - Detail Indication:Diabetes mellitus out of control Start:09-Mar-20 Instruction Type:Patient Education Patient Instructions Indication:Diabetes mellitus out of control Start:09-Mar-20 Instruction Type:Provider Instructions for Treatment Patient Instructions Indication:Diabetes mellitus out of control Start:04-Jan-20 Instruction Type:Provider Instructions for Treatment How to access health information online - Detail Indication:Bursitis Start:21-Dec-19 Instruction Type:Patient Education Patient Instructions Indication:Bursitis Start:21-Dec-19 Instruction Type:Provider Instructions for Treatment How to access health information online Indication:Diabetes mellitus out of control Start:09-Dec-19 Instruction Type:Patient Education How to access health information online - Detail Indication:Diabetes mellitus out of control Start:09-Dec-19 Instruction Type:Patient Education Patient Instructions Indication:Diabetes mellitus out of control Start:09-Dec-19 Instruction Type:Provider Instructions for Treatment [facility]; [facility] Work Phone: Instructions Note Date & Type Note Facility Instructions Name Patient Instructions Indication:Current smoker Start:03-Mar-20 Instruction Type:Provider Instructions for Treatment How to Access Health Information Online using Patient Portal and [employer]rd [employer] Apps Indication:Current smoker Start:03-Mar-20 Instruction Type:Patient Education Patient Instructions Indication:Current smoker Start: Instruction Type:Provider Instructions for Treatment How to Access Health Information Online using Patient Portal and [employer]rd [employer] Apps Indication:Current smoker Start: Instruction Type:Patient Education How to access health information online Indication:BMI 27.0-27.9,adult Start:17-Aug-20 Instruction Type:Patient Education How to access health information online - Detail Indication:BMI 27.0-27.9,adult Start:17-Aug-20 Instruction Type:Patient Education Patient Instructions Indication:BMI 27.0-27.9,adult Start:17-Aug-20 Instruction Type:Provider Instructions for Treatment How to access health information online Indication:Current smoker Start:10-Aug-20 Instruction Type:Patient Education How to access health information online - Detail Indication:Current smoker Start:10-Aug-20 Instruction Type:Patient Education Patient Instructions Indication:Vitamin D deficiency Start:10-Aug-20 Instruction Type:Provider Instructions for Treatment How to access health information online Indication:Current smoker Start:10-May-20 Instruction Type:Patient Education How to access health information online - Detail Indication:Current smoker Start:10-May-20 Instruction Type:Patient Education Patient Instructions Indication:Current smoker Start:10-May-20 Instruction Type:Provider Instructions for Treatment How to access health information online Indication:Current smoker Start: Instruction Type:Patient Education How to access health information online - Detail Indication:Current smoker Start: Instruction Type:Patient Education Patient Instructions Indication:Current smoker Start: Instruction Type:Provider Instructions for Treatment How to access health information online Indication:Current smoker Start:15-Jan-20 Instruction Type:Patient Education How to access health information online - Detail Indication:Current smoker Start:15-Jan-20 Instruction Type:Patient Education Patient Instructions Indication:BMI 30.0-30.9,adult Start:15-Jan-20 Instruction Type:Provider Instructions for Treatment How to access health information online Indication:Current smoker Start:04-Nov-19 Instruction Type:Patient Education How to access health information online - Detail Indication:Current smoker Start:04-Nov-19 Instruction Type:Patient Education Patient Instructions Indication:Current smoker Start:04-Nov-19 Instruction Type:Provider Instructions for Treatment How to access health information online Indication:Current smoker Start: Instruction Type:Patient Education How to access health information online - Detail Indication:Current smoker Start: Instruction Type:Patient Education Patient Instructions Indication:BMI 28.0-28.9,adult Start: Instruction Type:Provider Instructions for Treatment DISCONTINUED - LIPID PANEL ([id number]) Indication:Hyperlipidemia Start:10-Jun-20 Instruction Type:Patient Education How to access health information online Indication:Current smoker Start:10-Jun-20 Instruction Type:Patient Education How to access health information online - Detail Indication:Current smoker Start:10-Jun-20 Instruction Type:Patient Education Patient Instructions Indication:BMI 29.0-29.9,adult Start:10-Jun-20 Instruction Type:Provider Instructions for Treatment How to access health information online Indication:Current smoker Start: Instruction Type:Patient Education How to access health information online - Detail Indication:Current smoker Start: Instruction Type:Patient Education Patient Instructions Indication:Hyperlipidemia Start: Instruction Type:Provider Instructions for Treatment How to access health information online Indication:Current smoker Start:06-Oct-19 Instruction Type:Patient Education How to access health information online - Detail Indication:Current smoker Start:06-Oct-19 Instruction Type:Patient Education Patient Instructions Indication:Dermatitis due to plants, including poison heather, sumac, and oak Start:06-Oct-19 Instruction Type:Provider Instructions for Treatment How to access health information online Indication:Current smoker Start: Instruction Type:Patient Education How to access health information online - Detail Indication:Current smoker Start: Instruction Type:Patient Education Patient Instructions Indication:Rash Start: Instruction Type:Provider Instructions for Treatment How to access health information online Indication:Current smoker Start:19-Aug-20 Instruction Type:Patient Education How to access health information online - Detail Indication:Current smoker Start:19-Aug-20 Instruction Type:Patient Education Patient Instructions Indication:Influenza vaccination declined (Renamed from Refused influenza vaccine) Start:19-Aug-20 Instruction Type:Provider Instructions for Treatment How to access health information online Indication:Diabetes mellitus type II, controlled, with no complications Start:18-Apr-20 Instruction Type:Patient Education How to access health information online - Detail Indication:Diabetes mellitus type II, controlled, with no complications Start:18-Apr-20 Instruction Type:Patient Education Patient Instructions Indication:Diabetes mellitus type II, controlled, with no complications Start:18-Apr-20 Instruction Type:Provider Instructions for Treatment How to access health information online Indication:Dependence on nicotine from cigarettes Start:08-Apr-20 Instruction Type:Patient Education How to access health information online - Detail Indication:Dependence on nicotine from cigarettes Start:08-Apr-20 Instruction Type:Patient Education Patient Instructions Indication:Dependence on nicotine from cigarettes Start:08-Apr-20 Instruction Type:Provider Instructions for Treatment How to access health information online Indication:Dependence on nicotine from cigarettes Start: Instruction Type:Patient Education How to access health information online - Detail Indication:Dependence on nicotine from cigarettes Start: Instruction Type:Patient Education Patient Instructions Indication:Dependence on nicotine from cigarettes Start: Instruction Type:Provider Instructions for Treatment How to access health information online Indication:Hyperlipidemia Start:14-Sep-20 Instruction Type:Patient Education How to access health information online - Detail Indication:Hyperlipidemia Start:14-Sep-20 Instruction Type:Patient Education Patient Instructions Indication:Hyperlipidemia Start:14-Sep-20 Instruction Type:Provider Instructions for Treatment Patient Instructions Indication:Hyperlipidemia Start:13-Jul-20 Instruction Type:Provider Instructions for Treatment How to access health information online Indication:Diabetes mellitus type II, controlled, with no complications Start:15-Jun-20 Instruction Type:Patient Education How to access health information online - Detail Indication:Diabetes mellitus type II, controlled, with no complications Start:15-Jun-20 Instruction Type:Patient Education Patient Instructions Indication:Diabetes mellitus type II, controlled, with no complications Start:15-Jun-20 Instruction Type:Provider Instructions for Treatment How to access health information online Indication:Diabetes mellitus out of control Start:09-Mar-20 Instruction Type:Patient Education How to access health information online - Detail Indication:Diabetes mellitus out of control Start:09-Mar-20 Instruction Type:Patient Education Patient Instructions Indication:Diabetes mellitus out of control Start:09-Mar-20 Instruction Type:Provider Instructions for Treatment Patient Instructions Indication:Diabetes mellitus out of control Start:04-Jan-20 Instruction Type:Provider Instructions for Treatment How to access health information online - Detail Indication:Bursitis Start:21-Dec-19 Instruction Type:Patient Education Patient Instructions Indication:Bursitis Start:21-Dec-19 Instruction Type:Provider Instructions for Treatment How to access health information online Indication:Diabetes mellitus out of control Start:09-Dec-19 Instruction Type:Patient Education How to access health information online - Detail Indication:Diabetes mellitus out of control Start:09-Dec-19 Instruction Type:Patient Education Patient Instructions Indication:Diabetes mellitus out of control Start:09-Dec-19 Instruction Type:Provider Instructions for Treatment [facility]; [facility] Work Phone: Instructions Note Date & Type Note Facility Instructions Name Patient Instructions Indication:Current smoker Start:03-Mar-20 Instruction Type:Provider Instructions for Treatment How to Access Health Information Online using Patient Portal and [employer]rd [employer] Apps Indication:Current smoker Start:03-Mar-20 Instruction Type:Patient Education Patient Instructions Indication:Current smoker Start: Instruction Type:Provider Instructions for Treatment How to Access Health Information Online using Patient Portal and [employer]rd [employer] Apps Indication:Current smoker Start: Instruction Type:Patient Education How to access health information online Indication:BMI 27.0-27.9,adult Start:17-Aug-20 Instruction Type:Patient Education How to access health information online - Detail Indication:BMI 27.0-27.9,adult Start:17-Aug-20 Instruction Type:Patient Education Patient Instructions Indication:BMI 27.0-27.9,adult Start:17-Aug-20 Instruction Type:Provider Instructions for Treatment How to access health information online Indication:Current smoker Start:10-Aug-20 Instruction Type:Patient Education How to access health information online - Detail Indication:Current smoker Start:10-Aug-20 Instruction Type:Patient Education Patient Instructions Indication:Vitamin D deficiency Start:10-Aug-20 Instruction Type:Provider Instructions for Treatment How to access health information online Indication:Current smoker Start:10-May-20 Instruction Type:Patient Education How to access health information online - Detail Indication:Current smoker Start:10-May-20 Instruction Type:Patient Education Patient Instructions Indication:Current smoker Start:10-May-20 Instruction Type:Provider Instructions for Treatment How to access health information online Indication:Current smoker Start: Instruction Type:Patient Education How to access health information online - Detail Indication:Current smoker Start: Instruction Type:Patient Education Patient Instructions Indication:Current smoker Start: Instruction Type:Provider Instructions for Treatment How to access health information online Indication:Current smoker Start:15-Jan-20 Instruction Type:Patient Education How to access health information online - Detail Indication:Current smoker Start:15-Jan-20 Instruction Type:Patient Education Patient Instructions Indication:BMI 30.0-30.9,adult Start:15-Jan-20 Instruction Type:Provider Instructions for Treatment How to access health information online Indication:Current smoker Start:04-Nov-19 Instruction Type:Patient Education How to access health information online - Detail Indication:Current smoker Start:04-Nov-19 Instruction Type:Patient Education Patient Instructions Indication:Current smoker Start:04-Nov-19 Instruction Type:Provider Instructions for Treatment How to access health information online Indication:Current smoker Start: Instruction Type:Patient Education How to access health information online - Detail Indication:Current smoker Start: Instruction Type:Patient Education Patient Instructions Indication:BMI 28.0-28.9,adult Start: Instruction Type:Provider Instructions for Treatment DISCONTINUED - LIPID PANEL ([id number]) Indication:Hyperlipidemia Start:10-Jun-20 Instruction Type:Patient Education How to access health information online Indication:Current smoker Start:10-Jun-20 Instruction Type:Patient Education How to access health information online - Detail Indication:Current smoker Start:10-Jun-20 Instruction Type:Patient Education Patient Instructions Indication:BMI 29.0-29.9,adult Start:10-Jun-20 Instruction Type:Provider Instructions for Treatment How to access health information online Indication:Current smoker Start: Instruction Type:Patient Education How to access health information online - Detail Indication:Current smoker Start: Instruction Type:Patient Education Patient Instructions Indication:Hyperlipidemia Start: Instruction Type:Provider Instructions for Treatment How to access health information online Indication:Current smoker Start:06-Oct-19 Instruction Type:Patient Education How to access health information online - Detail Indication:Current smoker Start:06-Oct-19 Instruction Type:Patient Education Patient Instructions Indication:Dermatitis due to plants, including poison heather, sumac, and oak Start:06-Oct-19 Instruction Type:Provider Instructions for Treatment How to access health information online Indication:Current smoker Start: Instruction Type:Patient Education How to access health information online - Detail Indication:Current smoker Start: Instruction Type:Patient Education Patient Instructions Indication:Rash Start: Instruction Type:Provider Instructions for Treatment How to access health information online Indication:Current smoker Start:19-Aug-20 Instruction Type:Patient Education How to access health information online - Detail Indication:Current smoker Start:19-Aug-20 Instruction Type:Patient Education Patient Instructions Indication:Influenza vaccination declined (Renamed from Refused influenza vaccine) Start:19-Aug-20 Instruction Type:Provider Instructions for Treatment How to access health information online Indication:Diabetes mellitus type II, controlled, with no complications Start:18-Apr-20 Instruction Type:Patient Education How to access health information online - Detail Indication:Diabetes mellitus type II, controlled, with no complications Start:18-Apr-20 Instruction Type:Patient Education Patient Instructions Indication:Diabetes mellitus type II, controlled, with no complications Start:18-Apr-20 Instruction Type:Provider Instructions for Treatment How to access health information online Indication:Dependence on nicotine from cigarettes Start:08-Apr-20 Instruction Type:Patient Education How to access health information online - Detail Indication:Dependence on nicotine from cigarettes Start:08-Apr-20 Instruction Type:Patient Education Patient Instructions Indication:Dependence on nicotine from cigarettes Start:08-Apr-20 Instruction Type:Provider Instructions for Treatment How to access health information online Indication:Dependence on nicotine from cigarettes Start: Instruction Type:Patient Education How to access health information online - Detail Indication:Dependence on nicotine from cigarettes Start: Instruction Type:Patient Education Patient Instructions Indication:Dependence on nicotine from cigarettes Start: Instruction Type:Provider Instructions for Treatment How to access health information online Indication:Hyperlipidemia Start:14-Sep-20 Instruction Type:Patient Education How to access health information online - Detail Indication:Hyperlipidemia Start:14-Sep-20 Instruction Type:Patient Education Patient Instructions Indication:Hyperlipidemia Start:14-Sep-20 Instruction Type:Provider Instructions for Treatment Patient Instructions Indication:Hyperlipidemia Start:13-Jul-20 Instruction Type:Provider Instructions for Treatment How to access health information online Indication:Diabetes mellitus type II, controlled, with no complications Start:15-Jun-20 Instruction Type:Patient Education How to access health information online - Detail Indication:Diabetes mellitus type II, controlled, with no complications Start:15-Jun-20 Instruction Type:Patient Education Patient Instructions Indication:Diabetes mellitus type II, controlled, with no complications Start:15-Jun-20 Instruction Type:Provider Instructions for Treatment How to access health information online Indication:Diabetes mellitus out of control Start:09-Mar-20 Instruction Type:Patient Education How to access health information online - Detail Indication:Diabetes mellitus out of control Start:09-Mar-20 Instruction Type:Patient Education Patient Instructions Indication:Diabetes mellitus out of control Start:09-Mar-20 Instruction Type:Provider Instructions for Treatment Patient Instructions Indication:Diabetes mellitus out of control Start:04-Jan-20 Instruction Type:Provider Instructions for Treatment How to access health information online - Detail Indication:Bursitis Start:21-Dec-19 Instruction Type:Patient Education Patient Instructions Indication:Bursitis Start:21-Dec-19 Instruction Type:Provider Instructions for Treatment How to access health information online Indication:Diabetes mellitus out of control Start:09-Dec-19 Instruction Type:Patient Education How to access health information online - Detail Indication:Diabetes mellitus out of control Start:09-Dec-19 Instruction Type:Patient Education Patient Instructions Indication:Diabetes mellitus out of control Start:09-Dec-19 Instruction Type:Provider Instructions for Treatment [facility]; [facility] Work Phone: Instructions Note Date & Type Note Facility Instructions Name Patient Instructions Indication:Current smoker Start:03-Mar-20 Instruction Type:Provider Instructions for Treatment How to Access Health Information Online using Patient Portal and [employer]rd [employer] Apps Indication:Current smoker Start:03-Mar-20 Instruction Type:Patient Education Patient Instructions Indication:Current smoker Start: Instruction Type:Provider Instructions for Treatment How to Access Health Information Online using Patient Portal and [employer]rd [employer] Apps Indication:Current smoker Start: Instruction Type:Patient Education How to access health information online Indication:BMI 27.0-27.9,adult Start:17-Aug-20 Instruction Type:Patient Education How to access health information online - Detail Indication:BMI 27.0-27.9,adult Start:17-Aug-20 Instruction Type:Patient Education Patient Instructions Indication:BMI 27.0-27.9,adult Start:17-Aug-20 Instruction Type:Provider Instructions for Treatment How to access health information online Indication:Current smoker Start:10-Aug-20 Instruction Type:Patient Education How to access health information online - Detail Indication:Current smoker Start:10-Aug-20 Instruction Type:Patient Education Patient Instructions Indication:Vitamin D deficiency Start:10-Aug-20 Instruction Type:Provider Instructions for Treatment How to access health information online Indication:Current smoker Start:10-May-20 Instruction Type:Patient Education How to access health information online - Detail Indication:Current smoker Start:10-May-20 Instruction Type:Patient Education Patient Instructions Indication:Current smoker Start:10-May-20 Instruction Type:Provider Instructions for Treatment How to access health information online Indication:Current smoker Start: Instruction Type:Patient Education How to access health information online - Detail Indication:Current smoker Start: Instruction Type:Patient Education Patient Instructions Indication:Current smoker Start: Instruction Type:Provider Instructions for Treatment How to access health information online Indication:Current smoker Start:15-Jan-20 Instruction Type:Patient Education How to access health information online - Detail Indication:Current smoker Start:15-Jan-20 Instruction Type:Patient Education Patient Instructions Indication:BMI 30.0-30.9,adult Start:15-Jan-20 Instruction Type:Provider Instructions for Treatment How to access health information online Indication:Current smoker Start:04-Nov-19 Instruction Type:Patient Education How to access health information online - Detail Indication:Current smoker Start:04-Nov-19 Instruction Type:Patient Education Patient Instructions Indication:Current smoker Start:04-Nov-19 Instruction Type:Provider Instructions for Treatment How to access health information online Indication:Current smoker Start: Instruction Type:Patient Education How to access health information online - Detail Indication:Current smoker Start: Instruction Type:Patient Education Patient Instructions Indication:BMI 28.0-28.9,adult Start: Instruction Type:Provider Instructions for Treatment DISCONTINUED - LIPID PANEL ([id number]) Indication:Hyperlipidemia Start:10-Jun-20 Instruction Type:Patient Education How to access health information online Indication:Current smoker Start:10-Jun-20 Instruction Type:Patient Education How to access health information online - Detail Indication:Current smoker Start:10-Jun-20 Instruction Type:Patient Education Patient Instructions Indication:BMI 29.0-29.9,adult Start:10-Jun-20 Instruction Type:Provider Instructions for Treatment How to access health information online Indication:Current smoker Start: Instruction Type:Patient Education How to access health information online - Detail Indication:Current smoker Start: Instruction Type:Patient Education Patient Instructions Indication:Hyperlipidemia Start: Instruction Type:Provider Instructions for Treatment How to access health information online Indication:Current smoker Start:06-Oct-19 Instruction Type:Patient Education How to access health information online - Detail Indication:Current smoker Start:06-Oct-19 Instruction Type:Patient Education Patient Instructions Indication:Dermatitis due to plants, including poison heather, sumac, and oak Start:06-Oct-19 Instruction Type:Provider Instructions for Treatment How to access health information online Indication:Current smoker Start: Instruction Type:Patient Education How to access health information online - Detail Indication:Current smoker Start: Instruction Type:Patient Education Patient Instructions Indication:Rash Start: Instruction Type:Provider Instructions for Treatment How to access health information online Indication:Current smoker Start:19-Aug-20 Instruction Type:Patient Education How to access health information online - Detail Indication:Current smoker Start:19-Aug-20 Instruction Type:Patient Education Patient Instructions Indication:Influenza vaccination declined (Renamed from Refused influenza vaccine) Start:19-Aug-20 Instruction Type:Provider Instructions for Treatment How to access health information online Indication:Diabetes mellitus type II, controlled, with no complications Start:18-Apr-20 Instruction Type:Patient Education How to access health information online - Detail Indication:Diabetes mellitus type II, controlled, with no complications Start:18-Apr-20 Instruction Type:Patient Education Patient Instructions Indication:Diabetes mellitus type II, controlled, with no complications Start:18-Apr-20 Instruction Type:Provider Instructions for Treatment How to access health information online Indication:Dependence on nicotine from cigarettes Start:08-Apr-20 Instruction Type:Patient Education How to access health information online - Detail Indication:Dependence on nicotine from cigarettes Start:08-Apr-20 Instruction Type:Patient Education Patient Instructions Indication:Dependence on nicotine from cigarettes Start:08-Apr-20 Instruction Type:Provider Instructions for Treatment How to access health information online Indication:Dependence on nicotine from cigarettes Start: Instruction Type:Patient Education How to access health information online - Detail Indication:Dependence on nicotine from cigarettes Start: Instruction Type:Patient Education Patient Instructions Indication:Dependence on nicotine from cigarettes Start: Instruction Type:Provider Instructions for Treatment How to access health information online Indication:Hyperlipidemia Start:14-Sep-20 Instruction Type:Patient Education How to access health information online - Detail Indication:Hyperlipidemia Start:14-Sep-20 Instruction Type:Patient Education Patient Instructions Indication:Hyperlipidemia Start:14-Sep-20 Instruction Type:Provider Instructions for Treatment Patient Instructions Indication:Hyperlipidemia Start:13-Jul-20 Instruction Type:Provider Instructions for Treatment How to access health information online Indication:Diabetes mellitus type II, controlled, with no complications Start:15-Jun-20 Instruction Type:Patient Education How to access health information online - Detail Indication:Diabetes mellitus type II, controlled, with no complications Start:15-Jun-20 Instruction Type:Patient Education Patient Instructions Indication:Diabetes mellitus type II, controlled, with no complications Start:15-Jun-20 Instruction Type:Provider Instructions for Treatment How to access health information online Indication:Diabetes mellitus out of control Start:09-Mar-20 Instruction Type:Patient Education How to access health information online - Detail Indication:Diabetes mellitus out of control Start:09-Mar-20 Instruction Type:Patient Education Patient Instructions Indication:Diabetes mellitus out of control Start:09-Mar-20 Instruction Type:Provider Instructions for Treatment Patient Instructions Indication:Diabetes mellitus out of control Start:04-Jan-20 Instruction Type:Provider Instructions for Treatment How to access health information online - Detail Indication:Bursitis Start:21-Dec-19 Instruction Type:Patient Education Patient Instructions Indication:Bursitis Start:21-Dec-19 Instruction Type:Provider Instructions for Treatment How to access health information online Indication:Diabetes mellitus out of control Start:09-Dec-19 Instruction Type:Patient Education How to access health information online - Detail Indication:Diabetes mellitus out of control Start:09-Dec-19 Instruction Type:Patient Education Patient Instructions Indication:Diabetes mellitus out of control Start:09-Dec-19 Instruction Type:Provider Instructions for [facility] Work Phone: Family History Unknown Family Member Name Dates Details Diabetes Mellitus Type II Comments:Mother. Maternal Gr andmother. Status:Active Unknown Family Member Name Dates Details Diabetes Mellitus Type II Comments:Mother. Maternal Gr andmother. Status:Active Unknown Family Member Name Dates Details Diabetes Mellitus Type II Comments:Mother. Maternal Gr andmother. Status:Active Unknown Family Member Name Dates Details Diabetes Mellitus Type II Comments:Mother. Maternal Gr andmother. Status:Active Unknown Family Member Name Dates Details Diabetes Mellitus Type II Comments:Mother. Maternal Gr andmother. Status:Active Unknown Family Member Name Dates Details Diabetes Mellitus Type II Comments:Mother. Maternal Gr andmother. Status:Active Unknown Family Member Name Dates Details Diabetes Mellitus Type II Comments:Mother. Maternal Gr andmother. Status:Active Unknown Family Member Name Dates Details Diabetes Mellitus Type II Comments:Mother. Maternal Gr andmother. Status:Active Unknown Family Member Name Dates Details Diabetes Mellitus Type II Comments:Mother. Maternal Gr andmother. Status:Active Unknown Family Member Name Dates Details Diabetes Mellitus Type II Comments:Mother. Maternal Gr andmother. Status:Active Unknown Family Member Name Dates Details Diabetes Mellitus Type II Comments:Mother. Maternal Gr andmother. Status:Active Unknown Family Member Name Dates Details Diabetes Mellitus Type II Comments:Mother. Maternal Gr andmother. Status:Active Unknown Family Member Name Dates Details Diabetes Mellitus Type II Comments:Mother. Maternal Gr andmother. Status:Active Unknown Family Member Name Dates Details Diabetes Mellitus Type II Comments:Mother. Maternal Gr andmother. Status:Active Unknown Family Member Name Dates Details Diabetes Mellitus Type II Comments:Mother. Maternal Gr andmother. Status:Active Unknown Family Member Name Dates Details Diabetes Mellitus Type II Comments:Mother. Maternal Gr andmother. Status:Active Unknown Family Member Name Dates Details Diabetes Mellitus Type II Comments:Mother. Maternal Gr andmother. Status:Active Unknown Family Member Name Dates Details Diabetes Mellitus Type II Comments:Mother. Maternal Gr andmother. Status:Active Unknown Family Member Name Dates Details Diabetes Mellitus Type II Comments:Mother. Maternal Gr andmother. Status:Active Unknown Family Member Name Dates Details Diabetes Mellitus Type II Comments:Mother. Maternal Gr andmother. Status:Active Unknown Family Member Name Dates Details Diabetes Mellitus Type II Comments:Mother. Maternal Gr andmother. Status:Active Unknown Family Member Name Dates Details Diabetes Mellitus Type II Comments:Mother. Maternal Gr andmother. Status:Active Unknown Family Member Name Dates Details Diabetes Mellitus Type II Comments:Mother. Maternal Gr andmother. Status:Active Unknown Family Member Name Dates Details Diabetes Mellitus Type II Comments:Mother. Maternal Gr andmother. Status:Active Unknown Family Member Name Dates Details Diabetes Mellitus Type II Comments:Mother. Maternal Gr andmother. Status:Active Unknown Family Member Name Dates Details Diabetes Mellitus Type II Comments:Mother. Maternal Gr andmother. Status:Active Unknown Family Member Name Dates Details Diabetes Mellitus Type II Comments:Mother. Maternal Gr andmother. Status:Active Unknown Family Member Name Dates Details Diabetes Mellitus Type II Comments:Mother. Maternal Gr andmother. Status:Active Unknown Family Member Name Dates Details Diabetes Mellitus Type II Comments:Mother. Maternal Gr andmother. Status:Active Unknown Family Member Name Dates Details Diabetes Mellitus Type II Comments:Mother. Maternal Gr andmother. Status:Active Unknown Family Member Name Dates Details Diabetes Mellitus Type II Comments:Mother. Maternal Gr andmother. Status:Active Unknown Family Member Name Dates Details Diabetes Mellitus Type II Comments:Mother. Maternal Gr andmother. Status:Active Unknown Family Member Name Dates Details Diabetes Mellitus Type II Comments:Mother. Maternal Gr andmother. Status:Active Unknown Family Member Name Dates Details Diabetes Mellitus Type II Comments:Mother. Maternal Gr andmother. Status:Active Unknown Family Member Name Dates Details Diabetes Mellitus Type II Comments:Mother. Maternal Gr andmother. Status:Active Unknown Family Member Name Dates Details Diabetes Mellitus Type II Comments:Mother. Maternal Gr andmother. Status:Active Unknown Family Member Name Dates Details Diabetes Mellitus Type II Comments:Mother. Maternal Gr andmother. Status:Active Unknown Family Member Name Dates Details Diabetes Mellitus Type II Comments:Mother. Maternal Gr andmother. Status:Active Unknown Family Member Name Dates Details Diabetes Mellitus Type II Comments:Mother. Maternal Gr andmother. Status:Active Instructions Name Dates Details Current smoker : How to acce [facility] health information online Indication:Current smoker Current smoker : How to acce [place] health information online - Detail Indication:Current smoker Influenza vaccination declin ed (Renamed from Refused influenza vaccine) : Patient Instructions Indication:Influenza vaccination declined (Renamed from Refused influenza vaccine) Diabetes mellitus type II, c ontrolled, with no complications : How to access health information online Indication:Diabetes mellitus type II, controlled, with no complications Diabetes mellitus type II, c ontrolled, with no complications : How to access health information online - Detail Indication:Diabetes mellitus type II, controlled, with no complications Diabetes mellitus type II, c ontrolled, with no complications : Patient Instructions Indication:Diabetes mellitus type II, controlled, with no complications Dependence on nicotine from cigarettes : How to access health information online Indication:Dependence on nicotine from cigarettes Dependence on nicotine from cigarettes : How to access health information online - Detail Indication:Dependence on nicotine from cigarettes Dependence on nicotine from cigarettes : Patient Instructions Indication:Dependence on nicotine from cigarettes Hyperlipidemia : How to acce ss health information online Indication:Hyperlipidemia Hyperlipidemia : How to acce [facility] health information online - Detail Indication:Hyperlipidemia Hyperlipidemia : Patient Ins tructions Indication:Hyperlipidemia Diabetes mellitus out of con trol : How to access health information online Indication:Diabetes mellitus out of control Diabetes mellitus out of con trol : How to access health information online - Detail Indication:Diabetes mellitus out of control Diabetes mellitus out of con trol : Patient Instructions Indication:Diabetes mellitus out of control Bursitis : How to access hea lt information online - Detail Indication:Bursitis Bursitis : Patient Instructi ons Indication:Bursitis Name Dates Details Current smoker : How to acce [facility] health information online Indication:Current smoker Current smoker : How to acce health information online - Detail Indication:Current smoker Rash : Patient Instructions Indication:Rash Influenza vaccination declin ed (Renamed from Refused influenza vaccine) : Patient Instructions Indication:Influenza vaccination declined (Renamed from Refused influenza vaccine) Diabetes mellitus type II, c ontrolled, with no complications : How to access health information online Indication:Diabetes mellitus type II, controlled, with no complications Diabetes mellitus type II, c ontrolled, with no complications : How to access health information online - Detail Indication:Diabetes mellitus type II, controlled, with no complications Diabetes mellitus type II, c ontrolled, with no complications : Patient Instructions Indication:Diabetes mellitus type II, controlled, with no complications Dependence on nicotine from cigarettes : How to access health information online Indication:Dependence on nicotine from cigarettes Dependence on nicotine from cigarettes : How to access health information online - Detail Indication:Dependence on nicotine from cigarettes Dependence on nicotine from cigarettes : Patient Instructions Indication:Dependence on nicotine from cigarettes Hyperlipidemia : How to acce [facility] health information online Indication:Hyperlipidemia Hyperlipidemia : How to acce health information online - Detail Indication:Hyperlipidemia Hyperlipidemia : Patient Ins tructions Indication:Hyperlipidemia Diabetes mellitus out of con trol : How to access health information online Indication:Diabetes mellitus out of control Diabetes mellitus out of con trol : How to access health information online - Detail Indication:Diabetes mellitus out of control Diabetes mellitus out of con trol : Patient Instructions Indication:Diabetes mellitus out of control Bursitis : How to access hea lt information online - Detail Indication:Bursitis Bursitis : Patient Instructi ons Indication:Bursitis Name Dates Details Current smoker : How to acce [facility] health information online Indication:Current smoker Current smoker : How to acce health information online - Detail Indication:Current smoker Dermatitis due to plants, in cluding poison heather, sumac, and oak : Patient Instructions Indication:Dermatitis due to plants, including poison heather, sumac, and oak Rash : Patient Instructions Indication:Rash Influenza vaccination declin ed (Renamed from Refused influenza vaccine) : Patient Instructions Indication:Influenza vaccination declined (Renamed from Refused influenza vaccine) Diabetes mellitus type II, c ontrolled, with no complications : How to access health information online Indication:Diabetes mellitus type II, controlled, with no complications Diabetes mellitus type II, c ontrolled, with no complications : How to access health information online - Detail Indication:Diabetes mellitus type II, controlled, with no complications Diabetes mellitus type II, c ontrolled, with no complications : Patient Instructions Indication:Diabetes mellitus type II, controlled, with no complications Dependence on nicotine from cigarettes : How to access health information online Indication:Dependence on nicotine from cigarettes Dependence on nicotine from cigarettes : How to access health information online - Detail Indication:Dependence on nicotine from cigarettes Dependence on nicotine from cigarettes : Patient Instructions Indication:Dependence on nicotine from cigarettes Hyperlipidemia : How to acce ss health information online Indication:Hyperlipidemia Hyperlipidemia : How to acce ss health information online - Detail Indication:Hyperlipidemia Hyperlipidemia : Patient Ins tructions Indication:Hyperlipidemia Diabetes mellitus out of con trol : How to access health information online Indication:Diabetes mellitus out of control Diabetes mellitus out of con trol : How to access health information online - Detail Indication:Diabetes mellitus out of control Diabetes mellitus out of con trol : Patient Instructions Indication:Diabetes mellitus out of control Bursitis : How to access hea lt information online - Detail Indication:Bursitis Bursitis : Patient Instructi ons Indication:Bursitis Name Dates Details Current smoker : How to acce ss health information online Indication:Current smoker Current smoker : How to acce ss health information online - Detail Indication:Current smoker Dermatitis due to plants, in cluding poison heather, sumac, and oak : Patient Instructions Indication:Dermatitis due to plants, including poison heather, sumac, and oak Rash : Patient Instructions Indication:Rash Influenza vaccination declin ed (Renamed from Refused influenza vaccine) : Patient Instructions Indication:Influenza vaccination declined (Renamed from Refused influenza vaccine) Diabetes mellitus type II, c ontrolled, with no complications : How to access health information online Indication:Diabetes mellitus type II, controlled, with no complications Diabetes mellitus type II, c ontrolled, with no complications : How to access health information online - Detail Indication:Diabetes mellitus type II, controlled, with no complications Diabetes mellitus type II, c ontrolled, with no complications : Patient Instructions Indication:Diabetes mellitus type II, controlled, with no complications Dependence on nicotine from cigarettes : How to access health information online Indication:Dependence on nicotine from cigarettes Dependence on nicotine from cigarettes : How to access health information online - Detail Indication:Dependence on nicotine from cigarettes Dependence on nicotine from cigarettes : Patient Instructions Indication:Dependence on nicotine from cigarettes Hyperlipidemia : How to acce ss health information online Indication:Hyperlipidemia Hyperlipidemia : How to acce ss health information online - Detail Indication:Hyperlipidemia Hyperlipidemia : Patient Ins tructions Indication:Hyperlipidemia Diabetes mellitus out of con trol : How to access health information online Indication:Diabetes mellitus out of control Diabetes mellitus out of con trol : How to access health information online - Detail Indication:Diabetes mellitus out of control Diabetes mellitus out of con trol : Patient Instructions Indication:Diabetes mellitus out of control Bursitis : How to access [facility] information online - Detail Indication:Bursitis Bursitis : Patient Instructi ons Indication:Bursitis Name Dates Details How to access health informa tion online Indication:Current smoker Start:06-Oct-2018 Instruction Type:Patient Education How to access health informa tion online - Detail Indication:Current smoker Start:06-Oct-2018 Instruction Type:Patient Education Patient Instructions Indication:Dermatitis due to plants, including poison heather, sumac, and oak Start:06-Oct-2018 Instruction Type:Provider Instructions for Treatment How to access health informa tion online Indication:Current smoker Start:29-Sep-2018 Instruction Type:Patient Education How to access health informa tion online - Detail Indication:Current smoker Start:29-Sep-2018 Instruction Type:Patient Education Patient Instructions Indication:Rash Start:29-Sep-2018 Instruction Type:Provider Instructions for Treatment How to access health informa tion online Indication:Current smoker Start:19-Aug-2018 Instruction Type:Patient Education How to access health informa tion online - Detail Indication:Current smoker Start:19-Aug-2018 Instruction Type:Patient Education Patient Instructions Indication:Influenza vaccination declined (Renamed from Refused influenza vaccine) Start:19-Aug-2018 Instruction Type:Provider Instructions for Treatment How to access health informa tion online Indication:Diabetes mellitus type II, controlled, with no complications Start:18-Apr-2018 Instruction Type:Patient Education How to access health informa tion online - Detail Indication:Diabetes mellitus type II, controlled, with no complications Start:18-Apr-2018 Instruction Type:Patient Education Patient Instructions Indication:Diabetes mellitus type II, controlled, with no complications Start:18-Apr-2018 Instruction Type:Provider Instructions for Treatment How to access health informa tion online Indication:Dependence on nicotine from cigarettes Start:08-Apr-2018 Instruction Type:Patient Education How to access health informa tion online - Detail Indication:Dependence on nicotine from cigarettes Start:08-Apr-2018 Instruction Type:Patient Education Patient Instructions Indication:Dependence on nicotine from cigarettes Start:08-Apr-2018 Instruction Type:Provider Instructions for Treatment How to access health informa tion online Indication:Dependence on nicotine from cigarettes Start:25-Mar-2017 Instruction Type:Patient Education How to access health informa tion online - Detail Indication:Dependence on nicotine from cigarettes Start:25-Mar-2017 Instruction Type:Patient Education Patient Instructions Indication:Dependence on nicotine from cigarettes Start:25-Mar-2017 Instruction Type:Provider Instructions for Treatment How to access health informa tion online Indication:Hyperlipidemia Start:14-Sep-2015 Instruction Type:Patient Education How to access health informa tion online - Detail Indication:Hyperlipidemia Start:14-Sep-2015 Instruction Type:Patient Education Patient Instructions Indication:Hyperlipidemia Start:14-Sep-2015 Instruction Type:Provider Instructions for Treatment Patient Instructions Indication:Hyperlipidemia Start:13-Jul-2015 Instruction Type:Provider Instructions for Treatment How to access health informa tion online Indication:Diabetes mellitus type II, controlled, with no complications Start:15-Jun-2015 Instruction Type:Patient Education How to access health informa tion online - Detail Indication:Diabetes mellitus type II, controlled, with no complications Start:15-Jun-2015 Instruction Type:Patient Education Patient Instructions Indication:Diabetes mellitus type II, controlled, with no complications Start:15-Jun-2015 Instruction Type:Provider Instructions for Treatment How to access health informa tion online Indication:Diabetes mellitus out of control Start:09-Mar-2015 Instruction Type:Patient Education How to access health informa tion online - Detail Indication:Diabetes mellitus out of control Start:09-Mar-2015 Instruction Type:Patient Education Patient Instructions Indication:Diabetes mellitus out of control Start:09-Mar-2015 Instruction Type:Provider Instructions for Treatment Patient Instructions Indication:Diabetes mellitus out of control Start:03-Jan-2015 Instruction Type:Provider Instructions for Treatment How to access health informa tion online - Detail Indication:Bursitis Start:20-Dec-2014 Instruction Type:Patient Education Patient Instructions Indication:Bursitis Start:20-Dec-2014 Instruction Type:Provider Instructions for Treatment How to access health informa tion online Indication:Diabetes mellitus out of control Start:08-Dec-2014 Instruction Type:Patient Education How to access health informa tion online - Detail Indication:Diabetes mellitus out of control Start:08-Dec-2014 Instruction Type:Patient Education Patient Instructions Indication:Diabetes mellitus out of control Start:08-Dec-2014 Instruction Type:Provider Instructions for Treatment Name Dates Details How to access health informa tion online Indication:Current smoker Start:29-Apr-2019 Instruction Type:Patient Education How to access health informa tion online - Detail Indication:Current smoker Start:29-Apr-2019 Instruction Type:Patient Education Patient Instructions Indication:Hyperlipidemia Start:29-Apr-2019 Instruction Type:Provider Instructions for Treatment How to access health informa tion online Indication:Current smoker Start:06-Oct-2018 Instruction Type:Patient Education How to access health informa tion online - Detail Indication:Current smoker Start:06-Oct-2018 Instruction Type:Patient Education Patient Instructions Indication:Dermatitis due to plants, including poison heather, sumac, and oak Start:06-Oct-2018 Instruction Type:Provider Instructions for Treatment How to access health informa tion online Indication:Current smoker Start:29-Sep-2018 Instruction Type:Patient Education How to access health informa tion online - Detail Indication:Current smoker Start:29-Sep-2018 Instruction Type:Patient Education Patient Instructions Indication:Rash Start:29-Sep-2018 Instruction Type:Provider Instructions for Treatment How to access health informa tion online Indication:Current smoker Start:19-Aug-2018 Instruction Type:Patient Education How to access health informa tion online - Detail Indication:Current smoker Start:19-Aug-2018 Instruction Type:Patient Education Patient Instructions Indication:Influenza vaccination declined (Renamed from Refused influenza vaccine) Start:19-Aug-2018 Instruction Type:Provider Instructions for Treatment How to access health informa tion online Indication:Diabetes mellitus type II, controlled, with no complications Start:18-Apr-2018 Instruction Type:Patient Education How to access health informa tion online - Detail Indication:Diabetes mellitus type II, controlled, with no complications Start:18-Apr-2018 Instruction Type:Patient Education Patient Instructions Indication:Diabetes mellitus type II, controlled, with no complications Start:18-Apr-2018 Instruction Type:Provider Instructions for Treatment How to access health informa tion online Indication:Dependence on nicotine from cigarettes Start:08-Apr-2018 Instruction Type:Patient Education How to access health informa tion online - Detail Indication:Dependence on nicotine from cigarettes Start:08-Apr-2018 Instruction Type:Patient Education Patient Instructions Indication:Dependence on nicotine from cigarettes Start:08-Apr-2018 Instruction Type:Provider Instructions for Treatment How to access health informa tion online Indication:Dependence on nicotine from cigarettes Start:25-Mar-2017 Instruction Type:Patient Education How to access health informa tion online - Detail Indication:Dependence on nicotine from cigarettes Start:25-Mar-2017 Instruction Type:Patient Education Patient Instructions Indication:Dependence on nicotine from cigarettes Start:25-Mar-2017 Instruction Type:Provider Instructions for Treatment How to access health informa tion online Indication:Hyperlipidemia Start:14-Sep-2015 Instruction Type:Patient Education How to access health informa tion online - Detail Indication:Hyperlipidemia Start:14-Sep-2015 Instruction Type:Patient Education Patient Instructions Indication:Hyperlipidemia Start:14-Sep-2015 Instruction Type:Provider Instructions for Treatment Patient Instructions Indication:Hyperlipidemia Start:13-Jul-2015 Instruction Type:Provider Instructions for Treatment How to access health informa tion online Indication:Diabetes mellitus type II, controlled, with no complications Start:15-Jun-2015 Instruction Type:Patient Education How to access health informa tion online - Detail Indication:Diabetes mellitus type II, controlled, with no complications Start:15-Jun-2015 Instruction Type:Patient Education Patient Instructions Indication:Diabetes mellitus type II, controlled, with no complications Start:15-Jun-2015 Instruction Type:Provider Instructions for Treatment How to access health informa tion online Indication:Diabetes mellitus out of control Start:09-Mar-2015 Instruction Type:Patient Education How to access health informa tion online - Detail Indication:Diabetes mellitus out of control Start:09-Mar-2015 Instruction Type:Patient Education Patient Instructions Indication:Diabetes mellitus out of control Start:09-Mar-2015 Instruction Type:Provider Instructions for Treatment Patient Instructions Indication:Diabetes mellitus out of control Start:03-Jan-2015 Instruction Type:Provider Instructions for Treatment How to access health informa tion online - Detail Indication:Bursitis Start:20-Dec-2014 Instruction Type:Patient Education Patient Instructions Indication:Bursitis Start:20-Dec-2014 Instruction Type:Provider Instructions for Treatment How to access health informa tion online Indication:Diabetes mellitus out of control Start:08-Dec-2014 Instruction Type:Patient Education How to access health informa tion online - Detail Indication:Diabetes mellitus out of control Start:08-Dec-2014 Instruction Type:Patient Education Patient Instructions Indication:Diabetes mellitus out of control Start:08-Dec-2014 Instruction Type:Provider Instructions for Treatment Name Dates Details How to access health informa tion online Indication:Current smoker Start:29-Apr-2019 Instruction Type:Patient Education How to access health informa tion online - Detail Indication:Current smoker Start:29-Apr-2019 Instruction Type:Patient Education Patient Instructions Indication:Hyperlipidemia Start:29-Apr-2019 Instruction Type:Provider Instructions for Treatment How to access health informa tion online Indication:Current smoker Start:06-Oct-2018 Instruction Type:Patient Education How to access health informa tion online - Detail Indication:Current smoker Start:06-Oct-2018 Instruction Type:Patient Education Patient Instructions Indication:Dermatitis due to plants, including poison heather, sumac, and oak Start:06-Oct-2018 Instruction Type:Provider Instructions for Treatment How to access health informa tion online Indication:Current smoker Start:29-Sep-2018 Instruction Type:Patient Education How to access health informa tion online - Detail Indication:Current smoker Start:29-Sep-2018 Instruction Type:Patient Education Patient Instructions Indication:Rash Start:29-Sep-2018 Instruction Type:Provider Instructions for Treatment How to access health informa tion online Indication:Current smoker Start:19-Aug-2018 Instruction Type:Patient Education How to access health informa tion online - Detail Indication:Current smoker Start:19-Aug-2018 Instruction Type:Patient Education Patient Instructions Indication:Influenza vaccination declined (Renamed from Refused influenza vaccine) Start:19-Aug-2018 Instruction Type:Provider Instructions for Treatment How to access health informa tion online Indication:Diabetes mellitus type II, controlled, with no complications Start:18-Apr-2018 Instruction Type:Patient Education How to access health informa tion online - Detail Indication:Diabetes mellitus type II, controlled, with no complications Start:18-Apr-2018 Instruction Type:Patient Education Patient Instructions Indication:Diabetes mellitus type II, controlled, with no complications Start:18-Apr-2018 Instruction Type:Provider Instructions for Treatment How to access health informa tion online Indication:Dependence on nicotine from cigarettes Start:08-Apr-2018 Instruction Type:Patient Education How to access health informa tion online - Detail Indication:Dependence on nicotine from cigarettes Start:08-Apr-2018 Instruction Type:Patient Education Patient Instructions Indication:Dependence on nicotine from cigarettes Start:08-Apr-2018 Instruction Type:Provider Instructions for Treatment How to access health informa tion online Indication:Dependence on nicotine from cigarettes Start:25-Mar-2017 Instruction Type:Patient Education How to access health informa tion online - Detail Indication:Dependence on nicotine from cigarettes Start:25-Mar-2017 Instruction Type:Patient Education Patient Instructions Indication:Dependence on nicotine from cigarettes Start:25-Mar-2017 Instruction Type:Provider Instructions for Treatment How to access health informa tion online Indication:Hyperlipidemia Start:14-Sep-2015 Instruction Type:Patient Education How to access health informa tion online - Detail Indication:Hyperlipidemia Start:14-Sep-2015 Instruction Type:Patient Education Patient Instructions Indication:Hyperlipidemia Start:14-Sep-2015 Instruction Type:Provider Instructions for Treatment Patient Instructions Indication:Hyperlipidemia Start:13-Jul-2015 Instruction Type:Provider Instructions for Treatment How to access health informa tion online Indication:Diabetes mellitus type II, controlled, with no complications Start:15-Jun-2015 Instruction Type:Patient Education How to access health informa tion online - Detail Indication:Diabetes mellitus type II, controlled, with no complications Start:15-Jun-2015 Instruction Type:Patient Education Patient Instructions Indication:Diabetes mellitus type II, controlled, with no complications Start:15-Jun-2015 Instruction Type:Provider Instructions for Treatment How to access health informa tion online Indication:Diabetes mellitus out of control Start:09-Mar-2015 Instruction Type:Patient Education How to access health informa tion online - Detail Indication:Diabetes mellitus out of control Start:09-Mar-2015 Instruction Type:Patient Education Patient Instructions Indication:Diabetes mellitus out of control Start:09-Mar-2015 Instruction Type:Provider Instructions for Treatment Patient Instructions Indication:Diabetes mellitus out of control Start:03-Jan-2015 Instruction Type:Provider Instructions for Treatment How to access health informa tion online - Detail Indication:Bursitis Start:20-Dec-2014 Instruction Type:Patient Education Patient Instructions Indication:Bursitis Start:20-Dec-2014 Instruction Type:Provider Instructions for Treatment How to access health informa tion online Indication:Diabetes mellitus out of control Start:08-Dec-2014 Instruction Type:Patient Education How to access health informa tion online - Detail Indication:Diabetes mellitus out of control Start:08-Dec-2014 Instruction Type:Patient Education Patient Instructions Indication:Diabetes mellitus out of control Start:08-Dec-2014 Instruction Type:Provider Instructions for Treatment Name Dates Details How to access health informa tion online Start:29-Apr-2019 Instruction Type:Patient Education How to access health informa tion online - Detail Start:29-Apr-2019 Instruction Type:Patient Education Patient Instructions Indication:Hyperlipidemia Start:29-Apr-2019 Instruction Type:Provider Instructions for Treatment How to access health informa tion online Start:06-Oct-2018 Instruction Type:Patient Education How to access health informa tion online - Detail Start:06-Oct-2018 Instruction Type:Patient Education Patient Instructions Indication:Dermatitis due to plants, including poison heather, sumac, and oak Start:06-Oct-2018 Instruction Type:Provider Instructions for Treatment How to access health informa tion online Start:29-Sep-2018 Instruction Type:Patient Education How to access health informa tion online - Detail Start:29-Sep-2018 Instruction Type:Patient Education Patient Instructions Indication:Rash Start:29-Sep-2018 Instruction Type:Provider Instructions for Treatment How to access health informa tion online Start:19-Aug-2018 Instruction Type:Patient Education How to access health informa tion online - Detail Start:19-Aug-2018 Instruction Type:Patient Education Patient Instructions Indication:Influenza vaccination declined (Renamed from Refused influenza vaccine) Start:19-Aug-2018 Instruction Type:Provider Instructions for Treatment How to access health informa tion online Indication:Diabetes mellitus type II, controlled, with no complications Start:18-Apr-2018 Instruction Type:Patient Education How to access health informa tion online - Detail Indication:Diabetes mellitus type II, controlled, with no complications Start:18-Apr-2018 Instruction Type:Patient Education Patient Instructions Indication:Diabetes mellitus type II, controlled, with no complications Start:18-Apr-2018 Instruction Type:Provider Instructions for Treatment How to access health informa tion online Indication:Dependence on nicotine from cigarettes Start:08-Apr-2018 Instruction Type:Patient Education How to access health informa tion online - Detail Indication:Dependence on nicotine from cigarettes Start:08-Apr-2018 Instruction Type:Patient Education Patient Instructions Indication:Dependence on nicotine from cigarettes Start:08-Apr-2018 Instruction Type:Provider Instructions for Treatment How to access health informa tion online Indication:Dependence on nicotine from cigarettes Start:25-Mar-2017 Instruction Type:Patient Education How to access health informa tion online - Detail Indication:Dependence on nicotine from cigarettes Start:25-Mar-2017 Instruction Type:Patient Education Patient Instructions Indication:Dependence on nicotine from cigarettes Start:25-Mar-2017 Instruction Type:Provider Instructions for Treatment How to access health informa tion online Indication:Hyperlipidemia Start:14-Sep-2015 Instruction Type:Patient Education How to access health informa tion online - Detail Indication:Hyperlipidemia Start:14-Sep-2015 Instruction Type:Patient Education Patient Instructions Indication:Hyperlipidemia Start:14-Sep-2015 Instruction Type:Provider Instructions for Treatment Patient Instructions Indication:Hyperlipidemia Start:13-Jul-2015 Instruction Type:Provider Instructions for Treatment How to access health informa tion online Indication:Diabetes mellitus type II, controlled, with no complications Start:15-Jun-2015 Instruction Type:Patient Education How to access health informa tion online - Detail Indication:Diabetes mellitus type II, controlled, with no complications Start:15-Jun-2015 Instruction Type:Patient Education Patient Instructions Indication:Diabetes mellitus type II, controlled, with no complications Start:15-Jun-2015 Instruction Type:Provider Instructions for Treatment How to access health informa tion online Indication:Diabetes mellitus out of control Start:09-Mar-2015 Instruction Type:Patient Education How to access health informa tion online - Detail Indication:Diabetes mellitus out of control Start:09-Mar-2015 Instruction Type:Patient Education Patient Instructions Indication:Diabetes mellitus out of control Start:09-Mar-2015 Instruction Type:Provider Instructions for Treatment Patient Instructions Indication:Diabetes mellitus out of control Start:03-Jan-2015 Instruction Type:Provider Instructions for Treatment How to access health informa tion online - Detail Indication:Bursitis Start:20-Dec-2014 Instruction Type:Patient Education Patient Instructions Indication:Bursitis Start:20-Dec-2014 Instruction Type:Provider Instructions for Treatment How to access health informa tion online Indication:Diabetes mellitus out of control Start:08-Dec-2014 Instruction Type:Patient Education How to access health informa tion online - Detail Indication:Diabetes mellitus out of control Start:08-Dec-2014 Instruction Type:Patient Education Patient Instructions Indication:Diabetes mellitus out of control Start:08-Dec-2014 Instruction Type:Provider Instructions for Treatment Name Dates Details DISCONTINUED - LIPID PANEL ( [id number]) Indication:Hyperlipidemia Start:10-Jun-2019 Instruction Type:Patient Education How to access health informa tion online Indication:Current smoker Start:10-Jun-2019 Instruction Type:Patient Education How to access health informa tion online - Detail Indication:Current smoker Start:10-Jun-2019 Instruction Type:Patient Education Patient Instructions Indication:BMI 29.0-29.9,adult Start:10-Jun-2019 Instruction Type:Provider Instructions for Treatment How to access health informa tion online Indication:Current smoker Start:29-Apr-2019 Instruction Type:Patient Education How to access health informa tion online - Detail Indication:Current smoker Start:29-Apr-2019 Instruction Type:Patient Education Patient Instructions Indication:Hyperlipidemia Start:29-Apr-2019 Instruction Type:Provider Instructions for Treatment How to access health informa tion online Indication:Current smoker Start:06-Oct-2018 Instruction Type:Patient Education How to access health informa tion online - Detail Indication:Current smoker Start:06-Oct-2018 Instruction Type:Patient Education Patient Instructions Indication:Dermatitis due to plants, including poison heather, sumac, and oak Start:06-Oct-2018 Instruction Type:Provider Instructions for Treatment How to access health informa tion online Indication:Current smoker Start:29-Sep-2018 Instruction Type:Patient Education How to access health informa tion online - Detail Indication:Current smoker Start:29-Sep-2018 Instruction Type:Patient Education Patient Instructions Indication:Rash Start:29-Sep-2018 Instruction Type:Provider Instructions for Treatment How to access health informa tion online Indication:Current smoker Start:19-Aug-2018 Instruction Type:Patient Education How to access health informa tion online - Detail Indication:Current smoker Start:19-Aug-2018 Instruction Type:Patient Education Patient Instructions Indication:Influenza vaccination declined (Renamed from Refused influenza vaccine) Start:19-Aug-2018 Instruction Type:Provider Instructions for Treatment How to access health informa tion online Indication:Diabetes mellitus type II, controlled, with no complications Start:18-Apr-2018 Instruction Type:Patient Education How to access health informa tion online - Detail Indication:Diabetes mellitus type II, controlled, with no complications Start:18-Apr-2018 Instruction Type:Patient Education Patient Instructions Indication:Diabetes mellitus type II, controlled, with no complications Start:18-Apr-2018 Instruction Type:Provider Instructions for Treatment How to access health informa tion online Indication:Dependence on nicotine from cigarettes Start:08-Apr-2018 Instruction Type:Patient Education How to access health informa tion online - Detail Indication:Dependence on nicotine from cigarettes Start:08-Apr-2018 Instruction Type:Patient Education Patient Instructions Indication:Dependence on nicotine from cigarettes Start:08-Apr-2018 Instruction Type:Provider Instructions for Treatment How to access health informa tion online Indication:Dependence on nicotine from cigarettes Start:25-Mar-2017 Instruction Type:Patient Education How to access health informa tion online - Detail Indication:Dependence on nicotine from cigarettes Start:25-Mar-2017 Instruction Type:Patient Education Patient Instructions Indication:Dependence on nicotine from cigarettes Start:25-Mar-2017 Instruction Type:Provider Instructions for Treatment How to access health informa tion online Indication:Hyperlipidemia Start:14-Sep-2015 Instruction Type:Patient Education How to access health informa tion online - Detail Indication:Hyperlipidemia Start:14-Sep-2015 Instruction Type:Patient Education Patient Instructions Indication:Hyperlipidemia Start:14-Sep-2015 Instruction Type:Provider Instructions for Treatment Patient Instructions Indication:Hyperlipidemia Start:13-Jul-2015 Instruction Type:Provider Instructions for Treatment How to access health informa tion online Indication:Diabetes mellitus type II, controlled, with no complications Start:15-Jun-2015 Instruction Type:Patient Education How to access health informa tion online - Detail Indication:Diabetes mellitus type II, controlled, with no complications Start:15-Jun-2015 Instruction Type:Patient Education Patient Instructions Indication:Diabetes mellitus type II, controlled, with no complications Start:15-Jun-2015 Instruction Type:Provider Instructions for Treatment How to access health informa tion online Indication:Diabetes mellitus out of control Start:09-Mar-2015 Instruction Type:Patient Education How to access health informa tion online - Detail Indication:Diabetes mellitus out of control Start:09-Mar-2015 Instruction Type:Patient Education Patient Instructions Indication:Diabetes mellitus out of control Start:09-Mar-2015 Instruction Type:Provider Instructions for Treatment Patient Instructions Indication:Diabetes mellitus out of control Start:03-Jan-2015 Instruction Type:Provider Instructions for Treatment How to access health informa tion online - Detail Indication:Bursitis Start:20-Dec-2014 Instruction Type:Patient Education Patient Instructions Indication:Bursitis Start:20-Dec-2014 Instruction Type:Provider Instructions for Treatment How to access health informa tion online Indication:Diabetes mellitus out of control Start:08-Dec-2014 Instruction Type:Patient Education How to access health informa tion online - Detail Indication:Diabetes mellitus out of control Start:08-Dec-2014 Instruction Type:Patient Education Patient Instructions Indication:Diabetes mellitus out of control Start:08-Dec-2014 Instruction Type:Provider Instructions for Treatment Name Dates Details DISCONTINUED - LIPID PANEL ( [id number]) Indication:Hyperlipidemia Start:10-Jun-2019 Instruction Type:Patient Education How to access health informa tion online Indication:Current smoker Start:10-Jun-2019 Instruction Type:Patient Education How to access health informa tion online - Detail Indication:Current smoker Start:10-Jun-2019 Instruction Type:Patient Education Patient Instructions Indication:BMI 29.0-29.9,adult Start:10-Jun-2019 Instruction Type:Provider Instructions for Treatment How to access health informa tion online Indication:Current smoker Start:29-Apr-2019 Instruction Type:Patient Education How to access health informa tion online - Detail Indication:Current smoker Start:29-Apr-2019 Instruction Type:Patient Education Patient Instructions Indication:Hyperlipidemia Start:29-Apr-2019 Instruction Type:Provider Instructions for Treatment How to access health informa tion online Indication:Current smoker Start:06-Oct-2018 Instruction Type:Patient Education How to access health informa tion online - Detail Indication:Current smoker Start:06-Oct-2018 Instruction Type:Patient Education Patient Instructions Indication:Dermatitis due to plants, including poison heather, sumac, and oak Start:06-Oct-2018 Instruction Type:Provider Instructions for Treatment How to access health informa tion online Indication:Current smoker Start:29-Sep-2018 Instruction Type:Patient Education How to access health informa tion online - Detail Indication:Current smoker Start:29-Sep-2018 Instruction Type:Patient Education Patient Instructions Indication:Rash Start:29-Sep-2018 Instruction Type:Provider Instructions for Treatment How to access health informa tion online Indication:Current smoker Start:19-Aug-2018 Instruction Type:Patient Education How to access health informa tion online - Detail Indication:Current smoker Start:19-Aug-2018 Instruction Type:Patient Education Patient Instructions Indication:Influenza vaccination declined (Renamed from Refused influenza vaccine) Start:19-Aug-2018 Instruction Type:Provider Instructions for Treatment How to access health informa tion online Indication:Diabetes mellitus type II, controlled, with no complications Start:18-Apr-2018 Instruction Type:Patient Education How to access health informa tion online - Detail Indication:Diabetes mellitus type II, controlled, with no complications Start:18-Apr-2018 Instruction Type:Patient Education Patient Instructions Indication:Diabetes mellitus type II, controlled, with no complications Start:18-Apr-2018 Instruction Type:Provider Instructions for Treatment How to access health informa tion online Indication:Dependence on nicotine from cigarettes Start:08-Apr-2018 Instruction Type:Patient Education How to access health informa tion online - Detail Indication:Dependence on nicotine from cigarettes Start:08-Apr-2018 Instruction Type:Patient Education Patient Instructions Indication:Dependence on nicotine from cigarettes Start:08-Apr-2018 Instruction Type:Provider Instructions for Treatment How to access health informa tion online Indication:Dependence on nicotine from cigarettes Start:25-Mar-2017 Instruction Type:Patient Education How to access health informa tion online - Detail Indication:Dependence on nicotine from cigarettes Start:25-Mar-2017 Instruction Type:Patient Education Patient Instructions Indication:Dependence on nicotine from cigarettes Start:25-Mar-2017 Instruction Type:Provider Instructions for Treatment How to access health informa tion online Indication:Hyperlipidemia Start:14-Sep-2015 Instruction Type:Patient Education How to access health informa tion online - Detail Indication:Hyperlipidemia Start:14-Sep-2015 Instruction Type:Patient Education Patient Instructions Indication:Hyperlipidemia Start:14-Sep-2015 Instruction Type:Provider Instructions for Treatment Patient Instructions Indication:Hyperlipidemia Start:13-Jul-2015 Instruction Type:Provider Instructions for Treatment How to access health informa tion online Indication:Diabetes mellitus type II, controlled, with no complications Start:15-Jun-2015 Instruction Type:Patient Education How to access health informa tion online - Detail Indication:Diabetes mellitus type II, controlled, with no complications Start:15-Jun-2015 Instruction Type:Patient Education Patient Instructions Indication:Diabetes mellitus type II, controlled, with no complications Start:15-Jun-2015 Instruction Type:Provider Instructions for Treatment How to access health informa tion online Indication:Diabetes mellitus out of control Start:09-Mar-2015 Instruction Type:Patient Education How to access health informa tion online - Detail Indication:Diabetes mellitus out of control Start:09-Mar-2015 Instruction Type:Patient Education Patient Instructions Indication:Diabetes mellitus out of control Start:09-Mar-2015 Instruction Type:Provider Instructions for Treatment Patient Instructions Indication:Diabetes mellitus out of control Start:03-Jan-2015 Instruction Type:Provider Instructions for Treatment How to access health informa tion online - Detail Indication:Bursitis Start:20-Dec-2014 Instruction Type:Patient Education Patient Instructions Indication:Bursitis Start:20-Dec-2014 Instruction Type:Provider Instructions for Treatment How to access health informa tion online Indication:Diabetes mellitus out of control Start:08-Dec-2014 Instruction Type:Patient Education How to access health informa tion online - Detail Indication:Diabetes mellitus out of control Start:08-Dec-2014 Instruction Type:Patient Education Patient Instructions Indication:Diabetes mellitus out of control Start:08-Dec-2014 Instruction Type:Provider Instructions for Treatment Name Dates Details DISCONTINUED - LIPID PANEL ( [id number]) Indication:Hyperlipidemia Start:10-Jun-2019 Instruction Type:Patient Education How to access health informa tion online Indication:Current smoker Start:10-Jun-2019 Instruction Type:Patient Education How to access health informa tion online - Detail Indication:Current smoker Start:10-Jun-2019 Instruction Type:Patient Education Patient Instructions Indication:BMI 29.0-29.9,adult Start:10-Jun-2019 Instruction Type:Provider Instructions for Treatment How to access health informa tion online Indication:Current smoker Start:29-Apr-2019 Instruction Type:Patient Education How to access health informa tion online - Detail Indication:Current smoker Start:29-Apr-2019 Instruction Type:Patient Education Patient Instructions Indication:Hyperlipidemia Start:29-Apr-2019 Instruction Type:Provider Instructions for Treatment How to access health informa tion online Indication:Current smoker Start:06-Oct-2018 Instruction Type:Patient Education How to access health informa tion online - Detail Indication:Current smoker Start:06-Oct-2018 Instruction Type:Patient Education Patient Instructions Indication:Dermatitis due to plants, including poison heather, sumac, and oak Start:06-Oct-2018 Instruction Type:Provider Instructions for Treatment How to access health informa tion online Indication:Current smoker Start:29-Sep-2018 Instruction Type:Patient Education How to access health informa tion online - Detail Indication:Current smoker Start:29-Sep-2018 Instruction Type:Patient Education Patient Instructions Indication:Rash Start:29-Sep-2018 Instruction Type:Provider Instructions for Treatment How to access health informa tion online Indication:Current smoker Start:19-Aug-2018 Instruction Type:Patient Education How to access health informa tion online - Detail Indication:Current smoker Start:19-Aug-2018 Instruction Type:Patient Education Patient Instructions Indication:Influenza vaccination declined (Renamed from Refused influenza vaccine) Start:19-Aug-2018 Instruction Type:Provider Instructions for Treatment How to access health informa tion online Indication:Diabetes mellitus type II, controlled, with no complications Start:18-Apr-2018 Instruction Type:Patient Education How to access health informa tion online - Detail Indication:Diabetes mellitus type II, controlled, with no complications Start:18-Apr-2018 Instruction Type:Patient Education Patient Instructions Indication:Diabetes mellitus type II, controlled, with no complications Start:18-Apr-2018 Instruction Type:Provider Instructions for Treatment How to access health informa tion online Indication:Dependence on nicotine from cigarettes Start:08-Apr-2018 Instruction Type:Patient Education How to access health informa tion online - Detail Indication:Dependence on nicotine from cigarettes Start:08-Apr-2018 Instruction Type:Patient Education Patient Instructions Indication:Dependence on nicotine from cigarettes Start:08-Apr-2018 Instruction Type:Provider Instructions for Treatment How to access health informa tion online Indication:Dependence on nicotine from cigarettes Start:25-Mar-2017 Instruction Type:Patient Education How to access health informa tion online - Detail Indication:Dependence on nicotine from cigarettes Start:25-Mar-2017 Instruction Type:Patient Education Patient Instructions Indication:Dependence on nicotine from cigarettes Start:25-Mar-2017 Instruction Type:Provider Instructions for Treatment How to access health informa tion online Indication:Hyperlipidemia Start:14-Sep-2015 Instruction Type:Patient Education How to access health informa tion online - Detail Indication:Hyperlipidemia Start:14-Sep-2015 Instruction Type:Patient Education Patient Instructions Indication:Hyperlipidemia Start:14-Sep-2015 Instruction Type:Provider Instructions for Treatment Patient Instructions Indication:Hyperlipidemia Start:13-Jul-2015 Instruction Type:Provider Instructions for Treatment How to access health informa tion online Indication:Diabetes mellitus type II, controlled, with no complications Start:15-Jun-2015 Instruction Type:Patient Education How to access health informa tion online - Detail Indication:Diabetes mellitus type II, controlled, with no complications Start:15-Jun-2015 Instruction Type:Patient Education Patient Instructions Indication:Diabetes mellitus type II, controlled, with no complications Start:15-Jun-2015 Instruction Type:Provider Instructions for Treatment How to access health informa tion online Indication:Diabetes mellitus out of control Start:09-Mar-2015 Instruction Type:Patient Education How to access health informa tion online - Detail Indication:Diabetes mellitus out of control Start:09-Mar-2015 Instruction Type:Patient Education Patient Instructions Indication:Diabetes mellitus out of control Start:09-Mar-2015 Instruction Type:Provider Instructions for Treatment Patient Instructions Indication:Diabetes mellitus out of control Start:03-Jan-2015 Instruction Type:Provider Instructions for Treatment How to access health informa tion online - Detail Indication:Bursitis Start:20-Dec-2014 Instruction Type:Patient Education Patient Instructions Indication:Bursitis Start:20-Dec-2014 Instruction Type:Provider Instructions for Treatment How to access health informa tion online Indication:Diabetes mellitus out of control Start:08-Dec-2014 Instruction Type:Patient Education How to access health informa tion online - Detail Indication:Diabetes mellitus out of control Start:08-Dec-2014 Instruction Type:Patient Education Patient Instructions Indication:Diabetes mellitus out of control Start:08-Dec-2014 Instruction Type:Provider Instructions for Treatment Name Dates Details How to access health informa tion online Indication:Current smoker Start:31-Jul-2019 Instruction Type:Patient Education How to access health informa tion online - Detail Indication:Current smoker Start:31-Jul-2019 Instruction Type:Patient Education Patient Instructions Indication:Current smoker Start:31-Jul-2019 Instruction Type:Provider Instructions for Treatment DISCONTINUED - LIPID PANEL ( [id number]) Indication:Hyperlipidemia Start:10-Jun-2019 Instruction Type:Patient Education How to access health informa tion online Indication:Current smoker Start:10-Jun-2019 Instruction Type:Patient Education How to access health informa tion online - Detail Indication:Current smoker Start:10-Jun-2019 Instruction Type:Patient Education Patient Instructions Indication:BMI 29.0-29.9,adult Start:10-Jun-2019 Instruction Type:Provider Instructions for Treatment How to access health informa tion online Indication:Current smoker Start:29-Apr-2019 Instruction Type:Patient Education How to access health informa tion online - Detail Indication:Current smoker Start:29-Apr-2019 Instruction Type:Patient Education Patient Instructions Indication:Hyperlipidemia Start:29-Apr-2019 Instruction Type:Provider Instructions for Treatment How to access health informa tion online Indication:Current smoker Start:06-Oct-2018 Instruction Type:Patient Education How to access health informa tion online - Detail Indication:Current smoker Start:06-Oct-2018 Instruction Type:Patient Education Patient Instructions Indication:Dermatitis due to plants, including poison heather, sumac, and oak Start:06-Oct-2018 Instruction Type:Provider Instructions for Treatment How to access health informa tion online Indication:Current smoker Start:29-Sep-2018 Instruction Type:Patient Education How to access health informa tion online - Detail Indication:Current smoker Start:29-Sep-2018 Instruction Type:Patient Education Patient Instructions Indication:Rash Start:29-Sep-2018 Instruction Type:Provider Instructions for Treatment How to access health informa tion online Indication:Current smoker Start:19-Aug-2018 Instruction Type:Patient Education How to access health informa tion online - Detail Indication:Current smoker Start:19-Aug-2018 Instruction Type:Patient Education Patient Instructions Indication:Influenza vaccination declined (Renamed from Refused influenza vaccine) Start:19-Aug-2018 Instruction Type:Provider Instructions for Treatment How to access health informa tion online Indication:Diabetes mellitus type II, controlled, with no complications Start:18-Apr-2018 Instruction Type:Patient Education How to access health informa tion online - Detail Indication:Diabetes mellitus type II, controlled, with no complications Start:18-Apr-2018 Instruction Type:Patient Education Patient Instructions Indication:Diabetes mellitus type II, controlled, with no complications Start:18-Apr-2018 Instruction Type:Provider Instructions for Treatment How to access health informa tion online Indication:Dependence on nicotine from cigarettes Start:08-Apr-2018 Instruction Type:Patient Education How to access health informa tion online - Detail Indication:Dependence on nicotine from cigarettes Start:08-Apr-2018 Instruction Type:Patient Education Patient Instructions Indication:Dependence on nicotine from cigarettes Start:08-Apr-2018 Instruction Type:Provider Instructions for Treatment How to access health informa tion online Indication:Dependence on nicotine from cigarettes Start:25-Mar-2017 Instruction Type:Patient Education How to access health informa tion online - Detail Indication:Dependence on nicotine from cigarettes Start:25-Mar-2017 Instruction Type:Patient Education Patient Instructions Indication:Dependence on nicotine from cigarettes Start:25-Mar-2017 Instruction Type:Provider Instructions for Treatment How to access health informa tion online Indication:Hyperlipidemia Start:14-Sep-2015 Instruction Type:Patient Education How to access health informa tion online - Detail Indication:Hyperlipidemia Start:14-Sep-2015 Instruction Type:Patient Education Patient Instructions Indication:Hyperlipidemia Start:14-Sep-2015 Instruction Type:Provider Instructions for Treatment Patient Instructions Indication:Hyperlipidemia Start:13-Jul-2015 Instruction Type:Provider Instructions for Treatment How to access health informa tion online Indication:Diabetes mellitus type II, controlled, with no complications Start:15-Jun-2015 Instruction Type:Patient Education How to access health informa tion online - Detail Indication:Diabetes mellitus type II, controlled, with no complications Start:15-Jun-2015 Instruction Type:Patient Education Patient Instructions Indication:Diabetes mellitus type II, controlled, with no complications Start:15-Jun-2015 Instruction Type:Provider Instructions for Treatment How to access health informa tion online Indication:Diabetes mellitus out of control Start:09-Mar-2015 Instruction Type:Patient Education How to access health informa tion online - Detail Indication:Diabetes mellitus out of control Start:09-Mar-2015 Instruction Type:Patient Education Patient Instructions Indication:Diabetes mellitus out of control Start:09-Mar-2015 Instruction Type:Provider Instructions for Treatment Patient Instructions Indication:Diabetes mellitus out of control Start:03-Jan-2015 Instruction Type:Provider Instructions for Treatment How to access health informa tion online - Detail Indication:Bursitis Start:20-Dec-2014 Instruction Type:Patient Education Patient Instructions Indication:Bursitis Start:20-Dec-2014 Instruction Type:Provider Instructions for Treatment How to access health informa tion online Indication:Diabetes mellitus out of control Start:08-Dec-2014 Instruction Type:Patient Education How to access health informa tion online - Detail Indication:Diabetes mellitus out of control Start:08-Dec-2014 Instruction Type:Patient Education Patient Instructions Indication:Diabetes mellitus out of control Start:08-Dec-2014 Instruction Type:Provider Instructions for Treatment Name Dates Details How to access health informa tion online Indication:Current smoker Start:29-Jan-2020 Instruction Type:Patient Education How to access health informa tion online - Detail Indication:Current smoker Start:29-Jan-2020 Instruction Type:Patient Education Patient Instructions Indication:Current smoker Start:29-Jan-2020 Instruction Type:Provider Instructions for Treatment How to access health informa tion online Indication:Current smoker Start:15-Jan-2020 Instruction Type:Patient Education How to access health informa tion online - Detail Indication:Current smoker Start:15-Jan-2020 Instruction Type:Patient Education Patient Instructions Indication:BMI 30.0-30.9,adult Start:15-Jan-2020 Instruction Type:Provider Instructions for Treatment How to access health informa tion online Indication:Current smoker Start:04-Nov-2019 Instruction Type:Patient Education How to access health informa tion online - Detail Indication:Current smoker Start:04-Nov-2019 Instruction Type:Patient Education Patient Instructions Indication:Current smoker Start:04-Nov-2019 Instruction Type:Provider Instructions for Treatment How to access health informa tion online Indication:Current smoker Start:31-Jul-2019 Instruction Type:Patient Education How to access health informa tion online - Detail Indication:Current smoker Start:31-Jul-2019 Instruction Type:Patient Education Patient Instructions Indication:BMI 28.0-28.9,adult Start:31-Jul-2019 Instruction Type:Provider Instructions for Treatment DISCONTINUED - LIPID PANEL ( [id number]) Indication:Hyperlipidemia Start:10-Jun-2019 Instruction Type:Patient Education How to access health informa tion online Indication:Current smoker Start:10-Jun-2019 Instruction Type:Patient Education How to access health informa tion online - Detail Indication:Current smoker Start:10-Jun-2019 Instruction Type:Patient Education Patient Instructions Indication:BMI 29.0-29.9,adult Start:10-Jun-2019 Instruction Type:Provider Instructions for Treatment How to access health informa tion online Indication:Current smoker Start:29-Apr-2019 Instruction Type:Patient Education How to access health informa tion online - Detail Indication:Current smoker Start:29-Apr-2019 Instruction Type:Patient Education Patient Instructions Indication:Hyperlipidemia Start:29-Apr-2019 Instruction Type:Provider Instructions for Treatment How to access health informa tion online Indication:Current smoker Start:06-Oct-2018 Instruction Type:Patient Education How to access health informa tion online - Detail Indication:Current smoker Start:06-Oct-2018 Instruction Type:Patient Education Patient Instructions Indication:Dermatitis due to plants, including poison heather, sumac, and oak Start:06-Oct-2018 Instruction Type:Provider Instructions for Treatment How to access health informa tion online Indication:Current smoker Start:29-Sep-2018 Instruction Type:Patient Education How to access health informa tion online - Detail Indication:Current smoker Start:29-Sep-2018 Instruction Type:Patient Education Patient Instructions Indication:Rash Start:29-Sep-2018 Instruction Type:Provider Instructions for Treatment How to access health informa tion online Indication:Current smoker Start:19-Aug-2018 Instruction Type:Patient Education How to access health informa tion online - Detail Indication:Current smoker Start:19-Aug-2018 Instruction Type:Patient Education Patient Instructions Indication:Influenza vaccination declined (Renamed from Refused influenza vaccine) Start:19-Aug-2018 Instruction Type:Provider Instructions for Treatment How to access health informa tion online Indication:Diabetes mellitus type II, controlled, with no complications Start:18-Apr-2018 Instruction Type:Patient Education How to access health informa tion online - Detail Indication:Diabetes mellitus type II, controlled, with no complications Start:18-Apr-2018 Instruction Type:Patient Education Patient Instructions Indication:Diabetes mellitus type II, controlled, with no complications Start:18-Apr-2018 Instruction Type:Provider Instructions for Treatment How to access health informa tion online Indication:Dependence on nicotine from cigarettes Start:08-Apr-2018 Instruction Type:Patient Education How to access health informa tion online - Detail Indication:Dependence on nicotine from cigarettes Start:08-Apr-2018 Instruction Type:Patient Education Patient Instructions Indication:Dependence on nicotine from cigarettes Start:08-Apr-2018 Instruction Type:Provider Instructions for Treatment How to access health informa tion online Indication:Dependence on nicotine from cigarettes Start:25-Mar-2017 Instruction Type:Patient Education How to access health informa tion online - Detail Indication:Dependence on nicotine from cigarettes Start:25-Mar-2017 Instruction Type:Patient Education Patient Instructions Indication:Dependence on nicotine from cigarettes Start:25-Mar-2017 Instruction Type:Provider Instructions for Treatment How to access health informa tion online Indication:Hyperlipidemia Start:14-Sep-2015 Instruction Type:Patient Education How to access health informa tion online - Detail Indication:Hyperlipidemia Start:14-Sep-2015 Instruction Type:Patient Education Patient Instructions Indication:Hyperlipidemia Start:14-Sep-2015 Instruction Type:Provider Instructions for Treatment Patient Instructions Indication:Hyperlipidemia Start:13-Jul-2015 Instruction Type:Provider Instructions for Treatment How to access health informa tion online Indication:Diabetes mellitus type II, controlled, with no complications Start:15-Jun-2015 Instruction Type:Patient Education How to access health informa tion online - Detail Indication:Diabetes mellitus type II, controlled, with no complications Start:15-Jun-2015 Instruction Type:Patient Education Patient Instructions Indication:Diabetes mellitus type II, controlled, with no complications Start:15-Jun-2015 Instruction Type:Provider Instructions for Treatment How to access health informa tion online Indication:Diabetes mellitus out of control Start:09-Mar-2015 Instruction Type:Patient Education How to access health informa tion online - Detail Indication:Diabetes mellitus out of control Start:09-Mar-2015 Instruction Type:Patient Education Patient Instructions Indication:Diabetes mellitus out of control Start:09-Mar-2015 Instruction Type:Provider Instructions for Treatment Patient Instructions Indication:Diabetes mellitus out of control Start:03-Jan-2015 Instruction Type:Provider Instructions for Treatment How to access health informa tion online - Detail Indication:Bursitis Start:20-Dec-2014 Instruction Type:Patient Education Patient Instructions Indication:Bursitis Start:20-Dec-2014 Instruction Type:Provider Instructions for Treatment How to access health informa tion online Indication:Diabetes mellitus out of control Start:08-Dec-2014 Instruction Type:Patient Education How to access health informa tion online - Detail Indication:Diabetes mellitus out of control Start:08-Dec-2014 Instruction Type:Patient Education Patient Instructions Indication:Diabetes mellitus out of control Start:08-Dec-2014 Instruction Type:Provider Instructions for Treatment Name Dates Details How to access health informa tion online Indication:Current smoker Start:10-May-2020 Instruction Type:Patient Education How to access health informa tion online - Detail Indication:Current smoker Start:10-May-2020 Instruction Type:Patient Education Patient Instructions Indication:Current smoker Start:10-May-2020 Instruction Type:Provider Instructions for Treatment How to access health informa tion online Indication:Current smoker Start:29-Jan-2020 Instruction Type:Patient Education How to access health informa tion online - Detail Indication:Current smoker Start:29-Jan-2020 Instruction Type:Patient Education Patient Instructions Indication:Current smoker Start:29-Jan-2020 Instruction Type:Provider Instructions for Treatment How to access health informa tion online Indication:Current smoker Start:15-Jan-2020 Instruction Type:Patient Education How to access health informa tion online - Detail Indication:Current smoker Start:15-Jan-2020 Instruction Type:Patient Education Patient Instructions Indication:BMI 30.0-30.9,adult Start:15-Jan-2020 Instruction Type:Provider Instructions for Treatment How to access health informa tion online Indication:Current smoker Start:04-Nov-2019 Instruction Type:Patient Education How to access health informa tion online - Detail Indication:Current smoker Start:04-Nov-2019 Instruction Type:Patient Education Patient Instructions Indication:Current smoker Start:04-Nov-2019 Instruction Type:Provider Instructions for Treatment How to access health informa tion online Indication:Current smoker Start:31-Jul-2019 Instruction Type:Patient Education How to access health informa tion online - Detail Indication:Current smoker Start:31-Jul-2019 Instruction Type:Patient Education Patient Instructions Indication:BMI 28.0-28.9,adult Start:31-Jul-2019 Instruction Type:Provider Instructions for Treatment DISCONTINUED - LIPID PANEL ( [id number]) Indication:Hyperlipidemia Start:10-Jun-2019 Instruction Type:Patient Education How to access health informa tion online Indication:Current smoker Start:10-Jun-2019 Instruction Type:Patient Education How to access health informa tion online - Detail Indication:Current smoker Start:10-Jun-2019 Instruction Type:Patient Education Patient Instructions Indication:BMI 29.0-29.9,adult Start:10-Jun-2019 Instruction Type:Provider Instructions for Treatment How to access health informa tion online Indication:Current smoker Start:29-Apr-2019 Instruction Type:Patient Education How to access health informa tion online - Detail Indication:Current smoker Start:29-Apr-2019 Instruction Type:Patient Education Patient Instructions Indication:Hyperlipidemia Start:29-Apr-2019 Instruction Type:Provider Instructions for Treatment How to access health informa tion online Indication:Current smoker Start:06-Oct-2018 Instruction Type:Patient Education How to access health informa tion online - Detail Indication:Current smoker Start:06-Oct-2018 Instruction Type:Patient Education Patient Instructions Indication:Dermatitis due to plants, including poison heather, sumac, and oak Start:06-Oct-2018 Instruction Type:Provider Instructions for Treatment How to access health informa tion online Indication:Current smoker Start:29-Sep-2018 Instruction Type:Patient Education How to access health informa tion online - Detail Indication:Current smoker Start:29-Sep-2018 Instruction Type:Patient Education Patient Instructions Indication:Rash Start:29-Sep-2018 Instruction Type:Provider Instructions for Treatment How to access health informa tion online Indication:Current smoker Start:19-Aug-2018 Instruction Type:Patient Education How to access health informa tion online - Detail Indication:Current smoker Start:19-Aug-2018 Instruction Type:Patient Education Patient Instructions Indication:Influenza vaccination declined (Renamed from Refused influenza vaccine) Start:19-Aug-2018 Instruction Type:Provider Instructions for Treatment How to access health informa tion online Indication:Diabetes mellitus type II, controlled, with no complications Start:18-Apr-2018 Instruction Type:Patient Education How to access health informa tion online - Detail Indication:Diabetes mellitus type II, controlled, with no complications Start:18-Apr-2018 Instruction Type:Patient Education Patient Instructions Indication:Diabetes mellitus type II, controlled, with no complications Start:18-Apr-2018 Instruction Type:Provider Instructions for Treatment How to access health informa tion online Indication:Dependence on nicotine from cigarettes Start:08-Apr-2018 Instruction Type:Patient Education How to access health informa tion online - Detail Indication:Dependence on nicotine from cigarettes Start:08-Apr-2018 Instruction Type:Patient Education Patient Instructions Indication:Dependence on nicotine from cigarettes Start:08-Apr-2018 Instruction Type:Provider Instructions for Treatment How to access health informa tion online Indication:Dependence on nicotine from cigarettes Start:25-Mar-2017 Instruction Type:Patient Education How to access health informa tion online - Detail Indication:Dependence on nicotine from cigarettes Start:25-Mar-2017 Instruction Type:Patient Education Patient Instructions Indication:Dependence on nicotine from cigarettes Start:25-Mar-2017 Instruction Type:Provider Instructions for Treatment How to access health informa tion online Indication:Hyperlipidemia Start:14-Sep-2015 Instruction Type:Patient Education How to access health informa tion online - Detail Indication:Hyperlipidemia Start:14-Sep-2015 Instruction Type:Patient Education Patient Instructions Indication:Hyperlipidemia Start:14-Sep-2015 Instruction Type:Provider Instructions for Treatment Patient Instructions Indication:Hyperlipidemia Start:13-Jul-2015 Instruction Type:Provider Instructions for Treatment How to access health informa tion online Indication:Diabetes mellitus type II, controlled, with no complications Start:15-Jun-2015 Instruction Type:Patient Education How to access health informa tion online - Detail Indication:Diabetes mellitus type II, controlled, with no complications Start:15-Jun-2015 Instruction Type:Patient Education Patient Instructions Indication:Diabetes mellitus type II, controlled, with no complications Start:15-Jun-2015 Instruction Type:Provider Instructions for Treatment How to access health informa tion online Indication:Diabetes mellitus out of control Start:09-Mar-2015 Instruction Type:Patient Education How to access health informa tion online - Detail Indication:Diabetes mellitus out of control Start:09-Mar-2015 Instruction Type:Patient Education Patient Instructions Indication:Diabetes mellitus out of control Start:09-Mar-2015 Instruction Type:Provider Instructions for Treatment Patient Instructions Indication:Diabetes mellitus out of control Start:03-Jan-2015 Instruction Type:Provider Instructions for Treatment How to access health informa tion online - Detail Indication:Bursitis Start:20-Dec-2014 Instruction Type:Patient Education Patient Instructions Indication:Bursitis Start:20-Dec-2014 Instruction Type:Provider Instructions for Treatment How to access health informa tion online Indication:Diabetes mellitus out of control Start:08-Dec-2014 Instruction Type:Patient Education How to access health informa tion online - Detail Indication:Diabetes mellitus out of control Start:08-Dec-2014 Instruction Type:Patient Education Patient Instructions Indication:Diabetes mellitus out of control Start:08-Dec-2014 Instruction Type:Provider Instructions for Treatment Name Dates Details How to access health informa tion online Indication:Current smoker Start:10-May-2020 Instruction Type:Patient Education How to access health informa tion online - Detail Indication:Current smoker Start:10-May-2020 Instruction Type:Patient Education Patient Instructions Indication:Current smoker Start:10-May-2020 Instruction Type:Provider Instructions for Treatment How to access health informa tion online Indication:Current smoker Start:29-Jan-2020 Instruction Type:Patient Education How to access health informa tion online - Detail Indication:Current smoker Start:29-Jan-2020 Instruction Type:Patient Education Patient Instructions Indication:Current smoker Start:29-Jan-2020 Instruction Type:Provider Instructions for Treatment How to access health informa tion online Indication:Current smoker Start:15-Jan-2020 Instruction Type:Patient Education How to access health informa tion online - Detail Indication:Current smoker Start:15-Jan-2020 Instruction Type:Patient Education Patient Instructions Indication:BMI 30.0-30.9,adult Start:15-Jan-2020 Instruction Type:Provider Instructions for Treatment How to access health informa tion online Indication:Current smoker Start:04-Nov-2019 Instruction Type:Patient Education How to access health informa tion online - Detail Indication:Current smoker Start:04-Nov-2019 Instruction Type:Patient Education Patient Instructions Indication:Current smoker Start:04-Nov-2019 Instruction Type:Provider Instructions for Treatment How to access health informa tion online Indication:Current smoker Start:31-Jul-2019 Instruction Type:Patient Education How to access health informa tion online - Detail Indication:Current smoker Start:31-Jul-2019 Instruction Type:Patient Education Patient Instructions Indication:BMI 28.0-28.9,adult Start:31-Jul-2019 Instruction Type:Provider Instructions for Treatment DISCONTINUED - LIPID PANEL ( [id number]) Indication:Hyperlipidemia Start:10-Jun-2019 Instruction Type:Patient Education How to access health informa tion online Indication:Current smoker Start:10-Jun-2019 Instruction Type:Patient Education How to access health informa tion online - Detail Indication:Current smoker Start:10-Jun-2019 Instruction Type:Patient Education Patient Instructions Indication:BMI 29.0-29.9,adult Start:10-Jun-2019 Instruction Type:Provider Instructions for Treatment How to access health informa tion online Indication:Current smoker Start:29-Apr-2019 Instruction Type:Patient Education How to access health informa tion online - Detail Indication:Current smoker Start:29-Apr-2019 Instruction Type:Patient Education Patient Instructions Indication:Hyperlipidemia Start:29-Apr-2019 Instruction Type:Provider Instructions for Treatment How to access health informa tion online Indication:Current smoker Start:06-Oct-2018 Instruction Type:Patient Education How to access health informa tion online - Detail Indication:Current smoker Start:06-Oct-2018 Instruction Type:Patient Education Patient Instructions Indication:Dermatitis due to plants, including poison heather, sumac, and oak Start:06-Oct-2018 Instruction Type:Provider Instructions for Treatment How to access health informa tion online Indication:Current smoker Start:29-Sep-2018 Instruction Type:Patient Education How to access health informa tion online - Detail Indication:Current smoker Start:29-Sep-2018 Instruction Type:Patient Education Patient Instructions Indication:Rash Start:29-Sep-2018 Instruction Type:Provider Instructions for Treatment How to access health informa tion online Indication:Current smoker Start:19-Aug-2018 Instruction Type:Patient Education How to access health informa tion online - Detail Indication:Current smoker Start:19-Aug-2018 Instruction Type:Patient Education Patient Instructions Indication:Influenza vaccination declined (Renamed from Refused influenza vaccine) Start:19-Aug-2018 Instruction Type:Provider Instructions for Treatment How to access health informa tion online Indication:Diabetes mellitus type II, controlled, with no complications Start:18-Apr-2018 Instruction Type:Patient Education How to access health informa tion online - Detail Indication:Diabetes mellitus type II, controlled, with no complications Start:18-Apr-2018 Instruction Type:Patient Education Patient Instructions Indication:Diabetes mellitus type II, controlled, with no complications Start:18-Apr-2018 Instruction Type:Provider Instructions for Treatment How to access health informa tion online Indication:Dependence on nicotine from cigarettes Start:08-Apr-2018 Instruction Type:Patient Education How to access health informa tion online - Detail Indication:Dependence on nicotine from cigarettes Start:08-Apr-2018 Instruction Type:Patient Education Patient Instructions Indication:Dependence on nicotine from cigarettes Start:08-Apr-2018 Instruction Type:Provider Instructions for Treatment How to access health informa tion online Indication:Dependence on nicotine from cigarettes Start:25-Mar-2017 Instruction Type:Patient Education How to access health informa tion online - Detail Indication:Dependence on nicotine from cigarettes Start:25-Mar-2017 Instruction Type:Patient Education Patient Instructions Indication:Dependence on nicotine from cigarettes Start:25-Mar-2017 Instruction Type:Provider Instructions for Treatment How to access health informa tion online Indication:Hyperlipidemia Start:14-Sep-2015 Instruction Type:Patient Education How to access health informa tion online - Detail Indication:Hyperlipidemia Start:14-Sep-2015 Instruction Type:Patient Education Patient Instructions Indication:Hyperlipidemia Start:14-Sep-2015 Instruction Type:Provider Instructions for Treatment Patient Instructions Indication:Hyperlipidemia Start:13-Jul-2015 Instruction Type:Provider Instructions for Treatment How to access health informa tion online Indication:Diabetes mellitus type II, controlled, with no complications Start:15-Jun-2015 Instruction Type:Patient Education How to access health informa tion online - Detail Indication:Diabetes mellitus type II, controlled, with no complications Start:15-Jun-2015 Instruction Type:Patient Education Patient Instructions Indication:Diabetes mellitus type II, controlled, with no complications Start:15-Jun-2015 Instruction Type:Provider Instructions for Treatment How to access health informa tion online Indication:Diabetes mellitus out of control Start:09-Mar-2015 Instruction Type:Patient Education How to access health informa tion online - Detail Indication:Diabetes mellitus out of control Start:09-Mar-2015 Instruction Type:Patient Education Patient Instructions Indication:Diabetes mellitus out of control Start:09-Mar-2015 Instruction Type:Provider Instructions for Treatment Patient Instructions Indication:Diabetes mellitus out of control Start:03-Jan-2015 Instruction Type:Provider Instructions for Treatment How to access health informa tion online - Detail Indication:Bursitis Start:20-Dec-2014 Instruction Type:Patient Education Patient Instructions Indication:Bursitis Start:20-Dec-2014 Instruction Type:Provider Instructions for Treatment How to access health informa tion online Indication:Diabetes mellitus out of control Start:08-Dec-2014 Instruction Type:Patient Education How to access health informa tion online - Detail Indication:Diabetes mellitus out of control Start:08-Dec-2014 Instruction Type:Patient Education Patient Instructions Indication:Diabetes mellitus out of control Start:08-Dec-2014 Instruction Type:Provider Instructions for Treatment Name Dates Details How to access health informa tion online Indication:Current smoker Start:10-May-2020 Instruction Type:Patient Education How to access health informa tion online - Detail Indication:Current smoker Start:10-May-2020 Instruction Type:Patient Education Patient Instructions Indication:Current smoker Start:10-May-2020 Instruction Type:Provider Instructions for Treatment How to access health informa tion online Indication:Current smoker Start:29-Jan-2020 Instruction Type:Patient Education How to access health informa tion online - Detail Indication:Current smoker Start:29-Jan-2020 Instruction Type:Patient Education Patient Instructions Indication:Current smoker Start:29-Jan-2020 Instruction Type:Provider Instructions for Treatment How to access health informa tion online Indication:Current smoker Start:15-Jan-2020 Instruction Type:Patient Education How to access health informa tion online - Detail Indication:Current smoker Start:15-Jan-2020 Instruction Type:Patient Education Patient Instructions Indication:BMI 30.0-30.9,adult Start:15-Jan-2020 Instruction Type:Provider Instructions for Treatment How to access health informa tion online Indication:Current smoker Start:04-Nov-2019 Instruction Type:Patient Education How to access health informa tion online - Detail Indication:Current smoker Start:04-Nov-2019 Instruction Type:Patient Education Patient Instructions Indication:Current smoker Start:04-Nov-2019 Instruction Type:Provider Instructions for Treatment How to access health informa tion online Indication:Current smoker Start:31-Jul-2019 Instruction Type:Patient Education How to access health informa tion online - Detail Indication:Current smoker Start:31-Jul-2019 Instruction Type:Patient Education Patient Instructions Indication:BMI 28.0-28.9,adult Start:31-Jul-2019 Instruction Type:Provider Instructions for Treatment DISCONTINUED - LIPID PANEL ( [id number]) Indication:Hyperlipidemia Start:10-Jun-2019 Instruction Type:Patient Education How to access health informa tion online Indication:Current smoker Start:10-Jun-2019 Instruction Type:Patient Education How to access health informa tion online - Detail Indication:Current smoker Start:10-Jun-2019 Instruction Type:Patient Education Patient Instructions Indication:BMI 29.0-29.9,adult Start:10-Jun-2019 Instruction Type:Provider Instructions for Treatment How to access health informa tion online Indication:Current smoker Start:29-Apr-2019 Instruction Type:Patient Education How to access health informa tion online - Detail Indication:Current smoker Start:29-Apr-2019 Instruction Type:Patient Education Patient Instructions Indication:Hyperlipidemia Start:29-Apr-2019 Instruction Type:Provider Instructions for Treatment How to access health informa tion online Indication:Current smoker Start:06-Oct-2018 Instruction Type:Patient Education How to access health informa tion online - Detail Indication:Current smoker Start:06-Oct-2018 Instruction Type:Patient Education Patient Instructions Indication:Dermatitis due to plants, including poison heather, sumac, and oak Start:06-Oct-2018 Instruction Type:Provider Instructions for Treatment How to access health informa tion online Indication:Current smoker Start:29-Sep-2018 Instruction Type:Patient Education How to access health informa tion online - Detail Indication:Current smoker Start:29-Sep-2018 Instruction Type:Patient Education Patient Instructions Indication:Rash Start:29-Sep-2018 Instruction Type:Provider Instructions for Treatment How to access health informa tion online Indication:Current smoker Start:19-Aug-2018 Instruction Type:Patient Education How to access health informa tion online - Detail Indication:Current smoker Start:19-Aug-2018 Instruction Type:Patient Education Patient Instructions Indication:Influenza vaccination declined (Renamed from Refused influenza vaccine) Start:19-Aug-2018 Instruction Type:Provider Instructions for Treatment How to access health informa tion online Indication:Diabetes mellitus type II, controlled, with no complications Start:18-Apr-2018 Instruction Type:Patient Education How to access health informa tion online - Detail Indication:Diabetes mellitus type II, controlled, with no complications Start:18-Apr-2018 Instruction Type:Patient Education Patient Instructions Indication:Diabetes mellitus type II, controlled, with no complications Start:18-Apr-2018 Instruction Type:Provider Instructions for Treatment How to access health informa tion online Indication:Dependence on nicotine from cigarettes Start:08-Apr-2018 Instruction Type:Patient Education How to access health informa tion online - Detail Indication:Dependence on nicotine from cigarettes Start:08-Apr-2018 Instruction Type:Patient Education Patient Instructions Indication:Dependence on nicotine from cigarettes Start:08-Apr-2018 Instruction Type:Provider Instructions for Treatment How to access health informa tion online Indication:Dependence on nicotine from cigarettes Start:25-Mar-2017 Instruction Type:Patient Education How to access health informa tion online - Detail Indication:Dependence on nicotine from cigarettes Start:25-Mar-2017 Instruction Type:Patient Education Patient Instructions Indication:Dependence on nicotine from cigarettes Start:25-Mar-2017 Instruction Type:Provider Instructions for Treatment How to access health informa tion online Indication:Hyperlipidemia Start:14-Sep-2015 Instruction Type:Patient Education How to access health informa tion online - Detail Indication:Hyperlipidemia Start:14-Sep-2015 Instruction Type:Patient Education Patient Instructions Indication:Hyperlipidemia Start:14-Sep-2015 Instruction Type:Provider Instructions for Treatment Patient Instructions Indication:Hyperlipidemia Start:13-Jul-2015 Instruction Type:Provider Instructions for Treatment How to access health informa tion online Indication:Diabetes mellitus type II, controlled, with no complications Start:15-Jun-2015 Instruction Type:Patient Education How to access health informa tion online - Detail Indication:Diabetes mellitus type II, controlled, with no complications Start:15-Jun-2015 Instruction Type:Patient Education Patient Instructions Indication:Diabetes mellitus type II, controlled, with no complications Start:15-Jun-2015 Instruction Type:Provider Instructions for Treatment How to access health informa tion online Indication:Diabetes mellitus out of control Start:09-Mar-2015 Instruction Type:Patient Education How to access health informa tion online - Detail Indication:Diabetes mellitus out of control Start:09-Mar-2015 Instruction Type:Patient Education Patient Instructions Indication:Diabetes mellitus out of control Start:09-Mar-2015 Instruction Type:Provider Instructions for Treatment Patient Instructions Indication:Diabetes mellitus out of control Start:03-Jan-2015 Instruction Type:Provider Instructions for Treatment How to access health informa tion online - Detail Indication:Bursitis Start:20-Dec-2014 Instruction Type:Patient Education Patient Instructions Indication:Bursitis Start:20-Dec-2014 Instruction Type:Provider Instructions for Treatment How to access health informa tion online Indication:Diabetes mellitus out of control Start:08-Dec-2014 Instruction Type:Patient Education How to access health informa tion online - Detail Indication:Diabetes mellitus out of control Start:08-Dec-2014 Instruction Type:Patient Education Patient Instructions Indication:Diabetes mellitus out of control Start:08-Dec-2014 Instruction Type:Provider Instructions for Treatment Name Dates Details How to access health informa tion online Indication:Current smoker Start:10-May-2020 Instruction Type:Patient Education How to access health informa tion online - Detail Indication:Current smoker Start:10-May-2020 Instruction Type:Patient Education Patient Instructions Indication:Current smoker Start:10-May-2020 Instruction Type:Provider Instructions for Treatment How to access health informa tion online Indication:Current smoker Start:29-Jan-2020 Instruction Type:Patient Education How to access health informa tion online - Detail Indication:Current smoker Start:29-Jan-2020 Instruction Type:Patient Education Patient Instructions Indication:Current smoker Start:29-Jan-2020 Instruction Type:Provider Instructions for Treatment How to access health informa tion online Indication:Current smoker Start:15-Jan-2020 Instruction Type:Patient Education How to access health informa tion online - Detail Indication:Current smoker Start:15-Jan-2020 Instruction Type:Patient Education Patient Instructions Indication:BMI 30.0-30.9,adult Start:15-Jan-2020 Instruction Type:Provider Instructions for Treatment How to access health informa tion online Indication:Current smoker Start:04-Nov-2019 Instruction Type:Patient Education How to access health informa tion online - Detail Indication:Current smoker Start:04-Nov-2019 Instruction Type:Patient Education Patient Instructions Indication:Current smoker Start:04-Nov-2019 Instruction Type:Provider Instructions for Treatment How to access health informa tion online Indication:Current smoker Start:31-Jul-2019 Instruction Type:Patient Education How to access health informa tion online - Detail Indication:Current smoker Start:31-Jul-2019 Instruction Type:Patient Education Patient Instructions Indication:BMI 28.0-28.9,adult Start:31-Jul-2019 Instruction Type:Provider Instructions for Treatment DISCONTINUED - LIPID PANEL ( [id number]) Indication:Hyperlipidemia Start:10-Jun-2019 Instruction Type:Patient Education How to access health informa tion online Indication:Current smoker Start:10-Jun-2019 Instruction Type:Patient Education How to access health informa tion online - Detail Indication:Current smoker Start:10-Jun-2019 Instruction Type:Patient Education Patient Instructions Indication:BMI 29.0-29.9,adult Start:10-Jun-2019 Instruction Type:Provider Instructions for Treatment How to access health informa tion online Indication:Current smoker Start:29-Apr-2019 Instruction Type:Patient Education How to access health informa tion online - Detail Indication:Current smoker Start:29-Apr-2019 Instruction Type:Patient Education Patient Instructions Indication:Hyperlipidemia Start:29-Apr-2019 Instruction Type:Provider Instructions for Treatment How to access health informa tion online Indication:Current smoker Start:06-Oct-2018 Instruction Type:Patient Education How to access health informa tion online - Detail Indication:Current smoker Start:06-Oct-2018 Instruction Type:Patient Education Patient Instructions Indication:Dermatitis due to plants, including poison heather, sumac, and oak Start:06-Oct-2018 Instruction Type:Provider Instructions for Treatment How to access health informa tion online Indication:Current smoker Start:29-Sep-2018 Instruction Type:Patient Education How to access health informa tion online - Detail Indication:Current smoker Start:29-Sep-2018 Instruction Type:Patient Education Patient Instructions Indication:Rash Start:29-Sep-2018 Instruction Type:Provider Instructions for Treatment How to access health informa tion online Indication:Current smoker Start:19-Aug-2018 Instruction Type:Patient Education How to access health informa tion online - Detail Indication:Current smoker Start:19-Aug-2018 Instruction Type:Patient Education Patient Instructions Indication:Influenza vaccination declined (Renamed from Refused influenza vaccine) Start:19-Aug-2018 Instruction Type:Provider Instructions for Treatment How to access health informa tion online Indication:Diabetes mellitus type II, controlled, with no complications Start:18-Apr-2018 Instruction Type:Patient Education How to access health informa tion online - Detail Indication:Diabetes mellitus type II, controlled, with no complications Start:18-Apr-2018 Instruction Type:Patient Education Patient Instructions Indication:Diabetes mellitus type II, controlled, with no complications Start:18-Apr-2018 Instruction Type:Provider Instructions for Treatment How to access health informa tion online Indication:Dependence on nicotine from cigarettes Start:08-Apr-2018 Instruction Type:Patient Education How to access health informa tion online - Detail Indication:Dependence on nicotine from cigarettes Start:08-Apr-2018 Instruction Type:Patient Education Patient Instructions Indication:Dependence on nicotine from cigarettes Start:08-Apr-2018 Instruction Type:Provider Instructions for Treatment How to access health informa tion online Indication:Dependence on nicotine from cigarettes Start:25-Mar-2017 Instruction Type:Patient Education How to access health informa tion online - Detail Indication:Dependence on nicotine from cigarettes Start:25-Mar-2017 Instruction Type:Patient Education Patient Instructions Indication:Dependence on nicotine from cigarettes Start:25-Mar-2017 Instruction Type:Provider Instructions for Treatment How to access health informa tion online Indication:Hyperlipidemia Start:14-Sep-2015 Instruction Type:Patient Education How to access health informa tion online - Detail Indication:Hyperlipidemia Start:14-Sep-2015 Instruction Type:Patient Education Patient Instructions Indication:Hyperlipidemia Start:14-Sep-2015 Instruction Type:Provider Instructions for Treatment Patient Instructions Indication:Hyperlipidemia Start:13-Jul-2015 Instruction Type:Provider Instructions for Treatment How to access health informa tion online Indication:Diabetes mellitus type II, controlled, with no complications Start:15-Jun-2015 Instruction Type:Patient Education How to access health informa tion online - Detail Indication:Diabetes mellitus type II, controlled, with no complications Start:15-Jun-2015 Instruction Type:Patient Education Patient Instructions Indication:Diabetes mellitus type II, controlled, with no complications Start:15-Jun-2015 Instruction Type:Provider Instructions for Treatment How to access health informa tion online Indication:Diabetes mellitus out of control Start:09-Mar-2015 Instruction Type:Patient Education How to access health informa tion online - Detail Indication:Diabetes mellitus out of control Start:09-Mar-2015 Instruction Type:Patient Education Patient Instructions Indication:Diabetes mellitus out of control Start:09-Mar-2015 Instruction Type:Provider Instructions for Treatment Patient Instructions Indication:Diabetes mellitus out of control Start:03-Jan-2015 Instruction Type:Provider Instructions for Treatment How to access health informa tion online - Detail Indication:Bursitis Start:20-Dec-2014 Instruction Type:Patient Education Patient Instructions Indication:Bursitis Start:20-Dec-2014 Instruction Type:Provider Instructions for Treatment How to access health informa tion online Indication:Diabetes mellitus out of control Start:08-Dec-2014 Instruction Type:Patient Education How to access health informa tion online - Detail Indication:Diabetes mellitus out of control Start:08-Dec-2014 Instruction Type:Patient Education Patient Instructions Indication:Diabetes mellitus out of control Start:08-Dec-2014 Instruction Type:Provider Instructions for Treatment Name Dates Details How to access health informa tion online Indication:Current smoker Start:10-Aug-2020 Instruction Type:Patient Education How to access health informa tion online - Detail Indication:Current smoker Start:10-Aug-2020 Instruction Type:Patient Education Patient Instructions Indication:Current smoker Start:10-Aug-2020 Instruction Type:Provider Instructions for Treatment How to access health informa tion online Indication:Current smoker Start:10-May-2020 Instruction Type:Patient Education How to access health informa tion online - Detail Indication:Current smoker Start:10-May-2020 Instruction Type:Patient Education Patient Instructions Indication:Current smoker Start:10-May-2020 Instruction Type:Provider Instructions for Treatment How to access health informa tion online Indication:Current smoker Start:29-Jan-2020 Instruction Type:Patient Education How to access health informa tion online - Detail Indication:Current smoker Start:29-Jan-2020 Instruction Type:Patient Education Patient Instructions Indication:Current smoker Start:29-Jan-2020 Instruction Type:Provider Instructions for Treatment How to access health informa tion online Indication:Current smoker Start:15-Jan-2020 Instruction Type:Patient Education How to access health informa tion online - Detail Indication:Current smoker Start:15-Jan-2020 Instruction Type:Patient Education Patient Instructions Indication:BMI 30.0-30.9,adult Start:15-Jan-2020 Instruction Type:Provider Instructions for Treatment How to access health informa tion online Indication:Current smoker Start:04-Nov-2019 Instruction Type:Patient Education How to access health informa tion online - Detail Indication:Current smoker Start:04-Nov-2019 Instruction Type:Patient Education Patient Instructions Indication:Current smoker Start:04-Nov-2019 Instruction Type:Provider Instructions for Treatment How to access health informa tion online Indication:Current smoker Start:31-Jul-2019 Instruction Type:Patient Education How to access health informa tion online - Detail Indication:Current smoker Start:31-Jul-2019 Instruction Type:Patient Education Patient Instructions Indication:BMI 28.0-28.9,adult Start:31-Jul-2019 Instruction Type:Provider Instructions for Treatment DISCONTINUED - LIPID PANEL ( [id number]) Indication:Hyperlipidemia Start:10-Jun-2019 Instruction Type:Patient Education How to access health informa tion online Indication:Current smoker Start:10-Jun-2019 Instruction Type:Patient Education How to access health informa tion online - Detail Indication:Current smoker Start:10-Jun-2019 Instruction Type:Patient Education Patient Instructions Indication:BMI 29.0-29.9,adult Start:10-Jun-2019 Instruction Type:Provider Instructions for Treatment How to access health informa tion online Indication:Current smoker Start:29-Apr-2019 Instruction Type:Patient Education How to access health informa tion online - Detail Indication:Current smoker Start:29-Apr-2019 Instruction Type:Patient Education Patient Instructions Indication:Hyperlipidemia Start:29-Apr-2019 Instruction Type:Provider Instructions for Treatment How to access health informa tion online Indication:Current smoker Start:06-Oct-2018 Instruction Type:Patient Education How to access health informa tion online - Detail Indication:Current smoker Start:06-Oct-2018 Instruction Type:Patient Education Patient Instructions Indication:Dermatitis due to plants, including poison heather, sumac, and oak Start:06-Oct-2018 Instruction Type:Provider Instructions for Treatment How to access health informa tion online Indication:Current smoker Start:29-Sep-2018 Instruction Type:Patient Education How to access health informa tion online - Detail Indication:Current smoker Start:29-Sep-2018 Instruction Type:Patient Education Patient Instructions Indication:Rash Start:29-Sep-2018 Instruction Type:Provider Instructions for Treatment How to access health informa tion online Indication:Current smoker Start:19-Aug-2018 Instruction Type:Patient Education How to access health informa tion online - Detail Indication:Current smoker Start:19-Aug-2018 Instruction Type:Patient Education Patient Instructions Indication:Influenza vaccination declined (Renamed from Refused influenza vaccine) Start:19-Aug-2018 Instruction Type:Provider Instructions for Treatment How to access health informa tion online Indication:Diabetes mellitus type II, controlled, with no complications Start:18-Apr-2018 Instruction Type:Patient Education How to access health informa tion online - Detail Indication:Diabetes mellitus type II, controlled, with no complications Start:18-Apr-2018 Instruction Type:Patient Education Patient Instructions Indication:Diabetes mellitus type II, controlled, with no complications Start:18-Apr-2018 Instruction Type:Provider Instructions for Treatment How to access health informa tion online Indication:Dependence on nicotine from cigarettes Start:08-Apr-2018 Instruction Type:Patient Education How to access health informa tion online - Detail Indication:Dependence on nicotine from cigarettes Start:08-Apr-2018 Instruction Type:Patient Education Patient Instructions Indication:Dependence on nicotine from cigarettes Start:08-Apr-2018 Instruction Type:Provider Instructions for Treatment How to access health informa tion online Indication:Dependence on nicotine from cigarettes Start:25-Mar-2017 Instruction Type:Patient Education How to access health informa tion online - Detail Indication:Dependence on nicotine from cigarettes Start:25-Mar-2017 Instruction Type:Patient Education Patient Instructions Indication:Dependence on nicotine from cigarettes Start:25-Mar-2017 Instruction Type:Provider Instructions for Treatment How to access health informa tion online Indication:Hyperlipidemia Start:14-Sep-2015 Instruction Type:Patient Education How to access health informa tion online - Detail Indication:Hyperlipidemia Start:14-Sep-2015 Instruction Type:Patient Education Patient Instructions Indication:Hyperlipidemia Start:14-Sep-2015 Instruction Type:Provider Instructions for Treatment Patient Instructions Indication:Hyperlipidemia Start:13-Jul-2015 Instruction Type:Provider Instructions for Treatment How to access health informa tion online Indication:Diabetes mellitus type II, controlled, with no complications Start:15-Jun-2015 Instruction Type:Patient Education How to access health informa tion online - Detail Indication:Diabetes mellitus type II, controlled, with no complications Start:15-Jun-2015 Instruction Type:Patient Education Patient Instructions Indication:Diabetes mellitus type II, controlled, with no complications Start:15-Jun-2015 Instruction Type:Provider Instructions for Treatment How to access health informa tion online Indication:Diabetes mellitus out of control Start:09-Mar-2015 Instruction Type:Patient Education How to access health informa tion online - Detail Indication:Diabetes mellitus out of control Start:09-Mar-2015 Instruction Type:Patient Education Patient Instructions Indication:Diabetes mellitus out of control Start:09-Mar-2015 Instruction Type:Provider Instructions for Treatment Patient Instructions Indication:Diabetes mellitus out of control Start:03-Jan-2015 Instruction Type:Provider Instructions for Treatment How to access health informa tion online - Detail Indication:Bursitis Start:20-Dec-2014 Instruction Type:Patient Education Patient Instructions Indication:Bursitis Start:20-Dec-2014 Instruction Type:Provider Instructions for Treatment How to access health informa tion online Indication:Diabetes mellitus out of control Start:08-Dec-2014 Instruction Type:Patient Education How to access health informa tion online - Detail Indication:Diabetes mellitus out of control Start:08-Dec-2014 Instruction Type:Patient Education Patient Instructions Indication:Diabetes mellitus out of control Start:08-Dec-2014 Instruction Type:Provider Instructions for Treatment Name Dates Details How to access health informa tion online Indication:Current smoker Start:10-Aug-2020 Instruction Type:Patient Education How to access health informa tion online - Detail Indication:Current smoker Start:10-Aug-2020 Instruction Type:Patient Education Patient Instructions Indication:Vitamin D deficiency Start:10-Aug-2020 Instruction Type:Provider Instructions for Treatment How to access health informa tion online Indication:Current smoker Start:10-May-2020 Instruction Type:Patient Education How to access health informa tion online - Detail Indication:Current smoker Start:10-May-2020 Instruction Type:Patient Education Patient Instructions Indication:Current smoker Start:10-May-2020 Instruction Type:Provider Instructions for Treatment How to access health informa tion online Indication:Current smoker Start:29-Jan-2020 Instruction Type:Patient Education How to access health informa tion online - Detail Indication:Current smoker Start:29-Jan-2020 Instruction Type:Patient Education Patient Instructions Indication:Current smoker Start:29-Jan-2020 Instruction Type:Provider Instructions for Treatment How to access health informa tion online Indication:Current smoker Start:15-Jan-2020 Instruction Type:Patient Education How to access health informa tion online - Detail Indication:Current smoker Start:15-Jan-2020 Instruction Type:Patient Education Patient Instructions Indication:BMI 30.0-30.9,adult Start:15-Jan-2020 Instruction Type:Provider Instructions for Treatment How to access health informa tion online Indication:Current smoker Start:04-Nov-2019 Instruction Type:Patient Education How to access health informa tion online - Detail Indication:Current smoker Start:04-Nov-2019 Instruction Type:Patient Education Patient Instructions Indication:Current smoker Start:04-Nov-2019 Instruction Type:Provider Instructions for Treatment How to access health informa tion online Indication:Current smoker Start:31-Jul-2019 Instruction Type:Patient Education How to access health informa tion online - Detail Indication:Current smoker Start:31-Jul-2019 Instruction Type:Patient Education Patient Instructions Indication:BMI 28.0-28.9,adult Start:31-Jul-2019 Instruction Type:Provider Instructions for Treatment DISCONTINUED - LIPID PANEL ( [id number]) Indication:Hyperlipidemia Start:10-Jun-2019 Instruction Type:Patient Education How to access health informa tion online Indication:Current smoker Start:10-Jun-2019 Instruction Type:Patient Education How to access health informa tion online - Detail Indication:Current smoker Start:10-Jun-2019 Instruction Type:Patient Education Patient Instructions Indication:BMI 29.0-29.9,adult Start:10-Jun-2019 Instruction Type:Provider Instructions for Treatment How to access health informa tion online Indication:Current smoker Start:29-Apr-2019 Instruction Type:Patient Education How to access health informa tion online - Detail Indication:Current smoker Start:29-Apr-2019 Instruction Type:Patient Education Patient Instructions Indication:Hyperlipidemia Start:29-Apr-2019 Instruction Type:Provider Instructions for Treatment How to access health informa tion online Indication:Current smoker Start:06-Oct-2018 Instruction Type:Patient Education How to access health informa tion online - Detail Indication:Current smoker Start:06-Oct-2018 Instruction Type:Patient Education Patient Instructions Indication:Dermatitis due to plants, including poison heather, sumac, and oak Start:06-Oct-2018 Instruction Type:Provider Instructions for Treatment How to access health informa tion online Indication:Current smoker Start:29-Sep-2018 Instruction Type:Patient Education How to access health informa tion online - Detail Indication:Current smoker Start:29-Sep-2018 Instruction Type:Patient Education Patient Instructions Indication:Rash Start:29-Sep-2018 Instruction Type:Provider Instructions for Treatment How to access health informa tion online Indication:Current smoker Start:19-Aug-2018 Instruction Type:Patient Education How to access health informa tion online - Detail Indication:Current smoker Start:19-Aug-2018 Instruction Type:Patient Education Patient Instructions Indication:Influenza vaccination declined (Renamed from Refused influenza vaccine) Start:19-Aug-2018 Instruction Type:Provider Instructions for Treatment How to access health informa tion online Indication:Diabetes mellitus type II, controlled, with no complications Start:18-Apr-2018 Instruction Type:Patient Education How to access health informa tion online - Detail Indication:Diabetes mellitus type II, controlled, with no complications Start:18-Apr-2018 Instruction Type:Patient Education Patient Instructions Indication:Diabetes mellitus type II, controlled, with no complications Start:18-Apr-2018 Instruction Type:Provider Instructions for Treatment How to access health informa tion online Indication:Dependence on nicotine from cigarettes Start:08-Apr-2018 Instruction Type:Patient Education How to access health informa tion online - Detail Indication:Dependence on nicotine from cigarettes Start:08-Apr-2018 Instruction Type:Patient Education Patient Instructions Indication:Dependence on nicotine from cigarettes Start:08-Apr-2018 Instruction Type:Provider Instructions for Treatment How to access health informa tion online Indication:Dependence on nicotine from cigarettes Start:25-Mar-2017 Instruction Type:Patient Education How to access health informa tion online - Detail Indication:Dependence on nicotine from cigarettes Start:25-Mar-2017 Instruction Type:Patient Education Patient Instructions Indication:Dependence on nicotine from cigarettes Start:25-Mar-2017 Instruction Type:Provider Instructions for Treatment How to access health informa tion online Indication:Hyperlipidemia Start:14-Sep-2015 Instruction Type:Patient Education How to access health informa tion online - Detail Indication:Hyperlipidemia Start:14-Sep-2015 Instruction Type:Patient Education Patient Instructions Indication:Hyperlipidemia Start:14-Sep-2015 Instruction Type:Provider Instructions for Treatment Patient Instructions Indication:Hyperlipidemia Start:13-Jul-2015 Instruction Type:Provider Instructions for Treatment How to access health informa tion online Indication:Diabetes mellitus type II, controlled, with no complications Start:15-Jun-2015 Instruction Type:Patient Education How to access health informa tion online - Detail Indication:Diabetes mellitus type II, controlled, with no complications Start:15-Jun-2015 Instruction Type:Patient Education Patient Instructions Indication:Diabetes mellitus type II, controlled, with no complications Start:15-Jun-2015 Instruction Type:Provider Instructions for Treatment How to access health informa tion online Indication:Diabetes mellitus out of control Start:09-Mar-2015 Instruction Type:Patient Education How to access health informa tion online - Detail Indication:Diabetes mellitus out of control Start:09-Mar-2015 Instruction Type:Patient Education Patient Instructions Indication:Diabetes mellitus out of control Start:09-Mar-2015 Instruction Type:Provider Instructions for Treatment Patient Instructions Indication:Diabetes mellitus out of control Start:03-Jan-2015 Instruction Type:Provider Instructions for Treatment How to access health informa tion online - Detail Indication:Bursitis Start:20-Dec-2014 Instruction Type:Patient Education Patient Instructions Indication:Bursitis Start:20-Dec-2014 Instruction Type:Provider Instructions for Treatment How to access health informa tion online Indication:Diabetes mellitus out of control Start:08-Dec-2014 Instruction Type:Patient Education How to access health informa tion online - Detail Indication:Diabetes mellitus out of control Start:08-Dec-2014 Instruction Type:Patient Education Patient Instructions Indication:Diabetes mellitus out of control Start:08-Dec-2014 Instruction Type:Provider Instructions for Treatment Name Dates Details How to access health informa tion online Indication:Current smoker Start:10-Aug-2020 Instruction Type:Patient Education How to access health informa tion online - Detail Indication:Current smoker Start:10-Aug-2020 Instruction Type:Patient Education Patient Instructions Indication:Vitamin D deficiency Start:10-Aug-2020 Instruction Type:Provider Instructions for Treatment How to access health informa tion online Indication:Current smoker Start:10-May-2020 Instruction Type:Patient Education How to access health informa tion online - Detail Indication:Current smoker Start:10-May-2020 Instruction Type:Patient Education Patient Instructions Indication:Current smoker Start:10-May-2020 Instruction Type:Provider Instructions for Treatment How to access health informa tion online Indication:Current smoker Start:29-Jan-2020 Instruction Type:Patient Education How to access health informa tion online - Detail Indication:Current smoker Start:29-Jan-2020 Instruction Type:Patient Education Patient Instructions Indication:Current smoker Start:29-Jan-2020 Instruction Type:Provider Instructions for Treatment How to access health informa tion online Indication:Current smoker Start:15-Jan-2020 Instruction Type:Patient Education How to access health informa tion online - Detail Indication:Current smoker Start:15-Jan-2020 Instruction Type:Patient Education Patient Instructions Indication:BMI 30.0-30.9,adult Start:15-Jan-2020 Instruction Type:Provider Instructions for Treatment How to access health informa tion online Indication:Current smoker Start:04-Nov-2019 Instruction Type:Patient Education How to access health informa tion online - Detail Indication:Current smoker Start:04-Nov-2019 Instruction Type:Patient Education Patient Instructions Indication:Current smoker Start:04-Nov-2019 Instruction Type:Provider Instructions for Treatment How to access health informa tion online Indication:Current smoker Start:31-Jul-2019 Instruction Type:Patient Education How to access health informa tion online - Detail Indication:Current smoker Start:31-Jul-2019 Instruction Type:Patient Education Patient Instructions Indication:BMI 28.0-28.9,adult Start:31-Jul-2019 Instruction Type:Provider Instructions for Treatment DISCONTINUED - LIPID PANEL ( [id number]) Indication:Hyperlipidemia Start:10-Jun-2019 Instruction Type:Patient Education How to access health informa tion online Indication:Current smoker Start:10-Jun-2019 Instruction Type:Patient Education How to access health informa tion online - Detail Indication:Current smoker Start:10-Jun-2019 Instruction Type:Patient Education Patient Instructions Indication:BMI 29.0-29.9,adult Start:10-Jun-2019 Instruction Type:Provider Instructions for Treatment How to access health informa tion online Indication:Current smoker Start:29-Apr-2019 Instruction Type:Patient Education How to access health informa tion online - Detail Indication:Current smoker Start:29-Apr-2019 Instruction Type:Patient Education Patient Instructions Indication:Hyperlipidemia Start:29-Apr-2019 Instruction Type:Provider Instructions for Treatment How to access health informa tion online Indication:Current smoker Start:06-Oct-2018 Instruction Type:Patient Education How to access health informa tion online - Detail Indication:Current smoker Start:06-Oct-2018 Instruction Type:Patient Education Patient Instructions Indication:Dermatitis due to plants, including poison heather, sumac, and oak Start:06-Oct-2018 Instruction Type:Provider Instructions for Treatment How to access health informa tion online Indication:Current smoker Start:29-Sep-2018 Instruction Type:Patient Education How to access health informa tion online - Detail Indication:Current smoker Start:29-Sep-2018 Instruction Type:Patient Education Patient Instructions Indication:Rash Start:29-Sep-2018 Instruction Type:Provider Instructions for Treatment How to access health informa tion online Indication:Current smoker Start:19-Aug-2018 Instruction Type:Patient Education How to access health informa tion online - Detail Indication:Current smoker Start:19-Aug-2018 Instruction Type:Patient Education Patient Instructions Indication:Influenza vaccination declined (Renamed from Refused influenza vaccine) Start:19-Aug-2018 Instruction Type:Provider Instructions for Treatment How to access health informa tion online Indication:Diabetes mellitus type II, controlled, with no complications Start:18-Apr-2018 Instruction Type:Patient Education How to access health informa tion online - Detail Indication:Diabetes mellitus type II, controlled, with no complications Start:18-Apr-2018 Instruction Type:Patient Education Patient Instructions Indication:Diabetes mellitus type II, controlled, with no complications Start:18-Apr-2018 Instruction Type:Provider Instructions for Treatment How to access health informa tion online Indication:Dependence on nicotine from cigarettes Start:08-Apr-2018 Instruction Type:Patient Education How to access health informa tion online - Detail Indication:Dependence on nicotine from cigarettes Start:08-Apr-2018 Instruction Type:Patient Education Patient Instructions Indication:Dependence on nicotine from cigarettes Start:08-Apr-2018 Instruction Type:Provider Instructions for Treatment How to access health informa tion online Indication:Dependence on nicotine from cigarettes Start:25-Mar-2017 Instruction Type:Patient Education How to access health informa tion online - Detail Indication:Dependence on nicotine from cigarettes Start:25-Mar-2017 Instruction Type:Patient Education Patient Instructions Indication:Dependence on nicotine from cigarettes Start:25-Mar-2017 Instruction Type:Provider Instructions for Treatment How to access health informa tion online Indication:Hyperlipidemia Start:14-Sep-2015 Instruction Type:Patient Education How to access health informa tion online - Detail Indication:Hyperlipidemia Start:14-Sep-2015 Instruction Type:Patient Education Patient Instructions Indication:Hyperlipidemia Start:14-Sep-2015 Instruction Type:Provider Instructions for Treatment Patient Instructions Indication:Hyperlipidemia Start:13-Jul-2015 Instruction Type:Provider Instructions for Treatment How to access health informa tion online Indication:Diabetes mellitus type II, controlled, with no complications Start:15-Jun-2015 Instruction Type:Patient Education How to access health informa tion online - Detail Indication:Diabetes mellitus type II, controlled, with no complications Start:15-Jun-2015 Instruction Type:Patient Education Patient Instructions Indication:Diabetes mellitus type II, controlled, with no complications Start:15-Jun-2015 Instruction Type:Provider Instructions for Treatment How to access health informa tion online Indication:Diabetes mellitus out of control Start:09-Mar-2015 Instruction Type:Patient Education How to access health informa tion online - Detail Indication:Diabetes mellitus out of control Start:09-Mar-2015 Instruction Type:Patient Education Patient Instructions Indication:Diabetes mellitus out of control Start:09-Mar-2015 Instruction Type:Provider Instructions for Treatment Patient Instructions Indication:Diabetes mellitus out of control Start:03-Jan-2015 Instruction Type:Provider Instructions for Treatment How to access health informa tion online - Detail Indication:Bursitis Start:20-Dec-2014 Instruction Type:Patient Education Patient Instructions Indication:Bursitis Start:20-Dec-2014 Instruction Type:Provider Instructions for Treatment How to access health informa tion online Indication:Diabetes mellitus out of control Start:08-Dec-2014 Instruction Type:Patient Education How to access health informa tion online - Detail Indication:Diabetes mellitus out of control Start:08-Dec-2014 Instruction Type:Patient Education Patient Instructions Indication:Diabetes mellitus out of control Start:08-Dec-2014 Instruction Type:Provider Instructions for Treatment Name Dates Details How to access health informa tion online Indication:BMI 27.0-27.9,adult Start:17-Aug-2020 Instruction Type:Patient Education How to access health informa tion online - Detail Indication:BMI 27.0-27.9,adult Start:17-Aug-2020 Instruction Type:Patient Education Patient Instructions Indication:BMI 27.0-27.9,adult Start:17-Aug-2020 Instruction Type:Provider Instructions for Treatment How to access health informa tion online Indication:Current smoker Start:10-Aug-2020 Instruction Type:Patient Education How to access health informa tion online - Detail Indication:Current smoker Start:10-Aug-2020 Instruction Type:Patient Education Patient Instructions Indication:Vitamin D deficiency Start:10-Aug-2020 Instruction Type:Provider Instructions for Treatment How to access health informa tion online Indication:Current smoker Start:10-May-2020 Instruction Type:Patient Education How to access health informa tion online - Detail Indication:Current smoker Start:10-May-2020 Instruction Type:Patient Education Patient Instructions Indication:Current smoker Start:10-May-2020 Instruction Type:Provider Instructions for Treatment How to access health informa tion online Indication:Current smoker Start:29-Jan-2020 Instruction Type:Patient Education How to access health informa tion online - Detail Indication:Current smoker Start:29-Jan-2020 Instruction Type:Patient Education Patient Instructions Indication:Current smoker Start:29-Jan-2020 Instruction Type:Provider Instructions for Treatment How to access health informa tion online Indication:Current smoker Start:15-Jan-2020 Instruction Type:Patient Education How to access health informa tion online - Detail Indication:Current smoker Start:15-Jan-2020 Instruction Type:Patient Education Patient Instructions Indication:BMI 30.0-30.9,adult Start:15-Jan-2020 Instruction Type:Provider Instructions for Treatment How to access health informa tion online Indication:Current smoker Start:04-Nov-2019 Instruction Type:Patient Education How to access health informa tion online - Detail Indication:Current smoker Start:04-Nov-2019 Instruction Type:Patient Education Patient Instructions Indication:Current smoker Start:04-Nov-2019 Instruction Type:Provider Instructions for Treatment How to access health informa tion online Indication:Current smoker Start:31-Jul-2019 Instruction Type:Patient Education How to access health informa tion online - Detail Indication:Current smoker Start:31-Jul-2019 Instruction Type:Patient Education Patient Instructions Indication:BMI 28.0-28.9,adult Start:31-Jul-2019 Instruction Type:Provider Instructions for Treatment DISCONTINUED - LIPID PANEL ( [id number]) Indication:Hyperlipidemia Start:10-Jun-2019 Instruction Type:Patient Education How to access health informa tion online Indication:Current smoker Start:10-Jun-2019 Instruction Type:Patient Education How to access health informa tion online - Detail Indication:Current smoker Start:10-Jun-2019 Instruction Type:Patient Education Patient Instructions Indication:BMI 29.0-29.9,adult Start:10-Jun-2019 Instruction Type:Provider Instructions for Treatment How to access health informa tion online Indication:Current smoker Start:29-Apr-2019 Instruction Type:Patient Education How to access health informa tion online - Detail Indication:Current smoker Start:29-Apr-2019 Instruction Type:Patient Education Patient Instructions Indication:Hyperlipidemia Start:29-Apr-2019 Instruction Type:Provider Instructions for Treatment How to access health informa tion online Indication:Current smoker Start:06-Oct-2018 Instruction Type:Patient Education How to access health informa tion online - Detail Indication:Current smoker Start:06-Oct-2018 Instruction Type:Patient Education Patient Instructions Indication:Dermatitis due to plants, including poison heather, sumac, and oak Start:06-Oct-2018 Instruction Type:Provider Instructions for Treatment How to access health informa tion online Indication:Current smoker Start:29-Sep-2018 Instruction Type:Patient Education How to access health informa tion online - Detail Indication:Current smoker Start:29-Sep-2018 Instruction Type:Patient Education Patient Instructions Indication:Rash Start:29-Sep-2018 Instruction Type:Provider Instructions for Treatment How to access health informa tion online Indication:Current smoker Start:19-Aug-2018 Instruction Type:Patient Education How to access health informa tion online - Detail Indication:Current smoker Start:19-Aug-2018 Instruction Type:Patient Education Patient Instructions Indication:Influenza vaccination declined (Renamed from Refused influenza vaccine) Start:19-Aug-2018 Instruction Type:Provider Instructions for Treatment How to access health informa tion online Indication:Diabetes mellitus type II, controlled, with no complications Start:18-Apr-2018 Instruction Type:Patient Education How to access health informa tion online - Detail Indication:Diabetes mellitus type II, controlled, with no complications Start:18-Apr-2018 Instruction Type:Patient Education Patient Instructions Indication:Diabetes mellitus type II, controlled, with no complications Start:18-Apr-2018 Instruction Type:Provider Instructions for Treatment How to access health informa tion online Indication:Dependence on nicotine from cigarettes Start:08-Apr-2018 Instruction Type:Patient Education How to access health informa tion online - Detail Indication:Dependence on nicotine from cigarettes Start:08-Apr-2018 Instruction Type:Patient Education Patient Instructions Indication:Dependence on nicotine from cigarettes Start:08-Apr-2018 Instruction Type:Provider Instructions for Treatment How to access health informa tion online Indication:Dependence on nicotine from cigarettes Start:25-Mar-2017 Instruction Type:Patient Education How to access health informa tion online - Detail Indication:Dependence on nicotine from cigarettes Start:25-Mar-2017 Instruction Type:Patient Education Patient Instructions Indication:Dependence on nicotine from cigarettes Start:25-Mar-2017 Instruction Type:Provider Instructions for Treatment How to access health informa tion online Indication:Hyperlipidemia Start:14-Sep-2015 Instruction Type:Patient Education How to access health informa tion online - Detail Indication:Hyperlipidemia Start:14-Sep-2015 Instruction Type:Patient Education Patient Instructions Indication:Hyperlipidemia Start:14-Sep-2015 Instruction Type:Provider Instructions for Treatment Patient Instructions Indication:Hyperlipidemia Start:13-Jul-2015 Instruction Type:Provider Instructions for Treatment How to access health informa tion online Indication:Diabetes mellitus type II, controlled, with no complications Start:15-Jun-2015 Instruction Type:Patient Education How to access health informa tion online - Detail Indication:Diabetes mellitus type II, controlled, with no complications Start:15-Jun-2015 Instruction Type:Patient Education Patient Instructions Indication:Diabetes mellitus type II, controlled, with no complications Start:15-Jun-2015 Instruction Type:Provider Instructions for Treatment How to access health informa tion online Indication:Diabetes mellitus out of control Start:09-Mar-2015 Instruction Type:Patient Education How to access health informa tion online - Detail Indication:Diabetes mellitus out of control Start:09-Mar-2015 Instruction Type:Patient Education Patient Instructions Indication:Diabetes mellitus out of control Start:09-Mar-2015 Instruction Type:Provider Instructions for Treatment Patient Instructions Indication:Diabetes mellitus out of control Start:03-Jan-2015 Instruction Type:Provider Instructions for Treatment How to access health informa tion online - Detail Indication:Bursitis Start:20-Dec-2014 Instruction Type:Patient Education Patient Instructions Indication:Bursitis Start:20-Dec-2014 Instruction Type:Provider Instructions for Treatment How to access health informa tion online Indication:Diabetes mellitus out of control Start:08-Dec-2014 Instruction Type:Patient Education How to access health informa tion online - Detail Indication:Diabetes mellitus out of control Start:08-Dec-2014 Instruction Type:Patient Education Patient Instructions Indication:Diabetes mellitus out of control Start:08-Dec-2014 Instruction Type:Provider Instructions for Treatment Name Dates Details DISCONTINUED - LIPID PANEL ( [id number]) Indication:Hyperlipidemia Start:10-Jun-2019 Instruction Type:Patient Education How to access health informa tion online Indication:Current smoker Start:10-Jun-2019 Instruction Type:Patient Education How to access health informa tion online - Detail Indication:Current smoker Start:10-Jun-2019 Instruction Type:Patient Education Patient Instructions Indication:BMI 29.0-29.9,adult Start:10-Jun-2019 Instruction Type:Provider Instructions for Treatment How to access health informa tion online Indication:Current smoker Start:29-Apr-2019 Instruction Type:Patient Education How to access health informa tion online - Detail Indication:Current smoker Start:29-Apr-2019 Instruction Type:Patient Education Patient Instructions Indication:Hyperlipidemia Start:29-Apr-2019 Instruction Type:Provider Instructions for Treatment How to access health informa tion online Indication:Current smoker Start:06-Oct-2018 Instruction Type:Patient Education How to access health informa tion online - Detail Indication:Current smoker Start:06-Oct-2018 Instruction Type:Patient Education Patient Instructions Indication:Dermatitis due to plants, including poison heather, sumac, and oak Start:06-Oct-2018 Instruction Type:Provider Instructions for Treatment How to access health informa tion online Indication:Current smoker Start:29-Sep-2018 Instruction Type:Patient Education How to access health informa tion online - Detail Indication:Current smoker Start:29-Sep-2018 Instruction Type:Patient Education Patient Instructions Indication:Rash Start:29-Sep-2018 Instruction Type:Provider Instructions for Treatment How to access health informa tion online Indication:Current smoker Start:19-Aug-2018 Instruction Type:Patient Education How to access health informa tion online - Detail Indication:Current smoker Start:19-Aug-2018 Instruction Type:Patient Education Patient Instructions Indication:Influenza vaccination declined (Renamed from Refused influenza vaccine) Start:19-Aug-2018 Instruction Type:Provider Instructions for Treatment How to access health informa tion online Indication:Diabetes mellitus type II, controlled, with no complications Start:18-Apr-2018 Instruction Type:Patient Education How to access health informa tion online - Detail Indication:Diabetes mellitus type II, controlled, with no complications Start:18-Apr-2018 Instruction Type:Patient Education Patient Instructions Indication:Diabetes mellitus type II, controlled, with no complications Start:18-Apr-2018 Instruction Type:Provider Instructions for Treatment How to access health informa tion online Indication:Dependence on nicotine from cigarettes Start:08-Apr-2018 Instruction Type:Patient Education How to access health informa tion online - Detail Indication:Dependence on nicotine from cigarettes Start:08-Apr-2018 Instruction Type:Patient Education Patient Instructions Indication:Dependence on nicotine from cigarettes Start:08-Apr-2018 Instruction Type:Provider Instructions for Treatment How to access health informa tion online Indication:Dependence on nicotine from cigarettes Start:25-Mar-2017 Instruction Type:Patient Education How to access health informa tion online - Detail Indication:Dependence on nicotine from cigarettes Start:25-Mar-2017 Instruction Type:Patient Education Patient Instructions Indication:Dependence on nicotine from cigarettes Start:25-Mar-2017 Instruction Type:Provider Instructions for Treatment How to access health informa tion online Indication:Hyperlipidemia Start:14-Sep-2015 Instruction Type:Patient Education How to access health informa tion online - Detail Indication:Hyperlipidemia Start:14-Sep-2015 Instruction Type:Patient Education Patient Instructions Indication:Hyperlipidemia Start:14-Sep-2015 Instruction Type:Provider Instructions for Treatment Patient Instructions Indication:Hyperlipidemia Start:13-Jul-2015 Instruction Type:Provider Instructions for Treatment How to access health informa tion online Indication:Diabetes mellitus type II, controlled, with no complications Start:15-Jun-2015 Instruction Type:Patient Education How to access health informa tion online - Detail Indication:Diabetes mellitus type II, controlled, with no complications Start:15-Jun-2015 Instruction Type:Patient Education Patient Instructions Indication:Diabetes mellitus type II, controlled, with no complications Start:15-Jun-2015 Instruction Type:Provider Instructions for Treatment How to access health informa tion online Indication:Diabetes mellitus out of control Start:09-Mar-2015 Instruction Type:Patient Education How to access health informa tion online - Detail Indication:Diabetes mellitus out of control Start:09-Mar-2015 Instruction Type:Patient Education Patient Instructions Indication:Diabetes mellitus out of control Start:09-Mar-2015 Instruction Type:Provider Instructions for Treatment Patient Instructions Indication:Diabetes mellitus out of control Start:03-Jan-2015 Instruction Type:Provider Instructions for Treatment How to access health informa tion online - Detail Indication:Bursitis Start:20-Dec-2014 Instruction Type:Patient Education Patient Instructions Indication:Bursitis Start:20-Dec-2014 Instruction Type:Provider Instructions for Treatment How to access health informa tion online Indication:Diabetes mellitus out of control Start:08-Dec-2014 Instruction Type:Patient Education How to access health informa tion online - Detail Indication:Diabetes mellitus out of control Start:08-Dec-2014 Instruction Type:Patient Education Patient Instructions Indication:Diabetes mellitus out of control Start:08-Dec-2014 Instruction Type:Provider Instructions for Treatment Name Dates Details How to access health informa tion online Indication:BMI 27.0-27.9,adult Start:17-Aug-2020 Instruction Type:Patient Education How to access health informa tion online - Detail Indication:BMI 27.0-27.9,adult Start:17-Aug-2020 Instruction Type:Patient Education Patient Instructions Indication:BMI 27.0-27.9,adult Start:17-Aug-2020 Instruction Type:Provider Instructions for Treatment How to access health informa tion online Indication:Current smoker Start:10-Aug-2020 Instruction Type:Patient Education How to access health informa tion online - Detail Indication:Current smoker Start:10-Aug-2020 Instruction Type:Patient Education Patient Instructions Indication:Vitamin D deficiency Start:10-Aug-2020 Instruction Type:Provider Instructions for Treatment How to access health informa tion online Indication:Current smoker Start:10-May-2020 Instruction Type:Patient Education How to access health informa tion online - Detail Indication:Current smoker Start:10-May-2020 Instruction Type:Patient Education Patient Instructions Indication:Current smoker Start:10-May-2020 Instruction Type:Provider Instructions for Treatment How to access health informa tion online Indication:Current smoker Start:29-Jan-2020 Instruction Type:Patient Education How to access health informa tion online - Detail Indication:Current smoker Start:29-Jan-2020 Instruction Type:Patient Education Patient Instructions Indication:Current smoker Start:29-Jan-2020 Instruction Type:Provider Instructions for Treatment How to access health informa tion online Indication:Current smoker Start:15-Jan-2020 Instruction Type:Patient Education How to access health informa tion online - Detail Indication:Current smoker Start:15-Jan-2020 Instruction Type:Patient Education Patient Instructions Indication:BMI 30.0-30.9,adult Start:15-Jan-2020 Instruction Type:Provider Instructions for Treatment How to access health informa tion online Indication:Current smoker Start:04-Nov-2019 Instruction Type:Patient Education How to access health informa tion online - Detail Indication:Current smoker Start:04-Nov-2019 Instruction Type:Patient Education Patient Instructions Indication:Current smoker Start:04-Nov-2019 Instruction Type:Provider Instructions for Treatment How to access health informa tion online Indication:Current smoker Start:31-Jul-2019 Instruction Type:Patient Education How to access health informa tion online - Detail Indication:Current smoker Start:31-Jul-2019 Instruction Type:Patient Education Patient Instructions Indication:BMI 28.0-28.9,adult Start:31-Jul-2019 Instruction Type:Provider Instructions for Treatment DISCONTINUED - LIPID PANEL ( [id number]) Indication:Hyperlipidemia Start:10-Jun-2019 Instruction Type:Patient Education How to access health informa tion online Indication:Current smoker Start:10-Jun-2019 Instruction Type:Patient Education How to access health informa tion online - Detail Indication:Current smoker Start:10-Jun-2019 Instruction Type:Patient Education Patient Instructions Indication:BMI 29.0-29.9,adult Start:10-Jun-2019 Instruction Type:Provider Instructions for Treatment How to access health informa tion online Indication:Current smoker Start:29-Apr-2019 Instruction Type:Patient Education How to access health informa tion online - Detail Indication:Current smoker Start:29-Apr-2019 Instruction Type:Patient Education Patient Instructions Indication:Hyperlipidemia Start:29-Apr-2019 Instruction Type:Provider Instructions for Treatment How to access health informa tion online Indication:Current smoker Start:06-Oct-2018 Instruction Type:Patient Education How to access health informa tion online - Detail Indication:Current smoker Start:06-Oct-2018 Instruction Type:Patient Education Patient Instructions Indication:Dermatitis due to plants, including poison heather, sumac, and oak Start:06-Oct-2018 Instruction Type:Provider Instructions for Treatment How to access health informa tion online Indication:Current smoker Start:29-Sep-2018 Instruction Type:Patient Education How to access health informa tion online - Detail Indication:Current smoker Start:29-Sep-2018 Instruction Type:Patient Education Patient Instructions Indication:Rash Start:29-Sep-2018 Instruction Type:Provider Instructions for Treatment How to access health informa tion online Indication:Current smoker Start:19-Aug-2018 Instruction Type:Patient Education How to access health informa tion online - Detail Indication:Current smoker Start:19-Aug-2018 Instruction Type:Patient Education Patient Instructions Indication:Influenza vaccination declined (Renamed from Refused influenza vaccine) Start:19-Aug-2018 Instruction Type:Provider Instructions for Treatment How to access health informa tion online Indication:Diabetes mellitus type II, controlled, with no complications Start:18-Apr-2018 Instruction Type:Patient Education How to access health informa tion online - Detail Indication:Diabetes mellitus type II, controlled, with no complications Start:18-Apr-2018 Instruction Type:Patient Education Patient Instructions Indication:Diabetes mellitus type II, controlled, with no complications Start:18-Apr-2018 Instruction Type:Provider Instructions for Treatment How to access health informa tion online Indication:Dependence on nicotine from cigarettes Start:08-Apr-2018 Instruction Type:Patient Education How to access health informa tion online - Detail Indication:Dependence on nicotine from cigarettes Start:08-Apr-2018 Instruction Type:Patient Education Patient Instructions Indication:Dependence on nicotine from cigarettes Start:08-Apr-2018 Instruction Type:Provider Instructions for Treatment How to access health informa tion online Indication:Dependence on nicotine from cigarettes Start:25-Mar-2017 Instruction Type:Patient Education How to access health informa tion online - Detail Indication:Dependence on nicotine from cigarettes Start:25-Mar-2017 Instruction Type:Patient Education Patient Instructions Indication:Dependence on nicotine from cigarettes Start:25-Mar-2017 Instruction Type:Provider Instructions for Treatment How to access health informa tion online Indication:Hyperlipidemia Start:14-Sep-2015 Instruction Type:Patient Education How to access health informa tion online - Detail Indication:Hyperlipidemia Start:14-Sep-2015 Instruction Type:Patient Education Patient Instructions Indication:Hyperlipidemia Start:14-Sep-2015 Instruction Type:Provider Instructions for Treatment Patient Instructions Indication:Hyperlipidemia Start:13-Jul-2015 Instruction Type:Provider Instructions for Treatment How to access health informa tion online Indication:Diabetes mellitus type II, controlled, with no complications Start:15-Jun-2015 Instruction Type:Patient Education How to access health informa tion online - Detail Indication:Diabetes mellitus type II, controlled, with no complications Start:15-Jun-2015 Instruction Type:Patient Education Patient Instructions Indication:Diabetes mellitus type II, controlled, with no complications Start:15-Jun-2015 Instruction Type:Provider Instructions for Treatment How to access health informa tion online Indication:Diabetes mellitus out of control Start:09-Mar-2015 Instruction Type:Patient Education How to access health informa tion online - Detail Indication:Diabetes mellitus out of control Start:09-Mar-2015 Instruction Type:Patient Education Patient Instructions Indication:Diabetes mellitus out of control Start:09-Mar-2015 Instruction Type:Provider Instructions for Treatment Patient Instructions Indication:Diabetes mellitus out of control Start:03-Jan-2015 Instruction Type:Provider Instructions for Treatment How to access health informa tion online - Detail Indication:Bursitis Start:20-Dec-2014 Instruction Type:Patient Education Patient Instructions Indication:Bursitis Start:20-Dec-2014 Instruction Type:Provider Instructions for Treatment How to access health informa tion online Indication:Diabetes mellitus out of control Start:08-Dec-2014 Instruction Type:Patient Education How to access health informa tion online - Detail Indication:Diabetes mellitus out of control Start:08-Dec-2014 Instruction Type:Patient Education Patient Instructions Indication:Diabetes mellitus out of control Start:08-Dec-2014 Instruction Type:Provider Instructions for Treatment Name Dates Details Patient Instructions Indication:Current smoker Start:25-Nov-2020 Instruction Type:Provider Instructions for Treatment How to Access Health Informa tion Online using Patient Portal and [employer]rd [employer] Apps Indication:Current smoker Start:25-Nov-2020 Instruction Type:Patient Education How to access health informa tion online Indication:BMI 27.0-27.9,adult Start:17-Aug-2020 Instruction Type:Patient Education How to access health informa tion online - Detail Indication:BMI 27.0-27.9,adult Start:17-Aug-2020 Instruction Type:Patient Education Patient Instructions Indication:BMI 27.0-27.9,adult Start:17-Aug-2020 Instruction Type:Provider Instructions for Treatment How to access health informa tion online Indication:Current smoker Start:10-Aug-2020 Instruction Type:Patient Education How to access health informa tion online - Detail Indication:Current smoker Start:10-Aug-2020 Instruction Type:Patient Education Patient Instructions Indication:Vitamin D deficiency Start:10-Aug-2020 Instruction Type:Provider Instructions for Treatment How to access health informa tion online Indication:Current smoker Start:10-May-2020 Instruction Type:Patient Education How to access health informa tion online - Detail Indication:Current smoker Start:10-May-2020 Instruction Type:Patient Education Patient Instructions Indication:Current smoker Start:10-May-2020 Instruction Type:Provider Instructions for Treatment How to access health informa tion online Indication:Current smoker Start:29-Jan-2020 Instruction Type:Patient Education How to access health informa tion online - Detail Indication:Current smoker Start:29-Jan-2020 Instruction Type:Patient Education Patient Instructions Indication:Current smoker Start:29-Jan-2020 Instruction Type:Provider Instructions for Treatment How to access health informa tion online Indication:Current smoker Start:15-Jan-2020 Instruction Type:Patient Education How to access health informa tion online - Detail Indication:Current smoker Start:15-Jan-2020 Instruction Type:Patient Education Patient Instructions Indication:BMI 30.0-30.9,adult Start:15-Jan-2020 Instruction Type:Provider Instructions for Treatment How to access health informa tion online Indication:Current smoker Start:04-Nov-2019 Instruction Type:Patient Education How to access health informa tion online - Detail Indication:Current smoker Start:04-Nov-2019 Instruction Type:Patient Education Patient Instructions Indication:Current smoker Start:04-Nov-2019 Instruction Type:Provider Instructions for Treatment How to access health informa tion online Indication:Current smoker Start:31-Jul-2019 Instruction Type:Patient Education How to access health informa tion online - Detail Indication:Current smoker Start:31-Jul-2019 Instruction Type:Patient Education Patient Instructions Indication:BMI 28.0-28.9,adult Start:31-Jul-2019 Instruction Type:Provider Instructions for Treatment DISCONTINUED - LIPID PANEL ( [id number]) Indication:Hyperlipidemia Start:10-Jun-2019 Instruction Type:Patient Education How to access health informa tion online Indication:Current smoker Start:10-Jun-2019 Instruction Type:Patient Education How to access health informa tion online - Detail Indication:Current smoker Start:10-Jun-2019 Instruction Type:Patient Education Patient Instructions Indication:BMI 29.0-29.9,adult Start:10-Jun-2019 Instruction Type:Provider Instructions for Treatment How to access health informa tion online Indication:Current smoker Start:29-Apr-2019 Instruction Type:Patient Education How to access health informa tion online - Detail Indication:Current smoker Start:29-Apr-2019 Instruction Type:Patient Education Patient Instructions Indication:Hyperlipidemia Start:29-Apr-2019 Instruction Type:Provider Instructions for Treatment How to access health informa tion online Indication:Current smoker Start:06-Oct-2018 Instruction Type:Patient Education How to access health informa tion online - Detail Indication:Current smoker Start:06-Oct-2018 Instruction Type:Patient Education Patient Instructions Indication:Dermatitis due to plants, including poison heather, sumac, and oak Start:06-Oct-2018 Instruction Type:Provider Instructions for Treatment How to access health informa tion online Indication:Current smoker Start:29-Sep-2018 Instruction Type:Patient Education How to access health informa tion online - Detail Indication:Current smoker Start:29-Sep-2018 Instruction Type:Patient Education Patient Instructions Indication:Rash Start:29-Sep-2018 Instruction Type:Provider Instructions for Treatment How to access health informa tion online Indication:Current smoker Start:19-Aug-2018 Instruction Type:Patient Education How to access health informa tion online - Detail Indication:Current smoker Start:19-Aug-2018 Instruction Type:Patient Education Patient Instructions Indication:Influenza vaccination declined (Renamed from Refused influenza vaccine) Start:19-Aug-2018 Instruction Type:Provider Instructions for Treatment How to access health informa tion online Indication:Diabetes mellitus type II, controlled, with no complications Start:18-Apr-2018 Instruction Type:Patient Education How to access health informa tion online - Detail Indication:Diabetes mellitus type II, controlled, with no complications Start:18-Apr-2018 Instruction Type:Patient Education Patient Instructions Indication:Diabetes mellitus type II, controlled, with no complications Start:18-Apr-2018 Instruction Type:Provider Instructions for Treatment How to access health informa tion online Indication:Dependence on nicotine from cigarettes Start:08-Apr-2018 Instruction Type:Patient Education How to access health informa tion online - Detail Indication:Dependence on nicotine from cigarettes Start:08-Apr-2018 Instruction Type:Patient Education Patient Instructions Indication:Dependence on nicotine from cigarettes Start:08-Apr-2018 Instruction Type:Provider Instructions for Treatment How to access health informa tion online Indication:Dependence on nicotine from cigarettes Start:25-Mar-2017 Instruction Type:Patient Education How to access health informa tion online - Detail Indication:Dependence on nicotine from cigarettes Start:25-Mar-2017 Instruction Type:Patient Education Patient Instructions Indication:Dependence on nicotine from cigarettes Start:25-Mar-2017 Instruction Type:Provider Instructions for Treatment How to access health informa tion online Indication:Hyperlipidemia Start:14-Sep-2015 Instruction Type:Patient Education How to access health informa tion online - Detail Indication:Hyperlipidemia Start:14-Sep-2015 Instruction Type:Patient Education Patient Instructions Indication:Hyperlipidemia Start:14-Sep-2015 Instruction Type:Provider Instructions for Treatment Patient Instructions Indication:Hyperlipidemia Start:13-Jul-2015 Instruction Type:Provider Instructions for Treatment How to access health informa tion online Indication:Diabetes mellitus type II, controlled, with no complications Start:15-Jun-2015 Instruction Type:Patient Education How to access health informa tion online - Detail Indication:Diabetes mellitus type II, controlled, with no complications Start:15-Jun-2015 Instruction Type:Patient Education Patient Instructions Indication:Diabetes mellitus type II, controlled, with no complications Start:15-Jun-2015 Instruction Type:Provider Instructions for Treatment How to access health informa tion online Indication:Diabetes mellitus out of control Start:09-Mar-2015 Instruction Type:Patient Education How to access health informa tion online - Detail Indication:Diabetes mellitus out of control Start:09-Mar-2015 Instruction Type:Patient Education Patient Instructions Indication:Diabetes mellitus out of control Start:09-Mar-2015 Instruction Type:Provider Instructions for Treatment Patient Instructions Indication:Diabetes mellitus out of control Start:03-Jan-2015 Instruction Type:Provider Instructions for Treatment How to access health informa tion online - Detail Indication:Bursitis Start:20-Dec-2014 Instruction Type:Patient Education Patient Instructions Indication:Bursitis Start:20-Dec-2014 Instruction Type:Provider Instructions for Treatment How to access health informa tion online Indication:Diabetes mellitus out of control Start:08-Dec-2014 Instruction Type:Patient Education How to access health informa tion online - Detail Indication:Diabetes mellitus out of control Start:08-Dec-2014 Instruction Type:Patient Education Patient Instructions Indication:Diabetes mellitus out of control Start:08-Dec-2014 Instruction Type:Provider Instructions for Treatment Name Dates Details Patient Instructions Indication:Current smoker Start:25-Nov-2020 Instruction Type:Provider Instructions for Treatment How to Access Health Informa tion Online using Patient Portal and [employer] Apps Indication:Current smoker Start:25-Nov-2020 Instruction Type:Patient Education How to access health informa tion online Indication:BMI 27.0-27.9,adult Start:17-Aug-2020 Instruction Type:Patient Education How to access health informa tion online - Detail Indication:BMI 27.0-27.9,adult Start:17-Aug-2020 Instruction Type:Patient Education Patient Instructions Indication:BMI 27.0-27.9,adult Start:17-Aug-2020 Instruction Type:Provider Instructions for Treatment How to access health informa tion online Indication:Current smoker Start:10-Aug-2020 Instruction Type:Patient Education How to access health informa tion online - Detail Indication:Current smoker Start:10-Aug-2020 Instruction Type:Patient Education Patient Instructions Indication:Vitamin D deficiency Start:10-Aug-2020 Instruction Type:Provider Instructions for Treatment How to access health informa tion online Indication:Current smoker Start:10-May-2020 Instruction Type:Patient Education How to access health informa tion online - Detail Indication:Current smoker Start:10-May-2020 Instruction Type:Patient Education Patient Instructions Indication:Current smoker Start:10-May-2020 Instruction Type:Provider Instructions for Treatment How to access health informa tion online Indication:Current smoker Start:29-Jan-2020 Instruction Type:Patient Education How to access health informa tion online - Detail Indication:Current smoker Start:29-Jan-2020 Instruction Type:Patient Education Patient Instructions Indication:Current smoker Start:29-Jan-2020 Instruction Type:Provider Instructions for Treatment How to access health informa tion online Indication:Current smoker Start:15-Jan-2020 Instruction Type:Patient Education How to access health informa tion online - Detail Indication:Current smoker Start:15-Jan-2020 Instruction Type:Patient Education Patient Instructions Indication:BMI 30.0-30.9,adult Start:15-Jan-2020 Instruction Type:Provider Instructions for Treatment How to access health informa tion online Indication:Current smoker Start:04-Nov-2019 Instruction Type:Patient Education How to access health informa tion online - Detail Indication:Current smoker Start:04-Nov-2019 Instruction Type:Patient Education Patient Instructions Indication:Current smoker Start:04-Nov-2019 Instruction Type:Provider Instructions for Treatment How to access health informa tion online Indication:Current smoker Start:31-Jul-2019 Instruction Type:Patient Education How to access health informa tion online - Detail Indication:Current smoker Start:31-Jul-2019 Instruction Type:Patient Education Patient Instructions Indication:BMI 28.0-28.9,adult Start:31-Jul-2019 Instruction Type:Provider Instructions for Treatment DISCONTINUED - LIPID PANEL ( [id number]) Indication:Hyperlipidemia Start:10-Jun-2019 Instruction Type:Patient Education How to access health informa tion online Indication:Current smoker Start:10-Jun-2019 Instruction Type:Patient Education How to access health informa tion online - Detail Indication:Current smoker Start:10-Jun-2019 Instruction Type:Patient Education Patient Instructions Indication:BMI 29.0-29.9,adult Start:10-Jun-2019 Instruction Type:Provider Instructions for Treatment How to access health informa tion online Indication:Current smoker Start:29-Apr-2019 Instruction Type:Patient Education How to access health informa tion online - Detail Indication:Current smoker Start:29-Apr-2019 Instruction Type:Patient Education Patient Instructions Indication:Hyperlipidemia Start:29-Apr-2019 Instruction Type:Provider Instructions for Treatment How to access health informa tion online Indication:Current smoker Start:06-Oct-2018 Instruction Type:Patient Education How to access health informa tion online - Detail Indication:Current smoker Start:06-Oct-2018 Instruction Type:Patient Education Patient Instructions Indication:Dermatitis due to plants, including poison heather, sumac, and oak Start:06-Oct-2018 Instruction Type:Provider Instructions for Treatment How to access health informa tion online Indication:Current smoker Start:29-Sep-2018 Instruction Type:Patient Education How to access health informa tion online - Detail Indication:Current smoker Start:29-Sep-2018 Instruction Type:Patient Education Patient Instructions Indication:Rash Start:29-Sep-2018 Instruction Type:Provider Instructions for Treatment How to access health informa tion online Indication:Current smoker Start:19-Aug-2018 Instruction Type:Patient Education How to access health informa tion online - Detail Indication:Current smoker Start:19-Aug-2018 Instruction Type:Patient Education Patient Instructions Indication:Influenza vaccination declined (Renamed from Refused influenza vaccine) Start:19-Aug-2018 Instruction Type:Provider Instructions for Treatment How to access health informa tion online Indication:Diabetes mellitus type II, controlled, with no complications Start:18-Apr-2018 Instruction Type:Patient Education How to access health informa tion online - Detail Indication:Diabetes mellitus type II, controlled, with no complications Start:18-Apr-2018 Instruction Type:Patient Education Patient Instructions Indication:Diabetes mellitus type II, controlled, with no complications Start:18-Apr-2018 Instruction Type:Provider Instructions for Treatment How to access health informa tion online Indication:Dependence on nicotine from cigarettes Start:08-Apr-2018 Instruction Type:Patient Education How to access health informa tion online - Detail Indication:Dependence on nicotine from cigarettes Start:08-Apr-2018 Instruction Type:Patient Education Patient Instructions Indication:Dependence on nicotine from cigarettes Start:08-Apr-2018 Instruction Type:Provider Instructions for Treatment How to access health informa tion online Indication:Dependence on nicotine from cigarettes Start:25-Mar-2017 Instruction Type:Patient Education How to access health informa tion online - Detail Indication:Dependence on nicotine from cigarettes Start:25-Mar-2017 Instruction Type:Patient Education Patient Instructions Indication:Dependence on nicotine from cigarettes Start:25-Mar-2017 Instruction Type:Provider Instructions for Treatment How to access health informa tion online Indication:Hyperlipidemia Start:14-Sep-2015 Instruction Type:Patient Education How to access health informa tion online - Detail Indication:Hyperlipidemia Start:14-Sep-2015 Instruction Type:Patient Education Patient Instructions Indication:Hyperlipidemia Start:14-Sep-2015 Instruction Type:Provider Instructions for Treatment Patient Instructions Indication:Hyperlipidemia Start:13-Jul-2015 Instruction Type:Provider Instructions for Treatment How to access health informa tion online Indication:Diabetes mellitus type II, controlled, with no complications Start:15-Jun-2015 Instruction Type:Patient Education How to access health informa tion online - Detail Indication:Diabetes mellitus type II, controlled, with no complications Start:15-Jun-2015 Instruction Type:Patient Education Patient Instructions Indication:Diabetes mellitus type II, controlled, with no complications Start:15-Jun-2015 Instruction Type:Provider Instructions for Treatment How to access health informa tion online Indication:Diabetes mellitus out of control Start:09-Mar-2015 Instruction Type:Patient Education How to access health informa tion online - Detail Indication:Diabetes mellitus out of control Start:09-Mar-2015 Instruction Type:Patient Education Patient Instructions Indication:Diabetes mellitus out of control Start:09-Mar-2015 Instruction Type:Provider Instructions for Treatment Patient Instructions Indication:Diabetes mellitus out of control Start:03-Jan-2015 Instruction Type:Provider Instructions for Treatment How to access health informa tion online - Detail Indication:Bursitis Start:20-Dec-2014 Instruction Type:Patient Education Patient Instructions Indication:Bursitis Start:20-Dec-2014 Instruction Type:Provider Instructions for Treatment How to access health informa tion online Indication:Diabetes mellitus out of control Start:08-Dec-2014 Instruction Type:Patient Education How to access health informa tion online - Detail Indication:Diabetes mellitus out of control Start:08-Dec-2014 Instruction Type:Patient Education Patient Instructions Indication:Diabetes mellitus out of control Start:08-Dec-2014 Instruction Type:Provider Instructions for Treatment Name Dates Details Patient Instructions Indication:Current smoker Start:25-Nov-2020 Instruction Type:Provider Instructions for Treatment How to Access Health Informa tion Online using Patient Portal and [employer] Apps Indication:Current smoker Start:25-Nov-2020 Instruction Type:Patient Education How to access health informa tion online Indication:BMI 27.0-27.9,adult Start:17-Aug-2020 Instruction Type:Patient Education How to access health informa tion online - Detail Indication:BMI 27.0-27.9,adult Start:17-Aug-2020 Instruction Type:Patient Education Patient Instructions Indication:BMI 27.0-27.9,adult Start:17-Aug-2020 Instruction Type:Provider Instructions for Treatment How to access health informa tion online Indication:Current smoker Start:10-Aug-2020 Instruction Type:Patient Education How to access health informa tion online - Detail Indication:Current smoker Start:10-Aug-2020 Instruction Type:Patient Education Patient Instructions Indication:Vitamin D deficiency Start:10-Aug-2020 Instruction Type:Provider Instructions for Treatment How to access health informa tion online Indication:Current smoker Start:10-May-2020 Instruction Type:Patient Education How to access health informa tion online - Detail Indication:Current smoker Start:10-May-2020 Instruction Type:Patient Education Patient Instructions Indication:Current smoker Start:10-May-2020 Instruction Type:Provider Instructions for Treatment How to access health informa tion online Indication:Current smoker Start:29-Jan-2020 Instruction Type:Patient Education How to access health informa tion online - Detail Indication:Current smoker Start:29-Jan-2020 Instruction Type:Patient Education Patient Instructions Indication:Current smoker Start:29-Jan-2020 Instruction Type:Provider Instructions for Treatment How to access health informa tion online Indication:Current smoker Start:15-Jan-2020 Instruction Type:Patient Education How to access health informa tion online - Detail Indication:Current smoker Start:15-Jan-2020 Instruction Type:Patient Education Patient Instructions Indication:BMI 30.0-30.9,adult Start:15-Jan-2020 Instruction Type:Provider Instructions for Treatment How to access health informa tion online Indication:Current smoker Start:04-Nov-2019 Instruction Type:Patient Education How to access health informa tion online - Detail Indication:Current smoker Start:04-Nov-2019 Instruction Type:Patient Education Patient Instructions Indication:Current smoker Start:04-Nov-2019 Instruction Type:Provider Instructions for Treatment How to access health informa tion online Indication:Current smoker Start:31-Jul-2019 Instruction Type:Patient Education How to access health informa tion online - Detail Indication:Current smoker Start:31-Jul-2019 Instruction Type:Patient Education Patient Instructions Indication:BMI 28.0-28.9,adult Start:31-Jul-2019 Instruction Type:Provider Instructions for Treatment DISCONTINUED - LIPID PANEL ( [id number]) Indication:Hyperlipidemia Start:10-Jun-2019 Instruction Type:Patient Education How to access health informa tion online Indication:Current smoker Start:10-Jun-2019 Instruction Type:Patient Education How to access health informa tion online - Detail Indication:Current smoker Start:10-Jun-2019 Instruction Type:Patient Education Patient Instructions Indication:BMI 29.0-29.9,adult Start:10-Jun-2019 Instruction Type:Provider Instructions for Treatment How to access health informa tion online Indication:Current smoker Start:29-Apr-2019 Instruction Type:Patient Education How to access health informa tion online - Detail Indication:Current smoker Start:29-Apr-2019 Instruction Type:Patient Education Patient Instructions Indication:Hyperlipidemia Start:29-Apr-2019 Instruction Type:Provider Instructions for Treatment How to access health informa tion online Indication:Current smoker Start:06-Oct-2018 Instruction Type:Patient Education How to access health informa tion online - Detail Indication:Current smoker Start:06-Oct-2018 Instruction Type:Patient Education Patient Instructions Indication:Dermatitis due to plants, including poison heather, sumac, and oak Start:06-Oct-2018 Instruction Type:Provider Instructions for Treatment How to access health informa tion online Indication:Current smoker Start:29-Sep-2018 Instruction Type:Patient Education How to access health informa tion online - Detail Indication:Current smoker Start:29-Sep-2018 Instruction Type:Patient Education Patient Instructions Indication:Rash Start:29-Sep-2018 Instruction Type:Provider Instructions for Treatment How to access health informa tion online Indication:Current smoker Start:19-Aug-2018 Instruction Type:Patient Education How to access health informa tion online - Detail Indication:Current smoker Start:19-Aug-2018 Instruction Type:Patient Education Patient Instructions Indication:Influenza vaccination declined (Renamed from Refused influenza vaccine) Start:19-Aug-2018 Instruction Type:Provider Instructions for Treatment How to access health informa tion online Indication:Diabetes mellitus type II, controlled, with no complications Start:18-Apr-2018 Instruction Type:Patient Education How to access health informa tion online - Detail Indication:Diabetes mellitus type II, controlled, with no complications Start:18-Apr-2018 Instruction Type:Patient Education Patient Instructions Indication:Diabetes mellitus type II, controlled, with no complications Start:18-Apr-2018 Instruction Type:Provider Instructions for Treatment How to access health informa tion online Indication:Dependence on nicotine from cigarettes Start:08-Apr-2018 Instruction Type:Patient Education How to access health informa tion online - Detail Indication:Dependence on nicotine from cigarettes Start:08-Apr-2018 Instruction Type:Patient Education Patient Instructions Indication:Dependence on nicotine from cigarettes Start:08-Apr-2018 Instruction Type:Provider Instructions for Treatment How to access health informa tion online Indication:Dependence on nicotine from cigarettes Start:25-Mar-2017 Instruction Type:Patient Education How to access health informa tion online - Detail Indication:Dependence on nicotine from cigarettes Start:25-Mar-2017 Instruction Type:Patient Education Patient Instructions Indication:Dependence on nicotine from cigarettes Start:25-Mar-2017 Instruction Type:Provider Instructions for Treatment How to access health informa tion online Indication:Hyperlipidemia Start:14-Sep-2015 Instruction Type:Patient Education How to access health informa tion online - Detail Indication:Hyperlipidemia Start:14-Sep-2015 Instruction Type:Patient Education Patient Instructions Indication:Hyperlipidemia Start:14-Sep-2015 Instruction Type:Provider Instructions for Treatment Patient Instructions Indication:Hyperlipidemia Start:13-Jul-2015 Instruction Type:Provider Instructions for Treatment How to access health informa tion online Indication:Diabetes mellitus type II, controlled, with no complications Start:15-Jun-2015 Instruction Type:Patient Education How to access health informa tion online - Detail Indication:Diabetes mellitus type II, controlled, with no complications Start:15-Jun-2015 Instruction Type:Patient Education Patient Instructions Indication:Diabetes mellitus type II, controlled, with no complications Start:15-Jun-2015 Instruction Type:Provider Instructions for Treatment How to access health informa tion online Indication:Diabetes mellitus out of control Start:09-Mar-2015 Instruction Type:Patient Education How to access health informa tion online - Detail Indication:Diabetes mellitus out of control Start:09-Mar-2015 Instruction Type:Patient Education Patient Instructions Indication:Diabetes mellitus out of control Start:09-Mar-2015 Instruction Type:Provider Instructions for Treatment Patient Instructions Indication:Diabetes mellitus out of control Start:03-Jan-2015 Instruction Type:Provider Instructions for Treatment How to access health informa tion online - Detail Indication:Bursitis Start:20-Dec-2014 Instruction Type:Patient Education Patient Instructions Indication:Bursitis Start:20-Dec-2014 Instruction Type:Provider Instructions for Treatment How to access health informa tion online Indication:Diabetes mellitus out of control Start:08-Dec-2014 Instruction Type:Patient Education How to access health informa tion online - Detail Indication:Diabetes mellitus out of control Start:08-Dec-2014 Instruction Type:Patient Education Patient Instructions Indication:Diabetes mellitus out of control Start:08-Dec-2014 Instruction Type:Provider Instructions for Treatment Name Dates Details Patient Instructions Indication:Current smoker Start:25-Nov-2020 Instruction Type:Provider Instructions for Treatment How to Access Health Informa tion Online using Patient Portal and [employer] Apps Indication:Current smoker Start:25-Nov-2020 Instruction Type:Patient Education How to access health informa tion online Indication:BMI 27.0-27.9,adult Start:17-Aug-2020 Instruction Type:Patient Education How to access health informa tion online - Detail Indication:BMI 27.0-27.9,adult Start:17-Aug-2020 Instruction Type:Patient Education Patient Instructions Indication:BMI 27.0-27.9,adult Start:17-Aug-2020 Instruction Type:Provider Instructions for Treatment How to access health informa tion online Indication:Current smoker Start:10-Aug-2020 Instruction Type:Patient Education How to access health informa tion online - Detail Indication:Current smoker Start:10-Aug-2020 Instruction Type:Patient Education Patient Instructions Indication:Vitamin D deficiency Start:10-Aug-2020 Instruction Type:Provider Instructions for Treatment How to access health informa tion online Indication:Current smoker Start:10-May-2020 Instruction Type:Patient Education How to access health informa tion online - Detail Indication:Current smoker Start:10-May-2020 Instruction Type:Patient Education Patient Instructions Indication:Current smoker Start:10-May-2020 Instruction Type:Provider Instructions for Treatment How to access health informa tion online Indication:Current smoker Start:29-Jan-2020 Instruction Type:Patient Education How to access health informa tion online - Detail Indication:Current smoker Start:29-Jan-2020 Instruction Type:Patient Education Patient Instructions Indication:Current smoker Start:29-Jan-2020 Instruction Type:Provider Instructions for Treatment How to access health informa tion online Indication:Current smoker Start:15-Jan-2020 Instruction Type:Patient Education How to access health informa tion online - Detail Indication:Current smoker Start:15-Jan-2020 Instruction Type:Patient Education Patient Instructions Indication:BMI 30.0-30.9,adult Start:15-Jan-2020 Instruction Type:Provider Instructions for Treatment How to access health informa tion online Indication:Current smoker Start:04-Nov-2019 Instruction Type:Patient Education How to access health informa tion online - Detail Indication:Current smoker Start:04-Nov-2019 Instruction Type:Patient Education Patient Instructions Indication:Current smoker Start:04-Nov-2019 Instruction Type:Provider Instructions for Treatment How to access health informa tion online Indication:Current smoker Start:31-Jul-2019 Instruction Type:Patient Education How to access health informa tion online - Detail Indication:Current smoker Start:31-Jul-2019 Instruction Type:Patient Education Patient Instructions Indication:BMI 28.0-28.9,adult Start:31-Jul-2019 Instruction Type:Provider Instructions for Treatment DISCONTINUED - LIPID PANEL ( [id number]) Indication:Hyperlipidemia Start:10-Jun-2019 Instruction Type:Patient Education How to access health informa tion online Indication:Current smoker Start:10-Jun-2019 Instruction Type:Patient Education How to access health informa tion online - Detail Indication:Current smoker Start:10-Jun-2019 Instruction Type:Patient Education Patient Instructions Indication:BMI 29.0-29.9,adult Start:10-Jun-2019 Instruction Type:Provider Instructions for Treatment How to access health informa tion online Indication:Current smoker Start:29-Apr-2019 Instruction Type:Patient Education How to access health informa tion online - Detail Indication:Current smoker Start:29-Apr-2019 Instruction Type:Patient Education Patient Instructions Indication:Hyperlipidemia Start:29-Apr-2019 Instruction Type:Provider Instructions for Treatment How to access health informa tion online Indication:Current smoker Start:06-Oct-2018 Instruction Type:Patient Education How to access health informa tion online - Detail Indication:Current smoker Start:06-Oct-2018 Instruction Type:Patient Education Patient Instructions Indication:Dermatitis due to plants, including poison heather, sumac, and oak Start:06-Oct-2018 Instruction Type:Provider Instructions for Treatment How to access health informa tion online Indication:Current smoker Start:29-Sep-2018 Instruction Type:Patient Education How to access health informa tion online - Detail Indication:Current smoker Start:29-Sep-2018 Instruction Type:Patient Education Patient Instructions Indication:Rash Start:29-Sep-2018 Instruction Type:Provider Instructions for Treatment How to access health informa tion online Indication:Current smoker Start:19-Aug-2018 Instruction Type:Patient Education How to access health informa tion online - Detail Indication:Current smoker Start:19-Aug-2018 Instruction Type:Patient Education Patient Instructions Indication:Influenza vaccination declined (Renamed from Refused influenza vaccine) Start:19-Aug-2018 Instruction Type:Provider Instructions for Treatment How to access health informa tion online Indication:Diabetes mellitus type II, controlled, with no complications Start:18-Apr-2018 Instruction Type:Patient Education How to access health informa tion online - Detail Indication:Diabetes mellitus type II, controlled, with no complications Start:18-Apr-2018 Instruction Type:Patient Education Patient Instructions Indication:Diabetes mellitus type II, controlled, with no complications Start:18-Apr-2018 Instruction Type:Provider Instructions for Treatment How to access health informa tion online Indication:Dependence on nicotine from cigarettes Start:08-Apr-2018 Instruction Type:Patient Education How to access health informa tion online - Detail Indication:Dependence on nicotine from cigarettes Start:08-Apr-2018 Instruction Type:Patient Education Patient Instructions Indication:Dependence on nicotine from cigarettes Start:08-Apr-2018 Instruction Type:Provider Instructions for Treatment How to access health informa tion online Indication:Dependence on nicotine from cigarettes Start:25-Mar-2017 Instruction Type:Patient Education How to access health informa tion online - Detail Indication:Dependence on nicotine from cigarettes Start:25-Mar-2017 Instruction Type:Patient Education Patient Instructions Indication:Dependence on nicotine from cigarettes Start:25-Mar-2017 Instruction Type:Provider Instructions for Treatment How to access health informa tion online Indication:Hyperlipidemia Start:14-Sep-2015 Instruction Type:Patient Education How to access health informa tion online - Detail Indication:Hyperlipidemia Start:14-Sep-2015 Instruction Type:Patient Education Patient Instructions Indication:Hyperlipidemia Start:14-Sep-2015 Instruction Type:Provider Instructions for Treatment Patient Instructions Indication:Hyperlipidemia Start:13-Jul-2015 Instruction Type:Provider Instructions for Treatment How to access health informa tion online Indication:Diabetes mellitus type II, controlled, with no complications Start:15-Jun-2015 Instruction Type:Patient Education How to access health informa tion online - Detail Indication:Diabetes mellitus type II, controlled, with no complications Start:15-Jun-2015 Instruction Type:Patient Education Patient Instructions Indication:Diabetes mellitus type II, controlled, with no complications Start:15-Jun-2015 Instruction Type:Provider Instructions for Treatment How to access health informa tion online Indication:Diabetes mellitus out of control Start:09-Mar-2015 Instruction Type:Patient Education How to access health informa tion online - Detail Indication:Diabetes mellitus out of control Start:09-Mar-2015 Instruction Type:Patient Education Patient Instructions Indication:Diabetes mellitus out of control Start:09-Mar-2015 Instruction Type:Provider Instructions for Treatment Patient Instructions Indication:Diabetes mellitus out of control Start:03-Jan-2015 Instruction Type:Provider Instructions for Treatment How to access health informa tion online - Detail Indication:Bursitis Start:20-Dec-2014 Instruction Type:Patient Education Patient Instructions Indication:Bursitis Start:20-Dec-2014 Instruction Type:Provider Instructions for Treatment How to access health informa tion online Indication:Diabetes mellitus out of control Start:08-Dec-2014 Instruction Type:Patient Education How to access health informa tion online - Detail Indication:Diabetes mellitus out of control Start:08-Dec-2014 Instruction Type:Patient Education Patient Instructions Indication:Diabetes mellitus out of control Start:08-Dec-2014 Instruction Type:Provider Instructions for Treatment Name Dates Details Patient Instructions Indication:Current smoker Start:25-Nov-2020 Instruction Type:Provider Instructions for Treatment How to Access Health Informa tion Online using Patient Portal and [employer]rd [employer] Apps Indication:Current smoker Start:25-Nov-2020 Instruction Type:Patient Education How to access health informa tion online Indication:BMI 27.0-27.9,adult Start:17-Aug-2020 Instruction Type:Patient Education How to access health informa tion online - Detail Indication:BMI 27.0-27.9,adult Start:17-Aug-2020 Instruction Type:Patient Education Patient Instructions Indication:BMI 27.0-27.9,adult Start:17-Aug-2020 Instruction Type:Provider Instructions for Treatment How to access health informa tion online Indication:Current smoker Start:10-Aug-2020 Instruction Type:Patient Education How to access health informa tion online - Detail Indication:Current smoker Start:10-Aug-2020 Instruction Type:Patient Education Patient Instructions Indication:Vitamin D deficiency Start:10-Aug-2020 Instruction Type:Provider Instructions for Treatment How to access health informa tion online Indication:Current smoker Start:10-May-2020 Instruction Type:Patient Education How to access health informa tion online - Detail Indication:Current smoker Start:10-May-2020 Instruction Type:Patient Education Patient Instructions Indication:Current smoker Start:10-May-2020 Instruction Type:Provider Instructions for Treatment How to access health informa tion online Indication:Current smoker Start:29-Jan-2020 Instruction Type:Patient Education How to access health informa tion online - Detail Indication:Current smoker Start:29-Jan-2020 Instruction Type:Patient Education Patient Instructions Indication:Current smoker Start:29-Jan-2020 Instruction Type:Provider Instructions for Treatment How to access health informa tion online Indication:Current smoker Start:15-Jan-2020 Instruction Type:Patient Education How to access health informa tion online - Detail Indication:Current smoker Start:15-Jan-2020 Instruction Type:Patient Education Patient Instructions Indication:BMI 30.0-30.9,adult Start:15-Jan-2020 Instruction Type:Provider Instructions for Treatment How to access health informa tion online Indication:Current smoker Start:04-Nov-2019 Instruction Type:Patient Education How to access health informa tion online - Detail Indication:Current smoker Start:04-Nov-2019 Instruction Type:Patient Education Patient Instructions Indication:Current smoker Start:04-Nov-2019 Instruction Type:Provider Instructions for Treatment How to access health informa tion online Indication:Current smoker Start:31-Jul-2019 Instruction Type:Patient Education How to access health informa tion online - Detail Indication:Current smoker Start:31-Jul-2019 Instruction Type:Patient Education Patient Instructions Indication:BMI 28.0-28.9,adult Start:31-Jul-2019 Instruction Type:Provider Instructions for Treatment DISCONTINUED - LIPID PANEL ( [id number]) Indication:Hyperlipidemia Start:10-Jun-2019 Instruction Type:Patient Education How to access health informa tion online Indication:Current smoker Start:10-Jun-2019 Instruction Type:Patient Education How to access health informa tion online - Detail Indication:Current smoker Start:10-Jun-2019 Instruction Type:Patient Education Patient Instructions Indication:BMI 29.0-29.9,adult Start:10-Jun-2019 Instruction Type:Provider Instructions for Treatment How to access health informa tion online Indication:Current smoker Start:29-Apr-2019 Instruction Type:Patient Education How to access health informa tion online - Detail Indication:Current smoker Start:29-Apr-2019 Instruction Type:Patient Education Patient Instructions Indication:Hyperlipidemia Start:29-Apr-2019 Instruction Type:Provider Instructions for Treatment How to access health informa tion online Indication:Current smoker Start:06-Oct-2018 Instruction Type:Patient Education How to access health informa tion online - Detail Indication:Current smoker Start:06-Oct-2018 Instruction Type:Patient Education Patient Instructions Indication:Dermatitis due to plants, including poison heather, sumac, and oak Start:06-Oct-2018 Instruction Type:Provider Instructions for Treatment How to access health informa tion online Indication:Current smoker Start:29-Sep-2018 Instruction Type:Patient Education How to access health informa tion online - Detail Indication:Current smoker Start:29-Sep-2018 Instruction Type:Patient Education Patient Instructions Indication:Rash Start:29-Sep-2018 Instruction Type:Provider Instructions for Treatment How to access health informa tion online Indication:Current smoker Start:19-Aug-2018 Instruction Type:Patient Education How to access health informa tion online - Detail Indication:Current smoker Start:19-Aug-2018 Instruction Type:Patient Education Patient Instructions Indication:Influenza vaccination declined (Renamed from Refused influenza vaccine) Start:19-Aug-2018 Instruction Type:Provider Instructions for Treatment How to access health informa tion online Indication:Diabetes mellitus type II, controlled, with no complications Start:18-Apr-2018 Instruction Type:Patient Education How to access health informa tion online - Detail Indication:Diabetes mellitus type II, controlled, with no complications Start:18-Apr-2018 Instruction Type:Patient Education Patient Instructions Indication:Diabetes mellitus type II, controlled, with no complications Start:18-Apr-2018 Instruction Type:Provider Instructions for Treatment How to access health informa tion online Indication:Dependence on nicotine from cigarettes Start:08-Apr-2018 Instruction Type:Patient Education How to access health informa tion online - Detail Indication:Dependence on nicotine from cigarettes Start:08-Apr-2018 Instruction Type:Patient Education Patient Instructions Indication:Dependence on nicotine from cigarettes Start:08-Apr-2018 Instruction Type:Provider Instructions for Treatment How to access health informa tion online Indication:Dependence on nicotine from cigarettes Start:25-Mar-2017 Instruction Type:Patient Education How to access health informa tion online - Detail Indication:Dependence on nicotine from cigarettes Start:25-Mar-2017 Instruction Type:Patient Education Patient Instructions Indication:Dependence on nicotine from cigarettes Start:25-Mar-2017 Instruction Type:Provider Instructions for Treatment How to access health informa tion online Indication:Hyperlipidemia Start:14-Sep-2015 Instruction Type:Patient Education How to access health informa tion online - Detail Indication:Hyperlipidemia Start:14-Sep-2015 Instruction Type:Patient Education Patient Instructions Indication:Hyperlipidemia Start:14-Sep-2015 Instruction Type:Provider Instructions for Treatment Patient Instructions Indication:Hyperlipidemia Start:13-Jul-2015 Instruction Type:Provider Instructions for Treatment How to access health informa tion online Indication:Diabetes mellitus type II, controlled, with no complications Start:15-Jun-2015 Instruction Type:Patient Education How to access health informa tion online - Detail Indication:Diabetes mellitus type II, controlled, with no complications Start:15-Jun-2015 Instruction Type:Patient Education Patient Instructions Indication:Diabetes mellitus type II, controlled, with no complications Start:15-Jun-2015 Instruction Type:Provider Instructions for Treatment How to access health informa tion online Indication:Diabetes mellitus out of control Start:09-Mar-2015 Instruction Type:Patient Education How to access health informa tion online - Detail Indication:Diabetes mellitus out of control Start:09-Mar-2015 Instruction Type:Patient Education Patient Instructions Indication:Diabetes mellitus out of control Start:09-Mar-2015 Instruction Type:Provider Instructions for Treatment Patient Instructions Indication:Diabetes mellitus out of control Start:03-Jan-2015 Instruction Type:Provider Instructions for Treatment How to access health informa tion online - Detail Indication:Bursitis Start:20-Dec-2014 Instruction Type:Patient Education Patient Instructions Indication:Bursitis Start:20-Dec-2014 Instruction Type:Provider Instructions for Treatment How to access health informa tion online Indication:Diabetes mellitus out of control Start:08-Dec-2014 Instruction Type:Patient Education How to access health informa tion online - Detail Indication:Diabetes mellitus out of control Start:08-Dec-2014 Instruction Type:Patient Education Patient Instructions Indication:Diabetes mellitus out of control Start:08-Dec-2014 Instruction Type:Provider Instructions for Treatment Name Dates Details How to access health informa tion online Indication:Current smoker Start:29-Apr-2019 Instruction Type:Patient Education How to access health informa tion online - Detail Indication:Current smoker Start:29-Apr-2019 Instruction Type:Patient Education Patient Instructions Indication:Hyperlipidemia Start:29-Apr-2019 Instruction Type:Provider Instructions for Treatment How to access health informa tion online Indication:Current smoker Start:06-Oct-2018 Instruction Type:Patient Education How to access health informa tion online - Detail Indication:Current smoker Start:06-Oct-2018 Instruction Type:Patient Education Patient Instructions Indication:Dermatitis due to plants, including poison heather, sumac, and oak Start:06-Oct-2018 Instruction Type:Provider Instructions for Treatment How to access health informa tion online Indication:Current smoker Start:29-Sep-2018 Instruction Type:Patient Education How to access health informa tion online - Detail Indication:Current smoker Start:29-Sep-2018 Instruction Type:Patient Education Patient Instructions Indication:Rash Start:29-Sep-2018 Instruction Type:Provider Instructions for Treatment How to access health informa tion online Indication:Current smoker Start:19-Aug-2018 Instruction Type:Patient Education How to access health informa tion online - Detail Indication:Current smoker Start:19-Aug-2018 Instruction Type:Patient Education Patient Instructions Indication:Influenza vaccination declined (Renamed from Refused influenza vaccine) Start:19-Aug-2018 Instruction Type:Provider Instructions for Treatment How to access health informa tion online Indication:Diabetes mellitus type II, controlled, with no complications Start:18-Apr-2018 Instruction Type:Patient Education How to access health informa tion online - Detail Indication:Diabetes mellitus type II, controlled, with no complications Start:18-Apr-2018 Instruction Type:Patient Education Patient Instructions Indication:Diabetes mellitus type II, controlled, with no complications Start:18-Apr-2018 Instruction Type:Provider Instructions for Treatment How to access health informa tion online Indication:Dependence on nicotine from cigarettes Start:08-Apr-2018 Instruction Type:Patient Education How to access health informa tion online - Detail Indication:Dependence on nicotine from cigarettes Start:08-Apr-2018 Instruction Type:Patient Education Patient Instructions Indication:Dependence on nicotine from cigarettes Start:08-Apr-2018 Instruction Type:Provider Instructions for Treatment How to access health informa tion online Indication:Dependence on nicotine from cigarettes Start:25-Mar-2017 Instruction Type:Patient Education How to access health informa tion online - Detail Indication:Dependence on nicotine from cigarettes Start:25-Mar-2017 Instruction Type:Patient Education Patient Instructions Indication:Dependence on nicotine from cigarettes Start:25-Mar-2017 Instruction Type:Provider Instructions for Treatment How to access health informa tion online Indication:Hyperlipidemia Start:14-Sep-2015 Instruction Type:Patient Education How to access health informa tion online - Detail Indication:Hyperlipidemia Start:14-Sep-2015 Instruction Type:Patient Education Patient Instructions Indication:Hyperlipidemia Start:14-Sep-2015 Instruction Type:Provider Instructions for Treatment Patient Instructions Indication:Hyperlipidemia Start:13-Jul-2015 Instruction Type:Provider Instructions for Treatment How to access health informa tion online Indication:Diabetes mellitus type II, controlled, with no complications Start:15-Jun-2015 Instruction Type:Patient Education How to access health informa tion online - Detail Indication:Diabetes mellitus type II, controlled, with no complications Start:15-Jun-2015 Instruction Type:Patient Education Patient Instructions Indication:Diabetes mellitus type II, controlled, with no complications Start:15-Jun-2015 Instruction Type:Provider Instructions for Treatment How to access health informa tion online Indication:Diabetes mellitus out of control Start:09-Mar-2015 Instruction Type:Patient Education How to access health informa tion online - Detail Indication:Diabetes mellitus out of control Start:09-Mar-2015 Instruction Type:Patient Education Patient Instructions Indication:Diabetes mellitus out of control Start:09-Mar-2015 Instruction Type:Provider Instructions for Treatment Patient Instructions Indication:Diabetes mellitus out of control Start:03-Jan-2015 Instruction Type:Provider Instructions for Treatment How to access health informa tion online - Detail Indication:Bursitis Start:20-Dec-2014 Instruction Type:Patient Education Patient Instructions Indication:Bursitis Start:20-Dec-2014 Instruction Type:Provider Instructions for Treatment How to access health informa tion online Indication:Diabetes mellitus out of control Start:08-Dec-2014 Instruction Type:Patient Education How to access health informa tion online - Detail Indication:Diabetes mellitus out of control Start:08-Dec-2014 Instruction Type:Patient Education Patient Instructions Indication:Diabetes mellitus out of control Start:08-Dec-2014 Instruction Type:Provider Instructions for Treatment Name Dates Details Current smoker : How to acce [facility] health information online Indication:Current smoker Current smoker : How to acce [facility] health information online - Detail Indication:Current smoker Dermatitis due to plants, in cluding poison heather, sumac, and oak : Patient Instructions Indication:Dermatitis due to plants, including poison heather, sumac, and oak Rash : Patient Instructions Indication:Rash Influenza vaccination declin ed (Renamed from Refused influenza vaccine) : Patient Instructions Indication:Influenza vaccination declined (Renamed from Refused influenza vaccine) Diabetes mellitus type II, c ontrolled, with no complications : How to access health information online Indication:Diabetes mellitus type II, controlled, with no complications Diabetes mellitus type II, c ontrolled, with no complications : How to access health information online - Detail Indication:Diabetes mellitus type II, controlled, with no complications Diabetes mellitus type II, c ontrolled, with no complications : Patient Instructions Indication:Diabetes mellitus type II, controlled, with no complications Dependence on nicotine from cigarettes : How to access health information online Indication:Dependence on nicotine from cigarettes Dependence on nicotine from cigarettes : How to access health information online - Detail Indication:Dependence on nicotine from cigarettes Dependence on nicotine from cigarettes : Patient Instructions Indication:Dependence on nicotine from cigarettes Hyperlipidemia : How to acce ss health information online Indication:Hyperlipidemia Hyperlipidemia : How to acce ss health information online - Detail Indication:Hyperlipidemia Hyperlipidemia : Patient Ins tructions Indication:Hyperlipidemia Diabetes mellitus out of con trol : How to access health information online Indication:Diabetes mellitus out of control Diabetes mellitus out of con trol : How to access health information online - Detail Indication:Diabetes mellitus out of control Diabetes mellitus out of con trol : Patient Instructions Indication:Diabetes mellitus out of control Bursitis : How to access [facility] information online - Detail Indication:Bursitis Bursitis : Patient Instructi ons Indication:Bursitis Name Dates Details How to access health informa tion online Indication:Current smoker Start:29-Jan-2020 Instruction Type:Patient Education How to access health informa tion online - Detail Indication:Current smoker Start:29-Jan-2020 Instruction Type:Patient Education Patient Instructions Indication:Current smoker Start:29-Jan-2020 Instruction Type:Provider Instructions for Treatment How to access health informa tion online Indication:Current smoker Start:15-Jan-2020 Instruction Type:Patient Education How to access health informa tion online - Detail Indication:Current smoker Start:15-Jan-2020 Instruction Type:Patient Education Patient Instructions Indication:BMI 30.0-30.9,adult Start:15-Jan-2020 Instruction Type:Provider Instructions for Treatment How to access health informa tion online Indication:Current smoker Start:04-Nov-2019 Instruction Type:Patient Education How to access health informa tion online - Detail Indication:Current smoker Start:04-Nov-2019 Instruction Type:Patient Education Patient Instructions Indication:Current smoker Start:04-Nov-2019 Instruction Type:Provider Instructions for Treatment How to access health informa tion online Indication:Current smoker Start:31-Jul-2019 Instruction Type:Patient Education How to access health informa tion online - Detail Indication:Current smoker Start:31-Jul-2019 Instruction Type:Patient Education Patient Instructions Indication:BMI 28.0-28.9,adult Start:31-Jul-2019 Instruction Type:Provider Instructions for Treatment DISCONTINUED - LIPID PANEL ( [id number]) Indication:Hyperlipidemia Start:10-Jun-2019 Instruction Type:Patient Education How to access health informa tion online Indication:Current smoker Start:10-Jun-2019 Instruction Type:Patient Education How to access health informa tion online - Detail Indication:Current smoker Start:10-Jun-2019 Instruction Type:Patient Education Patient Instructions Indication:BMI 29.0-29.9,adult Start:10-Jun-2019 Instruction Type:Provider Instructions for Treatment How to access health informa tion online Indication:Current smoker Start:29-Apr-2019 Instruction Type:Patient Education How to access health informa tion online - Detail Indication:Current smoker Start:29-Apr-2019 Instruction Type:Patient Education Patient Instructions Indication:Hyperlipidemia Start:29-Apr-2019 Instruction Type:Provider Instructions for Treatment How to access health informa tion online Indication:Current smoker Start:06-Oct-2018 Instruction Type:Patient Education How to access health informa tion online - Detail Indication:Current smoker Start:06-Oct-2018 Instruction Type:Patient Education Patient Instructions Indication:Dermatitis due to plants, including poison heather, sumac, and oak Start:06-Oct-2018 Instruction Type:Provider Instructions for Treatment How to access health informa tion online Indication:Current smoker Start:29-Sep-2018 Instruction Type:Patient Education How to access health informa tion online - Detail Indication:Current smoker Start:29-Sep-2018 Instruction Type:Patient Education Patient Instructions Indication:Rash Start:29-Sep-2018 Instruction Type:Provider Instructions for Treatment How to access health informa tion online Indication:Current smoker Start:19-Aug-2018 Instruction Type:Patient Education How to access health informa tion online - Detail Indication:Current smoker Start:19-Aug-2018 Instruction Type:Patient Education Patient Instructions Indication:Influenza vaccination declined (Renamed from Refused influenza vaccine) Start:19-Aug-2018 Instruction Type:Provider Instructions for Treatment How to access health informa tion online Indication:Diabetes mellitus type II, controlled, with no complications Start:18-Apr-2018 Instruction Type:Patient Education How to access health informa tion online - Detail Indication:Diabetes mellitus type II, controlled, with no complications Start:18-Apr-2018 Instruction Type:Patient Education Patient Instructions Indication:Diabetes mellitus type II, controlled, with no complications Start:18-Apr-2018 Instruction Type:Provider Instructions for Treatment How to access health informa tion online Indication:Dependence on nicotine from cigarettes Start:08-Apr-2018 Instruction Type:Patient Education How to access health informa tion online - Detail Indication:Dependence on nicotine from cigarettes Start:08-Apr-2018 Instruction Type:Patient Education Patient Instructions Indication:Dependence on nicotine from cigarettes Start:08-Apr-2018 Instruction Type:Provider Instructions for Treatment How to access health informa tion online Indication:Dependence on nicotine from cigarettes Start:25-Mar-2017 Instruction Type:Patient Education How to access health informa tion online - Detail Indication:Dependence on nicotine from cigarettes Start:25-Mar-2017 Instruction Type:Patient Education Patient Instructions Indication:Dependence on nicotine from cigarettes Start:25-Mar-2017 Instruction Type:Provider Instructions for Treatment How to access health informa tion online Indication:Hyperlipidemia Start:14-Sep-2015 Instruction Type:Patient Education How to access health informa tion online - Detail Indication:Hyperlipidemia Start:14-Sep-2015 Instruction Type:Patient Education Patient Instructions Indication:Hyperlipidemia Start:14-Sep-2015 Instruction Type:Provider Instructions for Treatment Patient Instructions Indication:Hyperlipidemia Start:13-Jul-2015 Instruction Type:Provider Instructions for Treatment How to access health informa tion online Indication:Diabetes mellitus type II, controlled, with no complications Start:15-Jun-2015 Instruction Type:Patient Education How to access health informa tion online - Detail Indication:Diabetes mellitus type II, controlled, with no complications Start:15-Jun-2015 Instruction Type:Patient Education Patient Instructions Indication:Diabetes mellitus type II, controlled, with no complications Start:15-Jun-2015 Instruction Type:Provider Instructions for Treatment How to access health informa tion online Indication:Diabetes mellitus out of control Start:09-Mar-2015 Instruction Type:Patient Education How to access health informa tion online - Detail Indication:Diabetes mellitus out of control Start:09-Mar-2015 Instruction Type:Patient Education Patient Instructions Indication:Diabetes mellitus out of control Start:09-Mar-2015 Instruction Type:Provider Instructions for Treatment Patient Instructions Indication:Diabetes mellitus out of control Start:03-Jan-2015 Instruction Type:Provider Instructions for Treatment How to access health informa tion online - Detail Indication:Bursitis Start:20-Dec-2014 Instruction Type:Patient Education Patient Instructions Indication:Bursitis Start:20-Dec-2014 Instruction Type:Provider Instructions for Treatment How to access health informa tion online Indication:Diabetes mellitus out of control Start:08-Dec-2014 Instruction Type:Patient Education How to access health informa tion online - Detail Indication:Diabetes mellitus out of control Start:08-Dec-2014 Instruction Type:Patient Education Patient Instructions Indication:Diabetes mellitus out of control Start:08-Dec-2014 Instruction Type:Provider Instructions for Treatment Name Dates Details How to access health informa tion online Indication:Current smoker Start:31-Jul-2019 Instruction Type:Patient Education How to access health informa tion online - Detail Indication:Current smoker Start:31-Jul-2019 Instruction Type:Patient Education Patient Instructions Indication:BMI 28.0-28.9,adult Start:31-Jul-2019 Instruction Type:Provider Instructions for Treatment DISCONTINUED - LIPID PANEL ( [id number]) Indication:Hyperlipidemia Start:10-Jun-2019 Instruction Type:Patient Education How to access health informa tion online Indication:Current smoker Start:10-Jun-2019 Instruction Type:Patient Education How to access health informa tion online - Detail Indication:Current smoker Start:10-Jun-2019 Instruction Type:Patient Education Patient Instructions Indication:BMI 29.0-29.9,adult Start:10-Jun-2019 Instruction Type:Provider Instructions for Treatment How to access health informa tion online Indication:Current smoker Start:29-Apr-2019 Instruction Type:Patient Education How to access health informa tion online - Detail Indication:Current smoker Start:29-Apr-2019 Instruction Type:Patient Education Patient Instructions Indication:Hyperlipidemia Start:29-Apr-2019 Instruction Type:Provider Instructions for Treatment How to access health informa tion online Indication:Current smoker Start:06-Oct-2018 Instruction Type:Patient Education How to access health informa tion online - Detail Indication:Current smoker Start:06-Oct-2018 Instruction Type:Patient Education Patient Instructions Indication:Dermatitis due to plants, including poison heather, sumac, and oak Start:06-Oct-2018 Instruction Type:Provider Instructions for Treatment How to access health informa tion online Indication:Current smoker Start:29-Sep-2018 Instruction Type:Patient Education How to access health informa tion online - Detail Indication:Current smoker Start:29-Sep-2018 Instruction Type:Patient Education Patient Instructions Indication:Rash Start:29-Sep-2018 Instruction Type:Provider Instructions for Treatment How to access health informa tion online Indication:Current smoker Start:19-Aug-2018 Instruction Type:Patient Education How to access health informa tion online - Detail Indication:Current smoker Start:19-Aug-2018 Instruction Type:Patient Education Patient Instructions Indication:Influenza vaccination declined (Renamed from Refused influenza vaccine) Start:19-Aug-2018 Instruction Type:Provider Instructions for Treatment How to access health informa tion online Indication:Diabetes mellitus type II, controlled, with no complications Start:18-Apr-2018 Instruction Type:Patient Education How to access health informa tion online - Detail Indication:Diabetes mellitus type II, controlled, with no complications Start:18-Apr-2018 Instruction Type:Patient Education Patient Instructions Indication:Diabetes mellitus type II, controlled, with no complications Start:18-Apr-2018 Instruction Type:Provider Instructions for Treatment How to access health informa tion online Indication:Dependence on nicotine from cigarettes Start:08-Apr-2018 Instruction Type:Patient Education How to access health informa tion online - Detail Indication:Dependence on nicotine from cigarettes Start:08-Apr-2018 Instruction Type:Patient Education Patient Instructions Indication:Dependence on nicotine from cigarettes Start:08-Apr-2018 Instruction Type:Provider Instructions for Treatment How to access health informa tion online Indication:Dependence on nicotine from cigarettes Start:25-Mar-2017 Instruction Type:Patient Education How to access health informa tion online - Detail Indication:Dependence on nicotine from cigarettes Start:25-Mar-2017 Instruction Type:Patient Education Patient Instructions Indication:Dependence on nicotine from cigarettes Start:25-Mar-2017 Instruction Type:Provider Instructions for Treatment How to access health informa tion online Indication:Hyperlipidemia Start:14-Sep-2015 Instruction Type:Patient Education How to access health informa tion online - Detail Indication:Hyperlipidemia Start:14-Sep-2015 Instruction Type:Patient Education Patient Instructions Indication:Hyperlipidemia Start:14-Sep-2015 Instruction Type:Provider Instructions for Treatment Patient Instructions Indication:Hyperlipidemia Start:13-Jul-2015 Instruction Type:Provider Instructions for Treatment How to access health informa tion online Indication:Diabetes mellitus type II, controlled, with no complications Start:15-Jun-2015 Instruction Type:Patient Education How to access health informa tion online - Detail Indication:Diabetes mellitus type II, controlled, with no complications Start:15-Jun-2015 Instruction Type:Patient Education Patient Instructions Indication:Diabetes mellitus type II, controlled, with no complications Start:15-Jun-2015 Instruction Type:Provider Instructions for Treatment How to access health informa tion online Indication:Diabetes mellitus out of control Start:09-Mar-2015 Instruction Type:Patient Education How to access health informa tion online - Detail Indication:Diabetes mellitus out of control Start:09-Mar-2015 Instruction Type:Patient Education Patient Instructions Indication:Diabetes mellitus out of control Start:09-Mar-2015 Instruction Type:Provider Instructions for Treatment Patient Instructions Indication:Diabetes mellitus out of control Start:03-Jan-2015 Instruction Type:Provider Instructions for Treatment How to access health informa tion online - Detail Indication:Bursitis Start:20-Dec-2014 Instruction Type:Patient Education Patient Instructions Indication:Bursitis Start:20-Dec-2014 Instruction Type:Provider Instructions for Treatment How to access health informa tion online Indication:Diabetes mellitus out of control Start:08-Dec-2014 Instruction Type:Patient Education How to access health informa tion online - Detail Indication:Diabetes mellitus out of control Start:08-Dec-2014 Instruction Type:Patient Education Patient Instructions Indication:Diabetes mellitus out of control Start:08-Dec-2014 Instruction Type:Provider Instructions for Treatment Name Dates Details How to access health informa tion online Indication:Current smoker Start:31-Jul-2019 Instruction Type:Patient Education How to access health informa tion online - Detail Indication:Current smoker Start:31-Jul-2019 Instruction Type:Patient Education Patient Instructions Indication:BMI 28.0-28.9,adult Start:31-Jul-2019 Instruction Type:Provider Instructions for Treatment DISCONTINUED - LIPID PANEL ( [id number]) Indication:Hyperlipidemia Start:10-Jun-2019 Instruction Type:Patient Education How to access health informa tion online Indication:Current smoker Start:10-Jun-2019 Instruction Type:Patient Education How to access health informa tion online - Detail Indication:Current smoker Start:10-Jun-2019 Instruction Type:Patient Education Patient Instructions Indication:BMI 29.0-29.9,adult Start:10-Jun-2019 Instruction Type:Provider Instructions for Treatment How to access health informa tion online Indication:Current smoker Start:29-Apr-2019 Instruction Type:Patient Education How to access health informa tion online - Detail Indication:Current smoker Start:29-Apr-2019 Instruction Type:Patient Education Patient Instructions Indication:Hyperlipidemia Start:29-Apr-2019 Instruction Type:Provider Instructions for Treatment How to access health informa tion online Indication:Current smoker Start:06-Oct-2018 Instruction Type:Patient Education How to access health informa tion online - Detail Indication:Current smoker Start:06-Oct-2018 Instruction Type:Patient Education Patient Instructions Indication:Dermatitis due to plants, including poison heather, sumac, and oak Start:06-Oct-2018 Instruction Type:Provider Instructions for Treatment How to access health informa tion online Indication:Current smoker Start:29-Sep-2018 Instruction Type:Patient Education How to access health informa tion online - Detail Indication:Current smoker Start:29-Sep-2018 Instruction Type:Patient Education Patient Instructions Indication:Rash Start:29-Sep-2018 Instruction Type:Provider Instructions for Treatment How to access health informa tion online Indication:Current smoker Start:19-Aug-2018 Instruction Type:Patient Education How to access health informa tion online - Detail Indication:Current smoker Start:19-Aug-2018 Instruction Type:Patient Education Patient Instructions Indication:Influenza vaccination declined (Renamed from Refused influenza vaccine) Start:19-Aug-2018 Instruction Type:Provider Instructions for Treatment How to access health informa tion online Indication:Diabetes mellitus type II, controlled, with no complications Start:18-Apr-2018 Instruction Type:Patient Education How to access health informa tion online - Detail Indication:Diabetes mellitus type II, controlled, with no complications Start:18-Apr-2018 Instruction Type:Patient Education Patient Instructions Indication:Diabetes mellitus type II, controlled, with no complications Start:18-Apr-2018 Instruction Type:Provider Instructions for Treatment How to access health informa tion online Indication:Dependence on nicotine from cigarettes Start:08-Apr-2018 Instruction Type:Patient Education How to access health informa tion online - Detail Indication:Dependence on nicotine from cigarettes Start:08-Apr-2018 Instruction Type:Patient Education Patient Instructions Indication:Dependence on nicotine from cigarettes Start:08-Apr-2018 Instruction Type:Provider Instructions for Treatment How to access health informa tion online Indication:Dependence on nicotine from cigarettes Start:25-Mar-2017 Instruction Type:Patient Education How to access health informa tion online - Detail Indication:Dependence on nicotine from cigarettes Start:25-Mar-2017 Instruction Type:Patient Education Patient Instructions Indication:Dependence on nicotine from cigarettes Start:25-Mar-2017 Instruction Type:Provider Instructions for Treatment How to access health informa tion online Indication:Hyperlipidemia Start:14-Sep-2015 Instruction Type:Patient Education How to access health informa tion online - Detail Indication:Hyperlipidemia Start:14-Sep-2015 Instruction Type:Patient Education Patient Instructions Indication:Hyperlipidemia Start:14-Sep-2015 Instruction Type:Provider Instructions for Treatment Patient Instructions Indication:Hyperlipidemia Start:13-Jul-2015 Instruction Type:Provider Instructions for Treatment How to access health informa tion online Indication:Diabetes mellitus type II, controlled, with no complications Start:15-Jun-2015 Instruction Type:Patient Education How to access health informa tion online - Detail Indication:Diabetes mellitus type II, controlled, with no complications Start:15-Jun-2015 Instruction Type:Patient Education Patient Instructions Indication:Diabetes mellitus type II, controlled, with no complications Start:15-Jun-2015 Instruction Type:Provider Instructions for Treatment How to access health informa tion online Indication:Diabetes mellitus out of control Start:09-Mar-2015 Instruction Type:Patient Education How to access health informa tion online - Detail Indication:Diabetes mellitus out of control Start:09-Mar-2015 Instruction Type:Patient Education Patient Instructions Indication:Diabetes mellitus out of control Start:09-Mar-2015 Instruction Type:Provider Instructions for Treatment Patient Instructions Indication:Diabetes mellitus out of control Start:03-Jan-2015 Instruction Type:Provider Instructions for Treatment How to access health informa tion online - Detail Indication:Bursitis Start:20-Dec-2014 Instruction Type:Patient Education Patient Instructions Indication:Bursitis Start:20-Dec-2014 Instruction Type:Provider Instructions for Treatment How to access health informa tion online Indication:Diabetes mellitus out of control Start:08-Dec-2014 Instruction Type:Patient Education How to access health informa tion online - Detail Indication:Diabetes mellitus out of control Start:08-Dec-2014 Instruction Type:Patient Education Patient Instructions Indication:Diabetes mellitus out of control Start:08-Dec-2014 Instruction Type:Provider Instructions for Treatment Name Dates Details DISCONTINUED - LIPID PANEL ( [id number]) Indication:Hyperlipidemia Start:10-Jun-2019 Instruction Type:Patient Education How to access health informa tion online Indication:Current smoker Start:10-Jun-2019 Instruction Type:Patient Education How to access health informa tion online - Detail Indication:Current smoker Start:10-Jun-2019 Instruction Type:Patient Education Patient Instructions Indication:BMI 29.0-29.9,adult Start:10-Jun-2019 Instruction Type:Provider Instructions for Treatment How to access health informa tion online Indication:Current smoker Start:29-Apr-2019 Instruction Type:Patient Education How to access health informa tion online - Detail Indication:Current smoker Start:29-Apr-2019 Instruction Type:Patient Education Patient Instructions Indication:Hyperlipidemia Start:29-Apr-2019 Instruction Type:Provider Instructions for Treatment How to access health informa tion online Indication:Current smoker Start:06-Oct-2018 Instruction Type:Patient Education How to access health informa tion online - Detail Indication:Current smoker Start:06-Oct-2018 Instruction Type:Patient Education Patient Instructions Indication:Dermatitis due to plants, including poison heather, sumac, and oak Start:06-Oct-2018 Instruction Type:Provider Instructions for Treatment How to access health informa tion online Indication:Current smoker Start:29-Sep-2018 Instruction Type:Patient Education How to access health informa tion online - Detail Indication:Current smoker Start:29-Sep-2018 Instruction Type:Patient Education Patient Instructions Indication:Rash Start:29-Sep-2018 Instruction Type:Provider Instructions for Treatment How to access health informa tion online Indication:Current smoker Start:19-Aug-2018 Instruction Type:Patient Education How to access health informa tion online - Detail Indication:Current smoker Start:19-Aug-2018 Instruction Type:Patient Education Patient Instructions Indication:Influenza vaccination declined (Renamed from Refused influenza vaccine) Start:19-Aug-2018 Instruction Type:Provider Instructions for Treatment How to access health informa tion online Indication:Diabetes mellitus type II, controlled, with no complications Start:18-Apr-2018 Instruction Type:Patient Education How to access health informa tion online - Detail Indication:Diabetes mellitus type II, controlled, with no complications Start:18-Apr-2018 Instruction Type:Patient Education Patient Instructions Indication:Diabetes mellitus type II, controlled, with no complications Start:18-Apr-2018 Instruction Type:Provider Instructions for Treatment How to access health informa tion online Indication:Dependence on nicotine from cigarettes Start:08-Apr-2018 Instruction Type:Patient Education How to access health informa tion online - Detail Indication:Dependence on nicotine from cigarettes Start:08-Apr-2018 Instruction Type:Patient Education Patient Instructions Indication:Dependence on nicotine from cigarettes Start:08-Apr-2018 Instruction Type:Provider Instructions for Treatment How to access health informa tion online Indication:Dependence on nicotine from cigarettes Start:25-Mar-2017 Instruction Type:Patient Education How to access health informa tion online - Detail Indication:Dependence on nicotine from cigarettes Start:25-Mar-2017 Instruction Type:Patient Education Patient Instructions Indication:Dependence on nicotine from cigarettes Start:25-Mar-2017 Instruction Type:Provider Instructions for Treatment How to access health informa tion online Indication:Hyperlipidemia Start:14-Sep-2015 Instruction Type:Patient Education How to access health informa tion online - Detail Indication:Hyperlipidemia Start:14-Sep-2015 Instruction Type:Patient Education Patient Instructions Indication:Hyperlipidemia Start:14-Sep-2015 Instruction Type:Provider Instructions for Treatment Patient Instructions Indication:Hyperlipidemia Start:13-Jul-2015 Instruction Type:Provider Instructions for Treatment How to access health informa tion online Indication:Diabetes mellitus type II, controlled, with no complications Start:15-Jun-2015 Instruction Type:Patient Education How to access health informa tion online - Detail Indication:Diabetes mellitus type II, controlled, with no complications Start:15-Jun-2015 Instruction Type:Patient Education Patient Instructions Indication:Diabetes mellitus type II, controlled, with no complications Start:15-Jun-2015 Instruction Type:Provider Instructions for Treatment How to access health informa tion online Indication:Diabetes mellitus out of control Start:09-Mar-2015 Instruction Type:Patient Education How to access health informa tion online - Detail Indication:Diabetes mellitus out of control Start:09-Mar-2015 Instruction Type:Patient Education Patient Instructions Indication:Diabetes mellitus out of control Start:09-Mar-2015 Instruction Type:Provider Instructions for Treatment Patient Instructions Indication:Diabetes mellitus out of control Start:03-Jan-2015 Instruction Type:Provider Instructions for Treatment How to access health informa tion online - Detail Indication:Bursitis Start:20-Dec-2014 Instruction Type:Patient Education Patient Instructions Indication:Bursitis Start:20-Dec-2014 Instruction Type:Provider Instructions for Treatment How to access health informa tion online Indication:Diabetes mellitus out of control Start:08-Dec-2014 Instruction Type:Patient Education How to access health informa tion online - Detail Indication:Diabetes mellitus out of control Start:08-Dec-2014 Instruction Type:Patient Education Patient Instructions Indication:Diabetes mellitus out of control Start:08-Dec-2014 Instruction Type:Provider Instructions for Treatment Name Dates Details Patient Instructions Indication:Current smoker Start:25-Nov-2020 Instruction Type:Provider Instructions for Treatment How to Access Health Informa tion Online using Patient Portal and [employer]rd [employer] Apps Indication:Current smoker Start:25-Nov-2020 Instruction Type:Patient Education How to access health informa tion online Indication:BMI 27.0-27.9,adult Start:17-Aug-2020 Instruction Type:Patient Education How to access health informa tion online - Detail Indication:BMI 27.0-27.9,adult Start:17-Aug-2020 Instruction Type:Patient Education Patient Instructions Indication:BMI 27.0-27.9,adult Start:17-Aug-2020 Instruction Type:Provider Instructions for Treatment How to access health informa tion online Indication:Current smoker Start:10-Aug-2020 Instruction Type:Patient Education How to access health informa tion online - Detail Indication:Current smoker Start:10-Aug-2020 Instruction Type:Patient Education Patient Instructions Indication:Vitamin D deficiency Start:10-Aug-2020 Instruction Type:Provider Instructions for Treatment How to access health informa tion online Indication:Current smoker Start:10-May-2020 Instruction Type:Patient Education How to access health informa tion online - Detail Indication:Current smoker Start:10-May-2020 Instruction Type:Patient Education Patient Instructions Indication:Current smoker Start:10-May-2020 Instruction Type:Provider Instructions for Treatment How to access health informa tion online Indication:Current smoker Start:29-Jan-2020 Instruction Type:Patient Education How to access health informa tion online - Detail Indication:Current smoker Start:29-Jan-2020 Instruction Type:Patient Education Patient Instructions Indication:Current smoker Start:29-Jan-2020 Instruction Type:Provider Instructions for Treatment How to access health informa tion online Indication:Current smoker Start:15-Jan-2020 Instruction Type:Patient Education How to access health informa tion online - Detail Indication:Current smoker Start:15-Jan-2020 Instruction Type:Patient Education Patient Instructions Indication:BMI 30.0-30.9,adult Start:15-Jan-2020 Instruction Type:Provider Instructions for Treatment How to access health informa tion online Indication:Current smoker Start:04-Nov-2019 Instruction Type:Patient Education How to access health informa tion online - Detail Indication:Current smoker Start:04-Nov-2019 Instruction Type:Patient Education Patient Instructions Indication:Current smoker Start:04-Nov-2019 Instruction Type:Provider Instructions for Treatment How to access health informa tion online Indication:Current smoker Start:31-Jul-2019 Instruction Type:Patient Education How to access health informa tion online - Detail Indication:Current smoker Start:31-Jul-2019 Instruction Type:Patient Education Patient Instructions Indication:BMI 28.0-28.9,adult Start:31-Jul-2019 Instruction Type:Provider Instructions for Treatment DISCONTINUED - LIPID PANEL ( 75092) Indication:Hyperlipidemia Start:10-Jun-2019 Instruction Type:Patient Education How to access health informa tion online Indication:Current smoker Start:10-Jun-2019 Instruction Type:Patient Education How to access health informa tion online - Detail Indication:Current smoker Start:10-Jun-2019 Instruction Type:Patient Education Patient Instructions Indication:BMI 29.0-29.9,adult Start:10-Jun-2019 Instruction Type:Provider Instructions for Treatment How to access health informa tion online Indication:Current smoker Start:29-Apr-2019 Instruction Type:Patient Education How to access health informa tion online - Detail Indication:Current smoker Start:29-Apr-2019 Instruction Type:Patient Education Patient Instructions Indication:Hyperlipidemia Start:29-Apr-2019 Instruction Type:Provider Instructions for Treatment How to access health informa tion online Indication:Current smoker Start:06-Oct-2018 Instruction Type:Patient Education How to access health informa tion online - Detail Indication:Current smoker Start:06-Oct-2018 Instruction Type:Patient Education Patient Instructions Indication:Dermatitis due to plants, including poison heather, sumac, and oak Start:06-Oct-2018 Instruction Type:Provider Instructions for Treatment How to access health informa tion online Indication:Current smoker Start:29-Sep-2018 Instruction Type:Patient Education How to access health informa tion online - Detail Indication:Current smoker Start:29-Sep-2018 Instruction Type:Patient Education Patient Instructions Indication:Rash Start:29-Sep-2018 Instruction Type:Provider Instructions for Treatment How to access health informa tion online Indication:Current smoker Start:19-Aug-2018 Instruction Type:Patient Education How to access health informa tion online - Detail Indication:Current smoker Start:19-Aug-2018 Instruction Type:Patient Education Patient Instructions Indication:Influenza vaccination declined (Renamed from Refused influenza vaccine) Start:19-Aug-2018 Instruction Type:Provider Instructions for Treatment How to access health informa tion online Indication:Diabetes mellitus type II, controlled, with no complications Start:18-Apr-2018 Instruction Type:Patient Education How to access health informa tion online - Detail Indication:Diabetes mellitus type II, controlled, with no complications Start:18-Apr-2018 Instruction Type:Patient Education Patient Instructions Indication:Diabetes mellitus type II, controlled, with no complications Start:18-Apr-2018 Instruction Type:Provider Instructions for Treatment How to access health informa tion online Indication:Dependence on nicotine from cigarettes Start:08-Apr-2018 Instruction Type:Patient Education How to access health informa tion online - Detail Indication:Dependence on nicotine from cigarettes Start:08-Apr-2018 Instruction Type:Patient Education Patient Instructions Indication:Dependence on nicotine from cigarettes Start:08-Apr-2018 Instruction Type:Provider Instructions for Treatment How to access health informa tion online Indication:Dependence on nicotine from cigarettes Start:25-Mar-2017 Instruction Type:Patient Education How to access health informa tion online - Detail Indication:Dependence on nicotine from cigarettes Start:25-Mar-2017 Instruction Type:Patient Education Patient Instructions Indication:Dependence on nicotine from cigarettes Start:25-Mar-2017 Instruction Type:Provider Instructions for Treatment How to access health informa tion online Indication:Hyperlipidemia Start:14-Sep-2015 Instruction Type:Patient Education How to access health informa tion online - Detail Indication:Hyperlipidemia Start:14-Sep-2015 Instruction Type:Patient Education Patient Instructions Indication:Hyperlipidemia Start:14-Sep-2015 Instruction Type:Provider Instructions for Treatment Patient Instructions Indication:Hyperlipidemia Start:13-Jul-2015 Instruction Type:Provider Instructions for Treatment How to access health informa tion online Indication:Diabetes mellitus type II, controlled, with no complications Start:15-Jun-2015 Instruction Type:Patient Education How to access health informa tion online - Detail Indication:Diabetes mellitus type II, controlled, with no complications Start:15-Jun-2015 Instruction Type:Patient Education Patient Instructions Indication:Diabetes mellitus type II, controlled, with no complications Start:15-Jun-2015 Instruction Type:Provider Instructions for Treatment How to access health informa tion online Indication:Diabetes mellitus out of control Start:09-Mar-2015 Instruction Type:Patient Education How to access health informa tion online - Detail Indication:Diabetes mellitus out of control Start:09-Mar-2015 Instruction Type:Patient Education Patient Instructions Indication:Diabetes mellitus out of control Start:09-Mar-2015 Instruction Type:Provider Instructions for Treatment Patient Instructions Indication:Diabetes mellitus out of control Start:03-Jan-2015 Instruction Type:Provider Instructions for Treatment How to access health informa tion online - Detail Indication:Bursitis Start:20-Dec-2014 Instruction Type:Patient Education Patient Instructions Indication:Bursitis Start:20-Dec-2014 Instruction Type:Provider Instructions for Treatment How to access health informa tion online Indication:Diabetes mellitus out of control Start:08-Dec-2014 Instruction Type:Patient Education How to access health informa tion online - Detail Indication:Diabetes mellitus out of control Start:08-Dec-2014 Instruction Type:Patient Education Patient Instructions Indication:Diabetes mellitus out of control Start:08-Dec-2014 Instruction Type:Provider Instructions for Treatment Summary Purpose Advance Directives Advance Directive Response Recorded Date/ Time Living Will No June 09, 2023 11:41am Power of [employer] No May 11:41am Chief Complaint and Reason for Visit Chief Complaint SOB WOUND Additional Source Comments (unrecognized sect ion and content) No Status Records FoundNo Status Records FoundNo Status Records Found INFORMATION SOURCE (unrecogn ized section and content) DATE CREATED AUTHOR 09/29/2018 [facility] DATE CREATED AUTHOR AUTHOR'S ORGANIZ ATION 12/18/2020 [facility] DATE CREATED AUTHOR AUTHOR'S ORGANIZ ATION 10/28/2021 [facility] Care Teams (unrecognized sec tion and content) Team Status: Active Member Role Status Dates Bela Bee DOCUMENTATION DESIGNER, DOCUMENTATION DESIGNER-C Family Provider Active No Primary Care Physician Primary Care Provider Active Team Status: Inactive Member Role Status Dates Dr. Aditya Sams MD Attending Provider, Emergency Pro vider Active No Primary Care Physician Primary Care Provider Active Team Status: Inactive Member Role Status Dates No Primary Care Physician Primary Care Provider Active Gary Butcher MD Emergency Provider Active Goals (unrecognized section and content) Goals may be documented in a n alternate section FOR RECORDS PERTAINING TO PATIENTS WHO ARE OR HAVE BEEN ENROLLED IN A CHEMICAL DEPENDENCY/SUBSTANCEABUSE PROGRAM, SOME INFORMATION MAY BE OMITTED. This clinical summary was aggregated from multiple sources. Caution should be exercised in using it in the provision of clinical care. This summary normalizes information from multiple sources, and as a consequence, information in this document may materially change the coding, format and clinical context of patient data. In addition, data may be omitted in some cases. CLINICAL DECISIONS SHOULD BE BASED ON THE PRIMARY CLINICAL RECORDS. [email or web address] provides no warranty or guarantee of the accuracy or completeness of information in this document.
[2025-06-25 05:57] LABS: Hematocrit 40.1 % (40-54); Hemoglobin 13.7 g/dL (13.0-16.5); Immature Granulocytes Count 0.010 X10^3/uL (0.0-0.0); Mean Corp Hgb Conc 34.2 g/dL (32-36); Mean Corpuscular Volume 86.4 fL (80-94); Mean Platelet Vol. 9.4 fl (6.2-12.0); NRBC Flagged by Analyzer 0 % (0-5); Platelet Count 300 K/mm3 (150-450); RBC Distribution Width CV 12.4 % (11.6-14.6); RBC Distribution Width SD 39.3 fl (35.1-43.9); Red Blood Count 4.64 M/mm3 (4.6-6.2); White Blood Count 6.8 K/mm3 (4.4-11.0)
[2025-06-25 06:50] LABS: AST(SGOT) 16 U/L (<=37); Alanine Aminotransfer ALT/SGPT 12 U/L (<=46); Albumin, Serum 3.4 g/dL (3.5-5.0); Alkaline Phosphatase 43 U/L (40-129); Anion Gap 13 (5-15); BUN 14 mg/dL (4-19); BUN/Creat Ratio 13.2 RATIO (10-20); Calcium,Total 8.9 mg/dL (7.6-11.0); Carbon Dioxide 19.3 mmol/L (21.0-32.0); Chloride 102 mmol/L (98-108); Cholesterol 247 mg/dL (<=200); Estimated Creatinine Clearance 88.76 ml/min (50-250); Globulin 3.1 g/dL (2.2-4.2); Glucose 249 mg/dL (70-99); Low Density Lipoprotein Calc. 178 mg/dL; Potassium 4.1 mmol/L (3.3-5.1); Triglycerides 197 mg/dL; Very Low Density Lipoprotein 39 mg/dL (5-40); cholesterol:hdl ratio screen 8.23
[2025-06-25] MEDS: 0.9% Normal Saline (1000mL) 1,000 ML 100 ML IV (07:20)
--- NOTE | 2025-06-25 07:30 | PN.HOSP_ITS ---
Reason for Visit Chief Complaint: Imbalance, running into items on his left side. Subjective Subjective Patient is a 54-year-old gentleman with past medical history signal for diabetes mellitus type 2 dyslipidemia hypertension who presented to the emergency department with decree sensation involving the left upper extremity as well as imbalance. Suspicion of acute CVA made admitted to a monitored bed for subsequent management Stroke alert was called this a.m. patient NIH went from 0-5. Was taking 2 CAT scan repeat head CT was negative. Patient symptoms had resolved by the time he was [facility]. Recommendation was made to continue with current management and evaluation. Objective Data Objective Data Vital Signs: Vital Signs Temp Pulse Resp BP Pulse Ox O2 Del Method 98 F 64 16 103/58 L 96 Room Air 06/25/25 03:56 06/25/25 03:56 06/25/25 03:56 06/25/25 03:56 06/25/25 03:56 06/25/25 03:56 Oxygen Delivery Method Room Air Weight: 85.6 kg Body Mass Index (BMI) 25.6 Lab / Micro Data 06/25/25 05:38 06/25/25 05:38 Labs: Laboratory Results - last 24 hr 06/24/25 17:36: POC Glucose 245 H 06/24/25 17:46: WBC 9.3, RBC 5.02, Hgb 14.6, Hct 43.0, MCV 85.7, MCH 29.1, MCHC 34.0, RDW Std Deviation 37.7, RDW Coeff of Yvonne 12.1, Plt Count 396, MPV 9.4, Immature Gran % (Auto) 0.200, Neut % (Auto) 65.0, Lymph % (Auto) 26.7, [place] % (Auto) 5.3, Eos % (Auto) 2.4, Baso % (Auto) 0.4, Absolute Neuts (auto) 6.0, Absolute Lymphs (auto) 2.48, Nucleated RBC % 0, PT 13.1, INR 1.0, APTT 27.2, Sodium 134, Potassium 4.4, Chloride 98, Carbon Dioxide 22.9, Anion Gap 13, BUN 17, Creatinine 1.29 H, Estim Creat Clear Calc 70.18, Est GFR (MDRD) Non-Af 65, BUN/Creatinine Ratio 12.8, Glucose 228 H, Calcium 9.6, Troponin T High Sens 9 06/24/25 19:05: Magnesium 2.2, Troponin T Hi Sens 2 Hr 10 06/24/25 21:24: POC Glucose 299 H 06/24/25 21:54: Troponin T Hi Sens 4Hr 10 06/25/25 05:38: WBC 6.8, RBC 4.64, Hgb 13.7, Hct 40.1, MCV 86.4, MCH 29.5, MCHC 34.2, RDW Std Deviation 39.3, RDW Coeff of Yvonne 12.4, Plt Count 300, MPV 9.4, Immature Gran % (Auto) 0.100, Neut % (Auto) 55.1, Lymph % (Auto) 33.5, [place] % (Auto) 7.1, Eos % (Auto) 3.8, Baso % (Auto) 0.4, Absolute Neuts (auto) 3.7, Absolute Lymphs (auto) 2.28, Nucleated RBC % 0, Sodium 134, Potassium 4.1, Chloride 102, Carbon Dioxide 19.3 L, Anion Gap 13, BUN 14, Creatinine 1.02, Estim Creat Clear Calc 88.76, Est GFR (MDRD) Non-Af 86, BUN/Creatinine Ratio 13.2, Glucose 249 H, Hemoglobin A1c 15.1 H, Calcium 8.9, Total Bilirubin 0.20, AST 16, ALT 12, Alkaline Phosphatase 43, Total Protein 6.4, Albumin 3.4 L, Globulin 3.1, Albumin/Globulin Ratio 1.1, Triglycerides 197, Cholesterol 247 H, LDL Cholesterol, Calc 178, VLDL Cholesterol 39, HDL Cholesterol 30 L, Cholesterol/HDL Ratio 8.23, TSH 2.030 Radiography Diagnostic Testing: Radiology Impression Brain CT 06/24/25 16:59 IMPRESSION: No acute intracranial abnormality. Critical results were communicated to Altagracia Mayer at 6:28 p.m.. Reading Location: [id number] Head/Neck CTA 06/24/25 19:20 IMPRESSION: No hemodynamically significant stenosis. No aneurysm. Reading Location: [facility] Physical Exam Narrative GENERAL: cooperative HEENT: Atraumatic; normocephalic EYES; Anicteric, Normal Conjunctiva NECK; supple, normal thyroid, RESPIRATORY: Diminished to auscultation CARDIOVASCULAR: Regular S1 S2, GI: soft, normoactive bowel sounds, : No Renal angle tenderness; EXTREMITIES: No edema, no clubbing, MUSCULOSKELETAL: no muscle wasting NEURO: Awake; no lateralizing signs. SKIN: No Rash PSYCH; Flat affect Assessment & Plan Assessment/Plan (1) CVA (cerebral vascular accident): PLAN: Plan Patient is a 54-year-old gentleman with past medical history signal for diabetes mellitus type 2 dyslipidemia hypertension who presented to the emergency department with decree sensation involving the left upper extremity as well as imbalance. Suspicion of acute CVA made admitted to a monitored bed for subsequent management 1. Suspected acute CVA ? Patient presented with discoordination as well as decree sensation involving the left side. Admitted to a monitored bed. Initial imaging studies with CT of the head as well as CTA came back unremarkable. Placed on every 4 neurochecks ordered lipid panel 2D echo PT/OT/ST eval. Also ordered MRI and consult placed to teleneuro ?Stroke alert was called this a.m. patient NIH went from 0-5. Was taking 2 CAT scan repeat head CT was negative. Patient symptoms had resolved by the time he was reassessed by [facility]. Recommendation was made to continue with current management and evaluation. 2. Diabetes mellitus type 2 uncontrolled with hemoglobin A1c of 15. Patient was counseled on the need to be compliant with therapy. Held oral agents placed on Accu-Cheks ACHS with sliding scale coverage 3. Dyslipidemia ? Patient currently not on any statin therapy patient was started on atorvastatin 80 mg nightly on admission 4. Tobacco dependence ? Counseled on cessation, offered nicotine patch for tobacco cravings 5. DVT prophylaxis ? On enoxaparin Time spent in the patient's overall evaluation,decision-making process, review of diagnostic data, adjustment of management, discussion with other providers, nursing nursing and ancillary staff involved in patient's care documentation, 55 minutes Charges/Coding Visit Charges Inpatient E&M: 57756 Subs Hosp L3 NIHSS NIHSS Nursing Documentation NIHSS Nursing Documentation: NIH Stroke Scale Start: 06/24/25 16:40 Freq: Status: Discharge Protocol: Activity Type Activity Date Activity User E-sign Co-sign Detail Recorded Client Recorded Date Recorded By Document 06/24/25 16:40 ET [id number] 06/24/25 16:41 ET 06/24/25 16:40 NIH Stroke Scale [NIHSS] A score of 0 is normal or asymptomatic . Total possible score is 42. Inpatient: RN or Physician to activate a stroke alert for onset of new stroke symptoms or with NIHSS increase >/= 3 points. Following change in neurological status, NIHSS will be performed per physician order or more frequently PRN. -1a. Level of Consciousness 0 - Alert; keenly responsive -1b. LOC Questions 0 - Answers BOTH questions correctly -1c. LOC Commands 0 - Performs BOTH tasks correctly -2. Best Gaze 0 - Normal -3. Visual 0 - No visual loss -4. Facial Palsy 0 - Normal symmetrical movements -5a. Left Arm 0 - No drift; arm holds 90 ( or 45) degrees for full 10 seconds -5b. Right Arm 0 - No drift; arm holds 90 ( or 45) degrees for full 10 seconds -6a. Left Leg 0 - No drift; leg holds 30- degree position for full 5 seconds -6b. Right Leg 0 - No drift; leg holds 30- degree position for full 5 seconds -7. Limb Ataxia 0 - Absent -8. Sensory 1 - Mild-to- moderate sensory loss; -9. Best Language 0 - No aphasia; normal -10. Dysarthria 0 - Normal -11. Extinction and Inattention 0 - No abnormality -Total 1 Query Text:A score of 0 is normal or asymptomatic. Total possible score is 42 . ED: Notify Physician for NIHSS increase by > / = 3 points. Inpatient: RN or Physician to activate a stroke alert for NIHSS increase of > / = 3 points. NIHSS: Ischemic Stroke/TIA Start: 06/24/25 21:03 Text: For PCU Patients: NIH and Neuro Check every 4 Status: Active hours, PRN and with change in RN caregiver. Freq: [id number] Protocol: Activity Type Activity Date Activity User E-sign Co-sign Detail Recorded Client Recorded Date Recorded By Document 06/25/25 03:56 KW [id number] 06/25/25 03:59 KW 06/25/25 03:56 -1a. Level of Consciousness 0 - Alert; keenly responsive -1b. LOC Questions 0 - Answers BOTH questions correctly -1c. LOC Commands 0 - Performs BOTH tasks correctly -2. Best Gaze 0 - Normal -3. Visual 0 - No visual loss -4. Facial Palsy 0 - Normal symmetrical movements -5a. Left Arm 0 - No drift; arm holds 90 ( or 45) degrees for full 10 seconds -5b. Right Arm 0 - No drift; arm holds 90 ( or 45) degrees for full 10 seconds -6a. Left Leg 0 - No drift; leg holds 30- degree position for full 5 seconds -6b. Right Leg 0 - No drift; leg holds 30- degree position for full 5 seconds -7. Limb Ataxia 0 - Absent -8. Sensory 0 - Normal; no sensory loss -9. Best Language 0 - No aphasia; normal -10. Dysarthria 0 - Normal -11. Extinction and Inattention 0 - No abnormality -Total 0 Query Text:A score of 0 is normal or asymptomatic. Total possible score is 42 . ED: Notify Physician for NIHSS increase by > / = 3 points. Inpatient: RN or Physician to activate a stroke alert for NIHSS increase of > / = 3 points. Coma Scale [Assess] -Eye Opening Spontaneous -Motor Obeys Commands -Verbal Oriented [Total] -Coma Scale Total 15
--- NOTE | 2025-06-25 08:00 | CT_ITS ---
PROCEDURE: STROKE BRAIN/HEAD WITHOUT CONT 06/25/2025 REASON FOR EXAM: STROKE ALERT TECHNIQUE: Procedure Code: CTBR.ST Modality: CT Procedure: STROKE BRAIN/HEAD WITHOUT CONT Coronal and Sagittal reconstruction series were provided. One or more dose reduction techniques were used (e.g., Automated exposure control, adjustment of the mA and/or kV according to patient size, use of iterative reconstruction technique. RADIATION DOSE SUMMARY: CTDlvol: 45 mGy DLP: 832 mGycm COMPARISON: June 24, 2025 FINDINGS: Brain: There is no evidence of hemorrhage, acute ischemia or mass. No extra- axial fluid collection, midline shift or mass effect. Minimal low-density in the periventricular white matter. A few scattered foci of subtle hypodensity in the flores radiata/deep white matter. CSF Spaces: Mild generalized cerebral atrophy Sinuses/Mastoids: Clear Bones: No fracture CT/STROKE Brain/Head without Cont IMPRESSION: 1. No evidence of intracranial hemorrhage or acute ischemia. No change. 2. Changes of chronic microvascular ischemia and volume loss. Stroke Alert: Stroke alert as above The critical findings in the findings and impression above were relayed directl y by me by telephone to Devin Mcintyre on 06/25/2025 at 8:24 am with readback verification. Reading Location: [id number]
[2025-06-25] MEDS: Nicotine (PBKC) 21 MG Patch TD (08:46)
--- NOTE | 2025-06-25 10:29 | CASEMGMT ---
Social Work Pt completed PHQ-9 w/SW, pt scored a 4. All symptoms pt is attributing to his current medical situation, rather than having overall feelings or symptoms of depression. No resources needed at this time. CAROLE Pearl
--- NOTE | 2025-06-25 10:32 | CASEMGMT ---
Social Work SW met w/pt and significant other in room, reviewed prior level of function and anticipated discharge plan. PCP: Harshil Giordano at [facility] Specialists: None Preferred Pharmacy: [facility] in [place] Insurance: None. Pt spoke w/Shelia from [employer], has information to apply for Medicaid and to apply for hospital assist. SW also gave pt information for [employer], [employer], [employer], and prescription assist. Pt just started attending [facility]. Prescription Benefit: None, pt has been paying for meds, or [facility] does help, this is new for pt, has been to one appt so far. Living Will/HPOA: Pt has not done LW/POA would like to complete while here, SW will follow up. LNOK: Significant other, son next door and parents next door Living Arrangements/Prior level of function: Pt lives w/significant other Shanice in a two story home. Pt is fully independent with all ADLS. Transportation: Pt drives, has a vehicle. DME: Pt has a glucometer and strips, has all diabetic supplies at this time. Pt does not have any other DME, has not needed up to this point. HHC/SNF: Pt has no history of HHC of SNF MH: Pt denies any history of MH concerns. Substance Use: Pt denies any history of substance abuse PLAN: Home. Pt plans to return home at discharge. It is not anticipated that he will have any homegoing needs. SW remains available should any needs arise. SW will follow up w/LW and POA later today. CAROLE Pearl
--- NOTE | 2025-06-25 12:02 | CASEMGMT ---
Social Work Pt completed POA for healthcare w/SW, put his significant other as the HCPOA, no alternates. SW placed a copy on the chart, and gave the pt a copy and the original. CAROLE Pearl
[2025-06-25 18:00] LABS: Barbiturate Urine NEGATIVE (< 200 ng/mL); Benzodiazepine Urine NEGATIVE (< 200 ng/mL); PCP Urine NEGATIVE (< 25 ng/mL); THC Urine PRESUMPTIVE POSITIVE (< 50 ng/mL)
[2025-06-26 02:00] VITALS: BP 110/66; PULSE 60; RESP 16; TEMP 36.1; O2SAT 96
[2025-06-26 03:25] VITALS: BMI 25.6
[2025-06-26 06:00] VITALS: BP 109/66; PULSE 61; RESP 18; TEMP 36.2; O2SAT 97; BMI 25.4
--- NOTE | 2025-06-26 07:45 | PCM.PN.HOSP ---
Reason for Visit Chief Complaint: Imbalance, running into items on his left side. Subjective Subjective Patient's MRI demonstrated multiple acute infarctions in the right frontal and parietal lobes. No hemorrhage. Objective Data Objective Data Vital Signs: Vital Signs Temp Pulse Resp BP Pulse Ox O2 Del Method 97.1 F L 61 18 109/66 97 Room Air 06/26/25 06:00 06/26/25 06:00 06/26/25 06:00 06/26/25 06:00 06/26/25 06:00 06/26/25 06:00 Oxygen Delivery Method Room Air Weight: 85.6 kg Body Mass Index (BMI) 25.6 Intake & Output: Intake and Output for Last 24 Hours 06/24/25 06/25/25 06/26/25 23:59 23:59 23:59 Intake Total 1999 / 2600 1100 / 1100 Balance 1999 2600 1100 / 1100 Lab / Micro Data 06/25/25 05:38 06/25/25 05:38 Labs: Laboratory Results - last 24 hr 06/25/25 07:56: POC Glucose 247 H 06/25/25 12:55: POC Glucose 393 H 06/25/25 16:55: Urine Opiates Screen NEGATIVE, U Buprenorphine Qual NEGATIVE, Ur Oxycodone Screen NEGATIVE, Urine Methadone Screen NEGATIVE, Urine Fentanyl Screen NEGATIVE, Ur Barbiturates Screen NEGATIVE, Ur Phencyclidine Scrn NEGATIVE, Ur Amphetamines Screen NEGATIVE, U Benzodiazepines Scrn NEGATIVE, Urine Cocaine Screen NEGATIVE, U Cannabinoids Screen PRESUMPTIVE POSITIVE 06/25/25 16:58: POC Glucose 200 H 06/25/25 22:46: POC Glucose 389 H 06/26/25 06:16: POC Glucose 280 H Radiography Diagnostic Testing: Radiology Impression Brain MRI 06/24/25 09:15 IMPRESSION: Multiple acute infarctions in the right frontal and parietal lobes. No hemorrhage. Reading Location: [id number] Echocardiogram 06/24/25 21:03 Interpretation Summary The estimated ejection fraction is 55 %. No evidence for diastolic dysfunction. Ordering Physician: Ingrid Wu Referring Physician: Harshil Giordano Performed By: Mary Jacobson, LACHO, RVT Brain CT 06/25/25 08:00 IMPRESSION: 1. No evidence of intracranial hemorrhage or acute ischemia. No change. 2. Changes of chronic microvascular ischemia and volume loss. Stroke Alert: Stroke alert as above The critical findings in the findings and impression above were relayed directly by me by telephone to Devin Mcintyre on 06/25/2025 at 8:24 am with readback verification. Reading Location: [facility] Physical Exam Narrative GENERAL: cooperative HEENT: Atraumatic; normocephalic EYES; Anicteric, Normal Conjunctiva NECK; supple, normal thyroid, RESPIRATORY: Diminished to auscultation CARDIOVASCULAR: Regular S1 S2, GI: soft, normoactive bowel sounds, : No Renal angle tenderness; EXTREMITIES: No edema, no clubbing, MUSCULOSKELETAL: no muscle wasting NEURO: Awake; no lateralizing signs. SKIN: No Rash PSYCH; Flat affect Assessment & Plan Assessment/Plan (1) CVA (cerebral vascular accident): PLAN: Plan Patient is a 54-year-old gentleman with past medical history signal for diabetes mellitus type 2 dyslipidemia hypertension who presented to the emergency department with decree sensation involving the left upper extremity as well as imbalance. Suspicion of acute CVA made admitted to a monitored bed for subsequent management 1. Acute CVA ? Patient presented with discoordination as well as decree sensation involving the left side. Admitted to a monitored bed. Initial imaging studies with CT of the head as well as CTA came back unremarkable. Placed on every 4 neurochecks ordered lipid panel 2D echo PT/OT/ST eval. Also ordered MRI and consult placed to teleneuro ?Stroke alert was called this a.m. patient NIH went from 0-5. Was taking 2 CAT scan repeat head CT was negative. Patient symptoms had resolved by the time he was reassessed by [facility]. Recommendation was made to continue with current management and evaluation. ? 06/26/2025Patient's MRI demonstrated multiple acute infarctions in the right frontal and parietal lobes. No hemorrhage. 2D echo demonstrated EF of 55% with no valvular or ASD/VSD report. Continuous telemetry monitoring did not demonstrate any A-fib. Plan is for patient to be discharged with a 30-day event monitor given the multiple acute infarctions 2. Diabetes mellitus type 2 uncontrolled with hemoglobin A1c of 15. Patient was counseled on the need to be compliant with therapy. Held oral agents placed on Accu-Cheks ACHS with sliding scale coverage 3. Dyslipidemia ? Patient currently not on any statin therapy patient was started on atorvastatin 80 mg nightly on admission 4. Tobacco dependence ? Counseled on cessation, offered nicotine patch for tobacco cravings 5. DVT prophylaxis ? On enoxaparin Time spent in the patient's overall evaluation,decision-making process, review of diagnostic data, adjustment of management, discussion with other providers, nursing nursing and ancillary staff involved in patient's care documentation, 45 minutes Charges/Coding Visit Charges Inpatient E&M: 48729 Subs Hosp L2 NIHSS NIHSS Nursing Documentation NIHSS Nursing Documentation: NIH Stroke Scale Start: 06/24/25 16:40 Freq: Status: Discharge Protocol: Activity Type Activity Date Activity User E-sign Co-sign Detail Recorded Client Recorded Date Recorded By Document 06/24/25 16:40 ET [id number] 06/24/25 16:41 ET 06/24/25 16:40 NIH Stroke Scale [NIHSS] A score of 0 is normal or asymptomatic . Total possible score is 42. Inpatient: RN or Physician to activate a stroke alert for onset of new stroke symptoms or with NIHSS increase >/= 3 points. Following change in neurological status, NIHSS will be performed per physician order or more frequently PRN. -1a. Level of Consciousness 0 - Alert; keenly responsive -1b. LOC Questions 0 - Answers BOTH questions correctly -1c. LOC Commands 0 - Performs BOTH tasks correctly -2. Best Gaze 0 - Normal -3. Visual 0 - No visual loss -4. Facial Palsy 0 - Normal symmetrical movements -5a. Left Arm 0 - No drift; arm holds 90 ( or 45) degrees for full 10 seconds -5b. Right Arm 0 - No drift; arm holds 90 ( or 45) degrees for full 10 seconds -6a. Left Leg 0 - No drift; leg holds 30- degree position for full 5 seconds -6b. Right Leg 0 - No drift; leg holds 30- degree position for full 5 seconds -7. Limb Ataxia 0 - Absent -8. Sensory 1 - Mild-to- moderate sensory loss; -9. Best Language 0 - No aphasia; normal -10. Dysarthria 0 - Normal -11. Extinction and Inattention 0 - No abnormality -Total 1 Query Text:A score of 0 is normal or asymptomatic. Total possible score is 42 . ED: Notify Physician for NIHSS increase by > / = 3 points. Inpatient: RN or Physician to activate a stroke alert for NIHSS increase of > / = 3 points. NIHSS: Ischemic Stroke/TIA Start: 06/24/25 21:03 Text: For PCU Patients: NIH and Neuro Check every 4 Status: Active hours, PRN and with change in RN caregiver. Freq: [id number] Protocol: Activity Type Activity Date Activity User E-sign Co-sign Detail Recorded Client Recorded Date Recorded By Document 06/26/25 06:00 ADR [id number] 06/26/25 06:34 ADR 06/26/25 06:00 -1a. Level of Consciousness 0 - Alert; keenly responsive -1b. LOC Questions 0 - Answers BOTH questions correctly -1c. LOC Commands 0 - Performs BOTH tasks correctly -2. Best Gaze 0 - Normal -3. Visual 0 - No visual loss -4. Facial Palsy 0 - Normal symmetrical movements -5a. Left Arm 0 - No drift; arm holds 90 ( or 45) degrees for full 10 seconds -5b. Right Arm 0 - No drift; arm holds 90 ( or 45) degrees for full 10 seconds -6a. Left Leg 0 - No drift; leg holds 30- degree position for full 5 seconds -6b. Right Leg 0 - No drift; leg holds 30- degree position for full 5 seconds -7. Limb Ataxia 0 - Absent -8. Sensory 0 - Normal; no sensory loss -9. Best Language 0 - No aphasia; normal -10. Dysarthria 0 - Normal -11. Extinction and Inattention 0 - No abnormality -Total 0 Query Text:A score of 0 is normal or asymptomatic. Total possible score is 42 . ED: Notify Physician for NIHSS increase by > / = 3 points. Inpatient: RN or Physician to activate a stroke alert for NIHSS increase of > / = 3 points. Coma Scale [Assess] -Eye Opening Spontaneous -Motor Obeys Commands -Verbal Oriented [Total] -Coma Scale Total 15
--- NOTE | 2025-06-26 09:55 | CON.PCM.NE_ITS ---
Assessment and Plan: Stroke Assessment/Plan OLEG GRIGGS is a 54 M with a history of of CKD, tobacco use, DM2 who presents for evaluation of for stroke, L sided clumsiness, with RMCA distal stroke. Etiology - cryptogenic ?The following tests for stroke work-up have been/should be obtained:? ? Neuroimaging: MRI brain with watershed or distal MCA strokes ? Vascular imaging: R-ICA cavernous portion stenosis but <50% ? Cardiac testing: EF 55% ? Cardiac monitoring: telemetry while in hospital 30 day cardiac monitoring ? Labs: HgbA1c 15.1, LDL 178 ?SBP goal < 120/80 ?Anti-platelet medication: Plavix 300 + ASA 81mg today, Plavix 75mg +ASA 81mg for 21 days, then ASA 81mg thereafter. ?Statin therapy: atorvastatin 40mg ?Occupational/Physical therapy consults ?NPO until swallow evaluation.? IVF until able to take po ?DVT prophylaxis with SCDs and heparin SQ. ?Vascular risk factor modification.? The following are the recommended guidelines: LDL Goal < 70 Smoking Cessation Diabetes management terminal supervisor Blood pressure control should achieve <130/80 mmHg.? BP management should aim to achieve senior living control in a reasonable amount of time, taking into consideration the individual patient's requirements and characteristics. Weight Management: Goal for BMI is 18.5-24.9 kg/m2. Alcohol: No more than 2 drinks/day for men or 1 drink/day for non- women. Promote lifestyle modification: weight control, physical activity, moderation of alcohol intake, moderate sodium intake. I personally attended this patient and spent a total time of 45 min evaluating this patient including clinical assessment, review of chart, medical history, and imaging, and determining appropriate treatment and workup. HPI Consult Data Date of Consult: 06/26/25 HPI Narrative HPI Narrative: Patient is a 54-year-old gentleman with past medical history signal for diabetes mellitus type 2 dyslipidemia hypertension who presented to the emergency department with decree sensation involving the left upper extremity as well as imbalance. Suspicion of acute CVA made admitted to a monitored bed for subsequent management Stroke alert was called this a.m. patient NIH went from 0-5. Was taking 2 CAT scan repeat head CT was negative. Patient symptoms had resolved by the time he was reassessed by [facility]. Recommendation was made to continue with current management and evaluation. he patient is a 54 y/o M w/ PMHx: CKD stage II per prior GFR trending, Diabetes mellitus type II, Hx renal HTN, HLD, Tobacco use who presents to [facility] ED on 06/24/2025 with history of difficulty with balance noted to be running into things specifically on his left side per spouse report coming on suddenly approximately 2 to 3 days prior to presentation noted to be continuous with difficulty with coordination specifically on the left side unable to even dress himself also reporting he does have some difficulty with coordination of the right upper extremity as well with no paresthesias or other focal weakness prompting eventual ED evaluation be cautious. NIH stroke assessment per ED physician with 2 for visual 1 with partial hemianopia and limb ataxia 1 present in 1 limb workup in the ED included T97, heart 75, BP 137/84, respiratory rate 16, 100% room air with most recent repeat vitals heart rate 71, BP 131/88, respiratory routine, 98% room air, CBC with WC 9.3, Hgb 14.6, MCV 85.7, platelets 396 without marked shift, unremarkable coags, BMP with BUN/creatinine 17/1.29, GFR 65, glucose 228, troponin initial 9 with repeat delta 10, POC glucose 245, CT brain with no acute intracranial findings, CTA head and neck with no hemodynamically significant stenosis or aneurysm, EKG with sinus rhythm with no acute evidence of ischemia. In the ED upon evaluation by hospitalist service prior to admission patient fortunately had significant improvement of his vision but does still have some dysmetria on exam. He does report feeling as though his vision has returned to normal and he can see in all quadrants of each eye and does not have any nystagmus. 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 Neurologic History Endorses the back of the L hand and kneecap. First started Saturday and got floppy on the L side, started running into the door frames. Would come and good occasionally. Put his clothes on backward and put shoes on wrong feet. Currently feels a lot better, 98% back to normal - the numbness is still atypical. Never had a stroke beofre, never had anything like this happen before. No chest palpitations, chest pressure. BP at home is not being measured. Blood sugar has been high at home, but it has been riding high. Pt is a smoker - 1.5-2 ppd. Neurologic Exam -? General: Laying comfortably in bed; in no acute distress. -? HENT: Normal oropharynx and mucosa. Normal external appearance of ears and nose. Exophthalmos. -? Neck: Supple, no pain or tenderness -? CV:? No peripheral edema. -? Pulmonary:? Normal respiratory effort. -? Ext: No cyanosis, edema, or deformity -? Skin: No rash. Normal palpation of skin.? -? Musculoskeletal: full range of motion; no joint tenderness. Normal digits and nails by inspection. No clubbing. -? NEURO: -? Mental Status: The patient was alert and oriented to time, place, and person. Normal recent/remote memory, concentration, and general fund of knowledge. -? Language: speech is clear.? Naming, repetition, fluency, and comprehension intact. -? Cranial Nerves: [id number]/brisk. EOMI, visual vazquez full, no facial asymmetry, facial sensation intact, hearing intact, tongue midline, no evidence of atrophy or fibrillations. -? Motor: normal bulk, tone, and strength throughout. No pronator drift or satelliting. Upper and lower extremities equal bilaterally. -? Tone: is normal and bulk is normal -? Sensation- diminished in the LUE, proprioception abnormal on the LUE -? Coordination: No dysmetria on offyvg-glnn-ryiduj, finger follow finger or mjpw-eouc-wsvy. -? Gait- deferred [facility] Medical History HLD (hyperlipidemia) CKD (chronic kidney disease), stage II Tobacco use History of renal hypertension Type 2 diabetes mellitus Home Medications ?Medication ?Instructions ?Recorded ?Last Taken ?Type insulin NPH-regular 70-30 U-100 10 unit subcut BID indra shelles 06/24/25 Unknown History insulin 100 unit/mL subcutaneous pen (Humulin 70/30 U-100 KwaidenPen) Allergy/AdvReac Type Severity Reaction Status Date / Time amoxicillin Allergy Swelling Verified 06/24/25 16:36 Family History (Updated 06/24/25 @ 21:[address] Ingrid Wu MD) Mother Diabetes Father Alcohol abuse Surgical History S/P vasectomy Social History (Updated 06/24/25 @ 21:[address] Ingrid Wu MD) household members: spouse Smoking Status: Current every day smoker tobacco type: cigarettes Smoking packs per day: 2 Smoking cigarettes per day: 40.0 alcohol intake: never substance use type: does not use Vital Signs Vital Signs Vital Signs: 06/25/25 11:20 06/25/25 12:15 06/25/25 16:00 Temperature 97.8 F 97.9 F Temperature Source Oral Oral Pulse Rate 57 L 60 Pulse Strength Respiratory Rate 16 16 Respiratory Effort Respiratory Depth Respiratory Pattern Blood Pressure 123/80 H 133/76 H Blood Pressure Mean 94 95 Blood Pressure Source Monitor Monitor Blood Pressure Position Sitting Semi-Fowlers Blood Pressure Location Pulse Ox 99 99 98 Oxygen Delivery Method Room Air Room Air Room Air 06/25/25 17:05 06/25/25 22:00 06/25/25 22:00 Temperature Temperature Source Pulse Rate Pulse Strength Normal (2+) Respiratory Rate Respiratory Effort Normal Non-Labored Respiratory Depth Normal Respiratory Pattern Normal Blood Pressure Blood Pressure Mean Blood Pressure Source Blood Pressure Position Blood Pressure Location Pulse Ox Oxygen Delivery Method Room Air Room Air 06/25/25 22:30 06/26/25 02:00 06/26/25 06:00 Temperature 97.2 F L 97 F L 97.1 F L Temperature Source Temporal Temporal Temporal Pulse Rate 99 60 61 Pulse Strength Respiratory Rate 18 16 18 Respiratory Effort Respiratory Depth Respiratory Pattern Blood Pressure 116/76 110/66 109/66 Blood Pressure Mean 89 80 80 Blood Pressure Source Monitor Monitor Monitor Blood Pressure Position Semi-Fowlers Semi-Fowlers Semi-Fowlers Blood Pressure Location Left Arm Left Arm Left Arm Pulse Ox 96 96 97 Oxygen Delivery Method Room Air Room Air Room Air 06/26/25 07:57 Temperature Temperature Source Pulse Rate Pulse Strength Respiratory Rate Respiratory Effort Respiratory Depth Respiratory Pattern Blood Pressure Blood Pressure Mean Blood Pressure Source Blood Pressure Position Blood Pressure Location Pulse Ox Oxygen Delivery Method Room Air Weight Weight: 85.6 kg Body Mass Index (BMI) 25.6 EEG Results Procedure Details EEG Procedure Details: OLEG GRIGGS is a 54 year old M with a past medical history of , who presents for evaluation of Electroencephalogram on DATE at TIME Lab / Micro Data 06/25/25 05:38 06/25/25 05:38 Labs: Laboratory Results - last 24 hr 06/25/25 07:56: POC Glucose 247 H 06/25/25 12:55: POC Glucose 393 H 06/25/25 16:55: Urine Opiates Screen NEGATIVE, U Buprenorphine Qual NEGATIVE, Ur Oxycodone Screen NEGATIVE, Urine Methadone Screen NEGATIVE, Urine Fentanyl Screen NEGATIVE, Ur Barbiturates Screen NEGATIVE, Ur Phencyclidine Scrn NEGATIVE, Ur Amphetamines Screen NEGATIVE, U Benzodiazepines Scrn NEGATIVE, Urine Cocaine Screen NEGATIVE, U Cannabinoids Screen PRESUMPTIVE POSITIVE 06/25/25 16:58: POC Glucose 200 H 06/25/25 22:46: POC Glucose 389 H 06/26/25 06:16: POC Glucose 280 H Imaging Radiology Impression Brain MRI 06/24/25 09:15 IMPRESSION: Multiple acute infarctions in the right frontal and parietal lobes. No hemorrhage. Reading Location: [facility] Echocardiogram 06/24/25 21:03 Interpretation Summary The estimated ejection fraction is 55 %. No evidence for diastolic dysfunction. Ordering Physician: Ingrid Wu Referring Physician: Harshil Giordano Performed By: Mary Jacobson, LACHO, RVT Active Medications Active Medications Active Medications: Current Medications Generic Name Dose Route Start Last Admin Trade Name Freq PRN Reason Stop Dose Admin Acetaminophen 650 mg 06/24/25 21:03 Acetaminophen 325 Mg Tablet PO Q4H PRN PRN Fever, pain 1-07/02 Al Hydroxide/Mg Hydroxide 30 ml 06/24/25 21:03 Mag Hydrox/Al Hydrox/Simeth 30 Ml Udc PO Q6H PRN PRN Gastric Burning Albuterol Sulfate 2.5 mg 06/24/25 21:03 Albuterol 2.5 Mg/3 Ml Vial.Neb. INHALATION Q2H PRN PRN Dyspnea, wheezing Aspirin 81 mg 06/25/25 08:00 06/26/25 09:02 Aspirin 81 Mg Tab.Chew PO 81 mg BREAKFAST AIME Administration Atorvastatin Calcium 20 mg 06/24/25 22:00 06/25/25 22:47 Atorvastatin Calcium 20 Mg Tablet PO 20 mg QHS AIME Administration Enoxaparin Sodium 40 mg 06/25/25 10:00 06/25/25 08:42 Enoxaparin 40 Mg/0.4 Ml Syringe SC 40 mg DAILY AIME Administration Glucagon 1 mg 06/24/25 21:03 Glucagon 1 Mg/Ml Syringe IM X1 PRN HYPOGLYCEMIA Protocol Guaifenesin 20 ml 06/24/25 21:03 Guaifenesin 10 Ml Udc (200mg/10ml) PO Q4H PRN PRN COUGH Dextrose 250 mls @ 0 mls/hr 06/24/25 21:03 Dextrose 10%-Water IV .Q0M PRN HYPOGLYCEMIA Protocol As Directed Insulin Human Lispro 0 unit 06/24/25 22:00 06/26/25 06:20 Insulin Lispro 100 Unit/Ml Insuln.Pen SC 4 units ACHS AMIE Administration Protocol Melatonin 3 mg 06/24/25 21:03 Melatonin 3 Mg Tablet PO QHS PRN PRN INSOMNIA Nicotine 21 mg 06/25/25 10:00 06/25/25 08:46 Nicotine (Pbkc) 21 Mg Patch TD 21 mg DAILY AIME Administration Ondansetron HCl 4 mg 06/24/25 21:03 Ondansetron 4 Mg/2 Ml Vial IV Q8H PRN PRN NAUSEA/VOMITING Senna/Docusate Sodium 2 tablet 06/24/25 21:03 Senna/Docusate Sodium 1 Tablet PO BID PRN PRN Constipation NIHSS NIHSS Nursing Documentation NIHSS Nursing Documentation: NIH Stroke Scale Start: 06/24/25 16:40 Freq: Status: Discharge Protocol: Activity Type Activity Date Activity User E-sign Co-sign Detail Recorded Client Recorded Date Recorded By Document 06/24/25 16:40 ET [id number] 06/24/25 16:41 ET 06/24/25 16:40 NIH Stroke Scale [NIHSS] A score of 0 is normal or asymptomatic . Total possible score is 42. Inpatient: RN or Physician to activate a stroke alert for onset of new stroke symptoms or with NIHSS increase >/= 3 points. Following change in neurological status, NIHSS will be performed per physician order or more frequently PRN. -1a. Level of Consciousness 0 - Alert; keenly responsive -1b. LOC Questions 0 - Answers BOTH questions correctly -1c. LOC Commands 0 - Performs BOTH tasks correctly -2. Best Gaze 0 - Normal -3. Visual 0 - No visual loss -4. Facial Palsy 0 - Normal symmetrical movements -5a. Left Arm 0 - No drift; arm holds 90 ( or 45) degrees for full 10 seconds -5b. Right Arm 0 - No drift; arm holds 90 ( or 45) degrees for full 10 seconds -6a. Left Leg 0 - No drift; leg holds 30- degree position for full 5 seconds -6b. Right Leg 0 - No drift; leg holds 30- degree position for full 5 seconds -7. Limb Ataxia 0 - Absent -8. Sensory 1 - Mild-to- moderate sensory loss; -9. Best Language 0 - No aphasia; normal -10. Dysarthria 0 - Normal -11. Extinction and Inattention 0 - No abnormality -Total 1 Query Text:A score of 0 is normal or asymptomatic. Total possible score is 42 . ED: Notify Physician for NIHSS increase by > / = 3 points. Inpatient: RN or Physician to activate a stroke alert for NIHSS increase of > / = 3 points. NIHSS: Ischemic Stroke/TIA Start: 06/24/25 21:03 Text: For PCU Patients: NIH and Neuro Check every 4 Status: Active hours, PRN and with change in RN caregiver. Freq: [id number] Protocol: Activity Type Activity Date Activity User E-sign Co-sign Detail Recorded Client Recorded Date Recorded By Document 06/26/25 06:00 ADR [id number] 06/26/25 06:34 ADR 06/26/25 06:00 -1a. Level of Consciousness 0 - Alert; keenly responsive -1b. LOC Questions 0 - Answers BOTH questions correctly -1c. LOC Commands 0 - Performs BOTH tasks correctly -2. Best Gaze 0 - Normal -3. Visual 0 - No visual loss -4. Facial Palsy 0 - Normal symmetrical movements -5a. Left Arm 0 - No drift; arm holds 90 ( or 45) degrees for full 10 seconds -5b. Right Arm 0 - No drift; arm holds 90 ( or 45) degrees for full 10 seconds -6a. Left Leg 0 - No drift; leg holds 30- degree position for full 5 seconds -6b. Right Leg 0 - No drift; leg holds 30- degree position for full 5 seconds -7. Limb Ataxia 0 - Absent -8. Sensory 0 - Normal; no sensory loss -9. Best Language 0 - No aphasia; normal -10. Dysarthria 0 - Normal -11. Extinction and Inattention 0 - No abnormality -Total 0 Query Text:A score of 0 is normal or asymptomatic. Total possible score is 42 . ED: Notify Physician for NIHSS increase by > / = 3 points. Inpatient: RN or Physician to activate a stroke alert for NIHSS increase of > / = 3 points. Coma Scale [Assess] -Eye Opening Spontaneous -Motor Obeys Commands -Verbal Oriented [Total] -Coma Scale Total 15 NIHSS 1a. Level of Consciousness: 0 - Alert; keenly responsive 1b. LOC Questions: 0 - Answers BOTH questions correctly 1c. LOC Commands: 0 - Performs BOTH tasks correctly 2. Best Gaze: 0 - Normal 3. Visual: 0 - No visual loss 4. Facial Palsy: 0 - Normal symmetrical movements 5a. Left Arm: 0 - No drift; arm holds 90 (or 45) degrees for full 10 seconds 5b. Right Arm: 0 - No drift; arm holds 90 (or 45) degrees for full 10 seconds 6a. Left Le - No drift; leg holds 30-degree position for full 5 seconds 6b. Right Le - No drift; leg holds 30-degree position for full 5 seconds 7. Limb Ataxia: 0 - Absent 8. Sensory: 1 - Fprp-cb-iecqlycf sensory loss; 9. Best Language: 0 - No aphasia; normal 10. Dysarthria: 0 - Normal 11. Extinction and Inattention: 0 - No abnormality Total: 1
[2025-06-26 10:00] VITALS: BP 123/71; PULSE 66; RESP 16; TEMP 36.5; O2SAT 98
[2025-06-26] MEDS: Nicotine (PBKC) 21 MG Patch TD (10:21)
--- NOTE | 2025-06-26 12:07 | DS.PCM_ITS ---
Providers Date of Admission: 06/24/25 Date of Discharge: 06/26/25 Primary Care Physician: SHANNEN Carranza, UNDERGROUND MINE SUPERINTENDENT-C Consultations 06/24/25 21:03 Consult: Tele-Neurology Routine Consulting Provider: [facility] Reason for Consult: Acute Ischemic Stroke/TIA EMERGENT Consult: No MD Notified: Yes Date Notified: 06/25/25 Time Notified: 00:40 Method of Notification: Answering Service Nursing Unit Staff Notify [facility] of Tele-Neurology Consult: Yes Reason For Visit: CVA Diagnosis Discharge Diagnosis (1) CVA (cerebral vascular accident): Status: Acute Code(s): I63.9 - Cerebral infarction, unspecified Plan Patient is a 54-year-old gentleman with past medical history signal for diabetes mellitus type 2 dyslipidemia hypertension who presented to the emergency department with decree sensation involving the left upper extremity as well as imbalance. Suspicion of acute CVA made admitted to a monitored bed for subsequent management 1. Acute CVA ? Patient presented with discoordination as well as decree sensation involving the left side. Admitted to a monitored bed. Initial imaging studies with CT of the head as well as CTA came back unremarkable. Placed on every 4 neurochecks ordered lipid panel 2D echo PT/OT/ST eval. Also ordered MRI and consult placed to teleneuro ?Stroke alert was called this a.m. patient NIH went from 0-5. Was taking [address] head [address] was negative. Patient symptoms had resolved by the time he was reassessed by [facility]. Recommendation was made to continue with current management and evaluation. ? 06/26/2025Patient's MRI demonstrated multiple acute infarctions in the right frontal and parietal lobes. No hemorrhage. 2D echo demonstrated EF of 55% with no valvular or ASD/VSD report. Continuous telemetry monitoring did not demonstrate any A-fib. Plan is for patient to be discharged with a 30-day event monitor given the multiple acute infarctions. Patient was discharged on aspirin 81 mg daily, clopidogrel 75 mg daily x 21 days as well as rosuvastatin 20 mg daily 2. Diabetes mellitus type 2 uncontrolled with hemoglobin A1c of 15. Patient was counseled on the need to be compliant with therapy. Held oral agents placed on [facility] ACHS with sliding scale coverage 3. Dyslipidemia ? Patient currently not on any statin therapy patient was started on atorvastatin 80 mg nightly on admission 4. Tobacco dependence ? Counseled on cessation, offered nicotine patch for tobacco cravings 5. DVT prophylaxis ? On enoxaparin Time spent in the patient's overall evaluation,decision-making process, review of diagnostic data, adjustment of management, discussion with other providers, nursing nursing and ancillary staff involved in patient's care documentation, 45 minutes Medications at Discharge Home Medications insulin NPH-regular 70-30 U-100 insulin 100 unit/mL subcutaneous pen (Humulin 70/30 U-100 KwikPen) 10 unit subcut BID diabetes 06/24/25 aspirin 81 mg chewable tablet 81 mg PO BREAKFAST 90 days #90 tabs 06/26/25 clopidogrel 75 mg tablet 75 mg PO DAILY #21 tabs 06/26/25 rosuvastatin 20 mg tablet (Crestor) 20 mg PO DAILY #90 tabs 06/26/25 Physical Exam Narrative GENERAL: cooperative HEENT: Atraumatic; normocephalic EYES; Anicteric, Normal Conjunctiva NECK; supple, normal thyroid, RESPIRATORY: Diminished to auscultation CARDIOVASCULAR: Regular S1 S2, GI: soft, normoactive bowel sounds, : No Renal angle tenderness; EXTREMITIES: No edema, no clubbing, MUSCULOSKELETAL: no muscle wasting NEURO: Awake; no lateralizing signs. SKIN: No Rash PSYCH; Flat affect Weight / BMI Weight Weight: 85.6 kg Body Mass Index (BMI) 25.6 ABG / Lab / Microbiology Data 06/25/25 05:38 06/25/25 05:38 Laboratory: Laboratory Results - last 24 hr 06/25/25 12:55: POC Glucose 393 H 06/25/25 16:55: Urine Opiates Screen NEGATIVE, U Buprenorphine Qual NEGATIVE, Ur Oxycodone Screen NEGATIVE, Urine Methadone Screen NEGATIVE, Urine Fentanyl Screen NEGATIVE, Ur Barbiturates Screen NEGATIVE, Ur Phencyclidine Scrn NEGATIVE, Ur Amphetamines Screen NEGATIVE, U Benzodiazepines Scrn NEGATIVE, Urine Cocaine Screen NEGATIVE, U Cannabinoids Screen PRESUMPTIVE POSITIVE 06/25/25 16:58: POC Glucose 200 H 06/25/25 22:46: POC Glucose 389 H 06/26/25 06:16: POC Glucose 280 H Radiography Diagnostic Testing: Radiology Impression Brain MRI 06/24/25 09:15 IMPRESSION: Multiple acute infarctions in the right frontal and parietal lobes. No hemorrhage. Reading Location: [id number] Echocardiogram 06/24/25 21:03 Interpretation Summary The estimated ejection fraction is 55 %. No evidence for diastolic dysfunction. Ordering Physician: Ingrid Wu Referring Physician: Harshil Giordano Performed By: Mary Jacobson, LACHO, RVT D/C Instructions Discharge Activity: Return to Normal Activity Call your doctor if you observe: Fever of 101 or Higher, Shortness of breath, Fainting spells and Chest pain DC O2, CPAP, BIPAP Needs Home O2 Discharge instructions: No Meaningful Use Info Meaningful Use Meaningful Use Diagnoses (Choose all that apply): Ischemic CVA CVA Therapy Assessed for PT,OT and/or ST?: Yes Ischemic Stroke Antithrombotic order at d/c?: Yes Dx of Atrial fib/flutter?: No Statins at discharge?: Yes If patient is 75 or younger, pt will be discharged on HIGH intensity statin.: Y es Primary Dx Acute Ischemic CVA?: Yes IV thrombolytic ordered during stay?: No Reason IV thrombolytic not ordered: Treatment not Indicated Discharge Plan Admission Admit Date/Time: 06/24/25 19:55 Attending Provider: Devin Mcintyre Primary Care Provider: Harshil Giordano [facility] Consulting Providers: Rick Nails; Ana Rosa Mattson; Camelia Chang; Evelyn Gotti; Jessica Singer; Pablo Mcgill; Ofelia Ramon; Ant Mcintyre; Colten Delgado; Jarett Callejas; Laly Mckenzie; Shira Hope; Sonu Emanuel; Deepti Hill; Catalina Dior; Anabelle De La Rosa; Yousuf Shaw; Ottoniel De; Michael Rodriguez; Shaista Hand; Lynda Hinkle; Ingrid Wu Discharge Orders/Prescriptions Prescriptions: New aspirin 81 mg Tablet,Chewable 81 mg PO BREAKFAST 90 Days Qty: 90 0RF clopidogrel 75 mg tablet 75 mg PO DAILY Qty: 21 0RF rosuvastatin [Crestor] 20 mg tablet 20 mg PO DAILY Qty: 90 0RF Continued Humulin 70/30 U-100 KwikPen 100 unit/mL (70-30) insulin pen 10 unit subcut BID Other Ambulatory Orders: 30 Day Event Recorder Preventi (Urgent) Timeframe: 1 Day Facility: [facility] - Location: Cardiovascular Services Ordered By: Dr. Devin Mcintyre Referrals / Follow Up: Loki Anglin MD [Non-Staff -Ordering Privileges, Neurology] - Within 1 Month Harshil Giordano, UNDERGROUND MINE SUPERINTENDENT-C [Primary Care Provider, Family Practice] - Within 1 Week Disposition Disposition (needs filled in before D/C Order can be placed): Home, Self Care Charges/Coding Visit Charges Inpatient E&M: 16089 Disch Hosp >30min
[2025-06-26 12:12] VITALS: BP 123/71; PULSE 66; RESP 16; TEMP 36.5; O2SAT 98
== END 2025-06-26 12:56 | disposition home or self-care (01) | DRG 66 ==
LOC: ED 19:50 → PCU 20:43
PROVIDERS: Admitting Provider Family Medicine; Emergency Provider Emergency Medicine; Visit Provider Internal Medicine
DX: I63.511 Cerebral infarction due to unspecified occlusion or stenosis of right middle cerebral artery (principal); H53.462 Homonymous bilateral field defects, left side; E11.65 Type 2 diabetes mellitus with hyperglycemia; I12.9 Hypertensive chronic kidney disease with stage 1 through stage 4 chronic kidney disease, or unspecified chronic kidney disease; E11.22 Type 2 diabetes mellitus with diabetic chronic kidney disease; N18.2 Chronic kidney disease, stage 2 (mild); Z79.4 Long term (current) use of insulin; E78.00 Pure hypercholesterolemia, unspecified; F17.210 Nicotine dependence, cigarettes, uncomplicated; R29.702 NIHSS score 2; R29.705 NIHSS score 5; Z79.82 Long term (current) use of aspirin; Z79.02 Long term (current) use of antithrombotics/antiplatelets; Z79.899 Other long term (current) drug therapy; R27.8 Other lack of coordination; R26.89 Other abnormalities of gait and mobility
CPT/HCPCS: 36415; 70450; 70496; 70498; 70551; 80048; 80053; 80061; 80307; 82962; 83036; 83735; 84443; 84484; 85025; 85610; 85730; 92611; 93005; 93306; 94762; 97162; 97166; 97802; 99285; Q9967; A4216

== ENCOUNTER → 2025-07-15 | Outpatient (CLI) | payer SELFPAY ==
[2025-07-15 19:04] LABS: Anion Gap 14 (5-15); BUN 15 mg/dL (4-19); BUN/Creat Ratio 15.1 RATIO (10-20); Calcium,Total 9.2 mg/dL (7.6-11.0); Carbon Dioxide 22.8 mmol/L (21.0-32.0); Chloride 101 mmol/L (98-108); Glucose 283 mg/dL (70-99); Potassium 4.2 mmol/L (3.3-5.1)
== END | disposition home or self-care (01) ==
LOC: VSLAB 12:11
DX: I10 Essential (primary) hypertension (principal)
CPT/HCPCS: 36415; 80048